=== PATIENT | female | born 1930 | race Caucasian/White ===

== ENCOUNTER → 2018-01-02 | Outpatient (CLI) | payer OTHER ==
[~2018-01-02] MED LIST: ALPR0.25 PO; AMT10 PO; ANTICRE6 PO; ARTISOL8 OP; CMD5 PO; CORTISONE CREAM TOP; PRLSR20 PO; SIMV20TA2 PO; TYLOTC500 PO; WARF5TAB7 PO; ZNT/150 PO
[2018-01-02 12:59] LABS: INR 1.9 (0.9-1.1)
== END | disposition home or self-care (01) ==
LOC: C.LABOAKS 16:38
PROVIDERS: ATTEND Student in an Organized Health Care Education/Training Program
DX: Z86.711 Personal history of pulmonary embolism (principal); Z51.81 Encounter for therapeutic drug level monitoring; Z79.01 Long term (current) use of anticoagulants

== ENCOUNTER → 2018-01-30 | Outpatient (CLI) | payer OTHER ==
[2018-01-30 12:56] LABS: INR 2.2 (0.9-1.1)
== END | disposition home or self-care (01) ==
LOC: C.LABOAKS 12:45
PROVIDERS: ATTEND Student in an Organized Health Care Education/Training Program
DX: Z86.711 Personal history of pulmonary embolism (principal); Z51.81 Encounter for therapeutic drug level monitoring; Z79.01 Long term (current) use of anticoagulants

== ENCOUNTER → 2018-02-27 | Outpatient (CLI) | payer OTHER ==
[2018-02-27 13:23] LABS: INR 3.1 (0.9-1.1)
== END | disposition home or self-care (01) ==
LOC: C.LABOAKS 18:01
PROVIDERS: ATTEND Pharmacist Pharmacotherapy

== ENCOUNTER → 2018-03-27 | Outpatient (CLI) | payer OTHER ==
[2018-03-27 13:17] LABS: INR 2.8 (0.9-1.1)
== END | disposition home or self-care (01) ==
LOC: C.LABOAKS 10:15
PROVIDERS: ATTEND Pharmacist Pharmacotherapy
DX: Z86.711 Personal history of pulmonary embolism (principal); Z79.01 Long term (current) use of anticoagulants; Z51.81 Encounter for therapeutic drug level monitoring

== ENCOUNTER → 2018-06-12 | Outpatient (CLI) | payer OTHER ==
[2018-06-12 13:24] LABS: INR 3.2 (0.9-1.1)
== END | disposition home or self-care (01) ==
LOC: C.LABOAKS 16:26
PROVIDERS: ATTEND Pharmacist Pharmacotherapy
DX: Z51.81 Encounter for therapeutic drug level monitoring (principal); Z79.01 Long term (current) use of anticoagulants

== ENCOUNTER → 2018-07-10 | Outpatient (CLI) | payer OTHER ==
[2018-07-10 13:05] LABS: INR 3.2 (0.9-1.1)
== END | disposition home or self-care (01) ==
LOC: C.LABOAKS 16:19
PROVIDERS: ATTEND Pharmacist Pharmacist Clinician (PhC)/ Clinical Pharmacy Specialist
DX: Z79.01 Long term (current) use of anticoagulants (principal); Z51.81 Encounter for therapeutic drug level monitoring

== ENCOUNTER 2019-10-28 11:12 | Inpatient (IN) ==
[2019-10-28] MEDS ORDERED: cefTRIAXone SODIUM 2,000 MG/70 ML BAG IV STA (12:06)
[2019-10-28] MEDS ORDERED: SULFAMETHOXAZOLE/TRIMETHOPRIM DS 800/160MG TAB PO ONE (12:06)
[2019-10-28] MEDS ORDERED: KETOROLAC 30 MG/ML VIAL IV STA (12:07)
[2019-10-28] MEDS ORDERED: SODIUM CHLORIDE 0.9% 1000ML 1,000 ML IV ONE (12:07)
[2019-10-28] MEDS ORDERED: ONDANSETRON INJ 2 MG/ML 2 ML VIAL IV STA (12:07)
[2019-10-28] MEDS ORDERED: HYDROmorphone INJ 1 MG/ML SYRINGE IV PRN (12:07)
[2019-10-28 12:18] LABS: Basophils # (auto) 0.03 K/uL (0-0.2); Basophils % (auto) 0.3 %; Eosinophils # (auto) 0.04 K/uL (0-0.5); Eosinophils % (auto) 0.4 %; Hematocrit (blood only) 38.9 % (37-47); Hemoglobin 13.2 g/dL (12.0-16.0); Immature Granulocytes # (auto) 0.03 K/uL (0.00-0.02); Immature Granulocytes % (auto) 0.3 %; Lymphocytes # (auto) 1.39 K/uL (1.2-3.4); Lymphocytes % (auto) 15.6 %; Mean Corpuscular Hemoglobin 32.7 pg (25-34); Mean Corpuscular Hgb Conc 33.9 g/dL (32-36); Mean Corpuscular Volume 96.3 fL (80-100); Mean Platelet Volume 11.5 fL (7.4-10.4); Monocytes # (auto) 0.93 K/uL (0.11-0.59); Monocytes % (auto) 10.4 %; Neutrophils # (auto) 6.51 K/uL (1.4-6.5); Platelet Count 111 K/uL (130-400); RDW Coefficient of Variation 13.7 % (11.5-14.5); RDW Standard Deviation 48.4 fL (36.4-46.3); Red Blood Count 4.04 M/uL (4.2-5.4); White Blood Count 8.93 K/uL (4.8-10.8)
[2019-10-28 12:22] LABS: INR 1.9 (0.9-1.1); Prothrombin Time 18.5 Seconds (9.0-12.0)
[2019-10-28 12:24] LABS: Albumin Level 3.7 gm/dl (3.4-5.0); Creatinine Clr Calc Pharmacy 58.2 ml/min; Est GFR (African American) 87.3; Est GFR (Non-African American) 75.3; Potassium 3.5 mmol/L (3.5-5.1)
[2019-10-28 12:26] LABS: Albumin Globulin Ratio 1.1 (0.9-2); Bilirubin,Total 0.9 mg/dl (0.2-1); Globulin 3.4 gm/dl (2.5-4.0); Total Protein 7.1 gm/dl (6.4-8.2)
--- NOTE | 2019-10-28 13:13 | Ultrasound Report ---
US venous doppler LE RT CLINICAL HISTORY: 89 years-old Female presenting with Pt c/o RLQ swelling. TECHNIQUE: Real-time grayscale and color and spectral Doppler ultrasound imaging of the veins of the right lower extremity was performed. Compression and augmentation were also utilized. COMPARISON: 05/27/2011. FINDINGS: RIGHT: Common femoral vein: Linear echogenic filling defects within the vein are evident without focal throm bus. Greater saphenous vein (superficial): Linear echogenic filling defects within the vein without focal thrombus. Deep femoral vein: Patent. Femoral vein: The distal femoral vein demonstrates incomplete compressibility though preserved blood flow on color and spectral Doppler interrogation likely indicating chronic scarring. Popliteal vein: Patent. Calf veins: Patent. Other: Subcutaneous edema noted in the lower leg. IMPRESSION: 1. 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 2. No evidence of acute deep venous thrombosis. 3. Chronic sequela of prior thrombus also suggested in the distal right femoral vein. Electronically signed by: Timmy Granados M.D. 10/28/2019 1:12 PM
[2019-10-28] MEDS ORDERED: DALBAVANCIN IV ONE (13:30)
[2019-10-28] MEDS ORDERED: DEXTROSE 5% IV ONE (13:30)
--- NOTE | 2019-10-28 13:46 | Emergency Department Note ---
Entered by Tomasa Mayorga acting as a scribe for History of Present Illness General Chief complaint: Leg Injury/Pain Time Seen by Provider: 10/28/19 12:02 Source: patient History of Present Illness Provider complaint: Leg Injury/Pain Onset (ago): week(s) 2 Location: lower extremity Maximum Pain Intensity: 9 Relieved By: + none Exacerbated By: + movement Associated symptoms: + rash The patient is a 89 year old female who presents to the Emergency Room with complaints of leg injury/pain that began 2 weeks ago. The patient states the pain is exacerbated by movement and is not relieved by anything specific. The patient reports that she is unable to walk due to the pain and has noticed a rash on her legs. The patient notes that she does not see anyone for her leg pain and takes Coumadin for blood clots. Additionally, the patient notes that she lives at the [facility] alone. Home Medications Home Medications Medication Instructions Recorded Confirmed Type acetaminophen [Tylenol Extra 500 mg PO Q6H PRN 10/28/19 10/28/19 History Strength] amitriptyline 5 mg PO HS 10/28/19 10/28/19 History cholecalciferol (vitamin D3) 1,000 unit PO DAILY 10/28/19 10/28/19 History [Vitamin D3] cod liver oil 1 cap PO HS 10/28/19 10/28/19 History colchicine [Colcrys] 0.6 mg PO DAILY 10/28/19 10/28/19 History diclofenac sodium [Voltaren] 2 g TOPICAL BID 10/28/19 10/28/19 History famotidine [Pepcid] 20 mg PO DAILY 10/28/19 10/28/19 History lorazepam [Ativan] 0.5 mg PO Q6 PRN 10/28/19 10/28/19 History methenamine hippurate [Hiprex] 1 g PO BID 10/28/19 10/28/19 History tetrahydrozoline [Visine] 1 drp OPHTHALMIC (EYE) UD PRN 10/28/19 10/28/19 History triamcinolone acetonide 1 applic TOPICAL BID 10/28/19 10/28/19 History warfarin [Coumadin] 2.5 mg PO .TUTHSA 10/28/19 10/28/19 History warfarin [Coumadin] 5 mg PO .SUMOWEFR 10/28/19 10/28/19 History Allergies Allergy/AdvReac Type Severity Reaction Status Date / Time levofloxacin Allergy Severe ITCHING/HIV Verified 08/27/14 10:45 ES adhesive Allergy Unknown REDNESS, Verified 08/27/14 10:58 RASH indomethacin Allergy Unknown . Verified 08/27/14 10:45 meperidine Allergy Unknown UNKNOWN Verified 08/27/14 10:45 nitrofurantoin Allergy Unknown Verified 08/27/14 10:45 Sulfa (Sulfonamide Allergy Unknown Verified 08/27/14 10:45 Antibiotics) morphine AdvReac Intermediate SEVERE Verified 08/27/14 10:45 VOMITING oxycodone AdvReac Intermediate VOMITING Verified 08/27/14 10:45 tramadol AdvReac Intermediate N/V Verified 08/27/14 10:45 Past Med/Surg History Medical History (Updated 10/28/19 @ 17:33 by Tali Noel PA-C) Ambulatory dysfunction Chronic a-fib Depression Diabetes mellitus, type II Dyslipidemia GERD (gastroesophageal reflux disease) Gout H/O recurrent urinary tract infection Heart disease History of breast cancer History of DVT (deep vein thrombosis) History of pulmonary embolism History of stroke Stroke Surgical History (Updated 10/28/19 @ 17:00 by Tali Noel PA-C) History of cholecystectomy History of partial mastectomy Family History (Updated 10/28/19 @ 17:00 by Tali Noel PA-C) Other Cancer Diabetes Social History (Updated 10/28/19 @ 17:04 by Tali Noel PA-C) Preferred Language: Citizen Of [place] Communication Ability: Effective 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 and A total of 10 systems reviewed and were otherwise negative Physical Exam Vital Signs Vital Signs - 24 hr 10/28/19 11:19 10/28/19 13:10 10/28/19 14:02 Temperature 37.3 C Temperature Source Oral Pulse Rate 69 67 Pulse Rate [Finger] 64 74 Pulse Rhythm Regular Pulse Strength Normal Respiratory Rate 20 16 22 Respiratory Effort / Characteristics Non-Labored Spontaneous Respiratory Depth Normal Respiratory Pattern Regular Blood Pressure 165/88 H 146/67 H Blood Pressure [Right Arm] 136/66 146/67 H Blood Pressure Mean 113 80 Blood Pressure Mean [Right Arm] 89 93 Blood Pressure Position Sitting Pulse Oximetry 97 100 Oxygen Delivery Method Room Air Room Air Sepsis Recent Fever Within 48 Hours No Sepsis New/Unexplained Change in Mental Status No Sepsis Action Taken by Nursing No Action Required 10/28/19 15:53 10/28/19 15:54 10/28/19 16:00 Temperature Temperature Source Pulse Rate 65 70 81 Pulse Rate [Finger] Pulse Rhythm Pulse Strength Respiratory Rate 17 18 26 H Respiratory Effort / Characteristics Respiratory Depth Respiratory Pattern Blood Pressure 138/68 Blood Pressure [Right Arm] Blood Pressure Mean 89 Blood Pressure Mean [Right Arm] Blood Pressure Position Pulse Oximetry Oxygen Delivery Method Room Air Sepsis Recent Fever Within 48 Hours Sepsis New/Unexplained Change in Mental Status Sepsis Action Taken by Nursing GENERAL: Awake, alert, well-appearing, in no acute distress HENT: Normocephalic, atraumatic. Oropharynx unremarkable. EYES: Normal conjunctiva. Sclera non-icteric. NECK: Supple. No nuchal rigidity. FROM. No JVD. RESPIRATORY: Clear to auscultation. CARDIAC: Regular rate, normal rhythm. Extremities warm and well perfused. Pulses equal. ABDOMEN: Soft, non-distended. No tenderness to palpation. No rebound or guarding. No masses. RECTAL: Deferred. MUSCULOSKELETAL: Chest examination reveals no tenderness. The back is symmetrical on inspection without obvious abnormality. There is no CVA tenderness to palpation. No joint edema. LOWER EXTREMITIES: Calves are equal size bilaterally and non-tender. No edema. RLE cellulitis that goes usp up the tibia. NEURO: Normal sensorium. No sensory or motor deficits noted. SKIN: No rash or jaundice noted. Course Course 1204: Past medical records reviewed. The patient was evaluated in room A12B. A complete history and physical exam was performed. 1546: The patient failed her ambulatory test. 1600: I spoke with Tali Rapp PA-C about the patient's case and Dr. Nunn- Hospitalist will accept the patient for further evaluation. Administered Medications Warfarin Sodium (Coumadin) 5 mg PO [id number] MIKE Stop: 11/27/19 18:59 Last Admin: 10/28/19 19:57 Dose: 5 mg Documented by: [id number] Discontinued Medications Acetaminophen (Tylenol) 1,000 mg PO NOW STA Stop: 10/28/19 14:30 Last Admin: 10/28/19 15:34 Dose: 1,000 mg Documented by: [id number] Ceftriaxone Sodium (Rocephin) 2,000 mg in 70 mls @ 140 mls/hr IV NOW STA Stop: 10/28/19 12:35 Last Infusion: 10/28/19 14:32 Dose: 0 mls/hr Documented by: [id number] Admin: 10/28/19 13:59 Dose: 140 mls/hr Documented by: [id number] Sodium Chloride (Nss 1000ml) 1,000 mls @ 999 mls/hr IV .Q1H1M ONE Stop: 10/28/19 13:07 Last Admin: 10/28/19 15:43 Dose: Not Given Documented by: [id number] Dalbavancin 1,500 mg/ Dextrose 325 mls @ 650 mls/hr IV NOW ONE Stop: 10/28/19 13:59 Last Infusion: 10/28/19 15:39 Dose: 0 mls/hr Documented by: [id number] Admin: 10/28/19 14:31 Dose: 650 mls/hr Documented by: [id number] Ketorolac Tromethamine (Toradol) 30 mg IV NOW STA Stop: 10/28/19 12:08 Last Admin: 10/28/19 15:44 Dose: Not Given Documented by: [id number] Ketorolac Tromethamine (Toradol) Confirm Administered Dose 30 mg .ROUTE .STK-MED ONE Stop: 10/28/19 15:25 Last Admin: 10/28/19 15:36 Dose: 30 mg Documented by: [id number] Ondansetron HCl (Zofran) 4 mg IV NOW STA Stop: 10/28/19 12:08 Last Admin: 10/28/19 15:44 Dose: Not Given Documented by: [id number] Ondansetron HCl (Zofran) Confirm Administered Dose 4 mg .ROUTE .STK-MED ONE Stop: 10/28/19 15:25 Last Admin: 10/28/19 15:36 Dose: 4 mg Documented by: [id number] Trimethoprim/Sulfamethoxazole (Septra Ds 800/160mg Tab) 1 tab PO NOW ONE Stop: 10/28/19 12:07 Last Admin: 10/28/19 14:00 Dose: 1 tab Documented by: [id number] Medical Decision Making Differential Diagnosis Differential diagnosis: Etiologies such as cellulitis, abscess, osteomyelitis, MRSA infection, DVT, necrotizing fasciitis, dermatitis, drug eruption, as well as others were entertained. Medical Records Attestation: I reviewed the patient's medical records. Home Medications Current Medication List: was personally reviewed by me Laboratory Data Attestation: I reviewed the patient's lab results. Result diagrams: 10/28/19 11:28 10/28/19 11:28 Lab Results 10/28/19 10/28/19 10/28/19 Range/Units 11:28 11:28 11:28 WBC 8.93 (4.8-10.8) K/uL RBC 4.04 L (4.2-5.4) M/uL Hgb 13.2 (12.0-16.0) g/dL Hct 38.9 (37-47) % MCV 96.3 (80-100) fL MCH 32.7 (25-34) pg MCHC 33.9 (32-36) g/dL RDW Std Deviation 48.4 H (36.4-46.3) fL RDW Coeff of Jun 13.7 (11.5-14.5) % Plt Count 111 L (130-400) K/uL MPV 11.5 H (7.4-10.4) fL Immature Gran % (Auto) 0.3 % Neut % (Auto) 73.0 % Lymph % (Auto) 15.6 % Dare % (Auto) 10.4 % Eos % (Auto) 0.4 % Baso % (Auto) 0.3 % Immature Gran # (Auto) 0.03 H (0.00-0.02) K/uL Neut # (Auto) 6.51 H (1.4-6.5) K/uL Lymph # (Auto) 1.39 (1.2-3.4) K/uL Dare # (Auto) 0.93 H (0.11-0.59) K/uL Eos # (Auto) 0.04 (0-0.5) K/uL Baso # (Auto) 0.03 (0-0.2) K/uL PT 18.5 H (9.0-12.0) Seconds INR 1.9 H (0.9-1.1) Sodium 136 (136-145) mmol/L Potassium 3.5 (3.5-5.1) mmol/L Chloride 103 (98-107) mmol/L Carbon Dioxide 28 (21-32) mmol/L Anion Gap 5.0 (3-11) BUN 16 (7-18) mg/dl Creatinine 0.72 (0.6-1.2) mg/dl Est Cr Clr Drug Dosing 58.2 ml/min Est GFR ( Amer) 87.3 Est GFR (Non-Af Amer) 75.3 BUN/Creatinine Ratio 22.0 H (10-20) Glucose 198 H (70-99) mg/dl Calcium 10.0 (8.5-10.1) mg/dl Total Bilirubin 0.9 (0.2-1) mg/dl AST 24 (15-37) U/L ALT 31 (12-78) U/L Alkaline Phosphatase 72 (45-117) U/L Total Protein 7.1 (6.4-8.2) gm/dl Albumin 3.7 (3.4-5.0) gm/dl Globulin 3.4 (2.5-4.0) gm/dl Albumin/Globulin Ratio 1.1 (0.9-2) Lipase 190 (73-393) U/L Urine Color Urine Appearance (Clear) Urine pH (4.5-7.5) Ur Specific [place] (1.000-1.030) Urine Protein (Negative) Urine Glucose (UA) (Negative) Urine Ketones (Negative) Urine Blood (Negative) Urine Nitrite (Negative) Urine Bilirubin (Negative) Urine Urobilinogen (Negative) Ur Leukocyte Esterase (Negative) Urine WBC (Auto) (0-5) /hpf Urine RBC (Auto) (0-4) /hpf U Hyaline Cast (Auto) (0-5) /lpf U Epithel Cells (Auto) (0-5) /lpf Urine Bacteria (Auto) (Negative) 10/28/19 Range/Units 15:28 WBC (4.8-10.8) K/uL RBC (4.2-5.4) M/uL Hgb (12.0-16.0) g/dL Hct (37-47) % MCV (80-100) fL MCH (25-34) pg MCHC (32-36) g/dL RDW Std Deviation (36.4-46.3) fL RDW Coeff of Jun (11.5-14.5) % Plt Count (130-400) K/uL MPV (7.4-10.4) fL Immature Gran % (Auto) % Neut % (Auto) % Lymph % (Auto) % Dare % (Auto) % Eos % (Auto) % Baso % (Auto) % Immature Gran # (Auto) (0.00-0.02) K/uL Neut # (Auto) (1.4-6.5) K/uL Lymph # (Auto) (1.2-3.4) K/uL Dare # (Auto) (0.11-0.59) K/uL Eos # (Auto) (0-0.5) K/uL Baso # (Auto) (0-0.2) K/uL PT (9.0-12.0) Seconds INR (0.9-1.1) Sodium (136-145) mmol/L Potassium (3.5-5.1) mmol/L Chloride (98-107) mmol/L Carbon Dioxide (21-32) mmol/L Anion Gap (3-11) BUN (7-18) mg/dl Creatinine (0.6-1.2) mg/dl Est Cr Clr Drug Dosing ml/min Est GFR ( Amer) Est GFR (Non-Af Amer) BUN/Creatinine Ratio (10-20) Glucose (70-99) mg/dl Calcium (8.5-10.1) mg/dl Total Bilirubin (0.2-1) mg/dl AST (15-37) U/L ALT (12-78) U/L Alkaline Phosphatase (45-117) U/L Total Protein (6.4-8.2) gm/dl Albumin (3.4-5.0) gm/dl Globulin (2.5-4.0) gm/dl Albumin/Globulin Ratio (0.9-2) Lipase (73-393) U/L Urine Color Yellow Urine Appearance Clear (Clear) Urine pH 6.5 (4.5-7.5) Ur Specific [place] 1.017 (1.000-1.030) Urine Protein Negative (Negative) Urine Glucose (UA) Negative (Negative) Urine Ketones Negative (Negative) Urine Blood Negative (Negative) Urine Nitrite Positive A (Negative) Urine Bilirubin Negative (Negative) Urine Urobilinogen Negative (Negative) Ur Leukocyte Esterase 2+ H (Negative) Urine WBC (Auto) >30 H (0-5) /hpf Urine RBC (Auto) 0-4 (0-4) /hpf U Hyaline Cast (Auto) 1-5 (0-5) /lpf U Epithel Cells (Auto) 5-10 H (0-5) /lpf Urine Bacteria (Auto) 2+ H (Negative) Imaging Data Radiologist's Impression: Radiology results as stated below per my review and the radiologist's interpretation: US venous doppler LE RT CLINICAL HISTORY: 89 years-old Female presenting with Pt c/o RLQ swelling. TECHNIQUE: Real-time grayscale and color and spectral Doppler ultrasound imaging of the veins of the right lower extremity was performed. Compression and augmentation were also utilized. COMPARISON: 05/27/2011. FINDINGS: RIGHT: Common femoral vein: Linear echogenic filling defects within the vein are evident without focal thrombus. Greater saphenous vein (superficial): Linear echogenic filling defects within the vein without focal thrombus. Deep femoral vein: Patent. Femoral vein: The distal femoral vein demonstrates incomplete compressibility though preserved blood flow on color and spectral Doppler interrogation likely indicating chronic scarring. Popliteal vein: Patent. Calf veins: Patent. Other: Subcutaneous edema noted in the lower leg. IMPRESSION: 1. 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 2. No evidence of acute deep venous thrombosis. 3. Chronic sequela of prior thrombus also suggested in the distal right femoral vein. Electronically signed by: Timmy Granados M.D. 10/28/2019 1:12 PM Blood Pressure Blood Pressure Findings: Elevated blood pressure Blood Pressure Disposition: further management by hospitalist PARRIS Mehta This is an 89-year-old female who presents emergency department complaining of right lower extremity pain. Patient appears to have a cellulitis of the right lower extremity and I felt we could treat this with Dalvance however at the time of discharge the patient is unable to ambulate due to the pain in the leg. She does not have any evidence of a blood clot. I did discuss the case with the hospitalist service who did agree to admit the patient. Patient was in agreement with the treatment plan. Impression & Plan Cellulitis Discharge Plan Visit Data *Final* Discharge Date/Time: 10/28/19 17:30 Chief Complaint: Leg Injury/Pain ED Provider: Johnnie Banegas Discharge Problem: Cellulitis Patient Disposition: Home - Self-Care Condition: Good Discharge Instructions Interventions: ED Discharge Assessment Last Done: 10/28/19 17:30 Discharge Problem: Cellulitis Qualifiers: Site of cellulitis: unspecified site Qualified Code(s): L03.90 - Cellulitis, unspecified The scribe's documentation has been prepared under my direction and personally reviewed by me in its entirety. I confirm that the note above accurately reflects all work, treatment, procedures, and medical decision making performed by me.
[2019-10-28] MEDS ORDERED: ACETAMINOPHEN 500 MG TAB PO STA (14:29)
[2019-10-28] MEDS ORDERED: ONDANSETRON INJ 2 MG/ML 2 ML VIAL ONE (15:24)
[2019-10-28] MEDS ORDERED: KETOROLAC 30 MG/ML VIAL ONE (15:24)
[2019-10-28 16:19] LABS: Appearance Urine Clear (Clear); Bacteria Urine Automated 2+ (Negative); Bilirubin Urine Negative (Negative); Blood Urine Negative (Negative); Color Urine Yellow; Glucose Urine UA Negative (Negative); Ketones Urine Negative (Negative); Leukocyte Esterase Urine 2+ (Negative); Nitrite Urine Positive (Negative); Protein Urine Negative (Negative); RBC Urine Automated 0-4 /hpf (0-4); Specific Gravity Urine 1.017 (1.000-1.030); Urobilinogen Urine Negative (Negative); WBC Urine Automated >30 /hpf (0-5); pH Urine 6.5 (4.5-7.5)
--- NOTE | 2019-10-28 16:49 | History & Physical Report ---
Date of Service October 28, 2019 Assessment & Plan (1) Cellulitis: Pt presented with c/o RLE edema, erythema and pain x 2 weeks. Reported tactile fevers In ER afebrile, vitals stable. No leukocytosis RLE Venous Dopper: 1. 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 2. No evidence of acute deep venous thrombosis. 3. Chronic sequela of prior thrombus also suggested in the distal right femoral vein. 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 No rate or rhythm control medications. Rate controlled. INR: 1.9 -Obtain EKG -Continue Coumadin -Monitor INR (5) H/O recurrent urinary tract infection: -Continue methenamine (6) Diabetes mellitus, type II: Not on medications -A1c in AM -Novolog correction scale as needed (7) Gout: -Continue colchicine -Monitor renal functions (8) GERD (gastroesophageal reflux disease): -Continue H2 richard DVT Prophylaxis -Heparin SQ while INR subtherapeutic DNR/DNI as per discussion with pt Follows with Dr Bhavya Lanier for routine care Pt was seen and care coordinated with Dr Nunn. See addendum History of Present Illness Chief Complaint: R leg pain Primary Care Provider: Dr Bhavya Lanier Pt is 89 y/o F with PMH chronic a-fib, h/o DVT/PE, on chronic Coumadin, h/o CVA, venous insufficiency, dyslipidemia, h/o recurrent UTI on chronic suppressive therapy presented to ER with c/o RLE edema, erythema and pain x 2 weeks. Reports worsening symptoms and has been having trouble ambulating and today was not able to stand on leg secondary to pain. Uses walker to ambulate at baseline. Reports tactile fevers past couple of days. Denies any known injury/trauma or abrasions to leg/foot. Pt states did not mention anything to anybody about her leg symptoms until today. Denies N/V/D/C, JOYNER, dizziness, syncope, vision changes, neck pain, CP, SOB, orthopnea, cough, sore throat, choking, otalgia, rhinorrhea, abdominal pain, paresthesias, other rashes, urinary symptoms. Allergies Allergy/AdvReac Type Severity Reaction Status Date / Time levofloxacin Allergy Severe ITCHING/HIV Verified 08/27/14 10:45 ES adhesive Allergy Unknown REDNESS, Verified 08/27/14 10:58 RASH indomethacin Allergy Unknown . Verified 08/27/14 10:45 meperidine Allergy Unknown UNKNOWN Verified 08/27/14 10:45 nitrofurantoin Allergy Unknown Verified 08/27/14 10:45 Sulfa (Sulfonamide Allergy Unknown Verified 08/27/14 10:45 Antibiotics) morphine AdvReac Intermediate SEVERE Verified 08/27/14 10:45 VOMITING oxycodone AdvReac Intermediate VOMITING Verified 08/27/14 10:45 tramadol AdvReac Intermediate N/V Verified 08/27/14 10:45 Home Medications Home Medications Medication Instructions Recorded Confirmed Type acetaminophen [Tylenol Extra 500 mg PO Q6H PRN 10/28/19 10/28/19 History Strength] amitriptyline 5 mg PO HS 10/28/19 10/28/19 History cholecalciferol (vitamin D3) 1,000 unit PO DAILY 10/28/19 10/28/19 History [Vitamin D3] cod liver oil 1 cap PO HS 10/28/19 10/28/19 History colchicine [Colcrys] 0.6 mg PO DAILY 10/28/19 10/28/19 History diclofenac sodium [Voltaren] 2 g TOPICAL BID 10/28/19 10/28/19 History famotidine [Pepcid] 20 mg PO DAILY 10/28/19 10/28/19 History lorazepam [Ativan] 0.5 mg PO Q6 PRN 10/28/19 10/28/19 History methenamine hippurate [Hiprex] 1 g PO BID 10/28/19 10/28/19 History tetrahydrozoline [Visine] 1 drp OPHTHALMIC (EYE) UD PRN 10/28/19 10/28/19 History triamcinolone acetonide 1 applic TOPICAL BID 10/28/19 10/28/19 History warfarin [Coumadin] 2.5 mg PO .TUTHSA 10/28/19 10/28/19 History warfarin [Coumadin] 5 mg PO .SUMOWEFR 10/28/19 10/28/19 History Past Med/Surg History Medical History Ambulatory dysfunction Chronic a-fib Depression Diabetes mellitus, type II Dyslipidemia GERD (gastroesophageal reflux disease) Gout H/O recurrent urinary tract infection Heart disease History of breast cancer History of DVT (deep vein thrombosis) History of pulmonary embolism History of stroke Stroke Surgical History History of cholecystectomy History of partial mastectomy Family History Other Cancer Diabetes Social History Preferred Language: Irish Communication Ability: Effective 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: No Beliefs That Will Affect Care: None Current Living Situation: Alone and Personal Care Facility Current Living Situation Comment: lives at [facility] Other Information That Helps Us Care for You: No Feels Safe at Home: Yes Safety Concerns: Feels Safe At This Time Smoking Status: Never smoker Do You Dip or Chew Tobacco: No ; Second Hand Exposure: No ; Tobacco Cessation Education Requested by Patient: No Hx Alcohol Use: No Hx Substance Use: No Review of Systems Review of Systems: All systems reviewed & are unremarkable except as noted in HPI & below Physical Exam Physical Exam: General: no distress, WDWN Head: normocephalic, atraumatic Eyes: PERRL, EOM's intact, conjunctiva non-injected, anicteric ENT: normal inspection external ears, nose, mucous membranes moist Neck: supple, trachea midline Lungs: clear, no respiratory distress, no wheezing/rhonchi/rales CV: irregularly irregular, rate 80, systolic murmur,no pretibial edema to left leg Abd: normal BS, soft, non-tender Ext: LLE: brown skin discoloration, RLE: +erythema and edema entire left lower leg with tenderness to palpation, distal pulses palpable Neuro: A&O x 3, no focal deficits noted, normal affect Skin: warm, dry, legs as above Results & Data Vital Signs (Past 12 Hours) Vital Signs Temp Pulse Pulse Resp BP BP Pulse Ox 10/28/19 14:02 74 16 146/67 H 10/28/19 13:10 64 16 136/66 100 10/28/19 11:19 37.3 C 69 20 165/88 H 97 Laboratory Results Short CBC 10/28/19 Range/Units 11:28 WBC 8.93 (4.8-10.8) K/uL Hgb 13.2 (12.0-16.0) g/dL Hct 38.9 (37-47) % Plt Count 111 L (130-400) K/uL BMP 10/28/19 11:28 Sodium 136 Potassium 3.5 Chloride 103 Carbon Dioxide 28 BUN 16 Creatinine 0.72 Glucose 198 H Calcium 10.0 Liver Function 10/28/19 Range/Units 11:28 Total Bilirubin 0.9 (0.2-1) mg/dl AST 24 (15-37) U/L ALT 31 (12-78) U/L Alkaline Phosphatase 72 (45-117) U/L Albumin 3.7 (3.4-5.0) gm/dl Urine 10/28/19 Range/Units 15:28 Urine Color Yellow Urine Appearance Clear (Clear) Urine pH 6.5 (4.5-7.5) Ur Specific [place] 1.017 (1.000-1.030) Urine Protein Negative (Negative) Urine Glucose (UA) Negative (Negative) Diagnostic Findings RLE Venous Doppler: IMPRESSION: 1. 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 2. No evidence of acute deep venous thrombosis. 3. Chronic sequela of prior thrombus also suggested in the distal right femoral vein. Code Status & VTE Plan VTE Prophylaxis Plan VTE Prophylaxis will be ordered: Yes Supervising Physician Co-Signing Physician Notes I have seen and examined the patient and have discussed the case with the provider above. I agree with the assessment and plan as stated. 89 yo F with symptoms of pain and weakness with erythema for the past 3-4 weeks by her report. The pain became so bad she couldn't stand this morning, prompting the ER visit. Lower extremity US reveals evidence of chronic thrombus in her right leg without evidence of acute DVT. She is anticoagulated on coumadin with an INR 1.9. She received dalbavancin and rocephin in the ER this evening and reports feeling better. She denies any fevers or chills. She does report some dysuria and urinary urgency consistent with her positive UA. We are continuing with empiric rocephin pending urine culture results. She is not septic and is excited about the possibility of going home tomorrow. She reports being able to ambulate better now. Physial exam reveals a normal heart and lung exam. RLE is erythematous and warm to the touch with trace swelling. There is no open wound. Cont Rocephin and ID consult. Trend labs in am. PT/OT to assess safety to return home. DO Edouard (1) Cellulitis Site of cellulitis: unspecified site Qualified Code(s): L03.90 - Cellulitis, unspecified
[2019-10-28] MEDS ORDERED: GLUCOSE 10 TABS/TUBE PO PRN (17:37)
[2019-10-28] MEDS ORDERED: ACETAMINOPHEN 325 MG TAB PO PRN (17:37)
[2019-10-28] MEDS ORDERED: GLUCAGON FOR INJ 1 MG VIAL SQ PRN (17:37)
[2019-10-28] MEDS ORDERED: LORazepam 0.5 MG TAB PO PRN (17:37)
[2019-10-28] MEDS ORDERED: CARBOHYDRATES FOR HYPOGLYCEMIA PO PRN (17:37)
[2019-10-28] MEDS ORDERED: DEXTROSE 50% 50 ML SYRINGE IV PRN (17:37)
[2019-10-28] MEDS ORDERED: GLUCOSE 40% GEL 15 GM TUBE PO PRN (17:37)
[2019-10-28] MEDS: WARFARIN SOD 5 MG TAB PO SCH (19:57)
[2019-10-28] MEDS ORDERED: HEPARIN SOD 5,000 UNIT/0.5 ML VIAL SQ SCH (21:00)
[2019-10-28] MEDS: INSULIN ASPART 100 UNITS/ML 3 ML PEN SC SCH (21:41)
[2019-10-28] MEDS: AMITRIPTYLINE HCL 10 MG TAB PO SCH (21:43)
[2019-10-28] MEDS: TRIAMCINOLONE ACET 0.1% OINT 15 GM TUBE TOP SCH (21:44)
[2019-10-28] MEDS: METHENAMINE HIPPURATE 1 GM TAB PO SCH (21:44)
[2019-10-28] MEDS: ACETAMINOPHEN 500 MG TAB PO SCH (21:45)
[2019-10-29 06:11] LABS: Hematocrit (blood only) 39.3 % (37-47); Hemoglobin 13.1 g/dL (12.0-16.0); Mean Corpuscular Hgb Conc 33.3 g/dL (32-36); Mean Corpuscular Volume 96.1 fL (80-100); Platelet Count 118 K/uL (130-400); RDW Coefficient of Variation 13.5 % (11.5-14.5); RDW Standard Deviation 47.7 fL (36.4-46.3); Red Blood Count 4.09 M/uL (4.2-5.4); White Blood Count 7.06 K/uL (4.8-10.8)
[2019-10-29] MEDS: ACETAMINOPHEN 500 MG TAB PO SCH ×3 (06:14→20:44)
[2019-10-29 06:26] LABS: INR 1.9 (0.9-1.1); Prothrombin Time 18.2 Seconds (9.0-12.0)
[2019-10-29 06:38] LABS: Estimated Average Glucose 134 mg/dl; Hemoglobin A1C 6.3 % (4.5-5.6)
[2019-10-29 06:42] LABS: BUN Creatinine Ratio 20.8 (10-20); Calcium 9.8 mg/dl (8.5-10.1); Creatinine Clr Calc Pharmacy 53.7 ml/min; Est GFR (African American) 79.2; Est GFR (Non-African American) 68.4; Potassium 3.6 mmol/L (3.5-5.1)
[2019-10-29] MEDS: cefTRIAXone SODIUM 2,000 MG in DEXTROSE 5% 50 ML IV SCH (09:02)
[2019-10-29] MEDS: CHOLECALCIFEROL 1,000 UNITS TAB PO SCH (09:05)
[2019-10-29] MEDS: FAMOTIDINE 20 MG TAB PO SCH (09:05)
[2019-10-29] MEDS: METHENAMINE HIPPURATE 1 GM TAB PO SCH ×2 (09:05→20:44)
[2019-10-29] MEDS: COLCHICINE 0.6 MG TAB PO SCH (09:05)
[2019-10-29] MEDS: TRIAMCINOLONE ACET 0.1% OINT 15 GM TUBE TOP SCH ×2 (09:06→20:44)
[2019-10-29] MEDS: INSULIN ASPART 100 UNITS/ML 3 ML PEN SC SCH ×4 (09:10→21:01)
--- NOTE | 2019-10-29 13:03 | Hospitalist Progress Note ---
Date of Service October 29, 2019 Assessment & Plan (1) Cellulitis: Patient is an 89-year-old female presents with RLE edema, erythema and pain x 2 weeks. B/L LE Cellulitis --RLE Venous Dopper: 1. 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 2. No evidence of acute deep venous thrombosis. 3. Chronic sequela of prior thrombus also suggested in the distal right femoral vein. --Positive MRSA swab --Blood Culture:Pending --Continue Rocephin Day #2, added doxycycline today --ID was consulted --Pain Control Ambulatory dysfunction Likely secondary to above PT OT Abnormal UA R/O UTI Urine culture pending Continue Rocephin for now (2) Ambulatory dysfunction: As above (3) History of DVT (deep vein thrombosis): H/O DVT, PE. On chronic Coumadin INR: 1.9 Continue Coumadin Monitor INR (4) Chronic a-fib: On Coumadin. No rate or rhythm control medications. Rate controlled. INR: 1.9 Continue Coumadin Monitor INR (5) H/O recurrent urinary tract infection: Continue methenamine (6) Diabetes mellitus, type II: Diet-controlled, not on medications Hb A1c: 6.3 Continue insulin therapy while hospitalized Monitor blood glucose levels (7) Gout: Continue colchicine Monitor renal function (8) GERD (gastroesophageal reflux disease): Continue Pepcid DVT Px On Coumadin CODE STATUS DNR/DNI Disposition PT OT prior to discharge Follows with Dr Bhavya Lanier for routine care Subjective Patient is seen and examined at bedside Complaints nausea but no vomiting Leg pain, erythema slightly better Denies any chest pain, shortness of breath, dizziness, abdominal pain Offers no other complaints Review of Systems Review of Systems: All systems reviewed & are unremarkable except as noted in HPI & below Physical Exam 2 Physical Exam: Physical Exam: Vitals signs as noted above General Appearance:Elderly, Moderately built and nourished, no apparent distress Head: normocephalic, Atraumatic Eyes: normal inspection, EOMI Neck: supple, Trachea midline Respiratory/Chest: Normal breath sounds, CTA Cardiovascular: S1, S2, + systolic murmur Abdomen/GI:Soft, Non tender, Bowel sounds present Extremities/Musculoskelatal:normal inspection, B/L LE edema, erythema, mild tenderness Neurologic/Psych:AAOX3, grossly no focal neurological deficits Skin: normal color, warm Results & Data Vital Signs (Past 12 Hours) Vital Signs Temp Pulse Resp BP Pulse Ox 10/29/19 07:15 36.9 C 56 L 17 101/59 L 91 Laboratory Results Short CBC 10/29/19 Range/Units 05:46 WBC 7.06 (4.8-10.8) K/uL Hgb 13.1 (12.0-16.0) g/dL Hct 39.3 (37-47) % Plt Count 118 L (130-400) K/uL BMP 10/29/19 05:46 Sodium 139 Potassium 3.6 Chloride 106 Carbon Dioxide 30 BUN 16 Creatinine 0.78 Glucose 149 H Calcium 9.8 Urine 10/28/19 Range/Units 15:28 Urine Color Yellow Urine Appearance Clear (Clear) Urine pH 6.5 (4.5-7.5) Ur Specific [place] 1.017 (1.000-1.030) Urine Protein Negative (Negative) Urine Glucose (UA) Negative (Negative) (1) Cellulitis Site of cellulitis: unspecified site Qualified Code(s): L03.90 - Cellulitis, unspecified
--- NOTE | 2019-10-29 13:11 | Infectious Disease Consult ---
Date of Consultation October 29, 2019 Assessment & Plan (1) Cellulitis: can continue with current abx pending culture results. if negative, can likely be followed off of abx as she did receive dose of Dalvance in Er. elevate leg. History of Present Illness Attending Physician: Ezekiel Kennedy MD pt admitted with rle pain, erythema and swelling. no f/c. was given Dalvance in ER but due to pain with ambulation she was admitted, she is now on ctx and tolerating well. afebrile since admission. wbc 7, blood cultures pending. feeling better, states she would like to be d/c in 1-2 days. leg pain better, walking to [place] without pain. oob to chair on my exam. no abd pain, no n/v/d. no cp, sob, cough. no gu symptoms. ultrasound negative for dvt. Allergies Allergy/AdvReac Type Severity Reaction Status Date / Time levofloxacin Allergy Severe ITCHING/HIV Verified 08/27/14 10:45 ES adhesive Allergy Unknown REDNESS, Verified 08/27/14 10:58 RASH indomethacin Allergy Unknown . Verified 08/27/14 10:45 meperidine Allergy Unknown UNKNOWN Verified 08/27/14 10:45 nitrofurantoin Allergy Unknown Verified 08/27/14 10:45 Sulfa (Sulfonamide Allergy Unknown Verified 08/27/14 10:45 Antibiotics) morphine AdvReac Intermediate SEVERE Verified 08/27/14 10:45 VOMITING oxycodone AdvReac Intermediate VOMITING Verified 08/27/14 10:45 tramadol AdvReac Intermediate N/V Verified 08/27/14 10:45 Home Medications Home Medications Medication Instructions Recorded Confirmed Type acetaminophen [Tylenol Extra 500 mg PO Q6H PRN 10/28/19 10/28/19 History Strength] amitriptyline 5 mg PO HS 10/28/19 10/28/19 History cholecalciferol (vitamin D3) 1,000 unit PO DAILY 10/28/19 10/28/19 History [Vitamin D3] cod liver oil 1 cap PO HS 10/28/19 10/28/19 History colchicine [Colcrys] 0.6 mg PO DAILY 10/28/19 10/28/19 History diclofenac sodium [Voltaren] 2 g TOPICAL BID 10/28/19 10/28/19 History famotidine [Pepcid] 20 mg PO DAILY 10/28/19 10/28/19 History lorazepam [Ativan] 0.5 mg PO Q6 PRN 10/28/19 10/28/19 History methenamine hippurate [Hiprex] 1 g PO BID 10/28/19 10/28/19 History tetrahydrozoline [Visine] 1 drp OPHTHALMIC (EYE) UD PRN 10/28/19 10/28/19 History triamcinolone acetonide 1 applic TOPICAL BID 10/28/19 10/28/19 History warfarin [Coumadin] 2.5 mg PO .TUTHSA 10/28/19 10/28/19 History warfarin [Coumadin] 5 mg PO .SUMOWEFR 10/28/19 10/28/19 History Patient History Medical History Ambulatory dysfunction Chronic a-fib Depression Diabetes mellitus, type II Dyslipidemia GERD (gastroesophageal reflux disease) Gout H/O recurrent urinary tract infection Heart disease History of breast cancer History of DVT (deep vein thrombosis) History of pulmonary embolism History of stroke Stroke Surgical History History of cholecystectomy History of partial mastectomy Family History Other Cancer Diabetes Social History Preferred Language: Nepali Communication Ability: Effective 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 Beliefs That Will Affect Care: None Current Living Situation: Personal Care Facility Current Living Situation Comment: lives at [facility] Other Information That Helps Us Care for You: No Feels Safe at Home: Yes Safety Concerns: Feels Safe At This Time Smoking Status: Never smoker Do You Dip or Chew Tobacco: No ; Second Hand Exposure: No ; Tobacco Cessation Education Requested by Patient: No Hx Alcohol Use: No Hx Substance Use: No Review of Systems Review of Systems: All systems reviewed & are unremarkable except as noted in HPI & below Physical Exam Constitutional: WD/WN, vitals as above Eyes: PERRL, conjunctivae normal, anicteric sclerae ENMT: external ear and nose normal, oropharynx normal Neck: normal visual inspection Respiratory: normal respiratory effort, lungs clear to auscultation Cardiovascular: RRR, no murmur, no edema Gastrointestinal (Abdomen): normal bowel sounds, soft, nontender, no hepatosplenomegaly Musculoskeletal: no cyanosis or clubbing, extremities motor strength 5/5 Skin: no rashes, warm and dry + erythema (min r calf erythema warmth nontender no open wounds) Psychiatric: A+Ox3, euthymic affect Results & Data Vital Signs (Past 12 Hours) Vital Signs Temp Pulse Resp BP Pulse Ox 10/29/19 07:15 36.9 C 56 L 17 101/59 L 91 PG Care Time/CCT Total # of Minutes Spent Total Time Spent with Patient: Total time spent is greater than 50% in coordination of care (as documented) at patient's floor/unit and/or counseling patient: (1) Cellulitis Site of cellulitis: unspecified site Qualified Code(s): L03.90 - Cellulitis, unspecified
[2019-10-29] MEDS ORDERED: WARFARIN SOD 2.5 MG TAB PO SCH (16:00)
[2019-10-29] MEDS: AMITRIPTYLINE HCL 10 MG TAB PO SCH (20:43)
[2019-10-29] MEDS: DOXYCYCLINE HYCLATE 100 MG CAP PO SCH (20:44)
[2019-10-30] MEDS: ACETAMINOPHEN 500 MG TAB PO SCH ×3 (05:57→22:19)
[2019-10-30 06:06] LABS: Hematocrit (blood only) 34.7 % (37-47); Hemoglobin 11.8 g/dL (12.0-16.0); Mean Corpuscular Hemoglobin 32.2 pg (25-34); Mean Corpuscular Volume 94.6 fL (80-100); Mean Platelet Volume 11.1 fL (7.4-10.4); Platelet Count 115 K/uL (130-400); RDW Coefficient of Variation 13.6 % (11.5-14.5); RDW Standard Deviation 47.5 fL (36.4-46.3); Red Blood Count 3.67 M/uL (4.2-5.4); White Blood Count 6.15 K/uL (4.8-10.8)
[2019-10-30 06:20] LABS: INR 2.3 (0.9-1.1); Prothrombin Time 22.3 Seconds (9.0-12.0)
[2019-10-30 06:35] LABS: Calcium 8.9 mg/dl (8.5-10.1); Creatinine Clr Calc Pharmacy 60.7 ml/min; Est GFR (African American) 90.7; Est GFR (Non-African American) 78.3
[2019-10-30] MEDS: TRIAMCINOLONE ACET 0.1% OINT 15 GM TUBE TOP SCH ×2 (08:59→20:53)
[2019-10-30] MEDS: DOXYCYCLINE HYCLATE 100 MG CAP PO SCH ×2 (08:59→20:54)
[2019-10-30] MEDS: COLCHICINE 0.6 MG TAB PO SCH (08:59)
[2019-10-30] MEDS: METHENAMINE HIPPURATE 1 GM TAB PO SCH ×2 (08:59→20:53)
[2019-10-30] MEDS: FAMOTIDINE 20 MG TAB PO SCH (08:59)
[2019-10-30] MEDS: CHOLECALCIFEROL 1,000 UNITS TAB PO SCH (09:00)
[2019-10-30] MEDS: INSULIN ASPART 100 UNITS/ML 3 ML PEN SC SCH ×4 (09:16→22:05)
[2019-10-30] MEDS: cefTRIAXone SODIUM 2,000 MG in DEXTROSE 5% 50 ML IV SCH (09:50)
[2019-10-30] MEDS ORDERED: ARTIFICIAL TEARS OP PRN (14:38)
[2019-10-30] MEDS: WARFARIN SOD 5 MG TAB PO SCH (17:07)
[2019-10-30] MEDS: AMITRIPTYLINE HCL 10 MG TAB PO SCH (20:52)
--- NOTE | 2019-10-30 22:43 | Hospitalist Progress Note ---
Date of Service October 30, 2019 Assessment & Plan (1) Cellulitis: Presented with cellulitis of right lower extremity. Received dalbavancin in ED. Also receiving IV ceftriaxone. Cultures negative so far. (2) Chronic a-fib: Rate controlled. Continue warfarin. (3) History of stroke: Continue warfarin. (4) Diabetes mellitus, type II: Diet controlled. Hemoglobin A1c 6.3. Fasting blood sugar today = 129. (5) Ambulatory dysfunction: PT and OT evaluations obtained. Continue ambulation with walker and assistance. (6) Do not resuscitate status: As noted. (7) DVT prophylaxis: On warfarin for history of DVT and PE. (8) Discharge planning issues: Anticipated return to [facility]. Family Medicine follow-up with Dr. Bhavya Lanier. Subjective Recheck for cellulitis of right leg. Patient seen in their room around 1200. Minimal improvement of RLE discomfort and erythema. No fever. Still having difficulty ambulating. Not ready for DC. Review of Systems: Constitutional- no fever. Cardiac- no chest pain. Pulmonary- no cough or SOB. GI- no nausea, vomiting, diarrhea, melena, hematochezia. - urinary urgency without dysuria. Otherwise, as noted above. Physical Exam Constitutional: no acute distress Eyes: + anicteric sclerae Respiratory: no respiratory distress Auscultation: lungs clear to auscultation bilaterally Cardiovascular: Rate/Rhythm: regular rate and regular rhythm Heart Sounds: no gallop Vessels: no JVD Extremities: + edema (1+ edema RLE); no calf tenderness Gastrointestinal (Abdomen): normal bowel sounds, soft, nontender, no hepatosplenomegaly Skin: + erythema (right leg) Psychiatric: Orientation: alert and oriented x 3 Results & Data Vital Signs (Past 12 Hours) Vital Signs Temp Pulse Resp BP Pulse Ox 10/30/19 15:07 36.4 C L 62 20 109/69 94 Laboratory Results Laboratory Results - last 24 hr 10/30/19 10/30/19 10/30/19 05:05 05:05 05:05 WBC 6.15 RBC 3.67 L Hgb 11.8 L Hct 34.7 L MCV 94.6 MCH 32.2 MCHC 34.0 RDW Std Deviation 47.5 H RDW Coeff of Jun 13.6 Plt Count 115 L MPV 11.1 H PT 22.3 H INR 2.3 H Sodium 138 Potassium 4.0 Chloride 108 H Carbon Dioxide 27 Anion Gap 3.0 BUN 15 Creatinine 0.69 Est Cr Clr Drug Dosing 60.7 Est GFR ( Amer) 90.7 Est GFR (Non-Af Amer) 78.3 BUN/Creatinine Ratio 22.0 H Glucose 132 H POC Glucose Calcium 8.9 10/30/19 10/30/19 10/30/19 07:41 11:40 16:51 WBC RBC Hgb Hct MCV MCH MCHC RDW Std Deviation RDW Coeff of Jun Plt Count MPV PT INR Sodium Potassium Chloride Carbon Dioxide Anion Gap BUN Creatinine Est Cr Clr Drug Dosing Est GFR ( Amer) Est GFR (Non-Af Amer) BUN/Creatinine Ratio Glucose POC Glucose 129 H 128 H 141 H Calcium 10/30/19 19:34 WBC RBC Hgb Hct MCV MCH MCHC RDW Std Deviation RDW Coeff of Jun Plt Count MPV PT INR Sodium Potassium Chloride Carbon Dioxide Anion Gap BUN Creatinine Est Cr Clr Drug Dosing Est GFR ( Amer) Est GFR (Non-Af Amer) BUN/Creatinine Ratio Glucose POC Glucose 148 H Calcium Microbiology 10/28/19 13:01 Blood Aerobic Blood Culture - Preliminary No growth in Aerobic bottle after 48 hours. 10/28/19 13:01 Blood Anaerobic Blood Culture - Preliminary No growth in Anaerobic bottle after 48 hours. 10/28/19 17:53 Blood Aerobic Blood Culture - Preliminary No growth in Aerobic bottle after 48 hours. 10/28/19 17:53 Blood Anaerobic Blood Culture - Preliminary No growth in Anaerobic bottle after 48 hours. 10/28/19 15:28 Urine,Clean Catch Urine Culture - Final Three types of organisms present, all low counts probable skin magali. No further identifications or sensitivities to follow. (1) Cellulitis Site of cellulitis: unspecified site Qualified Code(s): L03.90 - Cellulitis, unspecified
[2019-10-31] MEDS: ACETAMINOPHEN 500 MG TAB PO SCH ×2 (06:13→13:17)
[2019-10-31 06:15] LABS: INR 2.1 (0.9-1.1); Prothrombin Time 20.3 Seconds (9.0-12.0)
[2019-10-31 06:35] LABS: BUN Creatinine Ratio 24.1 (10-20); Calcium 9.5 mg/dl (8.5-10.1); Creatinine Clr Calc Pharmacy 65.5 ml/min; Est GFR (Non-African American) 80.2; Potassium 3.6 mmol/L (3.5-5.1)
[2019-10-31] MEDS: FAMOTIDINE 20 MG TAB PO SCH (07:43)
[2019-10-31] MEDS: TRIAMCINOLONE ACET 0.1% OINT 15 GM TUBE TOP SCH (07:43)
[2019-10-31] MEDS: COLCHICINE 0.6 MG TAB PO SCH (07:43)
[2019-10-31] MEDS: DOXYCYCLINE HYCLATE 100 MG CAP PO SCH (07:43)
[2019-10-31] MEDS: METHENAMINE HIPPURATE 1 GM TAB PO SCH (07:43)
[2019-10-31] MEDS: cefTRIAXone SODIUM 2,000 MG in DEXTROSE 5% 50 ML IV SCH (07:44)
[2019-10-31] MEDS: CHOLECALCIFEROL 1,000 UNITS TAB PO SCH (07:44)
[2019-10-31] MEDS: INSULIN ASPART 100 UNITS/ML 3 ML PEN SC SCH ×2 (08:03→13:20)
--- NOTE | 2019-10-31 14:30 | Hospitalist Progress Note ---
Date of Service October 31, 2019 Assessment & Plan (1) Cellulitis: Presented with cellulitis of right lower extremity. Received dalbavancin in ED. Also received IV ceftriaxone and doxycycline. Cultures negative so far. Dalbavancin should offer coverage for 7 days and 1 dose should be adequate. No need for additional antibiotic treatment if improvement continues. Reassess for need for additional Rx when seen in clinic. (2) Chronic a-fib: Rate controlled. Continue warfarin. INR 2.1 day of discharge. (3) History of stroke: Continue warfarin. (4) Diabetes mellitus, type II: Diet controlled. Hemoglobin A1c 6.3. Fasting blood sugar day of discharge 158. No need for tight glycemic control given advanced age. (5) Ambulatory dysfunction: PT and OT evaluations obtained. Continue ambulation with walker and assistance. (6) MRSA (methicillin resistant Staphylococcus aureus) carrier: Nasal MRSA screen + at time of admission. Colonization. Importance of handwashing discussed. Received dalbavancin for cellulitis, which may help with clearance. (7) Do not resuscitate status: As noted. (8) DVT prophylaxis: On warfarin for history of DVT and PE. (9) Discharge planning issues: Return to [facility]. [facility] Medicine follow-up with Dr. Bhavya Lanier. Subjective Seen in the morning and reassessed in the afternoon. Pain, swelling, erythema right leg improved. No fever. No diarrhea. Had an episode of emesis this morning after taking morning meds (including doxycyline). No abdominal pain. Ate lunch without difficulty- no recurrence of N/V. Anxious to be discharged. Ambulating with walker. Physical Exam Constitutional: no acute distress Eyes: + anicteric sclerae Respiratory: no respiratory distress Auscultation: lungs clear to auscultation bilaterally Cardiovascular: Rate/Rhythm: regular rate and regular rhythm Heart Sounds: no gallop Vessels: no JVD Extremities: + edema (1+ edema RLE); no calf tenderness Gastrointestinal (Abdomen): normal bowel sounds, soft, nontender, no hepatosplenomegaly Skin: + erythema (resolving erythema right leg) Psychiatric: Orientation: alert and oriented x 3 Results & Data Vital Signs (Past 12 Hours) Vital Signs Temp Pulse Resp BP Pulse Ox 10/31/19 07:28 36.8 C 55 L 18 111/65 96 Laboratory Results Microbiology 10/28/19 13:01 Blood Aerobic Blood Culture - Preliminary No growth in Aerobic bottle after 48 hours. 10/28/19 13:01 Blood Anaerobic Blood Culture - Preliminary No growth in Anaerobic bottle after 48 hours. 10/28/19 17:53 Blood Aerobic Blood Culture - Preliminary No growth in Aerobic bottle after 48 hours. 10/28/19 17:53 Blood Anaerobic Blood Culture - Preliminary No growth in Anaerobic bottle after 48 hours. 10/28/19 15:28 Urine,Clean Catch Urine Culture - Final Three types of organisms present, all low counts probable skin magali. No further identifications or sensitivities to follow. (1) Cellulitis Site of cellulitis: unspecified site Qualified Code(s): L03.90 - Cellulitis, unspecified
[2019-10-31] MEDS ORDERED: WARFARIN SOD 1 MG TAB PO SCH (16:00)
--- NOTE | 2019-11-01 05:00 | Discharge Summary ---
Date of Service Date of Admission: 10/28/19 Date of Discharge: 10/31/19 Admission HPI Per Admitting Provider Pt is 89 y/o F with PMH chronic a-fib, h/o DVT/PE, on chronic Coumadin, h/o CVA, venous insufficiency, dyslipidemia, h/o recurrent UTI on chronic suppressive therapy presented to ER with c/o RLE edema, erythema and pain x 2 weeks. Reports worsening symptoms and has been having trouble ambulating and today was not able to stand on leg secondary to pain. Uses walker to ambulate at baseline. Reports tactile fevers past couple of days. Denies any known injury/trauma or abrasions to leg/foot. Pt states did not mention anything to anybody about her leg symptoms until today. Denies N/V/D/C, JOYNER, dizziness, syncope, vision changes, neck pain, CP, SOB, orthopnea, cough, sore throat, choking, otalgia, rhinorrhea, abdominal pain, paresthesias, other rashes, urinary symptoms. Principal Diagnosis cellulitis right lower extremity OTHER ACUTE / NEW DIAGNOSES: MRSA nasal colonization Discharge Data Allergies Allergy/AdvReac Type Severity Reaction Status Date / Time levofloxacin Allergy Severe ITCHING/HIV Verified 08/27/14 10:45 ES adhesive Allergy Unknown REDNESS, Verified 08/27/14 10:58 RASH indomethacin Allergy Unknown . Verified 08/27/14 10:45 meperidine Allergy Unknown UNKNOWN Verified 08/27/14 10:45 nitrofurantoin Allergy Unknown Verified 08/27/14 10:45 Sulfa (Sulfonamide Allergy Unknown Verified 08/27/14 10:45 Antibiotics) morphine AdvReac Intermediate SEVERE Verified 08/27/14 10:45 VOMITING oxycodone AdvReac Intermediate VOMITING Verified 08/27/14 10:45 tramadol AdvReac Intermediate N/V Verified 08/27/14 10:45 Consultations 10/28/19 16:14 ED Decision to Admit Stat 10/28/19 17:37 Consult Case Management - Discharge Planning Routine 10/28/19 17:58 Consult Infectious Diseases Routine Ordered Studies 10/28/19 12:06 US venous doppler LE RT Stat Hospital Course (1) Cellulitis: Presented with cellulitis of right lower extremity. Received dalbavancin in ED. Also received IV ceftriaxone and doxycycline. Cultures negative so far. Dalbavancin should offer coverage for 7 days and 1 dose should be adequate. No need for additional antibiotic treatment if improvement continues. Reassess for need for additional Rx when seen in clinic. (2) Chronic a-fib: Rate controlled. Continue warfarin. INR 2.1 day of discharge. (3) History of stroke: Continue warfarin. (4) Diabetes mellitus, type II: Diet controlled. Hemoglobin A1c 6.3. Fasting blood sugar day of discharge 158. No need for tight glycemic control given advanced age. (5) Ambulatory dysfunction: PT and OT evaluations obtained. Continue ambulation with walker and assistance. (6) MRSA (methicillin resistant Staphylococcus aureus) carrier: Nasal MRSA screen + at time of admission. Colonization. Importance of handwashing discussed. Received dalbavancin for cellulitis, which may help with clearance. (7) Do not resuscitate status: As noted. (8) DVT prophylaxis: On warfarin for history of DVT and PE. (9) Discharge planning issues: Returned to [facility]. Family Medicine follow-up with Dr. Bhavya Lanier. Total Time Total Time Spent Total Time Spent (In Minutes): 45 Discharge Plan Discharge Items Patient Disposition: Personal Custodial Reason For Visit: pain and swelling of right leg Discharge Diagnosis: cellulitis of right leg (skin infection) Condition on Discharge: Good Activity: Resume your previous activity Activity Comment: Please use walker and be careful. Non-emergency contact: Primary Care Provider and Hospitalist Call non-emergency contact if: you have any medication questions, your pain is not controlled and your temperature is above 101 Diet: Carb Consistent or DM2 and Heart Healthy Addtl Attending Provider Instructions: MEDICATION CHANGES: You received Dalvance which is a strong intravenous antibiotic that lasts for a week. No need for additional antibiotics unless things do not get better. SUMMARY OF TEST RESULTS: Blood cultures and urine culture did not show any infection. Swab of nose showed MRSA- a type of Staph bacteria that is resistant to some antibiotics. It is unlikely that the MRSA is making you sick. The Dalvance that you received may help it clear up. You should wash your hands with soap & water or alcohol based hand wash regularly. Ultrasound of leg did not show any blood clots. INR 2.1 on 10/31/19. RECOMMENDATIONS FOR FOLLOW-UP: 11/05/2019 11:00 AM Hayde Smith DO (covering for Dr. Lanier) [facility] in [place]. INR should be checked next week to monitor your warfarin (Coumadin) therapy. OTHER INSTRUCTIONS: Keep your right leg elevated as much as possible. Gently wash your legs with soap and water daily. Pat dry with clean towel. Seek medical attention if you have: * temperature above 101 * chest pain or trouble breathing * abdominal pain, nausea, vomiting * diarrhea, dark stools or bloody stools * any unanswered questions or concerns Call 911 if symptoms are severe. Please take good care of yourself. Call if you have any questions or problems. You can reach a [facility] hospitalist on duty at [facility] 24 hours a day by calling [phone]. My cell # is [phone]. Pending Studies at Discharge: No Stand-Alone Forms: My [facility] Managed Systems, Smoking Cessation Skilled Items Patient informed of condition?: Yes DNR: Yes Discharge Level of Care: Other Communicable Disease: Yes (MRSA colonization of nares) Discharge Prognosis: Improving Lines: None Urinary Catheter: No Medications and DC Order Prescriptions: Continued triamcinolone acetonide 0.1 % ointment 1 applic TOPICAL BID RF: 0 diclofenac sodium [Voltaren] 1 % gel 2 g TOPICAL BID RF: 0 cholecalciferol (vitamin D3) [Vitamin D3] 1,000 unit Tablet,Chewable 1,000 unit PO DAILY RF: 0 cod liver oil Capsule 1 cap PO HS RF: 0 warfarin [Coumadin] 2.5 mg tablet 2.5 mg PO .TUTHSA RF: 0 tetrahydrozoline [Visine] 0.05 % Drops 1 drp OPHTHALMIC (EYE) UD PRN (Reason: Dry Eyes) RF: 0 acetaminophen [Tylenol Extra Strength] 500 mg Tablet 500 mg PO Q6H PRN (Reason: Pain) RF: 0 methenamine hippurate [Hiprex] 1 gram tablet 1 g PO BID RF: 0 famotidine [Pepcid] 20 mg Tablet 20 mg PO DAILY RF: 0 lorazepam [Ativan] 0.5 mg tablet 0.5 mg PO Q6 PRN (Reason: Anxiety) RF: 0 amitriptyline 10 mg tablet 5 mg PO HS RF: 0 warfarin [Coumadin] 5 mg tablet 5 mg PO .SUMOWEFR RF: 0 colchicine [Colcrys] 0.6 mg tablet 0.6 mg PO DAILY RF: 0 Discharge Orders: Discharge Order (Routine); Ordered 10/31/19 Ordered By: Vitaliy Parkinson Admission Data Admit Date/Time: 10/29/19 16:29 Attending Provider: Vitaliy Parkinson Admit Provider: Ezekiel Kennedy Primary Care Provider: Desi RIVERA Providers: Carissa Nunn ; Soni Rothman ; Ezekiel Kennedy Other Interventions: Discharge Summary Assessment (RN) Last Done: 10/31/19 14:50 DC Date/Time DO NOT enter until pt leaves facility: 10/31/19 15:45
== END 2019-10-31 15:45 | disposition home or self-care (01) | DRG 603 ==
LOC: ED 11:12 → 4W 11:12 → SUATTDRO 16:33 → 4W 17:30 → SUATTDRO 10-29 16:29 → 4W 10-29 17:16

== ENCOUNTER 2019-11-05 12:39 | Inpatient (IN) ==
[2019-11-05] MEDS ORDERED: VANCOMYCIN CONSULT ACTIVE PRN (13:30)
[2019-11-05] MEDS ORDERED: PIPERACILLIN/TAZOBACTAM 4.5 GM/120 ML BAG IV ONE (13:30)
[2019-11-05] MEDS ORDERED: PIPERACILL/TAZOBAC CONSULT ACTIVE PRN ×2 (13:30→16:37)
[2019-11-05] MEDS ORDERED: SODIUM CHLORIDE 0.9% 500 ML IV SCH (13:30)
[2019-11-05] MEDS ORDERED: VANCOMYCIN HCL 1,500 MG in SODIUM CHLORIDE 0.9% 500 ML IV ONE (13:30)
[2019-11-05] MEDS ORDERED: ACETAMINOPHEN 1,000 MG/100 ML VIAL IV STA (14:37)
[2019-11-05 14:40] LABS: Basophils # (auto) 0.02 K/uL (0-0.2); Basophils % (auto) 0.3 %; Eosinophils # (auto) 0.11 K/uL (0-0.5); Eosinophils % (auto) 1.4 %; Hematocrit (blood only) 41.8 % (37-47); Hemoglobin 14.1 g/dL (12.0-16.0); Immature Granulocytes # (auto) 0.03 K/uL (0.00-0.02); Immature Granulocytes % (auto) 0.4 %; Lymphocytes # (auto) 1.69 K/uL (1.2-3.4); Lymphocytes % (auto) 21.2 %; Mean Corpuscular Hgb Conc 33.7 g/dL (32-36); Mean Platelet Volume 10.7 fL (7.4-10.4); Monocytes # (auto) 0.64 K/uL (0.11-0.59); Neutrophils # (auto) 5.47 K/uL (1.4-6.5); Neutrophils % (auto) 68.7 %; Platelet Count 179 K/uL (130-400); RDW Coefficient of Variation 13.5 % (11.5-14.5); RDW Standard Deviation 46.9 fL (36.4-46.3); White Blood Count 7.96 K/uL (4.8-10.8)
[2019-11-05 14:51] LABS: INR 2.7 (0.9-1.1); Partial Thromboplastin Ratio 1.4; Prothrombin Time 26.2 Seconds (9.0-12.0)
[2019-11-05 14:59] LABS: Albumin Level 3.8 gm/dl (3.4-5.0); BUN Creatinine Ratio 19.6 (10-20); Calcium 9.8 mg/dl (8.5-10.1); Creatinine Clr Calc Pharmacy 61.6 ml/min; Est GFR (African American) 91.6; Magnesium 2.4 mg/dl (1.8-2.4); Potassium 3.5 mmol/L (3.5-5.1)
[2019-11-05 15:02] LABS: Albumin Globulin Ratio 0.9 (0.9-2); Bilirubin,Total 0.4 mg/dl (0.2-1); Globulin 4.4 gm/dl (2.5-4.0); Phosphorus 2.8 mg/dl (2.5-4.9); Total Protein 8.2 gm/dl (6.4-8.2)
--- NOTE | 2019-11-05 15:09 | XRay Report ---
RIGHT TIBIA AND FIBULA 2 VIEWS CLINICAL HISTORY: Cellulitis. FINDINGS: AP and lateral portable views of the right tibia and fibula are obtained. No prior studies are available for comparison at the time of dictation. The skeletal structures are osteopenic. No fra cture is seen. There is no bony erosion or periostitis. Advanced arthritic change is noted in the kne e. The ankle joint appears maintained. There is a plantar calcaneal enthesophyte. Soft tissue edema i s present throughout the visualized right lower extremity. Atherosclerotic calcification is seen in t he regional arteries. IMPRESSION: Soft tissue swelling with no acute bony abnormality identified. Electronically signed by: David Howard M.D. 11/05/2019 3:07 PM
--- NOTE | 2019-11-05 15:10 | XRay Report ---
SINGLE VIEW CHEST CLINICAL HISTORY: Sepsis. FINDINGS: 2 AP, portable, upright chest radiographs are compared to study dated 10/09/2012 and correl ated with chest CT dated 02/06/1911. The examination is degraded by portable technique and patient rot ation. The heart is enlarged. The pulmonary vasculature is noncongested. Chronic interstitial thicken ing is similar to previous. There is bibasilar scarring/atelectasis. No airspace consolidation or lar ge pleural effusion is identified. No pneumothorax is seen. The skeletal structures are osteopenic. T he bony thorax is grossly intact. Surgical clips are noted in the right breast. IMPRESSION: Cardiomegaly with no active disease in the chest. Electronically signed by: David Howard M.D. 11/05/2019 3:09 PM
--- NOTE | 2019-11-05 15:16 | History & Physical Report ---
Date of Service November 05, 2019 Assessment & Plan (1) Cellulitis: Recent admission 10/28/19-10/31/19 for RLE cellulitis and ambulatory dysfunction secondary to leg pain. 10/28/19 Doppler lower extremity with no acute DVT. During that admission patient was initially given Dalvance on 10/28/2019 followed by Rocephin and doxycycline. Patient had negative blood cultures and was discharged home on no further antibiotics as patient was having improvement in Dalvance effective for 7 days per ID recommendations. Past couple of days with right leg dangling In ER afebrile, vitals stable. No leukocytosis. Normal lactate Right tib/fib xray: Soft tissue swelling with no acute bony abnormality identified -In ER given Zosyn, vancomycin -Zosyn, Daptomycin -Scheduled Tylenol -Monitor CBC, BMP (2) History of DVT (deep vein thrombosis): H/O PE, H/O DVT. On Coumadin INR: 2.7 -Continue Coumadin -Monitor INR (3) Chronic a-fib: On Coumadin Rate controlled -Continue Coumadin -Monitor INR (4) H/O recurrent urinary tract infection: No dysuria, hematuria, urinary frequency -Hold methenamine as on IV antibiotics (5) Diabetes mellitus, type II: A1c: 6.3 on 10/29/19 Diet controlled Random glucose 101 (6) Gout: -Continue colchicine -Monitor renal functions (7) GERD (gastroesophageal reflux disease): -Continue H2 richard DVT Prophylaxis -On Coumadin, INR: 2.7 DNR/DNI as per discussion with pt Follows with Dr Bhavya Lanier for routine care Pt was seen and care coordinated with Dr Parkinson. See addendum History of Present Illness Chief Complaint: RLE redness Primary Care Provider: MIGUEL Lanier Pt is 89 y/o F with PMH chronic a-fib, h/o DVT/PE, on chronic Coumadin, h/o CVA, venous insufficiency, dyslipidemia, h/o recurrent UTI on chronic suppressive therapy presented to ER with c/o RLE edema, erythema. Recent admission 10/28/19-10/31/19 for RLE cellulitis and ambulatory dysfunction secondary to leg pain. She had Doppler lower extremity with no acute DVT. During that admission patient was initially given Dalvance on 10/28/2019 followed by Rocephin and doxycycline. Patient had negative blood cultures and was discharged home on no further antibiotics as patient was having improvement in Dalvance effective for 7 days. Patient states area seems to be doing better however admits to having right leg dangling and not elevated during the day. Noticed increased swelling to right leg and foot and increased redness. States having pain to right lower leg as well. She has been able to ambulate with walker however reports has been walking with a limp. Denies any recent fever or chills. Denies any known injury/trauma or abrasions to leg/foot. Denies N/V/D/C, JOYNER, dizziness, syncope, vision changes, neck pain, CP, SOB, palpitations, orthopnea, cough, sore throat, choking, otalgia, rhinorrhea, abdominal pain, paresthesias, other rashes, urinary symptoms. Allergies Allergy/AdvReac Type Severity Reaction Status Date / Time levofloxacin Allergy Severe ITCHING/HIV Verified 08/27/14 10:45 ES adhesive Allergy Unknown REDNESS, Verified 08/27/14 10:58 RASH indomethacin Allergy Unknown . Verified 08/27/14 10:45 meperidine Allergy Unknown UNKNOWN Verified 08/27/14 10:45 nitrofurantoin Allergy Unknown Verified 08/27/14 10:45 Sulfa (Sulfonamide Allergy Unknown Verified 08/27/14 10:45 Antibiotics) morphine AdvReac Intermediate SEVERE Verified 08/27/14 10:45 VOMITING oxycodone AdvReac Intermediate VOMITING Verified 08/27/14 10:45 tramadol AdvReac Intermediate N/V Verified 08/27/14 10:45 Home Medications Home Medications Medication Instructions Recorded Confirmed Type acetaminophen [Tylenol Extra 500 mg PO Q6H PRN 10/28/19 11/05/19 History Strength] amitriptyline 5 mg PO HS 10/28/19 11/05/19 History cholecalciferol (vitamin D3) 1,000 unit PO QAM 10/28/19 11/05/19 History [Vitamin D3] cod liver oil 1 cap PO HS 10/28/19 11/05/19 History colchicine [Colcrys] 0.6 mg PO HS 10/28/19 11/05/19 History diclofenac sodium [Voltaren] 2 g TOPICAL BID 10/28/19 11/05/19 History famotidine [Pepcid] 20 mg PO QAM 10/28/19 11/05/19 History lorazepam [Ativan] 0.5 mg PO Q6 PRN 10/28/19 11/05/19 History methenamine hippurate [Hiprex] 1 g PO BID 10/28/19 11/05/19 History tetrahydrozoline [Visine] 1 drp OPHTHALMIC (EYE) UD PRN 10/28/19 11/05/19 History triamcinolone acetonide 1 applic TOPICAL BID 10/28/19 11/05/19 History warfarin [Coumadin] 2.5 mg PO TUTHSA 10/28/19 11/05/19 History warfarin [Coumadin] 5 mg PO SUMOWEFR 10/28/19 11/05/19 History propylene glycol-glycerin 1 drp OPB DIRECTED PRN 11/05/19 11/05/19 History [Advanced Eye Relief] Past Med/Surg History Medical History Ambulatory dysfunction Chronic a-fib Depression Diabetes mellitus, type II Dyslipidemia GERD (gastroesophageal reflux disease) Gout H/O recurrent urinary tract infection History of breast cancer History of DVT (deep vein thrombosis) History of pulmonary embolism History of stroke MRSA (methicillin resistant Staphylococcus aureus) carrier Stroke Surgical History History of cholecystectomy History of partial mastectomy Family History Other Cancer Diabetes Social History Preferred Language: Polish Communication Ability: Effective 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 Beliefs That Will Affect Care: None Current Living Situation: Personal Care Facility Current Living Situation Comment: [facility] Other Information That Helps Us Care for You: No Feels Safe at Home: Yes Safety Concerns: Feels Safe At This Time Smoking Status: Never smoker Do You Dip or Chew Tobacco: No ; Second Hand Exposure: No ; Tobacco Cessation Education Requested by Patient: No Hx Alcohol Use: No Hx Substance Use: No Review of Systems Review of Systems: All systems reviewed & are unremarkable except as noted in HPI & below Physical Exam Physical Exam: General: no distress, WDWN Head: normocephalic, atraumatic Eyes: PERRL, EOM's intact, conjunctiva non-injected, anicteric ENT: normal inspection external ears, nose, mucous membranes moist Neck: supple, trachea midline Lungs: clear, no respiratory distress, no wheezing/rhonchi/rales CV: irregularly irregular, rate 80, systolic murmur Abd: normal BS, soft, non-tender Ext: LLE: brown skin discoloration without edema, RLE: +erythema and edema mid lower leg to ankle with tenderness to palpation, +foot edema, 4th toe with ecchymosis, non-tender, distal pulses palpable Neuro: A&O x 3, no focal deficits noted, normal affect Skin: warm, dry, legs as above Results & Data Vital Signs (Past 12 Hours) Vital Signs Temp Pulse Resp BP Pulse Ox 11/05/19 12:42 36.6 C 62 20 134/74 98 Laboratory Results Short CBC 11/05/19 Range/Units 14:24 WBC 7.96 (4.8-10.8) K/uL Hgb 14.1 (12.0-16.0) g/dL Hct 41.8 (37-47) % Plt Count 179 (130-400) K/uL BMP 11/05/19 14:24 Sodium 137 Potassium 3.5 Chloride 105 Carbon Dioxide 29 BUN 13 Creatinine 0.67 Glucose 101 H Calcium 9.8 Liver Function 11/05/19 Range/Units 14:24 Total Bilirubin 0.4 (0.2-1) mg/dl AST 23 (15-37) U/L ALT 35 (12-78) U/L Alkaline Phosphatase 90 (45-117) U/L Albumin 3.8 (3.4-5.0) gm/dl Diagnostic Findings CXR: IMPRESSION: Cardiomegaly with no active disease in the chest. TIBIA/FIBULA XRAY: IMPRESSION: Soft tissue swelling with no acute bony abnormality identified. Code Status & VTE Plan VTE Prophylaxis Plan VTE Prophylaxis will be ordered: Yes Supervising Physician Co-Signing Physician Notes HISTORY: Record reviewed. Patient interviewed and examined in her room. Care coordinated with Tali Noel PA-C. Please refer to her documentation for complete history. Briefly, 89 YO female with history of AF and other problems. Treated for cellulitis RLE last week with Dalvandarlene. Cellulitis initially improved, but now has worsening edema, erythema, pain of right foot. No fever. EXAM: General- no distress Lungs- clear to auscultation; no respiratory distress Cardiovascular- irregular; II/ systolic murmur at base Abdomen- + bowel sounds, soft, nontender Extremities- 1+ pretibial edema, 2+ right pedal edema with erythema and warmth Neuro- alert, oriented Skin- moderate erythema right leg DATA: WBC 7960 INR 2.7 ASSESSMENT AND PLAN: Relapsing cellulitis RLE. IV daptomycin + piperacillin / tazobactam. Consult ID. Nasal MRSA colonization. Contact precautions. Please refer to SUE Noel's documentation for discussion of other issues. (1) Cellulitis Site of cellulitis: unspecified site Qualified Code(s): L03.90 - Cellulitis, unspecified
[2019-11-05] MEDS ORDERED: WARFARIN SOD 2.5 MG TAB PO SCH (16:19)
[2019-11-05] MEDS ORDERED: PROPYLENE GLYCOL OPB PRN (16:19)
[2019-11-05] MEDS ORDERED: POLYETHYLENE (MIRALAX) 17 GM PACK PO PRN (16:19)
[2019-11-05] MEDS ORDERED: LORazepam 0.5 MG TAB PO PRN (16:19)
[2019-11-05] MEDS ORDERED: GLYCERIN OPB PRN (16:19)
--- NOTE | 2019-11-05 16:33 | Emergency Department Note ---
Entered by Tomasa Mayorga acting as a scribe for Lv Obrien MD History of Present Illness General Chief complaint: Skin Problem Stated complaint: CELLULITIS GETTING WORSE Time Seen by Provider: 11/05/19 12:50 Source: patient History of Present Illness Provider complaint: Skin Problem Onset (ago): day(s) 1 Location: lower extremity and right Radiation: non-radiation Maximum Pain Intensity: 5 Relieved By: + none Exacerbated By: + movement Associated symptoms: + other (Swelling) The patient is a 89 year old female who presents to the Emergency Room with complaints of a skin problem of her right lower extremity that worsened yesterday. The patient notes that she was in the hospital recently for the same symptoms and an ultrasound was performed to look for clots. The patient states t he symptoms do not radiate anywhere else on her body and is exacerbated by movement, specifically walking because she states she is unable to put weight on her leg. The patient also states that her symptoms are not relieved by anything specific. The patient reports experiencing increased swelling of the leg. The patient notes that she has a history of clots. Home Medications Home Medications Medication Instructions Recorded Confirmed Type acetaminophen [Tylenol Extra 500 mg PO Q6H PRN 10/28/19 11/05/19 History Strength] amitriptyline 5 mg PO HS 10/28/19 11/05/19 History cholecalciferol (vitamin D3) 1,000 unit PO QAM 10/28/19 11/05/19 History [Vitamin D3] cod liver oil 1 cap PO HS 10/28/19 11/05/19 History colchicine [Colcrys] 0.6 mg PO HS 10/28/19 11/05/19 History diclofenac sodium [Voltaren] 2 g TOPICAL BID 10/28/19 11/05/19 History famotidine [Pepcid] 20 mg PO QAM 10/28/19 11/05/19 History lorazepam [Ativan] 0.5 mg PO Q6 PRN 10/28/19 11/05/19 History methenamine hippurate [Hiprex] 1 g PO BID 10/28/19 11/05/19 History tetrahydrozoline [Visine] 1 drp OPHTHALMIC (EYE) UD PRN 10/28/19 11/05/19 History triamcinolone acetonide 1 applic TOPICAL BID 10/28/19 11/05/19 History warfarin [Coumadin] 2.5 mg PO TUTHSA 10/28/19 11/05/19 History warfarin [Coumadin] 5 mg PO SUMOWEFR 10/28/19 11/05/19 History propylene glycol-glycerin 1 drp OPB DIRECTED PRN 11/05/19 11/05/19 History [Advanced Eye Relief] Allergies Allergy/AdvReac Type Severity Reaction Status Date / Time levofloxacin Allergy Severe ITCHING/HIV Verified 08/27/14 10:45 ES adhesive Allergy Unknown REDNESS, Verified 08/27/14 10:58 RASH indomethacin Allergy Unknown . Verified 08/27/14 10:45 meperidine Allergy Unknown UNKNOWN Verified 08/27/14 10:45 nitrofurantoin Allergy Unknown Verified 08/27/14 10:45 Sulfa (Sulfonamide Allergy Unknown Verified 08/27/14 10:45 Antibiotics) morphine AdvReac Intermediate SEVERE Verified 08/27/14 10:45 VOMITING oxycodone AdvReac Intermediate VOMITING Verified 08/27/14 10:45 tramadol AdvReac Intermediate N/V Verified 08/27/14 10:45 Past Med/Surg History Medical History Ambulatory dysfunction Chronic a-fib Depression Diabetes mellitus, type II Dyslipidemia GERD (gastroesophageal reflux disease) Gout H/O recurrent urinary tract infection History of breast cancer History of DVT (deep vein thrombosis) History of pulmonary embolism History of stroke MRSA (methicillin resistant Staphylococcus aureus) carrier Stroke Surgical History History of cholecystectomy History of partial mastectomy Family History Other Cancer Diabetes Social History Preferred Language: Azeri Communication Ability: Effective [employer] Required: No Beliefs That Will Affect Care: None marital status: Current Living Situation: Personal Care Facility Current Living Situation Comment: [facility] Other Information That Helps Us Care for You: No Feels Safe at Home: Yes Safety Concerns: Feels Safe At This Time Smoking Status: Never smoker Do You Dip or Chew Tobacco: No ; Second Hand Exposure: No ; Tobacco Cessation Education Requested by Patient: No Hx Alcohol Use: No Hx Substance Use: No Review of Systems See HPI for pertinent positives & negatives. and A total of 10 systems reviewed and were otherwise negative Physical Exam Vital Signs Vital Signs - 24 hr 11/06/19 07:00 Temperature 37.3 C Temperature Source Oral Pulse Rate [Left Finger] 75 Respiratory Rate 18 Blood Pressure [Right Arm] 123/76 Blood Pressure Mean [Right Arm] 91 Blood Pressure Position [Right Arm] Semi-fowlers Pulse Oximetry 93 GENERAL: Awake, alert, fatigue-appearing, in no distress HENT: Normocephalic, atraumatic. Oropharynx with dry mucous membranes and otherwise unremarkable. EYES: Normal conjunctiva. Sclera non-icteric. NECK: Supple. No nuchal rigidity. FROM. No JVD. RESPIRATORY: CTAB. CARDIAC: Regular rate, normal rhythm. Extremities warm and well perfused. Pulses equal. ABDOMEN: Soft, non-distended. No tenderness to palpation. No rebound or guarding. No masses. RECTAL: Deferred. MUSCULOSKELETAL: Chest examination reveals no tenderness. The back is symmetrical on inspection without obvious abnormality. There is no CVA tenderness to palpation. No joint edema. LOWER EXTREMITIES: 3+ right LE pitting edema with erythema and warmth of pretibial region. No crepitus. NEURO: Normal sensorium. No sensory or motor deficits noted. SKIN: Warm and dry. No jaundice noted. Course Course 1319: Past medical records reviewed. The patient was evaluated in room A04B. A complete history and physical exam was performed. 1402: I spoke with Tali Rapp PA-C about the patient's case and Dr. Parkinson- Hospitalist will accept the patient for further evaluation. Administered Medications Acetaminophen (Tylenol) 1,000 mg PO Q8 MIKE Stop: 12/05/19 21:59 Last Admin: 11/06/19 21:21 Dose: 1,000 mg Documented by: [id number] Admin: 11/06/19 13:21 Dose: 1,000 mg Documented by: [id number] Admin: 11/06/19 05:05 Dose: 1,000 mg Documented by: [id number] Admin: 11/05/19 21:17 Dose: 1,000 mg Documented by: [id number] Amitriptyline HCl (Elavil) 5 mg PO HS MIKE Stop: 12/05/19 20:59 Last Admin: 11/06/19 20:34 Dose: 5 mg Documented by: [id number] Admin: 11/05/19 21:16 Dose: 5 mg Documented by: [id number] Colchicine (Colcrys) 0.6 mg PO HS [facility] Stop: 12/05/19 20:59 Last Admin: 11/06/19 20:35 Dose: 0.6 mg Documented by: [id number] Admin: 11/05/19 21:16 Dose: 0.6 mg Documented by: [id number] Famotidine (Pepcid) 20 mg PO QAM [facility] Stop: 12/06/19 08:59 Last Admin: 11/06/19 07:38 Dose: 20 mg Documented by: [id number] Piperacillin Sod/Tazobactam (Sod 3.375 gm/ Dextrose) 115 mls @ 28.75 mls/hr IV Q8H MIKE; Protocol Stop: 11/15/19 19:59 Last Infusion: 11/06/19 23:56 Dose: 0 mls/hr Documented by: [id number] Admin: 11/06/19 19:56 Dose: 28.8 mls/hr Documented by: [id number] Infusion: 11/06/19 16:31 Dose: 0 mls/hr Documented by: [id number] Infusion: 11/06/19 16:00 Dose: 0 mls/hr Documented by: [id number] Admin: 11/06/19 11:52 Dose: 28.8 mls/hr Documented by: [id number] Infusion: 11/06/19 08:53 Dose: 0 mls/hr Documented by: [id number] Admin: 11/06/19 04:37 Dose: 28.8 mls/hr Documented by: [id number] Infusion: 11/06/19 01:14 Dose: 0 mls/hr Documented by: [id number] Admin: 11/05/19 21:15 Dose: 28.8 mls/hr Documented by: [id number] Daptomycin 250 mg/ Syringe 5 mls @ 2.5 mls/min IV Q24H MIKE; Protocol Stop: 11/16/19 03:59 Last Admin: 11/06/19 04:37 Dose: 2.5 mls/min Documented by: [id number] Lactobacillus Acidophilus (Floranex) 4 tab PO QIDM [facility] Stop: 12/06/19 16:59 Last Admin: 11/06/19 20:36 Dose: 4 tab Documented by: [id number] Admin: 11/06/19 17:46 Dose: 4 tab Documented by: [id number] Vitamin D (Vitamin D3) 1,000 units PO QAM [facility] Stop: 12/06/19 08:59 Last Admin: 11/06/19 07:38 Dose: 1,000 units Documented by: [id number] Warfarin Sodium (Coumadin) 2 mg PO DAILY@1600 [facility] Stop: 12/06/19 15:59 Last Admin: 11/06/19 17:45 Dose: 2 mg Documented by: [id number] Discontinued Medications Sodium Chloride (Nss) 500 mls @ 125 mls/hr IV .Q4H [facility] Stop: 12/05/19 13:29 Last Infusion: 11/05/19 17:17 Dose: 0 mls/hr Documented by: [id number] Admin: 11/05/19 14:57 Dose: 125 mls/hr Documented by: [id number] Piperacillin Sod/Tazobactam Sod (Zosyn) 4.5 gm in 120 mls @ 240 mls/hr IV NOW ONE Stop: 11/05/19 13:59 Last Infusion: 11/05/19 15:48 Dose: 0 mls/hr Documented by: [id number] Admin: 11/05/19 15:11 Dose: 240 mls/hr Documented by: [id number] Vancomycin HCl 1,500 mg/ (Sodium Chloride) 530 mls @ 200 mls/hr IV NOW ONE Stop: 11/05/19 16:08 Last Infusion: 11/05/19 17:48 Dose: 0 mls/hr Documented by: [id number] Admin: 11/05/19 15:09 Dose: 200 mls/hr Documented by: [id number] Acetaminophen (Ofirmev) 1,000 mg in 100 mls @ 400 mls/hr IV NOW STA Stop: 11/05/19 14:51 Last Infusion: 11/05/19 15:12 Dose: 0 mls/hr Documented by: [id number] Admin: 11/05/19 14:56 Dose: 400 mls/hr Documented by: [id number] Warfarin Sodium (Coumadin) 2.5 mg PO TuThSa@1600 [facility] Stop: 12/05/19 16:18 Last Admin: 11/05/19 18:06 Dose: 2.5 mg Documented by: [id number] Medical Decision Making Differential Diagnosis Differential diagnosis: Etiologies such as cellulitis, abscess, osteomyelitis, MRSA infection, DVT, necrotizing fasciitis, dermatitis, drug eruption, as well as others were entertained. Medical Records Attestation: I reviewed the patient's medical records. Home Medications Current Medication List: was personally reviewed by me Laboratory Data Attestation: I reviewed the patient's lab results. Result diagrams: 11/06/19 07:41 11/06/19 07:41 Lab Results 11/05/19 11/05/19 11/05/19 Range/Units 14:24 14:24 14:24 WBC 7.96 (4.8-10.8) K/uL RBC 4.40 (4.2-5.4) M/uL Hgb 14.1 (12.0-16.0) g/dL Hct 41.8 (37-47) % MCV 95.0 (80-100) fL MCH 32.0 (25-34) pg MCHC 33.7 (32-36) g/dL RDW Std Deviation 46.9 H (36.4-46.3) fL RDW Coeff of Jun 13.5 (11.5-14.5) % Plt Count 179 (130-400) K/uL MPV 10.7 H (7.4-10.4) fL Immature Gran % (Auto) 0.4 % Neut % (Auto) 68.7 % Lymph % (Auto) 21.2 % Citrus % (Auto) 8.0 % Eos % (Auto) 1.4 % Baso % (Auto) 0.3 % Immature Gran # (Auto) 0.03 H (0.00-0.02) K/uL Neut # (Auto) 5.47 (1.4-6.5) K/uL Lymph # (Auto) 1.69 (1.2-3.4) K/uL Citrus # (Auto) 0.64 H (0.11-0.59) K/uL Eos # (Auto) 0.11 (0-0.5) K/uL Baso # (Auto) 0.02 (0-0.2) K/uL PT 26.2 H (9.0-12.0) Seconds INR 2.7 H (0.9-1.1) APTT 37.0 H (21.0-31.0) Seconds PTT Ratio 1.4 Sodium 137 (136-145) mmol/L Potassium 3.5 (3.5-5.1) mmol/L Chloride 105 (98-107) mmol/L Carbon Dioxide 29 (21-32) mmol/L Anion Gap 3.0 (3-11) BUN 13 (7-18) mg/dl Creatinine 0.67 (0.6-1.2) mg/dl Est Cr Clr Drug Dosing 61.6 ml/min Est GFR ( Amer) 91.6 Est GFR (Non-Af Amer) 79.0 BUN/Creatinine Ratio 19.6 (10-20) Glucose 101 H (70-99) mg/dl POC Glucose (70-99) Lactate (0.4-2.0) mmol/L Calcium 9.8 (8.5-10.1) mg/dl Phosphorus 2.8 (2.5-4.9) mg/dl Magnesium 2.4 (1.8-2.4) mg/dl Total Bilirubin 0.4 (0.2-1) mg/dl AST 23 (15-37) U/L ALT 35 (12-78) U/L Alkaline Phosphatase 90 (45-117) U/L Total Protein 8.2 (6.4-8.2) gm/dl Albumin 3.8 (3.4-5.0) gm/dl Globulin 4.4 H (2.5-4.0) gm/dl Albumin/Globulin Ratio 0.9 (0.9-2) 11/05/19 11/05/19 11/05/19 Range/Units 14:24 17:15 20:34 WBC (4.8-10.8) K/uL RBC (4.2-5.4) M/uL Hgb (12.0-16.0) g/dL Hct (37-47) % MCV (80-100) fL MCH (25-34) pg MCHC (32-36) g/dL RDW Std Deviation (36.4-46.3) fL RDW Coeff of Jun (11.5-14.5) % Plt Count (130-400) K/uL MPV (7.4-10.4) fL Immature Gran % (Auto) % Neut % (Auto) % Lymph % (Auto) % Citrus % (Auto) % Eos % (Auto) % Baso % (Auto) % Immature Gran # (Auto) (0.00-0.02) K/uL Neut # (Auto) (1.4-6.5) K/uL Lymph # (Auto) (1.2-3.4) K/uL Citrus # (Auto) (0.11-0.59) K/uL Eos # (Auto) (0-0.5) K/uL Baso # (Auto) (0-0.2) K/uL PT (9.0-12.0) Seconds INR (0.9-1.1) APTT (21.0-31.0) Seconds PTT Ratio Sodium (136-145) mmol/L Potassium (3.5-5.1) mmol/L Chloride (98-107) mmol/L Carbon Dioxide (21-32) mmol/L Anion Gap (3-11) BUN (7-18) mg/dl Creatinine (0.6-1.2) mg/dl Est Cr Clr Drug Dosing ml/min Est GFR ( Amer) Est GFR (Non-Af Amer) BUN/Creatinine Ratio (10-20) Glucose (70-99) mg/dl POC Glucose 111 H 195 H (70-99) Lactate 1.6 (0.4-2.0) mmol/L Calcium (8.5-10.1) mg/dl Phosphorus (2.5-4.9) mg/dl Magnesium (1.8-2.4) mg/dl Total Bilirubin (0.2-1) mg/dl AST (15-37) U/L ALT (12-78) U/L Alkaline Phosphatase (45-117) U/L Total Protein (6.4-8.2) gm/dl Albumin (3.4-5.0) gm/dl Globulin (2.5-4.0) gm/dl Albumin/Globulin Ratio (0.9-2) 11/06/19 11/06/19 11/06/19 Range/Units 07:41 07:41 07:41 WBC 6.08 (4.8-10.8) K/uL RBC 4.02 L (4.2-5.4) M/uL Hgb 13.0 (12.0-16.0) g/dL Hct 37.7 (37-47) % MCV 93.8 (80-100) fL MCH 32.3 (25-34) pg MCHC 34.5 (32-36) g/dL RDW Std Deviation 46.6 H (36.4-46.3) fL RDW Coeff of Jun 13.5 (11.5-14.5) % Plt Count 159 (130-400) K/uL MPV 10.8 H (7.4-10.4) fL Immature Gran % (Auto) % Neut % (Auto) % Lymph % (Auto) % Citrus % (Auto) % Eos % (Auto) % Baso % (Auto) % Immature Gran # (Auto) (0.00-0.02) K/uL Neut # (Auto) (1.4-6.5) K/uL Lymph # (Auto) (1.2-3.4) K/uL Citrus # (Auto) (0.11-0.59) K/uL Eos # (Auto) (0-0.5) K/uL Baso # (Auto) (0-0.2) K/uL PT 27.7 H (9.0-12.0) Seconds INR 2.9 H (0.9-1.1) APTT (21.0-31.0) Seconds PTT Ratio Sodium 140 (136-145) mmol/L Potassium 3.8 (3.5-5.1) mmol/L Chloride 108 H (98-107) mmol/L Carbon Dioxide 25 (21-32) mmol/L Anion Gap 7.0 (3-11) BUN 10 (7-18) mg/dl Creatinine 0.72 (0.6-1.2) mg/dl Est Cr Clr Drug Dosing 57.3 ml/min Est GFR ( Amer) 87.3 Est GFR (Non-Af Amer) 75.3 BUN/Creatinine Ratio 13.4 (10-20) Glucose 160 H (70-99) mg/dl POC Glucose (70-99) Lactate (0.4-2.0) mmol/L Calcium 9.8 (8.5-10.1) mg/dl Phosphorus (2.5-4.9) mg/dl Magnesium (1.8-2.4) mg/dl Total Bilirubin (0.2-1) mg/dl AST (15-37) U/L ALT (12-78) U/L Alkaline Phosphatase (45-117) U/L Total Protein (6.4-8.2) gm/dl Albumin (3.4-5.0) gm/dl Globulin (2.5-4.0) gm/dl Albumin/Globulin Ratio (0.9-2) Imaging Data Radiologist's Impression: Radiology results as stated below per my review and the radiologist's interpretation: SINGLE VIEW CHEST CLINICAL HISTORY: Sepsis. FINDINGS: 2 AP, portable, upright chest radiographs are compared to study dated 10/09/2012 and correlated with chest CT dated 02/06/1911. The examination is degraded by portable technique and patient rotation. The heart is enlarged. The pulmonary vasculature is noncongested. Chronic interstitial thickening is similar to previous. There is bibasilar scarring/atelectasis. No airspace consolidation or large pleural effusion is identified. No pneumothorax is seen. The skeletal structures are osteopenic. The bony thorax is grossly intact. Surgical clips are noted in the right breast. IMPRESSION: Cardiomegaly with no active disease in the chest. Electronically signed by: David Howard M.D. 11/05/2019 3:09 PM RIGHT TIBIA AND FIBULA 2 VIEWS CLINICAL HISTORY: Cellulitis. FINDINGS: AP and lateral portable views of the right tibia and fibula are obtained. No prior studies are available for comparison at the time of dictation. The skeletal structures are osteopenic. No fracture is seen. There is no bony erosion or periostitis. Advanced arthritic change is noted in the knee. The ankle joint appears maintained. There is a plantar calcaneal enthesophyte. S oft tissue edema is present throughout the visualized right lower extremity. Atherosclerotic calcification is seen in the regional arteries. IMPRESSION: Soft tissue swelling with no acute bony abnormality identified. Electronically signed by: David Howard M.D. 11/05/2019 3:07 PM Blood Pressure Blood Pressure Findings: Elevated blood pressure Blood Pressure Disposition: further management by hospitalist MDM Narrative The patient is a pleasant 89-year-old woman with a past medical history of type 2 diabetes, A. fib on Coumadin, history of DVT/PE,, MRSA carrier who presents emergency department for evaluation of worsening cellulitis in the setting of being briefly admitted several days ago after receiving dose of Dalvance and briefly initiated on ceftriaxone and doxy per HPI. On arrival the patient is in no acute distress, afebrile stable vital signs. On exam patient has 3+ right lower extremity edema with erythema and warmth to the pretibial region extending distally. There is no crepitus. Pulses are present. WBC, H/H and platelets within normal limits. INR therapeutic at 2.7. Chemistry without acidosis. Lactate within normal limits. Electrolytes LFTs otherwise unremarkable. Chest x-ray negative for acute process. Plain film of the right tib-fib negative for osseous involvement. Given the patient's failed treatment of her cellulitis after receiving Dalvance reasonable to admit the patient for further management. Patient is agreeable with this. Patient was ordered for Zosyn and vancomycin for now. Case was discussed with Rizwana Noel, [facility], who evaluate the patient for admission. Impression & Plan Cellulitis, On warfarin therapy, History of atrial fibrillation, History of DVT (deep vein thrombosis) Discharge Plan Visit Data *Final* Discharge Date/Time: 11/05/19 15:52 Chief Complaint: Skin Problem Stated Complaint: CELLULITIS GETTING WORSE ED Provider: Lv Obrien Discharge Problem: Cellulitis, On warfarin therapy, History of atrial fibrillation, History of DVT (deep vein thrombosis) Patient Disposition: Admitted As Inpatient Discharge Instructions Interventions: ED Discharge Assessment Last Done: 11/05/19 15:52 Discharge Problem: Cellulitis Qualifiers: Site of cellulitis: unspecified site Qualified Code(s): L03.90 - Cellulitis, unspecified The scribe's documentation has been prepared under my direction and personally reviewed by me in its entirety. I confirm that the note above accurately reflects all work, treatment, procedures, and medical decision making performed by me.
[2019-11-05] MEDS ORDERED: DAPTOMYCIN CONSULT ACTIVE PRN (16:37)
[2019-11-05] MEDS ORDERED: ARTIFICIAL TEARS OP PRN (16:48)
[2019-11-05] MEDS: PIPERACILLIN/TAZOBACTAM 3.375 GM in DEXTROSE 5% 100 ML IV SCH (21:15)
[2019-11-05] MEDS: AMITRIPTYLINE HCL 10 MG TAB PO SCH (21:16)
[2019-11-05] MEDS: COLCHICINE 0.6 MG TAB PO SCH (21:16)
[2019-11-05] MEDS: ACETAMINOPHEN 500 MG TAB PO SCH (21:17)
[2019-11-06] MEDS: DAPTOmycin 250 MG in SYRINGE 0 ML IV SCH (04:37)
[2019-11-06] MEDS: PIPERACILLIN/TAZOBACTAM 3.375 GM in DEXTROSE 5% 100 ML IV SCH ×3 (04:37→19:56)
[2019-11-06] MEDS: ACETAMINOPHEN 500 MG TAB PO SCH ×3 (05:05→21:21)
[2019-11-06] MEDS: CHOLECALCIFEROL 1,000 UNITS TAB PO SCH (07:38)
[2019-11-06] MEDS: FAMOTIDINE 20 MG TAB PO SCH (07:38)
[2019-11-06 08:06] LABS: Hematocrit (blood only) 37.7 % (37-47); Mean Corpuscular Hemoglobin 32.3 pg (25-34); Mean Corpuscular Hgb Conc 34.5 g/dL (32-36); Mean Corpuscular Volume 93.8 fL (80-100); Mean Platelet Volume 10.8 fL (7.4-10.4); Platelet Count 159 K/uL (130-400); RDW Coefficient of Variation 13.5 % (11.5-14.5); RDW Standard Deviation 46.6 fL (36.4-46.3); Red Blood Count 4.02 M/uL (4.2-5.4); White Blood Count 6.08 K/uL (4.8-10.8)
[2019-11-06 08:15] LABS: INR 2.9 (0.9-1.1); Prothrombin Time 27.7 Seconds (9.0-12.0)
[2019-11-06 08:30] LABS: BUN Creatinine Ratio 13.4 (10-20); Calcium 9.8 mg/dl (8.5-10.1); Creatinine Clr Calc Pharmacy 57.3 ml/min; Est GFR (African American) 87.3; Est GFR (Non-African American) 75.3; Potassium 3.8 mmol/L (3.5-5.1)
--- NOTE | 2019-11-06 15:17 | Hospitalist Progress Note ---
Date of Service November 06, 2019 Assessment & Plan (1) Cellulitis: RLE Cellulitis Ambulatory dysfunction Recently treated for RLE cellulitis ( Dalvance on 10/28/2019 followed by Rocephin and doxycycline) Right tib/fib xray: Soft tissue swelling with no acute bony abnormality identified +MRSA swab Continue IV daptomycin, Zosyn Day #2 Blood Cx: No growth to date Consider ID eval if needed R/O UTI Urine Cx:pending Continue IV Abx as above (2) History of DVT (deep vein thrombosis): H/O PE, H/O DVT. On Coumadin INR: 2.9 Continue Coumadin Monitor INR (3) Chronic a-fib: On Coumadin Monitor INR (4) H/O recurrent urinary tract infection: Hold methenamine as on IV antibiotics (5) Diabetes mellitus, type II: A1c: 6.3 on 10/29/19 Diet controlled Monitor BGs (6) Gout: Continue colchicine Monitor (7) GERD (gastroesophageal reflux disease): Continue Pepcid DVT Px On Coumadin Code Status DNR/DNI Follows with Dr Bhavya Lanier for routine care Subjective Patient is seen and examined at bedside Complains of right leg pain--slightly better from time of admission Had loose bowel movement today Denies any nausea, vomiting, abdominal pain, chest pain, shortness of breath, dizziness Offers no other complaints Review of Systems Review of Systems: All systems reviewed & are unremarkable except as noted in HPI & below Physical Exam Physical Exam: Physical Exam: Vitals signs as noted above General Appearance:Moderately built and nourished, elderly, no apparent distress Head: normocephalic, Atraumatic Eyes: normal inspection, EOMI Neck: supple, Trachea midline Respiratory/Chest: Normal breath sounds, CTA Cardiovascular: S1, S2, systolic murmur Abdomen/GI:Soft, Non tender, Bowel sounds present Extremities/Musculoskelatal:normal inspection, RLE tender, erythematous, pedal edema Neurologic/Psych:AAOX3, grossly no focal neurological deficits Skin: normal color, warm Results & Data Vital Signs (Past 12 Hours) Vital Signs Temp Pulse Resp BP Pulse Ox 11/06/19 07:00 37.3 C 75 18 123/76 93 Laboratory Results Short CBC 11/06/19 Range/Units 07:41 WBC 6.08 (4.8-10.8) K/uL Hgb 13.0 (12.0-16.0) g/dL Hct 37.7 (37-47) % Plt Count 159 (130-400) K/uL [facility] 11/06/19 07:41 Sodium 140 Potassium 3.8 Chloride 108 H Carbon Dioxide 25 BUN 10 Creatinine 0.72 Glucose 160 H Calcium 9.8 (1) Cellulitis Site of cellulitis: unspecified site Qualified Code(s): L03.90 - Cellulitis, unspecified
[2019-11-06] MEDS ORDERED: WARFARIN SOD 2 MG TAB PO SCH (16:00)
[2019-11-06] MEDS ORDERED: WARFARIN SOD 5 MG TAB PO SCH (16:00)
[2019-11-06] MEDS: LACTOBACILLUS ACIDOPHILUS (FLORANEX) TAB PO SCH ×2 (17:46→20:36)
[2019-11-06] MEDS: AMITRIPTYLINE HCL 10 MG TAB PO SCH (20:34)
[2019-11-06] MEDS: COLCHICINE 0.6 MG TAB PO SCH (20:35)
[2019-11-07] MEDS: DAPTOmycin 250 MG in SYRINGE 0 ML IV SCH (04:17)
[2019-11-07] MEDS: PIPERACILLIN/TAZOBACTAM 3.375 GM in DEXTROSE 5% 100 ML IV SCH ×3 (04:17→20:52)
[2019-11-07] MEDS: ACETAMINOPHEN 500 MG TAB PO SCH ×3 (05:51→20:57)
[2019-11-07 07:10] LABS: INR 2.5 (0.9-1.1)
[2019-11-07 07:32] LABS: BUN Creatinine Ratio 19.1 (10-20); Calcium 9.2 mg/dl (8.5-10.1); Creatinine Clr Calc Pharmacy 57.3 ml/min; Est GFR (African American) 87.3; Est GFR (Non-African American) 75.3; Potassium 3.6 mmol/L (3.5-5.1)
[2019-11-07] MEDS: FAMOTIDINE 20 MG TAB PO SCH (07:55)
[2019-11-07] MEDS: LACTOBACILLUS ACIDOPHILUS (FLORANEX) TAB PO SCH ×4 (07:55→20:56)
[2019-11-07] MEDS: CHOLECALCIFEROL 1,000 UNITS TAB PO SCH (07:56)
[2019-11-07] MEDS: WARFARIN SOD 3 MG TAB PO SCH (17:07)
--- NOTE | 2019-11-07 17:38 | Hospitalist Progress Note ---
Date of Service November 07, 2019 Assessment & Plan (1) Cellulitis: RLE Cellulitis Ambulatory dysfunction Recently treated for RLE cellulitis ( Dalvance on 10/28/2019 followed by Rocephin and doxycycline) Right tib/fib xray: Soft tissue swelling with no acute bony abnormality identified +MRSA swab Continue IV daptomycin, Zosyn Day #3 Blood Cx: No growth to date Consider ID eval if needed Plan to transition to p.o. antibiotics as able R/O UTI--Ruled out Urine Cx:No growth (2) History of DVT (deep vein thrombosis): H/O PE, H/O DVT. On Coumadin INR: 2.5 Continue Coumadin Monitor INR (3) Chronic a-fib: On Coumadin Monitor INR (4) H/O recurrent urinary tract infection: Hold methenamine as on IV antibiotics (5) Diabetes mellitus, type II: A1c: 6.3 on 10/29/19 Diet controlled Monitor BGs (6) Gout: Continue colchicine Monitor (7) GERD (gastroesophageal reflux disease): Continue Pepcid DVT Px On Coumadin Code Status DNR/DNI Follows with Dr Bhavya Lanier for routine care Subjective Patient is seen and examined at bedside Right leg pain, erythema, swelling improving No new complaints Denies any nausea, vomiting, abdominal pain, chest pain, shortness of breath, dizziness Family at bedside Review of Systems Review of Systems: All systems reviewed & are unremarkable except as noted in HPI & below Physical Exam Physical Exam: Physical Exam: Vitals signs as noted above General Appearance:Moderately built and nourished, elderly, no apparent distress Head: normocephalic, Atraumatic Eyes: normal inspection, EOMI Neck: supple, Trachea midline Respiratory/Chest: Normal breath sounds, CTA Cardiovascular: S1, S2, systolic murmur Abdomen/GI:Soft, Non tender, Bowel sounds present Extremities/Musculoskelatal:normal inspection, swelling and erythema improving Neurologic/Psych:AAOX3, grossly no focal neurological deficits Skin: normal color, warm Results & Data Vital Signs (Past 12 Hours) Vital Signs Temp Pulse Resp BP BP Pulse Ox 11/07/19 14:59 36.3 C L 62 16 119/70 97 11/07/19 07:35 36.7 C 66 16 121/70 98 Laboratory Results [facility] 11/07/19 06:25 Sodium 137 Potassium 3.6 Chloride 107 Carbon Dioxide 27 BUN 14 Creatinine 0.72 Glucose 151 H Calcium 9.2 (1) Cellulitis Site of cellulitis: unspecified site Qualified Code(s): L03.90 - Cellulitis, unspecified
[2019-11-07] MEDS: AMITRIPTYLINE HCL 10 MG TAB PO SCH (20:56)
[2019-11-07] MEDS: COLCHICINE 0.6 MG TAB PO SCH (20:56)
[2019-11-08] MEDS: PIPERACILLIN/TAZOBACTAM 3.375 GM in DEXTROSE 5% 100 ML IV SCH ×3 (03:30→20:50)
[2019-11-08] MEDS: DAPTOmycin 250 MG in SYRINGE 0 ML IV SCH (03:30)
[2019-11-08] MEDS: ACETAMINOPHEN 500 MG TAB PO SCH ×3 (06:26→20:58)
[2019-11-08] MEDS: CHOLECALCIFEROL 1,000 UNITS TAB PO SCH (07:36)
[2019-11-08] MEDS: LACTOBACILLUS ACIDOPHILUS (FLORANEX) TAB PO SCH ×4 (07:36→20:55)
[2019-11-08] MEDS: FAMOTIDINE 20 MG TAB PO SCH (07:36)
[2019-11-08 07:54] LABS: Hematocrit (blood only) 36.9 % (37-47); Hemoglobin 12.2 g/dL (12.0-16.0); Mean Corpuscular Hemoglobin 31.5 pg (25-34); Mean Corpuscular Hgb Conc 33.1 g/dL (32-36); Mean Corpuscular Volume 95.3 fL (80-100); Mean Platelet Volume 10.4 fL (7.4-10.4); Platelet Count 160 K/uL (130-400); RDW Coefficient of Variation 13.7 % (11.5-14.5); RDW Standard Deviation 47.3 fL (36.4-46.3); Red Blood Count 3.87 M/uL (4.2-5.4); White Blood Count 5.74 K/uL (4.8-10.8)
[2019-11-08 08:03] LABS: INR 2.2 (0.9-1.1); Prothrombin Time 21.1 Seconds (9.0-12.0)
[2019-11-08 08:26] LABS: Est GFR (African American) 90.3; Est GFR (Non-African American) 77.9
[2019-11-08] MEDS: WARFARIN SOD 3 MG TAB PO SCH (15:42)
--- NOTE | 2019-11-08 17:17 | Hospitalist Progress Note ---
Date of Service November 08, 2019 Assessment & Plan (1) Cellulitis: RLE Cellulitis Ambulatory dysfunction Recently treated for RLE cellulitis ( Dalvance on 10/28/2019 followed by Rocephin and doxycycline) Right tib/fib xray: Soft tissue swelling with no acute bony abnormality identified +MRSA swab Continue IV daptomycin, Zosyn Day #4 Blood Cx: No growth to date Consider ID eval if needed Plan to transition to p.o. antibiotics as able Elevate leg Obtain arterial Doppler R/O UTI--Ruled out Urine Cx:No growth (2) History of DVT (deep vein thrombosis): H/O PE, H/O DVT. On Coumadin INR: 2.2 Continue Coumadin--adjust dose as needed Monitor INR (3) Chronic a-fib: On Coumadin Monitor INR (4) H/O recurrent urinary tract infection: Hold methenamine as on IV antibiotics (5) Diabetes mellitus, type II: A1c: 6.3 on 10/29/19 Diet controlled Monitor BGs (6) Gout: Continue colchicine Monitor (7) GERD (gastroesophageal reflux disease): Continue Pepcid DVT Px On Coumadin Code Status DNR/DNI Follows with Dr Bhavya Lanier for routine care Subjective Patient is seen and examined at bedside No new complaints leg pain, erythema, swelling slowly improving Was able to ambulate better today Denies any nausea, vomiting, abdominal pain, chest pain, shortness of breath, dizziness And obtain arterial Doppler to rule out any significant stenosis Review of Systems Review of Systems: All systems reviewed & are unremarkable except as noted in HPI & below Physical Exam Physical Exam: Physical Exam: Vitals signs as noted above General Appearance:Moderately built and nourished, elderly, no apparent distress Head: normocephalic, Atraumatic Eyes: normal inspection, EOMI Neck: supple, Trachea midline Respiratory/Chest: Normal breath sounds, CTA Cardiovascular: S1, S2, systolic murmur Abdomen/GI:Soft, Non tender, Bowel sounds present Extremities/Musculoskelatal:normal inspection, swelling and erythema improving Neurologic/Psych:AAOX3, grossly no focal neurological deficits Skin: normal color, warm Results & Data Vital Signs (Past 12 Hours) Vital Signs Temp Pulse Resp BP Pulse Ox 11/08/19 16:10 36.9 C 62 16 118/64 96 11/08/19 07:03 36.6 C 69 18 112/69 97 Laboratory Results Short CBC 11/08/19 Range/Units 07:28 WBC 5.74 (4.8-10.8) K/uL Hgb 12.2 (12.0-16.0) g/dL Hct 36.9 L (37-47) % Plt Count 160 (130-400) K/uL BMP 11/08/19 07:28 Creatinine 0.70 (1) Cellulitis Site of cellulitis: unspecified site Qualified Code(s): L03.90 - Cellulitis, unspecified
--- NOTE | 2019-11-08 17:38 | Ultrasound Report ---
US arterial duplex LE RT CLINICAL HISTORY: 89 years-old Female presenting with right greater than left leg pain, concern for p eripheral arterial disease/vessel stenosis. TECHNIQUE: Real-time grayscale and color and spectral Doppler ultrasound imaging of the right lower e xtremity arteries was performed. Measurements calculated based on NASCET criteria. COMPARISON: None. FINDINGS: RIGHT: Common femoral artery: Atherosclerosis. Biphasic waveforms. Peak systolic velocity (PSV) 94 cm/s. Deep femoral artery: Atherosclerosis. Biphasic waveforms. PSV 54 cm/s. Superficial femoral artery: Atherosclerosis. Monophasic waveforms. PSV 86-132 cm/s. Popliteal artery: Atherosclerosis. Monophasic waveforms. PSV 113-150 cm/s. Anterior tibial artery: Occluded in the midportion. Monophasic waveforms. PSV 58 cm/s proximally. Mod erately elevated velocity measuring 179 cm/s (PSV) and a collateral vessel in the region of the proxi mal right anterior tibial artery. Posterior tibial artery: Occluded in the midportion. Monophasic waveforms. PSV 37 cm/s proximally. Mi ldly elevated velocity measuring 106 cm/s (PSV) in a collateral vessel in the region of the proximal right posterior tibial artery. Peroneal artery: Patent. Monophasic waveforms. PSV 114 cm/s. Dorsalis pedis: Patent. Monophasic waveforms. PSV 35 cm/s. ANKLE/BRACHIAL INDEX (MORENITA): Brachial: Right: 129 mmHg. Left: mmHg. Ankle (posterior tibial): Right: 146 mmHg. Left: 155 mmHg. Ankle (dorsalis pedis): Right: 147 mmHg. Left: 156 mmHg. Ankle/brachial index: Right: 1.14, Left: 1.21. Reference ranges: Normal Ankle/Brachial Index (MORENITA) 1.0-1.4; 0.91-0.99 borderline; < or = 0.9 abnormal (0.7-0.89 mild, 0.51-0.69 moderate, < or = 0.5 severe peripheral arterial disease). Normal Toe/Brachial Index (TBI) > or = 0.6; < 0.6 abnormal (0.34-0.59 mild, 0.12-0.34 moderate, < or = 0.11 severe peripheral arterial disease). IMPRESSION: 1. Extensive atherosclerosis with focally occluded mid right anterior tibial and mid posterior tibia l arteries. Collateral vasculature is also evident. 2. No hemodynamically significant stenosis identified apart from these focal occlusions. 3. Normal ankle-brachial indices. ACT 112: Negative or not required by law. Electronically signed by: Timmy Granados M.D. 11/08/2019 5:36 PM
[2019-11-08] MEDS: AMITRIPTYLINE HCL 10 MG TAB PO SCH (20:55)
[2019-11-08] MEDS: COLCHICINE 0.6 MG TAB PO SCH (20:55)
[2019-11-09] MEDS: PIPERACILLIN/TAZOBACTAM 3.375 GM in DEXTROSE 5% 100 ML IV SCH ×3 (05:04→20:14)
[2019-11-09] MEDS: DAPTOmycin 250 MG in SYRINGE 0 ML IV SCH (05:04)
[2019-11-09] MEDS: ACETAMINOPHEN 500 MG TAB PO SCH ×3 (05:04→21:20)
[2019-11-09 07:04] LABS: INR 2.5 (0.9-1.1); Prothrombin Time 23.9 Seconds (9.0-12.0)
[2019-11-09] MEDS: CHOLECALCIFEROL 1,000 UNITS TAB PO SCH (07:42)
[2019-11-09] MEDS: LACTOBACILLUS ACIDOPHILUS (FLORANEX) TAB PO SCH ×4 (07:43→21:20)
[2019-11-09] MEDS: FAMOTIDINE 20 MG TAB PO SCH (07:43)
[2019-11-09] MEDS: ASPIRIN 81 MG ECTAB PO SCH (13:25)
--- NOTE | 2019-11-09 15:33 | Hospitalist Progress Note ---
Date of Service November 09, 2019 Assessment & Plan (1) Cellulitis: RLE Cellulitis Ambulatory dysfunction Recently treated for RLE cellulitis ( Dalvance on 10/28/2019 followed by Rocephin and doxycycline) Right tib/fib xray: Soft tissue swelling with no acute bony abnormality identified +MRSA swab Arterial Doppler:Extensive atherosclerosis with focally occluded mid right anterior tibial and mid posterior tibial arteries. Collateral vasculature is also evident. No hemodynamically significant stenosis identified apart from these focal occlusions. Normal ankle-brachial indices. Continue IV daptomycin, Zosyn Day #5 Blood Cx: No growth to date Started on aspirin for peripheral artery disease Plan to transition to p.o. doxycycline to complete 2-week course Continue to elevate leg as able for chronic venous stasis Continue PT OT Advised to follow-up with vascular surgery as outpatient Clinically slowly improving R/O UTI--Ruled out Urine Cx:No growth (2) History of DVT (deep vein thrombosis): H/O PE, H/O DVT. On Coumadin INR: 2.5 Continue Coumadin--adjust dose as needed Monitor INR (3) Chronic a-fib: On Coumadin Monitor INR (4) H/O recurrent urinary tract infection: Hold methenamine as on IV antibiotics (5) Diabetes mellitus, type II: A1c: 6.3 on 10/29/19 Diet controlled Monitor BGs (6) Gout: Continue colchicine Monitor (7) GERD (gastroesophageal reflux disease): Continue Pepcid DVT Px On Coumadin Code Status DNR/DNI Follows with Dr Bhavya Lanier for routine care Subjective Patient is seen and examined at bedside leg pain continues to improve Denies any nausea, vomiting, abdominal pain, chest pain, shortness of breath, dizziness Discussed with ID today Review of Systems Review of Systems: All systems reviewed & are unremarkable except as noted in HPI & below Physical Exam Physical Exam: Physical Exam: Vitals signs as noted above General Appearance:Moderately built and nourished, elderly, no apparent distress Head: normocephalic, Atraumatic Eyes: normal inspection, EOMI Neck: supple, Trachea midline Respiratory/Chest: Normal breath sounds, CTA Cardiovascular: S1, S2, systolic murmur Abdomen/GI:Soft, Non tender, Bowel sounds present Extremities/Musculoskelatal:normal inspection, swelling and erythema improving Neurologic/Psych:AAOX3, grossly no focal neurological deficits Skin: normal color, warm Results & Data Vital Signs (Past 12 Hours) Vital Signs Temp Pulse Pulse Resp BP Pulse Ox 11/09/19 14:58 37 C 73 16 111/68 96 11/09/19 08:00 36.6 C 67 18 104/59 L 96 (1) Cellulitis Site of cellulitis: unspecified site Qualified Code(s): L03.90 - Cellulitis, unspecified
[2019-11-09] MEDS: WARFARIN SOD 3 MG TAB PO SCH (18:13)
[2019-11-09] MEDS: COLCHICINE 0.6 MG TAB PO SCH (21:14)
[2019-11-09] MEDS: AMITRIPTYLINE HCL 10 MG TAB PO SCH (21:15)
[2019-11-10] MEDS: DAPTOmycin 250 MG in SYRINGE 0 ML IV SCH (03:56)
[2019-11-10] MEDS: PIPERACILLIN/TAZOBACTAM 3.375 GM in DEXTROSE 5% 100 ML IV SCH ×2 (03:57→12:16)
[2019-11-10] MEDS: ACETAMINOPHEN 500 MG TAB PO SCH ×3 (05:58→21:18)
[2019-11-10 06:58] LABS: INR 2.4 (0.9-1.1); Prothrombin Time 22.7 Seconds (9.0-12.0)
[2019-11-10 07:23] LABS: Est GFR (African American) 83.1; Est GFR (Non-African American) 71.7
[2019-11-10] MEDS: LACTOBACILLUS ACIDOPHILUS (FLORANEX) TAB PO SCH ×4 (08:17→21:19)
[2019-11-10] MEDS: CHOLECALCIFEROL 1,000 UNITS TAB PO SCH (09:20)
[2019-11-10] MEDS: FAMOTIDINE 20 MG TAB PO SCH (09:21)
[2019-11-10] MEDS: ASPIRIN 81 MG ECTAB PO SCH (09:21)
[2019-11-10] MEDS: DOXYCYCLINE HYCLATE 100 MG CAP PO SCH ×2 (09:21→21:22)
--- NOTE | 2019-11-10 13:50 | Hospitalist Progress Note ---
Date of Service November 10, 2019 Assessment & Plan (1) Cellulitis: RLE Cellulitis Ambulatory dysfunction Recently treated for RLE cellulitis ( Dalvance on 10/28/2019 followed by Rocephin and doxycycline) Right tib/fib xray: Soft tissue swelling with no acute bony abnormality identified +MRSA swab Arterial Doppler:Extensive atherosclerosis with focally occluded mid right anterior tibial and mid posterior tibial arteries. Collateral vasculature is also evident. No hemodynamically significant stenosis identified apart from these focal occlusions. Normal ankle-brachial indices. Continue IV daptomycin, Zosyn Day #6 Blood Cx: No growth to date Started on aspirin for peripheral artery disease Plan to transition to p.o. doxycycline to complete 2-week course today Continue to elevate leg as able for chronic venous stasis Continue PT OT: Recommends SNF Advised to follow-up with vascular surgery as outpatient UTI--Ruled out Urine Cx:No growth (2) History of DVT (deep vein thrombosis): H/O PE, H/O DVT. On Coumadin INR: 2.4 Continue Coumadin--adjust dose as needed Monitor INR (3) Chronic a-fib: On Coumadin Monitor INR (4) H/O recurrent urinary tract infection: Hold methenamine as on IV antibiotics Resume methenamine tomorrow (5) Diabetes mellitus, type II: A1c: 6.3 on 10/29/19 Diet controlled Monitor BGs (6) Gout: Continue colchicine Monitor (7) GERD (gastroesophageal reflux disease): Continue Pepcid DVT Px On Coumadin Code Status DNR/DNI Follows with Dr Bhavya Lanier for routine care Subjective Patient is seen and examined at bedside No new complaints Right leg pain, erythema improved Ambulating better Denies any Chest pain, SOB, dizziness, bleeding issues Review of Systems Review of Systems: All systems reviewed & are unremarkable except as noted in HPI & below Physical Exam Physical Exam: Physical Exam: Vitals signs as noted above General Appearance:Moderately built and nourished, elderly, no apparent distress Head: normocephalic, Atraumatic Eyes: normal inspection, EOMI Neck: supple, Trachea midline Respiratory/Chest: Normal breath sounds, CTA Cardiovascular: S1, S2, systolic murmur Abdomen/GI:Soft, Non tender, Bowel sounds present Extremities/Musculoskelatal:normal inspection, swelling and erythema improved Neurologic/Psych:AAOX3, grossly no focal neurological deficits Skin: normal color, warm Results & Data Vital Signs (Past 12 Hours) Vital Signs Temp Pulse Resp BP Pulse Ox 11/10/19 07:30 36.5 C 51 L 16 111/59 L 95 Laboratory Results BMP 11/10/19 06:29 Creatinine 0.75 (1) Cellulitis Site of cellulitis: unspecified site Qualified Code(s): L03.90 - Cellulitis, unspecified
[2019-11-10] MEDS: WARFARIN SOD 3 MG TAB PO SCH (16:43)
[2019-11-10] MEDS: AMITRIPTYLINE HCL 10 MG TAB PO SCH (21:22)
[2019-11-10] MEDS: COLCHICINE 0.6 MG TAB PO SCH (21:22)
[2019-11-11] MEDS: ACETAMINOPHEN 500 MG TAB PO SCH (06:03)
[2019-11-11 06:30] LABS: Hematocrit (blood only) 36.8 % (37-47); Hemoglobin 12.4 g/dL (12.0-16.0)
[2019-11-11 06:41] LABS: Prothrombin Time 19.5 Seconds (9.0-12.0)
[2019-11-11] MEDS: FAMOTIDINE 20 MG TAB PO SCH (07:31)
[2019-11-11] MEDS: CHOLECALCIFEROL 1,000 UNITS TAB PO SCH (07:33)
[2019-11-11] MEDS: ASPIRIN 81 MG ECTAB PO SCH (07:33)
[2019-11-11] MEDS: DOXYCYCLINE HYCLATE 100 MG CAP PO SCH (07:33)
[2019-11-11] MEDS: LACTOBACILLUS ACIDOPHILUS (FLORANEX) TAB PO SCH ×2 (07:34→11:43)
[2019-11-11] MEDS ORDERED: METHENAMINE HIPPURATE 1 GM TAB PO SCH (09:00)
--- NOTE | 2019-11-11 12:33 | Hospitalist Progress Note ---
Date of Service November 11, 2019 Assessment & Plan (1) Cellulitis: RLE Cellulitis Ambulatory dysfunction Recently treated for RLE cellulitis ( Dalvance on 10/28/2019 followed by Rocephin and doxycycline) Right tib/fib X ray: Soft tissue swelling with no acute bony abnormality identified +MRSA swab Arterial Doppler:Extensive atherosclerosis with focally occluded mid right anterior tibial and mid posterior tibial arteries. Collateral vasculature is also evident. No hemodynamically significant stenosis identified apart from these focal occlusions. Normal ankle-brachial indices. Continue IV daptomycin, Zosyn Day #6 transition to doxycycline to complete total 2-week course of antibiotic therapy Blood Cx: No growth to date Started on aspirin for peripheral artery disease Continue to elevate leg as able for chronic venous stasis Continue PT OT Advised to follow-up with vascular surgery as outpatient No bleeding issues while on aspirin and coumadin UTI--Ruled out Urine Cx:No growth (2) History of DVT (deep vein thrombosis): H/O PE, H/O DVT. On Coumadin INR: 2.0 Continue Coumadin--adjust dose as needed Monitor INR (3) Chronic a-fib: On Coumadin Monitor INR (4) H/O recurrent urinary tract infection: Hold methenamine as on IV antibiotics Resume methenamine tomorrow (5) Diabetes mellitus, type II: A1c: 6.3 on 10/29/19 Diet controlled Monitor BGs (6) Gout: Continue colchicine Monitor (7) GERD (gastroesophageal reflux disease): Continue Pepcid DVT Px On Coumadin Code Status DNR/DNI Follows with Dr Bhavya Lanier for routine care Subjective Patient is seen and examined at bedside Doing well today, No new complaints Eager to get discharged Right leg pain, erythema continues to improve Denies any Chest pain, SOB, dizziness, bleeding issues Review of Systems Review of Systems: All systems reviewed & are unremarkable except as noted in HPI & below Physical Exam Physical Exam: Physical Exam: Vitals signs as noted above General Appearance:Moderately built and nourished, elderly, no apparent distress Head: normocephalic, Atraumatic Eyes: normal inspection, EOMI Neck: supple, Trachea midline Respiratory/Chest: Normal breath sounds, CTA Cardiovascular: S1, S2, systolic murmur Abdomen/GI:Soft, Non tender, Bowel sounds present Extremities/Musculoskelatal:normal inspection, swelling and erythema improved Neurologic/Psych:AAOX3, grossly no focal neurological deficits Skin: normal color, warm Results & Data Vital Signs (Past 12 Hours) Vital Signs Temp Pulse Resp BP Pulse Ox 11/11/19 07:21 37.0 C 73 20 122/71 96 Laboratory Results Short CBC 11/11/19 Range/Units 05:48 Hgb 12.4 (12.0-16.0) g/dL Hct 36.8 L (37-47) % (1) Cellulitis Site of cellulitis: unspecified site Qualified Code(s): L03.90 - Cellulitis, unspecified
--- NOTE | 2019-11-11 12:41 | Discharge Summary ---
Date of Service November 11, 2019 Admission HPI Per Admitting Provider Pt is 89 y/o F with PMH chronic a-fib, h/o DVT/PE, on chronic Coumadin, h/o CVA, venous insufficiency, dyslipidemia, h/o recurrent UTI on chronic suppressive therapy presented to ER with c/o RLE edema, erythema. Recent admission 10/28/19- 10/31/19 for RLE cellulitis and ambulatory dysfunction secondary to leg pain. She had Doppler lower extremity with no acute DVT. During that admission patient was initially given Dalvance on 10/28/2019 followed by Rocephin and doxycycline. Patient had negative blood cultures and was discharged home on no further antibiotics as patient was having improvement in Dalvance effective for 7 days. Patient states area seems to be doing better however admits to having right leg dangling and not elevated during the day. Noticed increased swelling to right leg and foot and increased redness. States having pain to right lower leg as well. She has been able to ambulate with walker however reports has been walking with a limp. Denies any recent fever or chills. Denies any known injury/trauma or abrasions to leg/foot. Denies N/V/D/C, JOYNER, dizziness, syncope, vision changes, neck pain, CP, SOB, palpitations, orthopnea, cough, sore throat, choking, otalgia, rhinorrhea, abdominal pain, paresthesias, other rashes, urinary symptoms. Admission Exam Per Admitting Provider General: no distress, WDWN Head: normocephalic, atraumatic Eyes: PERRL, EOM's intact, conjunctiva non-injected, anicteric ENT: normal inspection external ears, nose, mucous membranes moist Neck: supple, trachea midline Lungs: clear, no respiratory distress, no wheezing/rhonchi/rales CV: irregularly irregular, rate 80, systolic murmur Abd: normal BS, soft, non-tender Ext: LLE: brown skin discoloration without edema, RLE: +erythema and edema mid lower leg to ankle with tenderness to palpation, +foot edema, 4th toe with ecchymosis, non-tender, distal pulses palpable Neuro: A&O x 3, no focal deficits noted, normal affect Skin: warm, dry, legs as above Principal Diagnosis Right lower extremity cellulitis Ambulatory dysfunction Peripheral artery disease Discharge Data Allergies Allergy/AdvReac Type Severity Reaction Status Date / Time levofloxacin Allergy Severe ITCHING/HIV Verified 08/27/14 10:45 ES adhesive Allergy Unknown REDNESS, Verified 08/27/14 10:58 RASH indomethacin Allergy Unknown . Verified 08/27/14 10:45 meperidine Allergy Unknown UNKNOWN Verified 08/27/14 10:45 nitrofurantoin Allergy Unknown Verified 08/27/14 10:45 Sulfa (Sulfonamide Allergy Unknown Verified 08/27/14 10:45 Antibiotics) morphine AdvReac Intermediate SEVERE Verified 08/27/14 10:45 VOMITING oxycodone AdvReac Intermediate VOMITING Verified 08/27/14 10:45 tramadol AdvReac Intermediate N/V Verified 08/27/14 10:45 Consultations 11/05/19 13:37 ED Decision to Admit Stat 11/05/19 16:19 Consult Case Management - Discharge Planning Routine Procedures Performed CXR: Cardiomegaly with no active disease in the chest. R Leg X ray: Soft tissue swelling with no acute bony abnormality identified. Arterial Doppler: 1. Extensive atherosclerosis with focally occluded mid right anterior tibial and mid posterior tibial arteries. Collateral vasculature is also evident. 2. No hemodynamically significant stenosis identified apart from these focal occlusions. 3. Normal ankle-brachial indices. Ordered Studies 11/08/19 15:16 US arterial duplex LE RT Routine Hospital Course (1) Cellulitis: RLE Cellulitis Ambulatory dysfunction Recently treated for RLE cellulitis ( Dalvance on 10/28/2019 followed by Rocephin and doxycycline) Right tib/fib X ray: Soft tissue swelling with no acute bony abnormality identified +MRSA swab Arterial Doppler:Extensive atherosclerosis with focally occluded mid right an terior tibial and mid posterior tibial arteries. Collateral vasculature is also evident. No hemodynamically significant stenosis identified apart from these focal occlusions. Normal ankle-brachial indices. Continue IV daptomycin, Zosyn Day #6 transition to doxycycline to complete total 2-week course of antibiotic therapy Blood Cx: No growth to date Started on aspirin for peripheral artery disease Continue to elevate leg as able for chronic venous stasis Continue PT OT Advised to follow-up with vascular surgery as outpatient No bleeding issues while on aspirin and coumadin UTI--Ruled out Urine Cx:No growth (2) History of DVT (deep vein thrombosis): H/O PE, H/O DVT. On Coumadin INR: 2.0 Continue Coumadin--adjust dose as needed Monitor INR (3) Chronic a-fib: On Coumadin Monitor INR (4) H/O recurrent urinary tract infection: Hold methenamine as on IV antibiotics Resume methenamine tomorrow (5) Diabetes mellitus, type II: A1c: 6.3 on 10/29/19 Diet controlled Monitor BGs (6) Gout: Continue colchicine Monitor (7) GERD (gastroesophageal reflux disease): Continue Pepcid DVT Px On Coumadin Code Status DNR/DNI Follows with Dr Bhavya Lanier for routine care Total Time Total Time Spent Total Time Spent (In Minutes): 42 minutes Discharge Plan Discharge Items Patient Disposition: Personal [facility] Reason For Visit: EXTREMITY CELLULITIS Discharge Diagnosis: Right lower extremity cellulitis Ambulatory dysfunction Peripheral artery disease Activity: Resume your previous activity Exercise/Sports: Gradually increase as tolerated Non-emergency contact: Primary Care Provider and Specialist Call non-emergency contact if: you have any medication questions, your symptoms worsen, your pain is not controlled, your pain is worsening, your pain is unusual for you, your pain is concerning for you and you have a fever Follow-up/Referrals: MIGUEL, [Primary Care Provider] - Diet: Carb Consistent or DM2 and Heart Healthy Addtl Attending Provider Instructions: Follow-up with your primary care physician Dr. Bhavya Lanier on November 18, 2019 at 10:55 AM Follow-up with your Coumadin clinic for management of Coumadin dosing while on antibiotics Follow-up with vascular surgery as outpatient as recommended for evaluation of your peripheral artery disease Start taking aspirin 81 mg daily for peripheral artery disease Complete the antibiotic course doxycycline as prescribed Seek immediate medical attention if your symptoms reoccur or worsen Pending Studies at Discharge: No Stand-Alone Forms: My JETME, Smoking Cessation Skilled Items Patient informed of condition?: Yes DNR: Yes Discharge Level of Care: Other Communicable Disease: No Discharge Prognosis: Improving Lines: None Urinary Catheter: No Medications and DC Order Prescriptions: New doxycycline hyclate 100 mg Capsule 100 mg PO BID Qty: 14 RF: 0 aspirin [Ecotrin Low Strength] 81 mg Tablet,Delayed Release (Dr/Ec) 81 mg PO QAM Qty: 30 RF: 0 Lactobacillus acidoph-L.bulgar [Floranex] 1 million cell Tablet 4 tab PO QIDM Qty: 30 RF: 0 Continued triamcinolone acetonide 0.1 % ointment 1 applic TOPICAL BID RF: 0 diclofenac sodium [Voltaren] 1 % gel 2 g TOPICAL BID RF: 0 cholecalciferol (vitamin D3) [Vitamin D3] 1,000 unit Tablet,Chewable 1,000 unit PO QAM RF: 0 cod liver oil Capsule 1 cap PO HS RF: 0 warfarin [Coumadin] 2.5 mg tablet 2.5 mg PO TUTHSA RF: 0 tetrahydrozoline [Visine] 0.05 % Drops 1 drp OPHTHALMIC (EYE) UD PRN (Reason: Dry Eyes) RF: 0 acetaminophen [Tylenol Extra Strength] 500 mg Tablet 500 mg PO Q6H PRN (Reason: Pain) RF: 0 methenamine hippurate [Hiprex] 1 gram tablet 1 g PO BID RF: 0 famotidine [Pepcid] 20 mg Tablet 20 mg PO QAM RF: 0 lorazepam [Ativan] 0.5 mg tablet 0.5 mg PO Q6 PRN (Reason: Anxiety) RF: 0 amitriptyline 10 mg tablet 5 mg PO HS RF: 0 warfarin [Coumadin] 5 mg tablet 5 mg PO SUMOWEFR RF: 0 colchicine [Colcrys] 0.6 mg tablet 0.6 mg PO HS RF: 0 Advanced Eye Relief 1-0.3 % Drops 1 drp OPB DIRECTED PRN (Reason: Dry Eyes) RF: 0 Discharge Orders: Discharge Order (Routine); Ordered 11/11/19 Ordered By: Ezekiel Kennedy Admission Data Admit Date/Time: 11/06/19 11:38 Attending Provider: Ezekiel Kennedy Admit Provider: Vitaliy Parkinson Primary Care Provider: Desi RIVERA Providers: Vitaliy Parkinson Other Interventions: Discharge Summary Assessment (RN) Last Done: 11/11/19 12:46 DC Date/Time DO NOT enter until pt leaves facility: 11/11/19 13:21
== END 2019-11-11 13:21 | disposition home or self-care (01) | DRG 603 ==
LOC: ED 12:39 → 3W 12:39 → SUATTDRO 15:11 → 3W 15:52

== ENCOUNTER 2021-10-02 09:33 | Inpatient (IN) ==
[2021-10-02] MEDS ORDERED: ONDANSETRON INJ 2 MG/ML 2 ML VIAL IV STA ×2 (09:48→10:40)
--- NOTE | 2021-10-02 09:58 | Emergency Department Note ---
Impression & Plan Closed fracture of left hip, Syncope, Vomiting, Fall ED Provider Note NAME: MYRIAM DE LA O AGE: 89 SEX: F : 1930 ARRIVES VIA: Ambulance INFORMANT: [Patient][nursing] ED PROVIDER(S): [David Tang MD] CHIEF COMPLAINT: Fall HISTORY OF PRESENT ILLNESS: Patient is a 89-year-old female who states that this morning, after getting cleaned up, she was walking and felt lightheaded and things started to go black. She has had similar spells in the past. She tried quickly to sit down but somehow, missed what she was trying to sit on and hit the floor. She now has left hip pain. In route to the hospital, she was given IV fentanyl and this seemed to help. She states that they did stand her after the fall and she noticed the pain in the left hip. She did not strike her head. There has been no chest pain or shortness of breath. She has no neck pain, back pain or abdominal pain. The patient states that she felt fine earlier in the day and felt fine yesterday. She has had no cough or congestion, she has had no recent illnesses. REVIEW OF SYSTEMS: See HPI for pertinent positives and negatives. A total of ten systems were reviewed and were otherwise negative. PMHx/PSHx: See Below SOCIAL HISTORY: See Below. PHYSICAL EXAM: GENERAL: Patient is in no acute distress. HEENT: No acute trauma, normocephalic atraumatic, mucous membranes moist, no nasal congestion, no scleral icterus. NECK: No stridor, no adenopathy, nontender C-spine, trachea is midline. LUNGS: Clear to auscultation bilaterally, no wheeze, no rhonchi, breath sounds equal. HEART: 3/6 systolic murmur, regular rate and rhythm. ABDOMEN: Soft, nontender, bowel sounds positive, no hernias, no peritonitis. EXTREMITIES: No cyanosis. Mild bilateral pedal edema. There is no obvious deformity to either of her lower extremities. She does have some pain to move the left hip. There is a subtle abrasion to the proximal to mid lateral left tib-fib. No pain to palpate this area. No pain to move the ankles on either side. No pain to move the knees on either side. No pain to move the joints of the upper extremities. NEUROLOGIC: Oriented x 3, no acute motor or sensory deficits, no focal weakness. SKIN: No rash, no jaundice, no diaphoresis. DIFFERENTIAL DIAGNOSIS: Infection, UTI, dysrhythmia, A. fib or a flutter, intracranial bleeding, pelvic or hip fracture, dehydration, metabolic abnormality, hypo/hyperglycemia, electrolyte disturbance, anemia, hypoxia, cardiac sources, intracerebral event, toxicologic issues, stroke, TIA, as well as other pathologies. EMERGENCY DEPARTMENT COURSE/PROCEDURES: ECG: Indication was weakness and syncope. The ECG shows what appears to be a sinus rhythm with a long first-degree AV block. PACs are present. There is no ST elevation. The QTc is 449. Compared to an ECG from 06 September 2021, I see no significant change. Continuous Cardiac Monitoring: An order was placed for continuous cardiac monitoring. The monitor shows a rate of 66 with sinus rhythm with a first- degree AV block. MEDICAL DECISION MAKING: There is no leukocytosis or concerning anemia. Platelet count slightly low at 114. INR is 1.5, this is elevated from her Coumadin use but is below the therapeutic window. No significant electrolyte abnormality or kidney failure. No concerning liver enzyme elevation. ECG shows what appears to be a sinus rhythm with a first-degree AV block, no acute ischemia. Cardiac enzyme testing x1 is not consistent with acute cardiac injury. Patient appears to be in a euthyroid state. Urinalysis does not show infection. Covid testing is negative. Chest film shows some chronic findings, no pneumonia or CHF. Left hip and pelvis films show a left subcapital hip fracture with minimal displacement. No pelvic fracture. Brain CT shows no acute bleed or mass- effect. C-spine CT shows no acute fracture. The patient received IV Zofran for nausea, a second dose of Zofran was required. She was given IV Phenergan. She received a 500 cc saline bolus. Patient did get somewhat groggy and sleepy with her Phenergan. Her nausea/vomiting though seems to be improved. I suspect the nausea and vomiting was from the fentanyl that she had received prior to arrival. She has had issues with vomiting when she receives narcotics. I spoke to the patient about her findings, she understands the need to stay in [facility]. I did speak with orthopedics. I spoke with the hospitalist, case management has been involved. Past Med/Surg History Medical History Ambulatory dysfunction Chronic a-fib Depression Diabetes mellitus, type II Dyslipidemia GERD (gastroesophageal reflux disease) Gout H/O recurrent urinary tract infection History of breast cancer History of DVT (deep vein thrombosis) History of pulmonary embolism History of stroke MRSA (methicillin resistant Staphylococcus aureus) carrier Stroke Surgical History History of cholecystectomy History of partial mastectomy Family History Other Cancer Diabetes Social History Smoking Status: Never smoker Second Hand Exposure: No; Hx Alcohol Use: No Hx Substance Use: No Preferred Language: Bengali Communication Ability: Effective Youth Services Librarian Required: No Beliefs That Will Affect Care: None marital status: Current Living Situation: Personal Care Facility Current Living Situation Comment: [facility] Feels Safe at Home: Yes Assistive Devices: Denture - Upper, Glasses and Walker Allergies Allergies Allergy/AdvReac Type Severity Reaction Status Date / Time levofloxacin Allergy Severe ITCHING/HIV Verified 10/02/21 10:56 ES adhesive Allergy Unknown REDNESS, Verified 10/02/21 10:56 RASH indomethacin Allergy Unknown . Verified 10/02/21 10:56 meperidine Allergy Unknown UNKNOWN Verified 10/02/21 10:56 nitrofurantoin Allergy Unknown Unknown Verified 10/02/21 10:56 Sulfa (Sulfonamide Allergy Unknown Unknown Verified 10/02/21 10:56 Antibiotics) morphine AdvReac Intermediate SEVERE Verified 10/02/21 10:56 VOMITING oxycodone AdvReac Intermediate VOMITING Verified 10/02/21 10:56 tramadol AdvReac Intermediate N/V Verified 10/02/21 10:56 Home Meds Home Medications Medication Instructions Recorded Confirmed acetaminophen 500 mg tablet 500 mg PO Q6H PRN 04/25/21 10/02/21 (Tylenol Extra Strength) alprazolam 0.25 mg tablet 0.25 mg PO Q8 PRN 04/25/21 10/02/21 carboxymethylcellulose sodium 0.5 1 drp OPHTHALMIC (EYE) QID PRN 04/25/21 10/02/21 % eye drops in a dropperette (Refresh Plus) cholecalciferol (vitamin D3) 25 25 mcg PO DAILY 04/25/21 10/02/21 mcg (1,000 unit) tablet (Vitamin D3) cod liver oil 1 cap PO DAILY 04/25/21 10/02/21 colchicine 0.6 mg tablet 0.6 mg PO DAILY 04/25/21 10/02/21 diclofenac sodium 1 % topical gel 1 ea TOPICAL BID 04/25/21 10/02/21 omeprazole 20 mg capsule,delayed 20 mg PO DAILY 04/25/21 10/02/21 release sertraline 25 mg tablet (Zoloft) 25 mg PO HS 04/25/21 10/02/21 warfarin 5 mg tablet (Jantoven) 5 mg PO DAILY 04/25/21 10/02/21 methenamine hippurate 1 gram 1 g PO BID 10/02/21 10/02/21 tablet (Hiprex) polyethylene glycol 400 1 % eye 2 drp OPHTHALMIC (EYE) BID PRN 10/02/21 10/02/21 drops (Visine Dry Eye Relief) Results & Data (ED) Vital Signs Vital Signs - 24 hr 10/02/21 09:45 10/02/21 09:55 10/02/21 10:00 Temperature 37.1 C Temperature Source Oral Pulse Rate 65 60 Respiratory Rate 16 20 Respiratory Effort / Characteristics Non-Labored Respiratory Depth Normal Blood Pressure 131/70 Blood Pressure Mean 90 Pulse Oximetry 93 88 L 96 Oxygen Delivery Method Room Air Room Air Nasal Cannula Oxygen Flow Rate 0 2 Sepsis Recent Fever Within 48 Hours No Sepsis New/Unexplained Change in Mental Status No Sepsis Action Taken by Nursing No Action Required Oxygen Flow Rate - Titration 2 Pulse Oximetry Post Tiitration 97 10/02/21 10:10 10/02/21 10:30 10/02/21 11:00 Temperature Temperature Source Pulse Rate 89 59 L Respiratory Rate 20 16 Respiratory Effort / Characteristics Respiratory Depth Blood Pressure Blood Pressure Mean Pulse Oximetry 97 98 Oxygen Delivery Method Nasal Cannula Nasal Cannula Oxygen Flow Rate 2 2 Sepsis Recent Fever Within 48 Hours Sepsis New/Unexplained Change in Mental Status Sepsis Action Taken by Nursing Oxygen Flow Rate - Titration Pulse Oximetry Post Tiitration 10/02/21 11:30 10/02/21 12:00 Temperature Temperature Source Pulse Rate 52 L 57 L Respiratory Rate 16 18 Respiratory Effort / Characteristics Respiratory Depth Blood Pressure 152/96 H Blood Pressure Mean 114 Pulse Oximetry 98 97 Oxygen Delivery Method Nasal Cannula Room Air Oxygen Flow Rate 2 Sepsis Recent Fever Within 48 Hours Sepsis New/Unexplained Change in Mental Status Sepsis Action Taken by Nursing Oxygen Flow Rate - Titration Pulse Oximetry Post Tiitration Home Medications Current Medication List: was personally reviewed by me Laboratory Data Attestation: I reviewed the patient's lab results. Result diagrams: 10/02/21 10:00 10/02/21 10:00 Lab Results 10/02/21 10/02/21 10/02/21 Range/Units 10:00 10:00 10:00 WBC 5.59 (4.8-10.8) K/uL RBC 3.94 L (4.2-5.4) M/uL Hgb 12.5 (12.0-16.0) g/dL Hct 36.8 L (37-47) % MCV 93.4 (80-100) fL MCH 31.7 (25-34) pg MCHC 34.0 (32-36) g/dL RDW Std Deviation 46.2 (36.4-46.3) fL RDW Coeff of Jun 13.5 (11.5-14.5) % Plt Count 114 L (130-400) K/uL MPV 11.1 H (7.4-10.4) fL Immature Gran % (Auto) 0.4 % Neut % (Auto) 60.3 % Lymph % (Auto) 28.8 % [place] % (Auto) 8.8 % Eos % (Auto) 1.3 % Baso % (Auto) 0.4 % Neut # (Auto) 3.38 (1.4-6.5) K/uL Lymph # (Auto) 1.61 (1.2-3.4) K/uL [place] # (Auto) 0.49 (0.11-0.59) K/uL Eos # (Auto) 0.07 (0-0.5) K/uL Baso # (Auto) 0.02 (0-0.2) K/uL Immature Gran # (Auto) 0.02 (0.00-0.02) K/uL PT 15.1 H (9.0-12.0) Seconds INR 1.5 H (0.9-1.1) APTT 32.0 H (21.0-31.0) Seconds PTT Ratio 1.2 Sodium 137 (136-145) mmol/L Potassium 3.7 (3.5-5.1) mmol/L Chloride 105 (98-107) mmol/L Carbon Dioxide 27 (21-32) mmol/L Anion Gap 5.0 (3-11) BUN 20 H (7-18) mg/dl Creatinine 0.56 L (0.6-1.2) mg/dl Est Cr Clr Drug Dosing 63.8 ml/min Est GFR ( Amer) 95.8 ml/min Est GFR (Non-Af Amer) 82.7 ml/min BUN/Creatinine Ratio 35.8 H (10-20) Glucose 121 H (70-99) mg/dl Calcium 9.5 (8.5-10.1) mg/dl Magnesium 2.3 (1.8-2.4) mg/dl Total Bilirubin 0.7 (0.2-1) mg/dl AST 21 (15-37) U/L ALT 22 (12-78) U/L Alkaline Phosphatase 73 (45-117) U/L Troponin I < 0.015 (0-0.045) ng/ml Total Protein 6.7 (6.4-8.2) gm/dl Albumin 3.3 L (3.4-5.0) gm/dl Globulin 3.4 (2.5-4.0) gm/dl Albumin/Globulin Ratio 1.0 (0.9-2) TSH 2.010 (0.300-4.500) uIu/ml Urine Color Urine Appearance (Clear) Urine pH (4.5-7.5) Ur Specific [place] (1.000-1.030) Urine Protein (Negative) Urine Glucose (UA) (Negative) Urine Ketones (Negative) Urine Blood (Negative) Urine Nitrite (Negative) Urine Bilirubin (Negative) Urine Urobilinogen (Negative) Ur Leukocyte Esterase (Negative) COVID-19 Eval Order SARS-CoV-2 (PCR) (Negative) 10/02/21 10/02/21 10/02/21 Range/Units 10:50 10:50 11:55 WBC (4.8-10.8) K/uL RBC (4.2-5.4) M/uL Hgb (12.0-16.0) g/dL Hct (37-47) % MCV (80-100) fL MCH (25-34) pg MCHC (32-36) g/dL RDW Std Deviation (36.4-46.3) fL RDW Coeff of Jun (11.5-14.5) % Plt Count (130-400) K/uL MPV (7.4-10.4) fL Immature Gran % (Auto) % Neut % (Auto) % Lymph % (Auto) % [place] % (Auto) % Eos % (Auto) % Baso % (Auto) % Neut # (Auto) (1.4-6.5) K/uL Lymph # (Auto) (1.2-3.4) K/uL [place] # (Auto) (0.11-0.59) K/uL Eos # (Auto) (0-0.5) K/uL Baso # (Auto) (0-0.2) K/uL Immature Gran # (Auto) (0.00-0.02) K/uL PT (9.0-12.0) Seconds INR (0.9-1.1) APTT (21.0-31.0) Seconds PTT Ratio Sodium (136-145) mmol/L Potassium (3.5-5.1) mmol/L Chloride (98-107) mmol/L Carbon Dioxide (21-32) mmol/L Anion Gap (3-11) BUN (7-18) mg/dl Creatinine (0.6-1.2) mg/dl Est Cr Clr Drug Dosing ml/min Est GFR ( Amer) ml/min Est GFR (Non-Af Amer) ml/min BUN/Creatinine Ratio (10-20) Glucose (70-99) mg/dl Calcium (8.5-10.1) mg/dl Magnesium (1.8-2.4) mg/dl Total Bilirubin (0.2-1) mg/dl AST (15-37) U/L ALT (12-78) U/L Alkaline Phosphatase (45-117) U/L Troponin I (0-0.045) ng/ml Total Protein (6.4-8.2) gm/dl Albumin (3.4-5.0) gm/dl Globulin (2.5-4.0) gm/dl Albumin/Globulin Ratio (0.9-2) TSH (0.300-4.500) uIu/ml Urine Color Yellow Urine Appearance Clear (Clear) Urine pH 6.5 (4.5-7.5) Ur Specific [place] 1.017 (1.000-1.030) Urine Protein Negative (Negative) Urine Glucose (UA) Negative (Negative) Urine Ketones Negative (Negative) Urine Blood Negative (Negative) Urine Nitrite Negative (Negative) Urine Bilirubin Negative (Negative) Urine Urobilinogen Negative (Negative) Ur Leukocyte Esterase Negative (Negative) COVID-19 Eval Order Covid19 at [facility] SARS-CoV-2 (PCR) NEGATIVE (Negative) Administered Medications Heparin Sodium/Dextrose (Heparin Sodium/Dextrose) 25,000 units in 500 mls @ 15 mls/hr IV .Q24H MIKE; Protocol Stop: 11/01/21 14:19 Last Admin: 10/02/21 15:55 Dose: 750 units/hr, 15 mls/hr Documented by: [id number] Cosigned by: [id number] Sodium Chloride (Nss 1000ml) 1,000 mls @ 50 mls/hr IV .Q20H ONE Stop: 10/03/21 10:19 Last Admin: 10/02/21 15:59 Dose: 50 mls/hr Documented by: [id number] Oxycodone HCl (Oxycodone Hcl Ir 5 Mg Tab (Immediate Release)) 5 mg PO Q4H PRN PRN Reason: MODERATE Pain (4,5,6) & Pre PT Stop: 10/16/21 14:19 Last Admin: 10/02/21 15:54 Dose: 5 mg Documented by: [id number] Discontinued Medications Sodium Chloride (Nss) 500 mls @ 999 mls/hr IV .Q31M MIKE Stop: 10/02/21 10:30 Last Infusion: 10/02/21 10:38 Dose: 0 mls/hr Documented by: [id number] Admin: 10/02/21 09:57 Dose: 999 mls/hr Documented by: [id number] Promethazine HCl (Phenergan) 6.25 mg in 50.25 mls @ 201 mls/hr IV NOW STA Stop: 10/02/21 10:54 Last Infusion: 10/02/21 11:28 Dose: 0 mls/hr Documented by: [id number] Admin: 10/02/21 10:43 Dose: 201 mls/hr Documented by: [id number] Ondansetron HCl (Ondansetron Inj 2 Mg/Ml 2 Ml Vial) 4 mg IV NOW STA Stop: 10/02/21 09:49 Last Admin: 10/02/21 09:57 Dose: 4 mg Documented by: [id number] Ondansetron HCl (Ondansetron Inj 2 Mg/Ml 2 Ml Vial) 4 mg IV NOW STA Stop: 10/02/21 10:41 Last Admin: 10/02/21 10:43 Dose: 4 mg Documented by: [id number] Imaging Data Radiologist's Impression: Cervical Spine CT 10/02/21 09:48 CT cervical spine wo con CLINICAL HISTORY: fall . Neck pain COMPARISON STUDY: 04/25/2021 CT DOSE: 868.69 mGy.cm TECHNIQUE: Standard CT of the Cervical Spine was performed without IV contrast. A dose lowering technique was utilized adhering to the principles of ALARA. FINDINGS: Bones: Bones are osteopenic. There is no evidence for an acute fracture or malalignment. The heights of the vertebral bodies are maintained. The vertebral bodies are in anatomic alignment. The odontoid is intact and the atlantoaxial articulation is within normal limits. Disc spaces:There is moderate to marked disc space narrowing from C4 through C7 with endplate cirrhosis and osteophyte formation present. Schmorl's node and subchondral cyst formation is also seen. Apophyseal joints:Prominent degenerative apophyseal joint disease is also seen bilaterally. Soft tissues:The prevertebral soft tissues are within normal limits. Asymmetric apical pleural thickening is seen at the right lung apex. IMPRESSION: Osteopenia with no acute abnormality. Degenerative disc and degenerative joint disease. ACT 112: Negative or not required by law. Electronically signed by: Landon Felipe M.D. 10/02/2021 10:46 AM Chest X-Ray 10/02/21 09:48 XR chest 1V portable CLINICAL HISTORY: weakness. Status post fall. Evaluate cardiopulmonary status COMPARISON STUDY: 09/06/2021 TECHNIQUE: 1 view of the chest FINDINGS: Single frontal view of the chest demonstrates the heart size again be mildly enlarged. The lungs are clear of alveolar opacities. There is again asymmetric apical pleural thickening on the right. There is no evidence for pleural effusion. There is no evidence for vascular congestion. There is no acute osseous pathology. IMPRESSION: No acute cardiopulmonary disease. ACT 112: Negative or not required by law. Electronically signed by: Landon Felipe M.D. 10/02/2021 10:[address] 10/02/21 09:48 CT head/brain wo con CLINICAL HISTORY: Syncopal episode with fall. Dizziness. Patient on Coumadin. COMPARISON STUDY: 04/25/2021 CT DOSE: TECHNIQUE: Standard CT of the Brain was performed without IV contrast. A dose lowering technique was utilized adhering to the principles of ALARA. FINDINGS: Extraaxial space: There is no evidence for subdural hematoma. There are no extra-axial fluid collections. Ventricles and cisterns: The ventricles are mildly dilated bilaterally. There is no evidence for midline shift or mass effect. Parenchyma: There is no subarachnoid or intraparenchymal hemorrhage. There is no evidence for an acute infarct or cerebral edema. There is mild cerebral cortical atrophy and decreased attenuation in the periventricular white matter representing remote small vessel disease. There are no gross mass lesions. Osseous structures: There is no evidence for an acute fracture. The visualized paranasal sinuses are clear. The mastoid air cells are clear bilaterally. Soft tissues: There is no evidence for focal soft tissue swelling. IMPRESSION: No acute intracerebral pathology. There is again evidence for cerebral cortical atrophy and extensive remote small vessel disease. ACT 112: Negative or not required by law. Electronically signed by: Landon Felipe M.D. 10/02/2021 10:43 AM Hip/Pelvis X-Ray 10/02/21 09:48 XR hip LT 2V w pelvis CLINICAL HISTORY: Status post fall with left hip pain. COMPARISON STUDY: 04/25/2021 TECHNIQUE: Pelvis and multiple left hip views FINDINGS: Bones are osteopenic. Bones: Compared to the previous examination, there is evidence for an impacted, subcapital fracture of the left femoral neck. This is particularly seen laterally. The remaining bones of the pelvis are intact. There is no lytic or blastic lesion. Joints: There is moderate narrowing of the hip joint spaces bilaterally. The bones are in anatomic alignment. Soft tissues: There is no focal soft tissue abnormality. There is no radiopaque foreign body. IMPRESSION: Evidence for an impacted, subcapital fracture left femoral neck as described. ACT 112: Negative or not required by law. Electronically signed by: Landon Felipe M.D. 10/02/2021 10:38 AM Discharge Plan Visit Data Chief Complaint: Syncope Stated Complaint: NEAR SYNCOPE/SYNCOPE, L HIP PAIN ED Provider: David Tang Discharge Problem: Closed fracture of left hip, Syncope, Vomiting, Fall Patient Disposition: Admitted As Inpatient Condition: Fair Discharge Instructions Interventions: ED Discharge Assessment Last Done: 10/02/21 14:24
[2021-10-02] MEDS ORDERED: SODIUM CHLORIDE 0.9% 500 ML IV SCH (10:00)
[2021-10-02 10:12] LABS: Basophils # (auto) 0.02 K/uL (0-0.2); Basophils % (auto) 0.4 %; Eosinophils # (auto) 0.07 K/uL (0-0.5); Eosinophils % (auto) 1.3 %; Hematocrit (blood only) 36.8 % (37-47); Hemoglobin 12.5 g/dL (12.0-16.0); Immature Granulocytes # (auto) 0.02 K/uL (0.00-0.02); Immature Granulocytes % (auto) 0.4 %; Lymphocytes # (auto) 1.61 K/uL (1.2-3.4); Lymphocytes % (auto) 28.8 %; Mean Corpuscular Hemoglobin 31.7 pg (25-34); Mean Corpuscular Volume 93.4 fL (80-100); Mean Platelet Volume 11.1 fL (7.4-10.4); Monocytes # (auto) 0.49 K/uL (0.11-0.59); Monocytes % (auto) 8.8 %; Neutrophils # (auto) 3.38 K/uL (1.4-6.5); Neutrophils % (auto) 60.3 %; Platelet Count 114 K/uL (130-400); RDW Coefficient of Variation 13.5 % (11.5-14.5); RDW Standard Deviation 46.2 fL (36.4-46.3); Red Blood Count 3.94 M/uL (4.2-5.4); White Blood Count 5.59 K/uL (4.8-10.8)
[2021-10-02 10:24] LABS: INR 1.5 (0.9-1.1); Partial Thromboplastin Ratio 1.2; Prothrombin Time 15.1 Seconds (9.0-12.0)
[2021-10-02 10:27] LABS: Alanine Aminotransferase 22 U/L (12-78); Albumin Level 3.3 gm/dl (3.4-5.0); Aspartate Aminotransferase 21 U/L (15-37); BUN Creatinine Ratio 35.8 (10-20); Blood Urea Nitrogen 20 mg/dl (7-18); Calcium 9.5 mg/dl (8.5-10.1); Carbon Dioxide 27 mmol/L (21-32); Chloride 105 mmol/L (98-107); Creatinine Clr Calc Pharmacy 63.8 ml/min; Est GFR (African American) 95.8 ml/min; Est GFR (Non-African American) 82.7 ml/min; Glucose 121 mg/dl (70-99); Magnesium 2.3 mg/dl (1.8-2.4); Potassium 3.7 mmol/L (3.5-5.1); Sodium 137 mmol/L (136-145)
--- NOTE | 2021-10-02 10:37 | XRay Report ---
XR chest 1V portable CLINICAL HISTORY: weakness. Status post fall. Evaluate cardiopulmonary status COMPARISON STUDY: 09/06/2021 TECHNIQUE: 1 view of the chest FINDINGS: Single frontal view of the chest demonstrates the heart size again be mildly enlarged. The lungs are clear of alveolar opacities. There is again asymmetric apical pleural thickening on the right. There is no evidence for pleural effusion. There is no evidence for vascular congestion. There is no acute osseous pathology. IMPRESSION: No acute cardiopulmonary disease. ACT 112: Negative or not required by law. Electronically signed by: Landon Felipe M.D. 10/02/2021 10:35 AM
[2021-10-02 10:38] LABS: Alkaline Phosphatase 73 U/L (45-117); Bilirubin,Total 0.7 mg/dl (0.2-1); Globulin 3.4 gm/dl (2.5-4.0); Total Protein 6.7 gm/dl (6.4-8.2); Troponin I < 0.015 ng/ml (0-0.045)
[2021-10-02] MEDS ORDERED: PROMETHAZINE 6.25 MG/50.25 ML BAG IV STA (10:40)
--- NOTE | 2021-10-02 10:40 | XRay Report ---
XR hip LT 2V w pelvis CLINICAL HISTORY: Status post fall with left hip pain. COMPARISON STUDY: 04/25/2021 TECHNIQUE: Pelvis and multiple left hip views FINDINGS: Bones are osteopenic. Bones: Compared to the previous examination, there is evidence for an impacted, subcapital fracture o f the left femoral neck. This is particularly seen laterally. The remaining bones of the pelvis are i ntact. There is no lytic or blastic lesion. Joints: There is moderate narrowing of the hip joint spaces bilaterally. The bones are in anatomic al ignment. Soft tissues: There is no focal soft tissue abnormality. There is no radiopaque foreign body. IMPRESSION: Evidence for an impacted, subcapital fracture left femoral neck as described. ACT 112: Negative or not required by law. Electronically signed by: Landon Felipe M.D. 10/02/2021 10:38 AM
--- NOTE | 2021-10-02 10:44 | CT Scan Report ---
CT head/brain wo con CLINICAL HISTORY: Syncopal episode with fall. Dizziness. Patient on Coumadin. COMPARISON STUDY: 04/25/2021 CT DOSE: TECHNIQUE: Standard CT of the Brain was performed without IV contrast. A dose lowering technique was utilized adhering to the principles of ALARA. FINDINGS: Extraaxial space: There is no evidence for subdural hematoma. There are no extra-axial fluid collecti ons. Ventricles and cisterns: The ventricles are mildly dilated bilaterally. There is no evidence for mid line shift or mass effect. Parenchyma: There is no subarachnoid or intraparenchymal hemorrhage. There is no evidence for an acu te infarct or cerebral edema. There is mild cerebral cortical atrophy and decreased attenuation in th e periventricular white matter representing remote small vessel disease. There are no gross mass lesi ons. Osseous structures: There is no evidence for an acute fracture. The visualized paranasal sinuses are clear. The mastoid air cells are clear bilaterally. Soft tissues: There is no evidence for focal soft tissue swelling. IMPRESSION: No acute intracerebral pathology. There is again evidence for cerebral cortical atrophy a nd extensive remote small vessel disease. ACT 112: Negative or not required by law. Electronically signed by: Landon Felipe M.D. 10/02/2021 10:43 AM
--- NOTE | 2021-10-02 10:48 | CT Scan Report ---
CT cervical spine wo con CLINICAL HISTORY: fall . Neck pain COMPARISON STUDY: 04/25/2021 CT DOSE: 868.69 mGy.cm TECHNIQUE: Standard CT of the Cervical Spine was performed without IV contrast. A dose lowering te chnique was utilized adhering to the principles of ALARA. FINDINGS: Bones: Bones are osteopenic. There is no evidence for an acute fracture or malalignment. The heights of the vertebral bodies are maintained. The vertebral bodies are in anatomic alignment. The odontoid is intact and the atlantoaxial articulation is within normal limits. Disc spaces:There is moderate to marked disc space narrowing from C4 through C7 with endplate cirrhos is and osteophyte formation present. Schmorl's node and subchondral cyst formation is also seen. Apophyseal joints:Prominent degenerative apophyseal joint disease is also seen bilaterally. Soft tissues:The prevertebral soft tissues are within normal limits. Asymmetric apical pleural thicke yajaira is seen at the right lung apex. IMPRESSION: Osteopenia with no acute abnormality. Degenerative disc and degenerative joint disease. ACT 112: Negative or not required by law. Electronically signed by: Landon Felipe M.D. 10/02/2021 10:46 AM
--- NOTE | 2021-10-02 11:14 | History & Physical Report ---
Date of Service October 02, 2021 Assessment & Plan (1) Closed left hip fracture: Plan: Hip fracture S/P mechanical Fall H/O ambulatory dysfunction Hip X ray:Evidence for an impacted, subcapital fracture left femoral neck as described. Orthopedics consulted Fall precautions N.p.o. after midnight Pain control bowel regimen to prevent constipation PT/OT when appropriate Suspected Syncope/near syncopal episode CT head:No acute intracerebral pathology. There is again evidence for cerebral cortical atrophy and extensive remote small vessel disease. Monitor in Telemetry for arrhythmia Check Orthostatics when appropriate Consider ECHO, Carotid Ultrasound when patient is more awake and if she admits to passing out Hypoxia Likely secondary to fentanyl Chest x-ray showed no acute findings Continue supplemental oxygen as needed Subtherapeutic INR INR 1.5 Hold Coumadin for now for possible surgery DM Type II: Poorly controlled Last A1c: 11.6 on September 14, 2021 Update HbA1c Continue insulin bolus while hospitalized Monitor blood glucose levels Chronic atrial fibrillation On chronic anticoagulation with Coumadin Hold Coumadin as need for surgery Not on any rate control medications Started on IV heparin for now Gout On Colcrys GERD Continue PPI DVT Px: IV heparin Resume Coumadin as able CODE STATUS DNI DNR as per my discussion with patient's daughter and old records Disposition May need rehab placement eventually History of Present Illness Chief Complaint: Fall Primary Care Provider: MIGUEL Patient is an 89-year-old female with history of pulmonary embolism, atrial fibrillation on chronic anticoagulation with Coumadin, CVA, dyslipidemia, gout, GERD, chronic thrombocytopenia peripheral vascular disease, leukocytoclastic vasculitis, chronic venous insufficiency and other medical problems presents with history of fall resulting in left hip pain. Patient is currently lethargic and unable to provide much history. Most of the history is obtained from patient's old records, ER staff and family. Patient received fentanyl in route to the hospital for left hip pain and vomited x2 while in ED. As per the records, patient was getting cleaned up this morning and felt lightheaded and had a syncopal episode. Patient had similar episodes in the past. Patient tried to quickly sit up but slid to the floor resulting in falling on her left hip. No known history of head trauma. CT head, neck, chest x-ray showed no acute findings. Left hip x-ray suggestive of impacted, subcapital fracture of the left femur neck. ER physician discussed with orthopedics. She was mildly hypoxic while in ED, oxygen saturations improved with 2 L supplemental oxygen. Labs suggestive of subtherapeutic INR 1.5. Currently she is oriented to person, year. She denies any history of chest pain, shortness of breath, dizziness, abdominal pain. Left hip pain is controlled currently. No distress during my encounter. Allergies Allergy/AdvReac Type Severity Reaction Status Date / Time levofloxacin Allergy Severe ITCHING/HIV Verified 10/02/21 10:56 ES adhesive Allergy Unknown REDNESS, Verified 10/02/21 10:56 RASH indomethacin Allergy Unknown . Verified 10/02/21 10:56 meperidine Allergy Unknown UNKNOWN Verified 10/02/21 10:56 nitrofurantoin Allergy Unknown Unknown Verified 10/02/21 10:56 Sulfa (Sulfonamide Allergy Unknown Unknown Verified 10/02/21 10:56 Antibiotics) morphine AdvReac Intermediate SEVERE Verified 10/02/21 10:56 VOMITING oxycodone AdvReac Intermediate VOMITING Verified 10/02/21 10:56 tramadol AdvReac Intermediate N/V Verified 10/02/21 10:56 Home Medications Medication Instructions Recorded Confirmed Type acetaminophen 500 mg tablet 500 mg PO Q6H PRN 04/25/21 10/02/21 History (Tylenol Extra Strength) alprazolam 0.25 mg tablet 0.25 mg PO Q8 PRN 04/25/21 10/02/21 History carboxymethylcellulose sodium 0.5 1 drp OPHTHALMIC (EYE) QID PRN 04/25/21 10/02/21 History % eye drops in a dropperette (Refresh Plus) cholecalciferol (vitamin D3) 25 25 mcg PO DAILY 04/25/21 10/02/21 History mcg (1,000 unit) tablet (Vitamin D3) cod liver oil 1 cap PO DAILY 04/25/21 10/02/21 History colchicine 0.6 mg tablet 0.6 mg PO DAILY 04/25/21 10/02/21 History diclofenac sodium 1 % topical gel 1 ea TOPICAL BID 04/25/21 10/02/21 History omeprazole 20 mg capsule,delayed 20 mg PO DAILY 04/25/21 10/02/21 History release sertraline 25 mg tablet (Zoloft) 25 mg PO HS 04/25/21 10/02/21 History warfarin 5 mg tablet (Jantoven) 5 mg PO DAILY 04/25/21 10/02/21 History methenamine hippurate 1 gram 1 g PO BID 10/02/21 10/02/21 History tablet (Hiprex) polyethylene glycol 400 1 % eye 2 drp OPHTHALMIC (EYE) BID PRN 10/02/21 10/02/21 History drops (Visine Dry Eye Relief) Past Med/Surg History Medical History (Updated 10/02/21 @ 12:39 by Ezekiel Kennedy MD) Ambulatory dysfunction Chronic a-fib Depression Diabetes mellitus, type II Dyslipidemia GERD (gastroesophageal reflux disease) Gout H/O recurrent urinary tract infection History of breast cancer History of DVT (deep vein thrombosis) History of pulmonary embolism History of stroke MRSA (methicillin resistant Staphylococcus aureus) carrier Stroke Surgical History History of cholecystectomy History of partial mastectomy Family History Other Cancer Diabetes Social History Smoking Status: Never smoker Second Hand Exposure: No; Hx Alcohol Use: No Hx Substance Use: No Preferred Language: Liberian Communication Ability: Effective Claims Customer Service Representative Required: No Beliefs That Will Affect Care: None marital status: Current Living Situation: Personal Care Facility Current Living Situation Comment: [facility] Feels Safe at Home: Yes Assistive Devices: Walker Review of Systems Review of Systems: Other Physical Exam Physical Exam: Physical Exam: Vitals signs as noted above General Appearance:Moderately built and nourished, no apparent distress, Elderly Head: normocephalic, Atraumatic Eyes: normal inspection, EOMI Neck: supple, Trachea midline Respiratory/Chest: Normal breath sounds, CTA, No accessory muscle use Cardiovascular: Irregularly Irregular, + murmur Abdomen/GI:Soft, Non tender, Bowel sounds present Extremities/Musculoskeletal:normal inspection, 1+ B/L LE edema, Left decreased ROM secondary to pain Neurologic/Psych: Lethargic, follows simple commands, oriented to person, ER, grossly no focal neurological deficits Skin: normal color, warm Results & Data Results & Data ([facility]) Vital Signs (Past 12 Hours) Vital Signs Temp Pulse Resp BP Pulse Ox 10/02/21 10:10 97 10/02/21 09:55 88 L 10/02/21 09:45 37.1 C 65 16 131/70 93 Laboratory Results Short CBC 10/02/21 Range/Units 10:00 WBC 5.59 (4.8-10.8) K/uL Hgb 12.5 (12.0-16.0) g/dL Hct 36.8 L (37-47) % Plt Count 114 L (130-400) K/uL BMP 10/02/21 10:00 Sodium 137 Potassium 3.7 Chloride 105 Carbon Dioxide 27 BUN 20 H Creatinine 0.56 L Glucose 121 H Calcium 9.5 Cardiac Enzymes 10/02/21 Range/Units 10:00 Troponin I < 0.015 (0-0.045) ng/ml Liver Function 10/02/21 Range/Units 10:00 Total Bilirubin 0.7 (0.2-1) mg/dl AST 21 (15-37) U/L ALT 22 (12-78) U/L Alkaline Phosphatase 73 (45-117) U/L Albumin 3.3 L (3.4-5.0) gm/dl Urine 10/02/21 Range/Units 11:55 Urine Color Yellow Urine Appearance Clear (Clear) Urine pH 6.5 (4.5-7.5) Ur Specific [place] 1.017 (1.000-1.030) Urine Protein Negative (Negative) Urine Glucose (UA) Negative (Negative) Diagnostic Findings CT Head: No acute intracerebral pathology. There is again evidence for cerebral cortical atrophy and extensive remote small vessel disease. CT Neck: Osteopenia with no acute abnormality. Degenerative disc and degenerative joint disease. Hip X ray:Evidence for an impacted, subcapital fracture left femoral neck as described. CXR: No acute cardiopulmonary disease. ECG Additional Comments: EKG: Atrial fibrillation, QTC 449. Nonspecific ST-T wave changes
[2021-10-02 12:02] LABS: Appearance Urine Clear (Clear); Bilirubin Urine Negative (Negative); Blood Urine Negative (Negative); Color Urine Yellow; Glucose Urine UA Negative (Negative); Ketones Urine Negative (Negative); Leukocyte Esterase Urine Negative (Negative); Nitrite Urine Negative (Negative); Protein Urine Negative (Negative); Specific Gravity Urine 1.017 (1.000-1.030); Urobilinogen Urine Negative (Negative); pH Urine 6.5 (4.5-7.5)
--- NOTE | 2021-10-02 13:53 | Anesthesiology Consultation ---
Date of Service October 02, 2021 Assessment & Plan (1) Encounter for pre-operative examination: Chart Review Chart Review: Acceptable Risk for Surgery and Patient NOT seen in Pre Admission Testing Consults Requested none History Surgery Operation Date: 10/03/21 09:40 Proposed Procedures p ORIF Hip Cannulated Screw(Left) - Abdelrahman Buckley, Height/Weight Height: 5 ft 6 in Weight: 71.1 kg Allergies Allergy/AdvReac Type Severity Reaction Status Date / Time levofloxacin Allergy Severe ITCHING/HIV Verified 10/02/21 10:56 ES adhesive Allergy Unknown REDNESS, Verified 10/02/21 10:56 RASH indomethacin Allergy Unknown . Verified 10/02/21 10:56 meperidine Allergy Unknown UNKNOWN Verified 10/02/21 10:56 nitrofurantoin Allergy Unknown Unknown Verified 10/02/21 10:56 Sulfa (Sulfonamide Allergy Unknown Unknown Verified 10/02/21 10:56 Antibiotics) morphine AdvReac Intermediate SEVERE Verified 10/02/21 10:56 VOMITING oxycodone AdvReac Intermediate VOMITING Verified 10/02/21 10:56 tramadol AdvReac Intermediate N/V Verified 10/02/21 10:56 Medications Home Medications Medication Instructions Recorded Confirmed Last Taken acetaminophen 500 mg tablet 500 mg PO Q6H PRN 04/25/21 10/02/21 Unknown (Tylenol Extra Strength) alprazolam 0.25 mg tablet 0.25 mg PO Q8 PRN 04/25/21 10/02/21 Unknown carboxymethylcellulose sodium 0.5 1 drp OPHTHALMIC (EYE) QID PRN 04/25/21 10/02/21 09/05/21 % eye drops in a dropperette (Refresh Plus) cholecalciferol (vitamin D3) 25 25 mcg PO DAILY 04/25/21 10/02/21 09/05/21 mcg (1,000 unit) tablet (Vitamin D3) cod liver oil 1 cap PO DAILY 04/25/21 10/02/21 09/05/21 colchicine 0.6 mg tablet 0.6 mg PO DAILY 04/25/21 10/02/21 10/01/21 diclofenac sodium 1 % topical gel 1 ea TOPICAL BID 04/25/21 10/02/21 09/05/21 omeprazole 20 mg capsule,delayed 20 mg PO DAILY 04/25/21 10/02/21 10/01/21 release sertraline 25 mg tablet (Zoloft) 25 mg PO HS 04/25/21 10/02/21 10/01/21 warfarin 5 mg tablet (Jantoven) 5 mg PO DAILY 04/25/21 10/02/21 10/01/21 methenamine hippurate 1 gram 1 g PO BID 10/02/21 10/02/21 10/02/21 tablet (Hiprex) polyethylene glycol 400 1 % eye 2 drp OPHTHALMIC (EYE) BID PRN 10/02/21 10/02/21 Unknown drops (Visine Dry Eye Relief) Past Medical History Medical History (Updated 10/02/21 @ 13:52 by Regine Solares MD) Ambulatory dysfunction Chronic a-fib Depression Diabetes mellitus, type II Dyslipidemia GERD (gastroesophageal reflux disease) Gout H/O recurrent urinary tract infection History of breast cancer History of DVT (deep vein thrombosis) History of pulmonary embolism History of stroke MRSA (methicillin resistant Staphylococcus aureus) carrier Stroke Past Family History Family History Other Cancer Diabetes Past Surgical History Surgical History History of cholecystectomy History of partial mastectomy Social History Smoking Status: Never smoker Hx Alcohol Use: No Alcohol type: wine alcohol intake frequency: holidays/special occasions only Hx Substance Use: No substance use type: does not use Physical Exam Vital Signs Last Vital Signs Temp 37.1 C 10/02/21 09:45 Pulse 57 L 10/02/21 13:00 Resp 20 10/02/21 13:00 BP 126/90 10/02/21 13:00 Pulse Ox 98 10/02/21 13:00 Testing Laboratory Results 10/02/21 10:00 10/02/21 10:00 PT 15.1 Seconds (9.0-12.0) H 10/02/21 10:00 INR 1.5 (0.9-1.1) H 10/02/21 10:00 APTT 32.0 Seconds (21.0-31.0) H 10/02/21 10:00 Urine Color Yellow 10/02/21 11:55 Urine Appearance Clear (Clear) 10/02/21 11:55 Urine pH 6.5 (4.5-7.5) 10/02/21 11:55 Ur Specific [place] 1.017 (1.000-1.030) 10/02/21 11:55 Urine Protein Negative (Negative) 10/02/21 11:55 Urine Glucose (UA) Negative (Negative) 10/02/21 11:55 Urine Ketones Negative (Negative) 10/02/21 11:55 Urine Nitrite Negative (Negative) 10/02/21 11:55 Ur Leukocyte Esterase Negative (Negative) 10/02/21 11:55 Electrocardiogram Date: 10/02/21 Findings: + AFIB @ (64) Possible anterior infarct cited on or before September 06, 2021. When compared to prior ECG from 09/06/21, afib has replaced NSR and questionable change of initial forces of septal leads Chest X-Ray Date: 10/02/21 Findings: + NAD
[2021-10-02] MEDS ORDERED: POLYETHYLENE (MIRALAX) 17 GM PACK PO PRN (14:20)
[2021-10-02] MEDS ORDERED: GLUCOSE 40% GEL 15 GM TUBE PO PRN (14:20)
[2021-10-02] MEDS ORDERED: GLUCAGON FOR INJ 1 MG VIAL SQ PRN (14:20)
[2021-10-02] MEDS ORDERED: GLUCOSE 10 TABS/TUBE PO PRN (14:20)
[2021-10-02] MEDS ORDERED: DEXTROSE 50% 50 ML SYRINGE IV PRN (14:20)
[2021-10-02] MEDS ORDERED: Heparin IV Adult Wt-Based Low-Dose *NO* Bolus Protocol IV SCH (14:20)
[2021-10-02] MEDS ORDERED: SODIUM CHLORIDE 0.9% 1000ML 1,000 ML IV ONE (14:20)
[2021-10-02] MEDS ORDERED: NALOXONE HCL 0.4 MG/1 ML VIAL/CARP IV PRN (14:20)
[2021-10-02] MEDS ORDERED: CARBOHYDRATES FOR HYPOGLYCEMIA PO PRN (14:20)
[2021-10-02] MEDS ORDERED: bisacodyL 10 MG SUPP PR PRN (14:20)
[2021-10-02] MEDS ORDERED: POLYETHYLENE GLYCOL OP PRN (14:20)
[2021-10-02] MEDS ORDERED: MAGNESIUM HYDROXIDE SUSP 30 ML UDC PO PRN (14:20)
[2021-10-02] MEDS ORDERED: ARTIFICIAL TEARS OP PRN (14:36)
[2021-10-02 15:20] LABS: Partial Thromboplastin Ratio 1.2; Partial Thromboplastin Time 32.1 Seconds (21.0-31.0)
[2021-10-02] MEDS: oxyCODONE HCL IR 5 MG TAB (IMMEDIATE RELEASE) PO PRN (15:54)
[2021-10-02] MEDS: HEPARIN SODIUM/DEXTROSE 25,000 UNITS/500 ML BAG IV SCH (15:55)
[2021-10-02] MEDS: INSULIN ASPART 100 UNITS/ML 3 ML PEN SC SCH ×2 (17:24→21:24)
--- NOTE | 2021-10-02 18:40 | Orthopedic Consultation ---
Date of Service October 02, 2021 Assessment & Plan (1) Closed fracture of left hip: I discussed diagnosis and treatment options with her at bedside. I called her daughter as well. I recommended percutaneous screw fixation of her left hip. She understands the risk, benefits, and alternatives to procedure elected proceed. Questions were answered at bedside. Time was spent describing the procedure and postop expectations. She is on Coumadin but her INR is only 1.5. We will keep her n.p.o. past midnight tonight and plan to operate tomorrow. History of Present Illness Reason for Consultation: Left femoral neck fracture. Requesting Physician: . Attending Physician: Ezekiel Kennedy MD Sheridan is a pleasant 89-year-old female who lives at the [place]. She is a community ambulator with a walker. She said she felt lightheaded this morning and went to sit down. She sat down on the floor and felt severe left hip pain. She had trouble getting up. She was able to take a few steps before she can go any further. She was brought to the emergency room and radiographs demonstrated a valgus impacted left femoral neck fracture. She was admitted to the medical service. Orthopedics was consulted to evaluate and treat. Allergies Allergy/AdvReac Type Severity Reaction Status Date / Time levofloxacin Allergy Severe ITCHING/HIV Verified 10/02/21 10:56 ES adhesive Allergy Unknown REDNESS, Verified 10/02/21 10:56 RASH indomethacin Allergy Unknown . Verified 10/02/21 10:56 meperidine Allergy Unknown UNKNOWN Verified 10/02/21 10:56 nitrofurantoin Allergy Unknown Unknown Verified 10/02/21 10:56 Sulfa (Sulfonamide Allergy Unknown Unknown Verified 10/02/21 10:56 Antibiotics) morphine AdvReac Intermediate SEVERE Verified 10/02/21 10:56 VOMITING oxycodone AdvReac Intermediate VOMITING Verified 10/02/21 10:56 tramadol AdvReac Intermediate N/V Verified 10/02/21 10:56 Home Medications Medication Instructions Recorded Confirmed Type acetaminophen 500 mg tablet 500 mg PO Q6H PRN 04/25/21 10/02/21 History (Tylenol Extra Strength) alprazolam 0.25 mg tablet 0.25 mg PO Q8 PRN 04/25/21 10/02/21 History carboxymethylcellulose sodium 0.5 1 drp OPHTHALMIC (EYE) QID PRN 04/25/21 10/02/21 History % eye drops in a dropperette (Refresh Plus) cholecalciferol (vitamin D3) 25 25 mcg PO DAILY 04/25/21 10/02/21 History mcg (1,000 unit) tablet (Vitamin D3) cod liver oil 1 cap PO DAILY 04/25/21 10/02/21 History colchicine 0.6 mg tablet 0.6 mg PO DAILY 04/25/21 10/02/21 History diclofenac sodium 1 % topical gel 1 ea TOPICAL BID 04/25/21 10/02/21 History omeprazole 20 mg capsule,delayed 20 mg PO DAILY 04/25/21 10/02/21 History release sertraline 25 mg tablet (Zoloft) 25 mg PO HS 04/25/21 10/02/21 History warfarin 5 mg tablet (Jantoven) 5 mg PO DAILY 04/25/21 10/02/21 History methenamine hippurate 1 gram 1 g PO BID 10/02/21 10/02/21 History tablet (Hiprex) polyethylene glycol 400 1 % eye 2 drp OPHTHALMIC (EYE) BID PRN 10/02/21 10/02/21 History drops (Visine Dry Eye Relief) Past Med/Surg History Medical History Ambulatory dysfunction Chronic a-fib Depression Diabetes mellitus, type II Dyslipidemia GERD (gastroesophageal reflux disease) Gout H/O recurrent urinary tract infection History of breast cancer History of DVT (deep vein thrombosis) History of pulmonary embolism History of stroke MRSA (methicillin resistant Staphylococcus aureus) carrier Stroke Surgical History History of cholecystectomy History of partial mastectomy Family History Other Cancer Diabetes Social History Smoking Status: Never smoker Second Hand Exposure: No; Hx Alcohol Use: No Hx Substance Use: No Preferred Language: French Communication Ability: Effective Camera Maker Required: No Beliefs That Will Affect Care: None marital status: Current Living Situation: Personal Care Facility Current Living Situation Comment: [facility] Feels Safe at Home: Yes Assistive Devices: Denture - Upper, Glasses and Walker Review of Systems All systems reviewed & are unremarkable except as noted in HPI & below. Physical Exam On physical examination of the left hip, she sits with her hip flexed and inte rnally rotated. She has pain in the left groin with any logroll of the hip. She is neurovascularly intact. Constitutional WD/WN, vitals as above Eyes PERRL, conjunctivae normal, anicteric sclerae ENMT external ear and nose normal, oropharynx normal Neck trachea midline, no thyromegaly Respiratory normal respiratory effort Cardiovascular RRR, no murmur, no edema Gastrointestinal (Abdomen) normal bowel sounds, soft, nontender, no hepatosplenomegaly Psychiatric A+Ox3, euthymic affect Results & Data Results & Data Laboratory Results . Diagnostic Findings X-rays of the left hip show a valgus impacted left femoral neck fracture.. PG Care Time/CCT Total # of Minutes Spent Total Time Spent with Patient: Total time spent is greater than 50% in coordination of care (as documented) at patient's floor/unit and/or counseling patient: Coding Level of Care Code 24016 Inpt Consult Level 4 (57 - DECISION FOR SURGERY) Diagnoses Closed fracture of left hip S72.002A Encounter type: initial encounter (1) Closed fracture of left hip Encounter type: initial encounter Qualified Code(s): S72.002A - Fracture of unspecified part of neck of left femur, initial encounter for closed fracture
[2021-10-02] MEDS: SERTRALINE HCL 50 MG TABLET PO SCH (20:12)
[2021-10-02] MEDS: METHENAMINE HIPPURATE 1 GM TAB PO SCH (20:13)
[2021-10-02] MEDS: DOCUSATE SODIUM/SENNA 50/8.6MG TAB PO SCH (20:13)
[2021-10-02] MEDS ORDERED: DICLOFENAC SOD 1% GEL 100 GM TUBE EXT SCH (21:00)
[2021-10-02 22:47] LABS: Partial Thromboplastin Ratio 2.3
[2021-10-02 22:59] LABS: Partial Thromboplastin Time 61.6 Seconds (21.0-31.0)
[2021-10-03] MEDS: oxyCODONE HCL IR 5 MG TAB (IMMEDIATE RELEASE) PO PRN ×2 (01:16→20:23)
[2021-10-03 06:00] LABS: Basophils # (auto) 0.01 K/uL (0-0.2); Basophils % (auto) 0.2 %; Eosinophils % (auto) 1.6 %; Hematocrit (blood only) 35.1 % (37-47); Hemoglobin 11.5 g/dL (12.0-16.0); Immature Granulocytes # (auto) 0.02 K/uL (0.00-0.02); Immature Granulocytes % (auto) 0.3 %; Lymphocytes # (auto) 0.82 K/uL (1.2-3.4); Lymphocytes % (auto) 12.9 %; Mean Corpuscular Hemoglobin 31.5 pg (25-34); Mean Corpuscular Hgb Conc 32.8 g/dL (32-36); Mean Corpuscular Volume 96.2 fL (80-100); Mean Platelet Volume 10.9 fL (7.4-10.4); Monocytes # (auto) 0.66 K/uL (0.11-0.59); Monocytes % (auto) 10.4 %; Neutrophils # (auto) 4.75 K/uL (1.4-6.5); Neutrophils % (auto) 74.6 %; Platelet Count 105 K/uL (130-400); RDW Coefficient of Variation 13.8 % (11.5-14.5); RDW Standard Deviation 48.3 fL (36.4-46.3); Red Blood Count 3.65 M/uL (4.2-5.4); White Blood Count 6.36 K/uL (4.8-10.8)
[2021-10-03] MEDS ORDERED: TRANEXAMIC ACID / 0.7% NACL 1,000 MG/100 ML BAG IV SCH ×2 (06:00→06:30)
[2021-10-03] MEDS ORDERED: ceFAZolin 2000MG 2,000 MG/15 ML SYR IV SCH (06:00)
[2021-10-03 06:16] LABS: INR 1.5 (0.9-1.1); Prothrombin Time 15.2 Seconds (9.0-12.0)
[2021-10-03 06:30] LABS: BUN Creatinine Ratio 29.1 (10-20); Calcium 9.2 mg/dl (8.5-10.1); Creatinine Clr Calc Pharmacy 68.7 ml/min; Est GFR (African American) 98.2 ml/min; Est GFR (Non-African American) 84.7 ml/min; Magnesium 2.2 mg/dl (1.8-2.4)
[2021-10-03] MEDS: INSULIN ASPART 100 UNITS/ML 3 ML PEN SC SCH ×4 (06:34→20:23)
[2021-10-03 07:28] LABS: Partial Thromboplastin Ratio 2.5
[2021-10-03 07:31] LABS: Partial Thromboplastin Time 66.5 Seconds (21.0-31.0)
[2021-10-03] MEDS ORDERED: EPINEPHrine INJ 1 MG/ML AMP ONE (10:44)
[2021-10-03] MEDS ORDERED: BUPIVACAINE 0.5 % 5 MG/1 ML MPF 30ML VIAL ONE (10:44)
[2021-10-03] MEDS ORDERED: ONDANSETRON INJ 2 MG/ML 2 ML VIAL ONE (10:47)
[2021-10-03] MEDS ORDERED: fentaNYL citrate 100 MCG/2 ML VIAL ONE (10:47)
[2021-10-03] MEDS ORDERED: LIDOCAINE 2% 2 ML VIAL/AMP(20MG/ML) INFIL ONE (10:47)
[2021-10-03] MEDS ORDERED: PROPOFOL IV EMULSION 10 MG/ML 20 ML VIAL IV ONE (10:47)
[2021-10-03] MEDS ORDERED: DEXAMETHASONE SOD INJ 4 MG/ML VIAL ONE (10:47)
[2021-10-03] MEDS ORDERED: ceFAZolin 1000MG 1,000 MG/7.5 ML SYR IV ONE ×2 (11:31→13:30)
[2021-10-03] MEDS ORDERED: ePHEDrine sulfate 50 MG/ML AMP ONE (11:55)
[2021-10-03] MEDS ORDERED: PHENYLEPHRINE 100MCG/ML 5ML SYR ONE (11:55)
--- NOTE | 2021-10-03 11:58 | Operative Report ---
PG Post Operative Report Pre & Post Diagnosis Operation Date: 10/03/21 09:40 Pre-Op Diagnosis: Valgus impacted left femoral neck fracture Post-Op Diagnosis: Valgus impacted left femoral neck fracture I identified the patient and participated in the time-out.: Yes Procedure Operation Date: 10/03/21 09:40 Actual Procedures Percutaneous screw fixation of the left hip (Left) - Abdelrahman Buckley DO Surgeon Abdelrahman Buckley, Merchandise Flow Manager Singh Longoria PAC Estimated Blood Loss 20 Findings Consistent with Post-Op Diagnosis Specimens None Complications none Disposition Disposition: Recovery Room Indications Sheridan is a pleasant 89-year-old female who felt lightheaded and fell down to the floor yesterday. She did left hip pain. She came to the emergency room and radiographs demonstrated a valgus impacted left femoral neck fracture. After discussions at bedside, she elected proceed with cannulated screw fixation of the left hip. Description of Procedure On October 03, 2021 Sheridan was brought down from her hospital room to the preoperative holding area. The operative extremity was identified and signed. She was given a preoperative antibiotic and taken back to the operating room. She was put under general anesthesia. She was then transferred to a fracture table. The left hip was brought out to gentle traction. The left hip was then prepped and draped in sterile fashion. A timeout was done. The patient and the operative extremity was properly identified. A small incision was made over the lateral cortex of the proximal femur in the area of the subtrochanteric region. Dissection was taken down through the fascia to the lateral cortex. A single guidepin was placed down the inferior border of the femoral neck into the head. Appropriate positioning was located on orthogonal fluoroscopic images. A guidepin was then placed superior to that along the posterior cortex and a third guidepin was placed along the anterior cortex. This created an inverted triangle shape. The length of the screws were measured and 3 partially-threaded 7.3 mm Synthes cannulated screws were placed. The guidepin was then removed. Final fluoroscopic images showed anatomic alignment of the screws and the fracture site. The wound was then irrigated. The deep fascia was then closed with a 2-0 Vicryl suture. Skin was closed with 2-0 Vicryl and liliana. A soft dressing was placed. She was then extubated and transferred back to a hospital bed. She was taken to the postanesthesia care unit in stable condition. She tolerated the procedure well. Singh Longoria PA-C, was present for the entire procedure. He was critical for patient positioning, prepping, draping, retraction exposure, wound closure and application of sterile dressing. I attest to the content of the Intraoperative Record and any orders documented therein. Any exceptions are noted below.
[2021-10-03] MEDS ORDERED: fentaNYL citrate 100 MCG/2 ML VIAL IV PRN (12:31)
[2021-10-03] MEDS ORDERED: ATROPINE SULFATE 0.1 MG/ML 10ML SYR IV PRN (12:31)
[2021-10-03] MEDS ORDERED: ePHEDrine sulfate 50 MG/ML AMP IV PRN (12:31)
--- NOTE | 2021-10-03 12:34 | Anesthesiology Progress Note ---
Date of Service October 03, 2021 Anesthesia Post Procedure Vital Signs Vital Signs: Temp Pulse Pulse Pulse Resp BP BP 10/03/21 12:30 72 16 10/03/21 12:20 36.6 C 72 16 10/03/21 12:10 69 16 10/03/21 12:00 71 16 10/03/21 11:50 36.8 C 74 16 10/03/21 10:13 10/03/21 07:44 36.7 C 49 L 16 137/66 10/03/21 03:38 37.1 C 51 L 18 115/62 10/02/21 23:00 36.9 C 56 L 16 10/02/21 22:19 51 L 10/02/21 19:37 36.6 C 56 L 18 10/02/21 14:30 56 L 10/02/21 14:24 55 L 16 149/75 H 10/02/21 14:20 36.6 C 58 L 18 10/02/21 14:00 55 L 16 10/02/21 13:00 57 L 20 126/90 BP Pulse Ox 10/03/21 12:30 139/68 99 10/03/21 12:20 123/73 99 10/03/21 12:10 129/63 99 10/03/21 12:00 120/58 L 99 10/03/21 11:50 112/56 L 94 10/03/21 10:13 95 10/03/21 07:44 98 10/03/21 03:38 97 10/02/21 23:00 135/66 94 10/02/21 22:19 10/02/21 19:37 122/64 98 10/02/21 14:30 10/02/21 14:24 98 10/02/21 14:20 157/73 H 98 10/02/21 14:00 149/75 H 98 10/02/21 13:00 98 Pain Intensity Left Hip: Pain Intensity: 5 Transfer of Care Handoff Completed per policy Notes Mental Status: alert / awake / arousable and participated in evaluation Patient Amnestic to Procedure: Yes Nausea / Vomiting: adequately controlled Pain: adequately controlled Airway Patency, RR, SpO2: stable & adequate BP & HR: stable & adequate Hydration State: stable & adequate Anesthetic Complications: no major complications apparent and Pt Satisfied with anesthetic care
--- NOTE | 2021-10-03 12:47 | Fluoroscopy Report ---
FL hip LT 2-3V CLINICAL HISTORY: LEFT HIP PINNING TECHNIQUE: 2 views were obtained with the C-arm in the OR with the above procedure. Total fluoroscopy time was 42 seconds. Total skin dose was 8.34 mGy. Comparison: None available at the time of this dictation. FINDINGS/IMPRESSION: Multiple intraoperative images of the heart replacement of the femoral neck were obtained. Please correlate with intraoperative fluoroscopy and operative report. ACT 112: Negative or not required by law. Electronically signed by: Selwyn Hayes M.D. 10/03/2021 12:45 PM
[2021-10-03] MEDS: SODIUM CHLORIDE 0.9% 1000ML 1,000 ML IV SCH (13:15)
[2021-10-03] MEDS ORDERED: OLANZapine 10 MG/2.1 ML SDV IM PRN (14:35)
[2021-10-03] MEDS: METHENAMINE HIPPURATE 1 GM TAB PO SCH ×2 (14:49→20:25)
[2021-10-03] MEDS: COLCHICINE 0.6 MG TAB PO SCH (14:49)
[2021-10-03] MEDS: CHOLECALCIFEROL 1,000 UNITS 25 MCG TAB PO SCH (14:49)
[2021-10-03] MEDS: PANTOprazole 40 MG TAB PO SCH (14:49)
[2021-10-03] MEDS: HEPARIN SODIUM/DEXTROSE 25,000 UNITS/500 ML BAG IV SCH (16:15)
[2021-10-03] MEDS ORDERED: Nursing to Pharmacy Communication SCH (18:00)
--- NOTE | 2021-10-03 18:40 | Hospitalist Progress Note ---
Date of Service October 03, 2021 Assessment & Plan (1) Closed left hip fracture: Plan: Hip fracture S/P mechanical Fall H/O ambulatory dysfunction Hip X ray:Evidence for an impacted, subcapital fracture left femoral neck as described. Orthopedics consulted for Surgery today no medical contraindication for surgeryr Suspected Syncope/near syncopal episode CT head:No acute intracerebral pathology. There is again evidence for cerebral cortical atrophy and extensive remote small vessel disease. 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 Hold Coumadin for surgery on heparin drip Not on any rate control medications Started on IV heparin for now DM Type II: Poorly controlled Last A1c: 11.6 on September 14, 2021 Update HbA1c Continue insulin sliding scalte Gout On Colcrys GERD Continue PPI DVT Px: IV heparin Resume Coumadin when ok with Ortho Disposition May need rehab placement eventually Admission and Anticipated Discharge Date Admission Date: October 02, 2021 Subjective ff up for l hip fracture, etc seen resting in bed, comfortable oriented, answers questions appropriately states she feels fine overall minimal L hip discomfort no chest pain, dyspnea, palpitations, dizziness reports she has had 3-4 episodes of passing out- usually while standing, usually in the morning, reports feeling dizzy, vision becomes dark then passes out no other symptoms Review of Systems Review of Systems: all noted and negative except for above Physical Exam Physical Exam: General- oriented x 3, not in distress, speaks in sentences with no effort or accessory muscle use Head- atraumatic Eyes- PERRL, EOMI, anicteric ENT- oropharynx clear Neck- supple, no JVD, no adenopathy, no thyromegaly; carotids +2/2, no bruits appreciated Lungs- clear to auscultation bilaterally, no rales/wheezes Heart- normal rate, regular rhythm; no murmur, no gallop, no rub appreciated Abdomen- normal bowel sounds, nondistended, soft, nontender, no masses or hepatosplenomegaly Extremities- no pretibial edema, no calf tenderness; peripheral pulses intact L LE - (+) slight external rotation Neuro- alert, oriented x 3; CN 2-12 grossly intact; motor 5/5 bilaterally;sensation 100% on all extremities; no other gross focal neurologic deficits Skin- warm & dry Results & Data Results & Data ([facility]) Vital Signs (Past 12 Hours) Vital Signs Temp Pulse Pulse Resp BP BP BP 10/03/21 16:07 36.6 C 65 16 137/73 10/03/21 15:08 10/03/21 15:00 36.6 C 71 16 133/75 10/03/21 14:09 36.6 C 73 18 147/77 H 10/03/21 13:28 36.3 C L 65 14 131/70 10/03/21 12:55 36.3 C L 69 14 135/73 10/03/21 12:30 72 16 139/68 10/03/21 12:20 36.6 C 72 16 123/73 10/03/21 12:10 69 16 129/63 10/03/21 12:00 71 16 120/58 L 10/03/21 11:50 36.8 C 74 16 112/56 L 10/03/21 10:13 10/03/21 07:44 36.7 C 49 L 16 137/66 Pulse Ox 10/03/21 16:07 100 10/03/21 15:08 98 10/03/21 15:00 88 L 10/03/21 14:09 88 L 10/03/21 13:28 96 10/03/21 12:55 92 10/03/21 12:30 99 10/03/21 12:20 99 10/03/21 12:10 99 10/03/21 12:00 99 10/03/21 11:50 94 10/03/21 10:13 95 10/03/21 07:44 98 all noted and reviewed including below
[2021-10-03 20:06] LABS: Partial Thromboplastin Time 51.5 Seconds (21.0-31.0)
[2021-10-03] MEDS: SERTRALINE HCL 50 MG TABLET PO SCH (20:24)
[2021-10-03] MEDS: DOCUSATE SODIUM/SENNA 50/8.6MG TAB PO SCH (20:25)
--- NOTE | 2021-10-03 23:06 | Electrocardiogram Report ---
Test Reason : Blood Pressure : / mmHG Vent. Rate : 064 BPM Atrial Rate : 067 BPM P-R Int : 316 ms QRS Dur : 106 ms QT Int : 436 ms P-R-T Axes : 000 002 -28 degrees QTc Int : 449 ms Poor data quality, interpretation may be adversely affected Sinus rhythm with 1st degree A-V block Premature atrial complexes Possible Anterior infarct (cited on or before 06-SEP-2021) Abnormal ECG When compared with ECG of 06-SEP-2021 12:03, Questionable change in initial forces of Septal leads Confirmed by Vijay Pinto ([id number]) on 10/03/2021 11:06:34 PM Referred By: Confirmed By:Vijay Pinto
--- NOTE | 2021-10-04 05:37 | Electrocardiogram Report ---
Test Reason : Blood Pressure : / mmHG Vent. Rate : 057 BPM Atrial Rate : 057 BPM P-R Int : 290 ms QRS Dur : 102 ms QT Int : 424 ms P-R-T Axes : 074 001 010 degrees QTc Int : 412 ms Sinus bradycardia with sinus arrhythmia with 1st degree A-V block Otherwise normal ECG When compared with ECG of 02-OCT-2021 09:49, Premature atrial complexes are no longer Present Confirmed by Vijay Pinto ([id number]) on 10/04/2021 5:37:14 AM Referred By: REFERRED SELF Confirmed By:Vijay Pinto
[2021-10-04 05:43] LABS: Hematocrit (blood only) 33.2 % (37-47); Hemoglobin 11.3 g/dL (12.0-16.0); Mean Corpuscular Hemoglobin 32.8 pg (25-34); Mean Corpuscular Volume 96.2 fL (80-100); RDW Coefficient of Variation 13.7 % (11.5-14.5); RDW Standard Deviation 48.1 fL (36.4-46.3); Red Blood Count 3.45 M/uL (4.2-5.4); White Blood Count 6.59 K/uL (4.8-10.8)
[2021-10-04 06:09] LABS: BUN Creatinine Ratio 24.5 (10-20); Calcium 9.6 mg/dl (8.5-10.1); Est GFR (African American) 98.8 ml/min; Est GFR (Non-African American) 85.3 ml/min; Potassium 4.1 mmol/L (3.5-5.1)
[2021-10-04 06:12] LABS: INR 1.4 (0.9-1.1); Partial Thromboplastin Ratio 2.3; Prothrombin Time 13.6 Seconds (9.0-12.0)
[2021-10-04 06:13] LABS: Eosinophils # (auto) 0.08 K/uL (0-0.5); Eosinophils % (auto) 1.2 %; Immature Granulocytes # (auto) 0.01 K/uL (0.00-0.02); Immature Granulocytes % (auto) 0.2 %; Lymphocytes # (auto) 0.81 K/uL (1.2-3.4); Lymphocytes % (auto) 12.3 %; Mean Platelet Volume 10.4 fL (7.4-10.4); Monocytes # (auto) 0.58 K/uL (0.11-0.59); Monocytes % (auto) 8.8 %; Neutrophils # (auto) 5.11 K/uL (1.4-6.5); Neutrophils % (auto) 77.5 %; Platelet Count 93 K/uL (130-400); Platelet Estimate Decreased (Normal); RBC Morphology Unremarkable
[2021-10-04 06:25] LABS: Partial Thromboplastin Time 61.2 Seconds (21.0-31.0)
[2021-10-04] MEDS: HEPARIN SODIUM/DEXTROSE 25,000 UNITS/500 ML BAG IV SCH (06:29)
[2021-10-04 06:49] LABS: Estimated Average Glucose 105 mg/dl; Hemoglobin A1C 5.3 % (4.5-5.6)
[2021-10-04] MEDS: INSULIN ASPART 100 UNITS/ML 3 ML PEN SC SCH ×4 (08:00→20:16)
[2021-10-04] MEDS: oxyCODONE HCL IR 5 MG TAB (IMMEDIATE RELEASE) PO PRN ×2 (09:37→17:32)
[2021-10-04] MEDS: COLCHICINE 0.6 MG TAB PO SCH (09:38)
[2021-10-04] MEDS: METHENAMINE HIPPURATE 1 GM TAB PO SCH ×2 (09:38→20:11)
[2021-10-04] MEDS: CHOLECALCIFEROL 1,000 UNITS 25 MCG TAB PO SCH (09:38)
[2021-10-04] MEDS: PANTOprazole 40 MG TAB PO SCH (09:38)
--- NOTE | 2021-10-04 10:48 | Orthopedic Progress Note ---
Date of Service October 04, 2021 Assessment & Plan (1) Closed fracture of left hip: Overall she is doing about as well as expected. She can stay on a heparin and Coumadin for DVT prophylaxis. She can be weightbearing as tolerated. She will be seen by physical therapy today for ambulation and range of motion exercises. She is orthopedically stable for discharge when medically ready. Full orthopedic discharge instructions were placed in the discharge summary. She will follow-up with orthopedics in 2 weeks. Mike Swartz was seen and examined at bedside this morning. Overall she is doing fairly well. She is having too much pain in the left hip. She has not been up and ambulating yet. She has no new complaints. Review of Systems All systems reviewed & are unremarkable except as noted in HPI & below. Physical Exam On physical examination of the left hip, the dressing is clean and dry. She has some pain with logroll of the hip. Most of her pain is located laterally at the incision site.. Results & Data Results & Data Laboratory Results . Diagnostic Findings . PG Care Time/CCT Total # of Minutes Spent Total Time Spent with Patient: Total time spent is greater than 50% in coordination of care (as documented) at patient's floor/unit and/or counseling patient: Coding Level of Care Code 69058 Post Operative Follow-Up Diagnoses Closed fracture of left hip S72.002A Encounter type: initial encounter (1) Closed fracture of left hip Encounter type: initial encounter Qualified Code(s): S72.002A - Fracture of unspecified part of neck of left femur, initial encounter for closed fracture
--- NOTE | 2021-10-04 11:29 | Hospitalist Progress Note ---
Date of Service October 04, 2021 Assessment & Plan (1) Closed left hip fracture: Plan: Hip fracture S/P mechanical Fall H/O ambulatory dysfunction Hip X ray:Evidence for an impacted, subcapital fracture left femoral neck as described. Orthopedics consulted 10/03/2021: Percutaneous screw fixation of the left hip (Left) - Abdelrahman Buckley, DO Had agitation episode yesterday after surgery, resolved now Stable overall PT OT evaluation On heparin drip We will restart Coumadin tomorrow if okay with orthopedic surgery service Suspected Syncope/near syncopal episode CT head:No acute intracerebral pathology. There is again evidence for cerebral cortical atrophy and extensive remote small vessel disease. Monitor in Telemetry for arrhythmia --likely Orthostatic etiology per patient's presentation -- check Orthostatic VS check Echo, Carotid US Hypoxia Likely secondary to fentanyl Chest x-ray showed no acute findings Continue supplemental oxygen as needed -- Incentive Spirometry --Wean off oxygen accordingly Chronic atrial fibrillation On chronic anticoagulation with Coumadin History of CVA History of PE Chads vascular score 5 INR 1.4 Held Coumadin for surgery on heparin drip Not on any rate control medications We will discuss with orthopedic surgery if we can now resume Coumadin tomorrow DM Type II: Poorly controlled Last A1c: 11.6 on September 14, 2021 A1c 5.3 Continue insulin sliding scale Gout On Colcrys GERD Continue PPI DVT Px: IV heparin Resume Coumadin when ok with Ortho Disposition PT OT evaluation progress We will likely need to transition to acute rehab Admission and Anticipated Discharge Date Admission Date: October 02, 2021 Subjective Follow-up for left hip fracture, status post surgery, syncopal episodes, etc. Seen resting in bed, not in distress, oriented, alert States she is having increased left hip pain over the surgical site today Otherwise, no chest pain, shortness of breath, palpitations, dizziness, nausea vomiting, abdominal pain No other symptoms Review of Systems Review of Systems: all noted and negative except for above Physical Exam Physical Exam: General- oriented x 3, not in distress, speaks in sentences with no effort or accessory muscle use Eyes- anicteric Neck- no JVD Lungs- clear breath sounds bilaterally, no rales/wheezes Heart- normal rate, regular rhythm; no murmurs Abdomen- normal bowel sounds, nondistended, soft, nontender Extremities- no pretibial edema, no calf tenderness Left hip: Dressing in place, no bleeding or discharge, no hematoma Neuro- alert, oriented x 3; no gross focal neurologic deficits Skin- warm & dry Results & Data Results & Data ([facility]) Vital Signs (Past 12 Hours) Vital Signs Temp Pulse Pulse Resp BP Pulse Ox 10/04/21 07:17 36.8 C 60 18 138/65 96 10/04/21 07:00 56 L 10/04/21 03:00 36.9 C 62 16 110/66 93 10/03/21 23:44 66 all noted and reviewed including below
[2021-10-04] MEDS: SODIUM CHLORIDE 0.9% 1000ML 1,000 ML IV SCH (11:38)
--- NOTE | 2021-10-04 15:02 | Ultrasound Report ---
BILATERAL CAROTID DOPPLER STUDY HISTORY: syncope COMPARISON: None. TECHNIQUE: Real-time, grayscale, and color Doppler sonography of the carotid arteries was performed. Imaging reviewed in the transverse and longitudinal planes. All measurements were calculated based on NASCET criteria. FINDINGS: Antegrade flow is seen in the bilateral vertebral arteries. The brachial pressures are hemodynamically similar. Mild calcified plaque within the bilateral carotid bifurcations, right greater than left. The peak systolic velocity within the right ICA is 55 cm/s. The right systolic ratio is 1.0. The peak systolic velocity within the left ICA is 56 cm/s. The left systolic ratio is 1.1. IMPRESSION: No hemodynamically significant stenosis seen within the carotid arteries. ACT 112: Negative or not required by law. Electronically signed by: Cornelio Cotton M.D. 10/04/2021 3:01 PM
[2021-10-04] MEDS: DOCUSATE SODIUM/SENNA 50/8.6MG TAB PO SCH (20:10)
[2021-10-04] MEDS: SERTRALINE HCL 50 MG TABLET PO SCH (20:11)
[2021-10-05 06:35] LABS: Partial Thromboplastin Ratio 1.8
[2021-10-05 06:39] LABS: Partial Thromboplastin Time 47.1 Seconds (21.0-31.0)
[2021-10-05] MEDS: SODIUM CHLORIDE 0.9% 1000ML 1,000 ML IV SCH ×2 (07:19→07:45)
[2021-10-05] MEDS: ACETAMINOPHEN 325 MG TAB PO PRN ×3 (07:42→20:47)
[2021-10-05] MEDS: METHENAMINE HIPPURATE 1 GM TAB PO SCH ×2 (07:43→20:50)
[2021-10-05] MEDS: CHOLECALCIFEROL 1,000 UNITS 25 MCG TAB PO SCH (07:44)
[2021-10-05] MEDS: COLCHICINE 0.6 MG TAB PO SCH (07:44)
[2021-10-05] MEDS: PANTOprazole 40 MG TAB PO SCH (07:44)
[2021-10-05] MEDS: INSULIN ASPART 100 UNITS/ML 3 ML PEN SC SCH ×4 (08:47→20:40)
--- NOTE | 2021-10-05 13:22 | Hospitalist Progress Note ---
Date of Service October 05, 2021 Assessment & Plan (1) Closed left hip fracture: Plan: Hip fracture S/P mechanical Fall H/O ambulatory dysfunction Hip X ray:Evidence for an impacted, subcapital fracture left femoral neck as described. Orthopedics consulted 10/03/2021: Percutaneous screw fixation of the left hip (Left) - Abdelrahman Buckley, DO Medically stable overall PT OT evaluation: Recommends SNF On heparin drip, will transition to Coumadin with Lovenox bridge this evening Suspected Syncope/near syncopal episode CT head:No acute intracerebral pathology. There is again evidence for cerebral cortical atrophy and extensive remote small vessel disease. Monitor in Telemetry for arrhythmia --likely Orthostatic etiology per patient's presentation -- Orthostatic VS: Negative so far Echo: EF 50 to 55%, mild concentric LVH, focal thickening of the basal septum with no evidence of left ventricular outflow obstruction, no regional wall motion abnormalities, moderate calcification of the aortic valve leaflets, No hemodynamically significant valvular aortic stenosis, mild to moderate mitral regurgitation Right ventricular systolic pressure is moderately elevated at 40 to 50 mmHg --May benefit from compression stockings Instructed not to get up too quickly Maintain adequate hydration Hypoxia, resolved Likely secondary to fentanyl Chest x-ray showed no acute findings Continue supplemental oxygen as needed -- Incentive Spirometry --Weaned off oxygen Chronic atrial fibrillation On chronic anticoagulation with Coumadin History of CVA History of PE Chads vascular score 5 INR 1.4 Held Coumadin for surgery Placed on heparin drip Discussed with orthopedic surgeon Dr. Buckley, nahunay with starting Coumadin with Lovenox bridge today Monitor INR daily DM Type II: Poorly controlled Last A1c: 11.6 on September 14, 2021 A1c 5.3 Glucose level 99-138 Gout On Colcrys GERD Continue PPI DVT Px: IV heparin--transition to Coumadin with Lovenox bridge this evening Disposition PT OT: Recommending intermediate facility plan of care discussed with patient in detail and at length all questions answered she is understanding, agreeable, comfortable with the plan of care Admission and Anticipated Discharge Date Admission Date: October 02, 2021 Subjective Follow-up for left knee fracture, status post surgery, history of A. fib, PE/DVT, on chronic Coumadin use, etc. Seen resting in bed, sitting up, in good spirits, talkative States that she feels better today compared to yesterday Left hip pain much better Able to move her legs more Denies presyncope/syncope no chest pain, dyspnea, palpitations, dizziness Abdominal pain, nausea vomiting, fevers or chills No other symptoms Review of Systems Review of Systems: all noted and negative except for above Physical Exam Constitutional: General- oriented x 2, not in distress, speaks in sentences with no effort or accessory muscle use Eyes- anicteric Neck- no JVD Lungs- clear breath sounds, no crackles or wheezing bilaterally Heart- normal rate, regular rhythm; no murmurs Abdomen- normal bowel sounds, nondistended, soft, no tenderness Extremities- no pretibial edema, no calf tenderness Left hip: Dressing in place, no bleeding or discharge, no hematoma Neuro- alert, oriented x 2; no gross focal neurologic deficits Skin- warm & dry Results & Data Results & Data ([facility]) Vital Signs (Past 12 Hours) Vital Signs Temp Pulse Pulse Resp BP BP Pulse Ox 10/05/21 12:21 36.5 C 58 L 20 104/57 L 97 10/05/21 07:58 36.7 C 64 18 137/62 94 10/05/21 07:26 65 10/05/21 04:48 36.7 C 64 20 130/72 94 10/05/21 03:00 37.3 C 64 14 128/71 96 all noted and reviewed including below
[2021-10-05] MEDS: WARFARIN SOD 7.5 MG TAB PO SCH (15:27)
[2021-10-05] MEDS: HEPARIN SODIUM/DEXTROSE 25,000 UNITS/500 ML BAG IV SCH (17:22)
[2021-10-05] MEDS: SERTRALINE HCL 50 MG TABLET PO SCH (20:48)
[2021-10-05] MEDS: ENOXAPARIN 80 MG/0.8 ML SYR SQ SCH (20:48)
[2021-10-05] MEDS: DOCUSATE SODIUM/SENNA 50/8.6MG TAB PO SCH (20:49)
[2021-10-06] MEDS: oxyCODONE HCL IR 5 MG TAB (IMMEDIATE RELEASE) PO PRN ×2 (00:02→20:53)
[2021-10-06 06:08] LABS: INR 1.2 (0.9-1.1); Partial Thromboplastin Ratio 1.5; Partial Thromboplastin Time 38.6 Seconds (21.0-31.0); Prothrombin Time 11.8 Seconds (9.0-12.0)
[2021-10-06] MEDS: ENOXAPARIN 80 MG/0.8 ML SYR SQ SCH ×2 (07:42→20:52)
[2021-10-06] MEDS: PANTOprazole 40 MG TAB PO SCH (07:43)
[2021-10-06] MEDS: METHENAMINE HIPPURATE 1 GM TAB PO SCH ×2 (07:44→20:53)
[2021-10-06] MEDS: COLCHICINE 0.6 MG TAB PO SCH (07:44)
[2021-10-06] MEDS: CHOLECALCIFEROL 1,000 UNITS 25 MCG TAB PO SCH (07:44)
[2021-10-06] MEDS: INSULIN ASPART 100 UNITS/ML 3 ML PEN SC SCH ×4 (09:21→21:20)
[2021-10-06] MEDS: WARFARIN SOD 7.5 MG TAB PO SCH (15:29)
[2021-10-06] MEDS: ACETAMINOPHEN 325 MG TAB PO PRN (15:37)
[2021-10-06] MEDS: DOCUSATE SODIUM/SENNA 50/8.6MG TAB PO SCH (20:52)
[2021-10-06] MEDS: SERTRALINE HCL 50 MG TABLET PO SCH (20:53)
--- NOTE | 2021-10-06 23:51 | Hospitalist Progress Note ---
Date of Service October 06, 2021 Assessment & Plan (1) Closed left hip fracture: Plan: Hip fracture S/P mechanical Fall H/O ambulatory dysfunction Hip X ray:Evidence for an impacted, subcapital fracture left femoral neck as described. Orthopedics consulted 10/03/2021: Percutaneous screw fixation of the left hip (Left) - Abdelrahman Buckley, No postop complication Continue incentive spirometry IV heparin drip was transition to Lovenox bridge is with Coumadin Continue Lovenox 70 mg twice daily with Coumadin Continue monitor PT/INR PT / OT evaluation: Recommends SNF Fall precaution Clinically stable Suspected Syncope/near syncopal episode CT head:No acute intracerebral pathology. There is again evidence for cerebral cortical atrophy and extensive remote small vessel disease. Monitor in Telemetry for arrhythmia --likely Orthostatic etiology per patient's presentation -- Orthostatic VS: Negative so far Echo: EF 50 to 55%, mild concentric LVH, focal thickening of the basal septum with no evidence of left ventricular outflow obstruction, no regional wall motion abnormalities, moderate calcification of the aortic valve leaflets, No hemodynamically significant valvular aortic stenosis, mild to moderate mitral regurgitation Right ventricular systolic pressure is moderately elevated at 40 to 50 mmHg --May benefit from compression stockings Instructed not to get up too quickly Maintain adequate hydration Hypoxia, resolved Likely secondary to fentanyl Chest x-ray showed no acute findings Continue supplemental oxygen as needed -- Incentive Spirometry --Weaned off oxygen Chronic atrial fibrillation On chronic anticoagulation with Coumadin History of CVA History of PE Chads vascular score 5 INR 1.2 today Held Coumadin for surgery Placed on heparin drip Discussed with orthopedic surgeon Dr. Buckley, okay with starting Coumadin with Lovenox bridge today Monitor INR daily DM Type II: Poorly controlled Last A1c: 11.6 on September 14, 2021 A1c 5.3 Glucose level 99-138 Gout On Colcrys GERD Continue PPI DVT Px: IV heparin--transition to Coumadin with Lovenox bridge this evening Disposition PT OT: Recommending senior living facility plan of care discussed with patient in detail and at length all questions answered she is understanding, agreeable, comfortable with the plan of care Admission and Anticipated Discharge Date Admission Date: October 02, 2021 Subjective Patient was seen and evaluated for postop follow-up Lying in bed with no acute distress Patient said pain is controlled Denies any chest pain, palpitation, dizziness, shortness of breath. Review of Systems Review of Systems: All systems reviewed & are unremarkable except as noted in Subjective Physical Exam Physical Exam: General- No acute distress Head- atraumatic Eyes- PERRL, EOMI, ENT- oropharynx clear Neck- supple, no JVD Lungs- clear to auscultation Heart- regular rhythm Abdomen- normal bowel sounds, soft, nontender Extremities- no calf tenderness, Dressing in place, no bleeding or discharge, no hematoma Neuro- alert, oriented; PERRL, EOMI; no facial palsy; no dysarthria Skin- warm & dry Results & Data Results & Data ([facility]) Vital Signs (Past 12 Hours) Vital Signs Temp Pulse Resp BP BP Pulse Ox 10/06/21 22:25 36.7 C 61 17 117/62 92 10/06/21 19:00 36.7 C 74 18 117/61 96 10/06/21 15:06 36.6 C 66 18 118/61 96
[2021-10-07 06:04] LABS: Hematocrit (blood only) 33.6 % (37-47); Hemoglobin 11.4 g/dL (12.0-16.0); Mean Corpuscular Hemoglobin 32.3 pg (25-34); Mean Corpuscular Hgb Conc 33.9 g/dL (32-36); Mean Corpuscular Volume 95.2 fL (80-100); Mean Platelet Volume 10.2 fL (7.4-10.4); Platelet Count 111 K/uL (130-400); RDW Coefficient of Variation 13.8 % (11.5-14.5); RDW Standard Deviation 47.6 fL (36.4-46.3); Red Blood Count 3.53 M/uL (4.2-5.4); White Blood Count 4.04 K/uL (4.8-10.8)
[2021-10-07 06:14] LABS: INR 1.4 (0.9-1.1); Prothrombin Time 14.1 Seconds (9.0-12.0)
[2021-10-07 06:36] LABS: Creatinine Clr Calc Pharmacy 89.3 ml/min; Est GFR (Non-African American) 92.3 ml/min
[2021-10-07] MEDS: INSULIN ASPART 100 UNITS/ML 3 ML PEN SC SCH ×4 (08:00→21:26)
[2021-10-07] MEDS: ENOXAPARIN 80 MG/0.8 ML SYR SQ SCH ×2 (08:00→21:24)
[2021-10-07] MEDS: METHENAMINE HIPPURATE 1 GM TAB PO SCH ×2 (08:00→21:24)
[2021-10-07] MEDS: PANTOprazole 40 MG TAB PO SCH (08:01)
[2021-10-07] MEDS: COLCHICINE 0.6 MG TAB PO SCH (08:01)
[2021-10-07] MEDS: CHOLECALCIFEROL 1,000 UNITS 25 MCG TAB PO SCH (08:01)
[2021-10-07] MEDS: oxyCODONE HCL IR 5 MG TAB (IMMEDIATE RELEASE) PO PRN ×2 (11:38→21:29)
[2021-10-07] MEDS: WARFARIN SOD 7.5 MG TAB PO SCH (15:11)
[2021-10-07] MEDS: SERTRALINE HCL 50 MG TABLET PO SCH (21:23)
[2021-10-07] MEDS: DOCUSATE SODIUM/SENNA 50/8.6MG TAB PO SCH (21:26)
--- NOTE | 2021-10-08 00:10 | Hospitalist Progress Note ---
Date of Service October 08, 2021 Assessment & Plan (1) Closed left hip fracture: Plan: Hip fracture S/P mechanical Fall H/O ambulatory dysfunction Hip X ray:Evidence for an impacted, subcapital fracture left femoral neck as described. Orthopedics consulted 10/03/2021: Percutaneous screw fixation of the left hip (Left) - Abdelrahman Buckley, No postop complication Continue incentive spirometry IV heparin drip was transition to Lovenox bridge is with Coumadin Continue Lovenox 70 mg twice daily with Coumadin Continue monitor PT/INR PT / OT evaluation: Recommends SNF Fall precaution Clinically stable Suspected Syncope/near syncopal episode CT head:No acute intracerebral pathology. There is again evidence for cerebral cortical atrophy and extensive remote small vessel disease. Monitor in Telemetry for arrhythmia --likely Orthostatic etiology per patient's presentation -- Orthostatic VS: Negative so far Echo: EF 50 to 55%, mild concentric LVH, focal thickening of the basal septum with no evidence of left ventricular outflow obstruction, no regional wall motion abnormalities, moderate calcification of the aortic valve leaflets, No hemodynamically significant valvular aortic stenosis, mild to moderate mitral regurgitation Right ventricular systolic pressure is moderately elevated at 40 to 50 mmHg --May benefit from compression stockings Instructed not to get up too quickly Maintain adequate hydration Hypoxia, resolved Likely secondary to fentanyl Chest x-ray showed no acute findings Continue supplemental oxygen as needed -- Incentive Spirometry --Weaned off oxygen Chronic atrial fibrillation On chronic anticoagulation with Coumadin History of CVA History of PE Chads vascular score 5 INR 1.4 today Held Coumadin for surgery Placed on heparin drip Discussed with orthopedic surgeon Dr. Buckley, okay with starting Coumadin with Lovenox bridge today Monitor INR daily DM Type II: Poorly controlled Last A1c: 11.6 on September 14, 2021 A1c 5.3 Glucose level 99-138 Gout On Colcrys GERD Continue PPI DVT Px: IV heparin--transition to Coumadin with Lovenox bridge this evening Disposition PT OT: Recommending intermediate facility plan of care discussed with patient in detail and at length all questions answered she is understanding, agreeable, comfortable with the plan of care Admission and Anticipated Discharge Date Admission Date: October 02, 2021 Subjective Patient was seen and evaluated for postop follow-up Sitting in chair with no acute distress Patient said that he feels ok Denies any chest pain, palpitation, dizziness, shortness of breath. Review of Systems Review of Systems: All systems reviewed & are unremarkable except as noted in Subjective Physical Exam Physical Exam: General- No acute distress Head- atraumatic Eyes- PERRL, EOMI, ENT- Decrease hearing function Neck- supple, no JVD Lungs- clear to auscultation Heart- regular rhythm Abdomen- normal bowel sounds, soft, nontender Extremities- no calf tenderness, Dressing in place, no bleeding or discharge, no hematoma Neuro- alert, oriented; PERRL, EOMI; no facial palsy; no dysarthria Skin- warm & dry Results & Data Results & Data ([facility]) Vital Signs (Past 12 Hours) Vital Signs Temp Pulse Pulse Resp BP BP Pulse Ox 10/07/21 22:18 36.9 C 65 18 148/71 H 93 10/07/21 19:00 36.9 C 74 18 131/68 95 10/07/21 15:25 64 10/07/21 15:14 36.6 C 59 L 19 129/70 96
[2021-10-08] MEDS: ACETAMINOPHEN 325 MG TAB PO PRN ×4 (03:00→22:24)
[2021-10-08] MEDS: ONDANSETRON INJ 2 MG/ML 2 ML VIAL IV PRN (03:34)
[2021-10-08 06:13] LABS: INR 1.7 (0.9-1.1); Prothrombin Time 16.4 Seconds (9.0-12.0)
[2021-10-08 06:15] LABS: Hematocrit (blood only) 33.7 % (37-47); Hemoglobin 11.1 g/dL (12.0-16.0); Mean Corpuscular Hemoglobin 31.5 pg (25-34); Mean Corpuscular Hgb Conc 32.9 g/dL (32-36); Mean Corpuscular Volume 95.7 fL (80-100); Mean Platelet Volume 10.7 fL (7.4-10.4); Platelet Count 114 K/uL (130-400); RDW Coefficient of Variation 13.9 % (11.5-14.5); RDW Standard Deviation 48.1 fL (36.4-46.3); Red Blood Count 3.52 M/uL (4.2-5.4); White Blood Count 4.07 K/uL (4.8-10.8)
[2021-10-08 06:39] LABS: Creatinine Clr Calc Pharmacy 89.3 ml/min; Est GFR (Non-African American) 92.3 ml/min
[2021-10-08] MEDS: ENOXAPARIN 80 MG/0.8 ML SYR SQ SCH ×2 (08:08→20:31)
[2021-10-08] MEDS: COLCHICINE 0.6 MG TAB PO SCH (08:10)
[2021-10-08] MEDS: CHOLECALCIFEROL 1,000 UNITS 25 MCG TAB PO SCH (08:10)
[2021-10-08] MEDS: METHENAMINE HIPPURATE 1 GM TAB PO SCH ×2 (08:10→20:31)
[2021-10-08] MEDS: PANTOprazole 40 MG TAB PO SCH (08:11)
[2021-10-08] MEDS: INSULIN ASPART 100 UNITS/ML 3 ML PEN SC SCH ×4 (08:15→20:28)
--- NOTE | 2021-10-08 11:04 | Orthopedic Progress Note ---
Date of Service October 08, 2021 Assessment & Plan (1) Closed left hip fracture: Overall she is doing well. She denies any much pain in the left hip. She will continue to work with physical therapy. It looks like she is scheduled to go to rehab on Monday. She is on Coumadin for DVT prophylaxis. She will follow-up with orthopedics about 2 weeks from the date of surgery. Full orthopedic discharge instructions were placed in the discharge summary. If you have any further questions please feel free to contact me at [phone] Mike Swartz was seen and examined at bedside this morning. Overall she is doing very well. She is having too much pain in the left hip. She has been participating with physical therapy. She has no other complaints. Review of Systems All systems reviewed & are unremarkable except as noted in HPI & below. Physical Exam On physical examination of the left hip, the dressing was changed. The incision is clean and dry without any discharge. Her leg lengths are equal. Results & Data Results & Data Laboratory Results . Diagnostic Findings . PG Care Time/CCT Total # of Minutes Spent Total Time Spent with Patient: Total time spent is greater than 50% in coordination of care (as documented) at patient's floor/unit and/or counseling patient: Coding Level of Care Code 12509 Post Operative Follow-Up Diagnoses Closed left hip fracture S72.002A
[2021-10-08] MEDS: WARFARIN SOD 7.5 MG TAB PO SCH (17:16)
[2021-10-08] MEDS: oxyCODONE HCL IR 5 MG TAB (IMMEDIATE RELEASE) PO PRN (17:16)
[2021-10-08] MEDS: DOCUSATE SODIUM/SENNA 50/8.6MG TAB PO SCH (20:31)
[2021-10-08] MEDS: SERTRALINE HCL 50 MG TABLET PO SCH (20:31)
--- NOTE | 2021-10-08 21:15 | Hospitalist Progress Note ---
Date of Service October 08, 2021 Assessment & Plan (1) Closed left hip fracture: Plan: Hip fracture S/P mechanical Fall H/O ambulatory dysfunction Hip X ray:Evidence for an impacted, subcapital fracture left femoral neck as described. Orthopedics consulted 10/03/2021: Percutaneous screw fixation of the left hip (Left) - Abdelrahman Buckley, No postop complication Continue incentive spirometry IV heparin drip was transition to Lovenox bridge is with Coumadin Continue Lovenox 70 mg twice daily with Coumadin Continue monitor PT/INR PT / OT evaluation: Recommends SNF Fall precaution Clinically stable Suspected Syncope/near syncopal episode CT head:No acute intracerebral pathology. There is again evidence for cerebral cortical atrophy and extensive remote small vessel disease. Monitor in Telemetry for arrhythmia --likely Orthostatic etiology per patient's presentation -- Orthostatic VS: Negative so far Echo: EF 50 to 55%, mild concentric LVH, focal thickening of the basal septum with no evidence of left ventricular outflow obstruction, no regional wall motion abnormalities, moderate calcification of the aortic valve leaflets, No hemodynamically significant valvular aortic stenosis, mild to moderate mitral regurgitation Right ventricular systolic pressure is moderately elevated at 40 to 50 mmHg --May benefit from compression stockings Instructed not to get up too quickly Maintain adequate hydration Hypoxia, resolved Likely secondary to fentanyl Chest x-ray showed no acute findings Continue supplemental oxygen as needed -- Incentive Spirometry --Weaned off oxygen Chronic atrial fibrillation On chronic anticoagulation with Coumadin History of CVA History of PE Chads vascular score 5 INR 1.7 today Held Coumadin for surgery Placed on heparin drip Discussed with orthopedic surgeon Dr. Buckley, okay with starting Coumadin with Lovenox bridge today Monitor INR daily DM Type II: Poorly controlled Last A1c: 11.6 on September 14, 2021 A1c 5.3 Glucose level 99-138 Gout On Colcrys GERD Continue PPI DVT Px: IV heparin--transition to Coumadin with Lovenox bridge this evening Disposition PT OT: Recommending retirement facility Waiting for placement to rehab Admission and Anticipated Discharge Date Admission Date: October 02, 2021 Subjective Patient was seen and evaluated for postop follow-up Lying in bed with no acute distress Patient said that he feels ok Waiting for placement to discharge Denies any chest pain, palpitation, dizziness, shortness of breath. Review of Systems Review of Systems: All systems reviewed & are unremarkable except as noted in Subjective Physical Exam Physical Exam: General- No acute distress Head- atraumatic Eyes- PERRL, EOMI, ENT- Decrease hearing function Neck- supple, no JVD Lungs- clear to auscultation Heart- regular rhythm Abdomen- normal bowel sounds, soft, nontender Extremities- no calf tenderness, Dressing in place, no bleeding or discharge, no hematoma Neuro- alert, oriented; PERRL, EOMI; no facial palsy; no dysarthria Skin- warm & dry Results & Data Results & Data ([facility]) Vital Signs (Past 12 Hours) Vital Signs Temp Pulse Pulse Resp BP Pulse Ox 10/08/21 19:46 36.6 C 58 L 20 99/59 L 96 10/08/21 15:27 36.7 C 59 L 18 127/60 95 10/08/21 14:19 65 10/08/21 10:58 36.7 C 62 17 122/68 97
[2021-10-09] MEDS: ACETAMINOPHEN 325 MG TAB PO PRN ×3 (05:16→21:40)
[2021-10-09 06:36] LABS: Hematocrit (blood only) 34.5 % (37-47); Mean Corpuscular Hemoglobin 30.8 pg (25-34); Mean Corpuscular Hgb Conc 31.9 g/dL (32-36); Mean Corpuscular Volume 96.6 fL (80-100); Mean Platelet Volume 10.5 fL (7.4-10.4); Platelet Count 114 K/uL (130-400); RDW Coefficient of Variation 13.9 % (11.5-14.5); RDW Standard Deviation 49.4 fL (36.4-46.3); Red Blood Count 3.57 M/uL (4.2-5.4); White Blood Count 3.73 K/uL (4.8-10.8)
[2021-10-09 06:45] LABS: INR 2.6 (0.9-1.1); Prothrombin Time 24.1 Seconds (9.0-12.0)
[2021-10-09] MEDS: ONDANSETRON INJ 2 MG/ML 2 ML VIAL IV PRN (07:40)
[2021-10-09] MEDS: ENOXAPARIN 80 MG/0.8 ML SYR SQ SCH ×2 (07:42→20:10)
[2021-10-09] MEDS: PANTOprazole 40 MG TAB PO SCH (09:18)
[2021-10-09] MEDS: METHENAMINE HIPPURATE 1 GM TAB PO SCH ×2 (09:18→20:10)
[2021-10-09] MEDS: CHOLECALCIFEROL 1,000 UNITS 25 MCG TAB PO SCH (09:18)
[2021-10-09] MEDS: COLCHICINE 0.6 MG TAB PO SCH (09:18)
[2021-10-09] MEDS: INSULIN ASPART 100 UNITS/ML 3 ML PEN SC SCH ×4 (09:23→21:13)
[2021-10-09] MEDS: WARFARIN SOD 7.5 MG TAB PO SCH (16:52)
--- NOTE | 2021-10-09 19:31 | Hospitalist Progress Note ---
Date of Service October 09, 2021 Assessment & Plan (1) Closed left hip fracture: Plan: Hip fracture S/P mechanical Fall H/O ambulatory dysfunction Hip X ray:Evidence for an impacted, subcapital fracture left femoral neck as described. Orthopedics consulted 10/03/2021: Percutaneous screw fixation of the left hip (Left) - Abdelrahman Buckley, No postop complication Continue incentive spirometry IV heparin drip was transition to Lovenox bridge is with Coumadin Continue Lovenox 70 mg twice daily with Coumadin Continue monitor PT/INR PT / OT evaluation: Recommends SNF Fall precaution Clinically stable Suspected Syncope/near syncopal episode CT head:No acute intracerebral pathology. There is again evidence for cerebral cortical atrophy and extensive remote small vessel disease. Monitor in Telemetry for arrhythmia --likely Orthostatic etiology per patient's presentation -- Orthostatic VS: Negative so far Echo: EF 50 to 55%, mild concentric LVH, focal thickening of the basal septum with no evidence of left ventricular outflow obstruction, no regional wall motion abnormalities, moderate calcification of the aortic valve leaflets, No hemodynamically significant valvular aortic stenosis, mild to moderate mitral regurgitation Right ventricular systolic pressure is moderately elevated at 40 to 50 mmHg --May benefit from compression stockings Instructed not to get up too quickly Maintain adequate hydration Hypoxia, resolved Likely secondary to fentanyl Chest x-ray showed no acute findings Continue supplemental oxygen as needed -- Incentive Spirometry --Weaned off oxygen Chronic atrial fibrillation On chronic anticoagulation with Coumadin History of CVA History of PE Chads vascular score 5 INR 1.7 today Held Coumadin for surgery Placed on heparin drip Discussed with orthopedic surgeon Dr. Buckley, okay with starting Coumadin with Lovenox bridge today Monitor INR daily DM Type II: Poorly controlled Last A1c: 11.6 on September 14, 2021 A1c 5.3 Glucose level 99-138 Gout On Colcrys GERD Continue PPI DVT Px: IV heparin--transition to Coumadin with Lovenox bridge this evening Disposition PT OT: Recommending residential facility Waiting for placement to rehab Admission and Anticipated Discharge Date Admission Date: October 02, 2021 Subjective Patient was seen and evaluated for postop follow-up Sitting in chair with no acute distress Waiting for placement to discharge Denies any chest pain, palpitation, dizziness, shortness of breath. Review of Systems Review of Systems: All systems reviewed & are unremarkable except as noted in Subjective Physical Exam Physical Exam: General- No acute distress Head- atraumatic Eyes- PERRL, EOMI, ENT- Decrease hearing function Neck- supple, no JVD Lungs- clear to auscultation Heart- regular rhythm Abdomen- normal bowel sounds, soft, nontender Extremities- no calf tenderness, Dressing in place, no bleeding or discharge, no hematoma Neuro- alert, oriented; PERRL, EOMI; no facial palsy; no dysarthria Skin- warm & dry Results & Data Results & Data ([facility]) Vital Signs (Past 12 Hours) Vital Signs Temp Pulse Pulse Resp BP BP Pulse Ox 10/09/21 15:57 36.9 C 62 18 148/74 H 97 10/09/21 14:20 62 10/09/21 11:30 36.6 C 78 18 138/54 L 97 10/09/21 07:34 36.7 C 57 L 18 160/71 H 96
[2021-10-09] MEDS: DOCUSATE SODIUM/SENNA 50/8.6MG TAB PO SCH (20:09)
[2021-10-09] MEDS: SERTRALINE HCL 50 MG TABLET PO SCH (20:10)
[2021-10-10] MEDS ORDERED: ACETAMINOPHEN W/CODEINE #3 1 TAB PO ONE (00:20)
[2021-10-10] MEDS: ONDANSETRON INJ 2 MG/ML 2 ML VIAL IV PRN (00:29)
[2021-10-10 06:20] LABS: INR 3.3 (0.9-1.1); Prothrombin Time 30.5 Seconds (9.0-12.0)
[2021-10-10] MEDS: CHOLECALCIFEROL 1,000 UNITS 25 MCG TAB PO SCH (08:55)
[2021-10-10] MEDS: ENOXAPARIN 80 MG/0.8 ML SYR SQ SCH (08:55)
[2021-10-10] MEDS: METHENAMINE HIPPURATE 1 GM TAB PO SCH ×2 (08:56→19:38)
[2021-10-10] MEDS: INSULIN ASPART 100 UNITS/ML 3 ML PEN SC SCH ×4 (08:56→20:32)
[2021-10-10] MEDS: COLCHICINE 0.6 MG TAB PO SCH (08:56)
[2021-10-10] MEDS: PANTOprazole 40 MG TAB PO SCH (08:56)
[2021-10-10] MEDS: ACETAMINOPHEN 325 MG TAB PO PRN ×2 (09:00→17:13)
[2021-10-10] MEDS: WARFARIN SOD 2.5 MG TAB PO SCH (17:12)
[2021-10-10] MEDS: SERTRALINE HCL 50 MG TABLET PO SCH (19:38)
[2021-10-10] MEDS: DOCUSATE SODIUM/SENNA 50/8.6MG TAB PO SCH (19:39)
--- NOTE | 2021-10-10 23:45 | Hospitalist Progress Note ---
Date of Service October 10, 2021 Assessment & Plan (1) Closed left hip fracture: Plan: Hip fracture S/P mechanical Fall H/O ambulatory dysfunction Hip X ray:Evidence for an impacted, subcapital fracture left femoral neck as described. Orthopedics consulted 10/03/2021: Percutaneous screw fixation of the left hip (Left) - Abdelrahman Buckley, No postop complication Continue incentive spirometry IV heparin drip was transition to Lovenox bridge is with Coumadin Lovenox 70 mg discontinued since INR 3.3 Will decrease Coumadin to 2.5 mg Continue monitor PT/INR PT / OT evaluation: Recommends SNF Fall precaution Clinically stable Suspected Syncope/near syncopal episode CT head:No acute intracerebral pathology. There is again evidence for cerebral cortical atrophy and extensive remote small vessel disease. Monitor in Telemetry for arrhythmia --likely Orthostatic etiology per patient's presentation -- Orthostatic VS: Negative so far Echo: EF 50 to 55%, mild concentric LVH, focal thickening of the basal septum with no evidence of left ventricular outflow obstruction, no regional wall motion abnormalities, moderate calcification of the aortic valve leaflets, No hemodynamically significant valvular aortic stenosis, mild to moderate mitral regurgitation Right ventricular systolic pressure is moderately elevated at 40 to 50 mmHg --May benefit from compression stockings Instructed not to get up too quickly Maintain adequate hydration Hypoxia, resolved Likely secondary to fentanyl Chest x-ray showed no acute findings Continue supplemental oxygen as needed -- Incentive Spirometry --Weaned off oxygen Chronic atrial fibrillation On chronic anticoagulation with Coumadin History of CVA History of PE Chads vascular score 5 Lovenox discontinue due to INR 3.3 today Coumadin decreased 2.5 mg daily Discussed with orthopedic surgeon selena Young with starting Coumadin with Lovenox bridge today Monitor INR daily DM Type II: Poorly controlled Last A1c: 11.6 on September 14, 2021 A1c 5.3 Glucose level 99-138 Gout On Colcrys GERD Continue PPI DVT Px: On Coumadin Disposition PT OT: Recommending senior care facility Waiting for placement to rehab Admission and Anticipated Discharge Date Admission Date: October 02, 2021 Subjective Patient was seen and evaluated for postop follow-up Sitting in chair with no acute distress Denies any chest pain, palpitation, dizziness, shortness of breath. Review of Systems Review of Systems: All systems reviewed & are unremarkable except as noted in Subjective Physical Exam Physical Exam: General- No acute distress Head- atraumatic Eyes- PERRL, EOMI, ENT- Decrease hearing function Neck- supple, no JVD Lungs- clear to auscultation Heart- regular rhythm Abdomen- normal bowel sounds, soft, nontender Extremities- no calf tenderness, Dressing in place, no bleeding or discharge, no hematoma Neuro- alert, oriented; PERRL, EOMI; no facial palsy; no dysarthria Skin- warm & dry Results & Data Results & Data ([facility]) Vital Signs (Past 12 Hours) Vital Signs Temp Pulse Pulse Resp BP Pulse Ox 10/10/21 23:26 36.3 C L 59 L 16 127/74 95 10/10/21 19:41 36.6 C 65 16 133/70 96 10/10/21 15:09 36.6 C 61 18 111/65 97 10/10/21 14:20 54 L 10/10/21 12:00 36.6 C 53 L 18 126/66 97
[2021-10-11] MEDS: ACETAMINOPHEN 325 MG TAB PO PRN ×4 (00:41→21:35)
[2021-10-11 06:12] LABS: Hematocrit (blood only) 34.4 % (37-47); Hemoglobin 11.1 g/dL (12.0-16.0); Mean Corpuscular Hemoglobin 31.1 pg (25-34); Mean Corpuscular Hgb Conc 32.3 g/dL (32-36); Mean Corpuscular Volume 96.4 fL (80-100); Mean Platelet Volume 10.7 fL (7.4-10.4); Platelet Count 138 K/uL (130-400); RDW Coefficient of Variation 13.9 % (11.5-14.5); RDW Standard Deviation 48.7 fL (36.4-46.3); Red Blood Count 3.57 M/uL (4.2-5.4); White Blood Count 4.12 K/uL (4.8-10.8)
[2021-10-11 06:25] LABS: INR 3.7 (0.9-1.1); Prothrombin Time 33.8 Seconds (9.0-12.0)
[2021-10-11 06:47] LABS: Creatinine Clr Calc Pharmacy 71.4 ml/min; Est GFR (African American) 99.5 ml/min; Est GFR (Non-African American) 85.8 ml/min
[2021-10-11] MEDS: METHENAMINE HIPPURATE 1 GM TAB PO SCH ×2 (08:35→19:29)
[2021-10-11] MEDS: CHOLECALCIFEROL 1,000 UNITS 25 MCG TAB PO SCH (08:36)
[2021-10-11] MEDS: PANTOprazole 40 MG TAB PO SCH (08:36)
[2021-10-11] MEDS: COLCHICINE 0.6 MG TAB PO SCH (08:36)
[2021-10-11] MEDS: INSULIN ASPART 100 UNITS/ML 3 ML PEN SC SCH ×4 (08:37→20:30)
[2021-10-11] MEDS: WARFARIN SOD 2.5 MG TAB PO SCH (08:39)
[2021-10-11] MEDS: DOCUSATE SODIUM/SENNA 50/8.6MG TAB PO SCH (19:29)
[2021-10-11] MEDS: SERTRALINE HCL 50 MG TABLET PO SCH (19:29)
--- NOTE | 2021-10-11 23:55 | Hospitalist Progress Note ---
Date of Service October 11, 2021 Assessment & Plan (1) Closed left hip fracture: Plan: Hip fracture S/P mechanical Fall H/O ambulatory dysfunction Hip X ray:Evidence for an impacted, subcapital fracture left femoral neck as described. Orthopedics consulted 10/03/2021: Percutaneous screw fixation of the left hip (Left) - Abdelrahman Buckley, No postop complication Continue incentive spirometry IV heparin drip was transition to Lovenox bridge is with Coumadin Lovenox 70 mg discontinued We will hold Coumadin today since INR 3.7 Continue monitor PT/INR PT / OT evaluation: Recommends SNF Follow-up with Ortho in 2 weeks Fall precaution Clinically stable Suspected Syncope/near syncopal episode CT head:No acute intracerebral pathology. There is again evidence for cerebral cortical atrophy and extensive remote small vessel disease. Monitor in Telemetry for arrhythmia --likely Orthostatic etiology per patient's presentation -- Orthostatic VS: Negative so far Echo: EF 50 to 55%, mild concentric LVH, focal thickening of the basal septum with no evidence of left ventricular outflow obstruction, no regional wall motion abnormalities, moderate calcification of the aortic valve leaflets, No hemodynamically significant valvular aortic stenosis, mild to moderate mitral regurgitation Right ventricular systolic pressure is moderately elevated at 40 to 50 mmHg --May benefit from compression stockings Instructed not to get up too quickly Hypoxia, resolved Likely secondary to fentanyl Chest x-ray showed no acute findings Continue supplemental oxygen as needed -- Incentive Spirometry --Weaned off oxygen Chronic atrial fibrillation On chronic anticoagulation with Coumadin History of CVA History of PE Chads vascular score 5 Lovenox discontinue due to INR 3.3 today Coumadin decreased 2.5 mg daily Discussed with orthopedic surgeon selena Young with starting Coumadin with Lovenox bridge today Monitor INR daily DM Type II: Poorly controlled Last A1c: 11.6 on September 14, 2021 A1c 5.3 Glucose level 99-138 Gout On Colcrys GERD Continue PPI DVT Px: INR 3.7, Coumadin on hold today Disposition PT OT: Recommending [facility] facility Waiting for placement to rehab Admission and Anticipated Discharge Date Admission Date: October 02, 2021 Subjective Patient was seen and evaluated for postop follow-up Sitting in chair with no acute distress Case management submitted referral and patient waiting for placement Denies any chest pain, palpitation, dizziness, shortness of breath. Review of Systems Review of Systems: All systems reviewed & are unremarkable except as noted in Subjective Physical Exam Physical Exam: General- No acute distress Head- atraumatic Eyes- PERRL, EOMI, ENT- Decrease hearing function Neck- supple, no JVD Lungs- clear to auscultation Heart- regular rhythm Abdomen- normal bowel sounds, soft, nontender Extremities- no calf tenderness, Dressing in place, no bleeding or discharge, no hematoma Neuro- alert, oriented; PERRL, EOMI; no facial palsy; no dysarthria Skin- warm & dry Results & Data Results & Data ([facility]) Vital Signs (Past 12 Hours) Vital Signs Temp Pulse Pulse Resp BP BP Pulse Ox 10/11/21 19:51 36.5 C 68 20 117/73 96 10/11/21 15:46 36.6 C 78 16 116/64 96 10/11/21 14:20 65
[2021-10-12] MEDS: ACETAMINOPHEN 325 MG TAB PO PRN ×3 (03:36→23:12)
[2021-10-12] MEDS: COLCHICINE 0.6 MG TAB PO SCH (07:34)
[2021-10-12] MEDS: PANTOprazole 40 MG TAB PO SCH (07:34)
[2021-10-12] MEDS: METHENAMINE HIPPURATE 1 GM TAB PO SCH ×2 (07:35→20:29)
[2021-10-12] MEDS: CHOLECALCIFEROL 1,000 UNITS 25 MCG TAB PO SCH (07:35)
[2021-10-12] MEDS: INSULIN ASPART 100 UNITS/ML 3 ML PEN SC SCH ×4 (08:22→20:55)
[2021-10-12 09:13] LABS: Hematocrit (blood only) 36.9 % (37-47); Mean Corpuscular Hemoglobin 31.3 pg (25-34); Mean Corpuscular Hgb Conc 32.5 g/dL (32-36); Mean Corpuscular Volume 96.3 fL (80-100); Mean Platelet Volume 10.7 fL (7.4-10.4); Platelet Count 153 K/uL (130-400); RDW Standard Deviation 49.7 fL (36.4-46.3); Red Blood Count 3.83 M/uL (4.2-5.4); White Blood Count 4.77 K/uL (4.8-10.8)
[2021-10-12 09:18] LABS: Prothrombin Time 18.8 Seconds (9.0-12.0)
[2021-10-12] MEDS: WARFARIN SOD 5 MG TAB PO SCH (17:25)
[2021-10-12] MEDS: DOCUSATE SODIUM/SENNA 50/8.6MG TAB PO SCH (20:28)
[2021-10-12] MEDS: SERTRALINE HCL 50 MG TABLET PO SCH (20:29)
--- NOTE | 2021-10-12 21:14 | Hospitalist Progress Note ---
Date of Service October 12, 2021 Assessment & Plan (1) Closed left hip fracture: Plan: Hip fracture S/P mechanical Fall H/O ambulatory dysfunction Hip X ray:Evidence for an impacted, subcapital fracture left femoral neck as described. Orthopedics consulted 10/03/2021: Percutaneous screw fixation of the left hip (Left) - Abdelrahman Buckley, No postop complication Continue incentive spirometry IV heparin drip was transition to Lovenox bridge is with Coumadin Lovenox 70 mg discontinued INR 2 today, Coumadin resumed Continue monitor PT/INR PT / OT evaluation: Recommends SNF Follow-up with Ortho in 2 weeks Fall precaution Clinically stable Suspected Syncope/near syncopal episode CT head:No acute intracerebral pathology. There is again evidence for cerebral cortical atrophy and extensive remote small vessel disease. Monitor in Telemetry for arrhythmia --likely Orthostatic etiology per patient's presentation -- Orthostatic VS: Negative so far Echo: EF 50 to 55%, mild concentric LVH, focal thickening of the basal septum with no evidence of left ventricular outflow obstruction, no regional wall motion abnormalities, moderate calcification of the aortic valve leaflets, No hemodynamically significant valvular aortic stenosis, mild to moderate mitral regurgitation Right ventricular systolic pressure is moderately elevated at 40 to 50 mmHg --May benefit from compression stockings Instructed not to get up too quickly Hypoxia, resolved Likely secondary to fentanyl Chest x-ray showed no acute findings Continue supplemental oxygen as needed -- Incentive Spirometry --Weaned off oxygen Chronic atrial fibrillation On chronic anticoagulation with Coumadin History of CVA History of PE Chads vascular score 5 Lovenox discontinue due to INR 3.3 today Discussed with orthopedic surgeon selena Young with starting Coumadin with Lovenox bridge today Lovenox discontinued since INR was above 2 Monitor INR daily DM Type II: Poorly controlled Last A1c: 11.6 on September 14, 2021 A1c 5.3 Glucose level 99-138 Gout On Colcrys GERD Continue PPI DVT Px: On Coumadin with INR 2 Disposition PT OT: [facility] Waiting for placement to rehab Admission and Anticipated Discharge Date Admission Date: October 02, 2021 Subjective Patient was seen and evaluated for postop follow-up Sitting in chair with no acute distress Waiting for placement to transfer to rehab Denies any chest pain, palpitation, dizziness, shortness of breath. Review of Systems Review of Systems: All systems reviewed & are unremarkable except as noted in Subjective Physical Exam Physical Exam: General- No acute distress Head- atraumatic Eyes- PERRL, EOMI, ENT- Decrease hearing function Neck- supple, no JVD Lungs- clear to auscultation Heart- regular rhythm Abdomen- normal bowel sounds, soft, nontender Extremities- no calf tenderness, Dressing in place, no bleeding or discharge, no hematoma Neuro- alert, oriented; PERRL, EOMI; no facial palsy; no dysarthria Skin- warm & dry Results & Data Results & Data ([facility]) Vital Signs (Past 12 Hours) Vital Signs Temp Pulse Resp BP BP Pulse Ox 10/12/21 19:58 36.9 C 83 18 111/66 96 10/12/21 16:00 36.7 C 67 126/65 98 10/12/21 11:49 36.9 C 55 L 18 122/71 91
[2021-10-13 07:34] LABS: Hemoglobin 11.7 g/dL (12.0-16.0); Mean Corpuscular Hemoglobin 31.2 pg (25-34); Mean Corpuscular Hgb Conc 32.5 g/dL (32-36); Mean Platelet Volume 10.1 fL (7.4-10.4); Platelet Count 167 K/uL (130-400); RDW Coefficient of Variation 14.1 % (11.5-14.5); RDW Standard Deviation 49.2 fL (36.4-46.3); Red Blood Count 3.75 M/uL (4.2-5.4); White Blood Count 5.32 K/uL (4.8-10.8)
[2021-10-13 07:57] LABS: INR 1.5 (0.9-1.1); Prothrombin Time 14.4 Seconds (9.0-12.0)
[2021-10-13] MEDS: CHOLECALCIFEROL 1,000 UNITS 25 MCG TAB PO SCH (08:06)
[2021-10-13] MEDS: COLCHICINE 0.6 MG TAB PO SCH (08:06)
[2021-10-13] MEDS: PANTOprazole 40 MG TAB PO SCH (08:06)
[2021-10-13] MEDS: METHENAMINE HIPPURATE 1 GM TAB PO SCH ×2 (08:06→20:01)
[2021-10-13] MEDS: INSULIN ASPART 100 UNITS/ML 3 ML PEN SC SCH ×4 (08:07→21:23)
[2021-10-13 09:30] LABS: Appearance Urine Turbid (Clear); Bacteria Urine Automated 4+ (Negative); Bilirubin Urine Negative (Negative); Blood Urine Negative (Negative); Color Urine Yellow; Epithelial Cell Urine Auto 20-30 /lpf (0-5); Glucose Urine UA Negative (Negative); Ketones Urine Negative (Negative); Leukocyte Esterase Urine 3+ (Negative); Nitrite Urine Positive (Negative); Protein Urine Negative (Negative); Specific Gravity Urine 1.012 (1.000-1.030); Urobilinogen Urine Negative (Negative); WBC Urine Automated >30 /hpf (0-5)
--- NOTE | 2021-10-13 10:56 | Hospitalist Progress Note ---
Date of Service October 13, 2021 Assessment & Plan (1) Closed left hip fracture: Plan: Hip fracture S/P mechanical Fall H/O ambulatory dysfunction Hip X ray:Evidence for an impacted, subcapital fracture left femoral neck as described. Orthopedics consulted 10/03/2021: Percutaneous screw fixation of the left hip (Left) - Abdelrahman Buckley, No postop complication Continue incentive spirometry IV heparin drip was transitioned to Lovenox bridge with Coumadin Continue warfarin Continue monitor PT/INR PT / OT evaluation: Recommends SNF Follow-up with Ortho in 2 weeks Fall precaution Clinically stable Suspected Syncope/near syncopal episode CT head:No acute intracerebral pathology. There is again evidence for cerebral cortical atrophy and extensive remote small vessel disease. Monitor in Telemetry for arrhythmia --likely Orthostatic etiology per patient's presentation -- Orthostatic VS: Negative so far Echo: EF 50 to 55%, mild concentric LVH, focal thickening of the basal septum with no evidence of left ventricular outflow obstruction, no regional wall motion abnormalities, moderate calcification of the aortic valve leaflets, No hemodynamically significant valvular aortic stenosis, mild to moderate mitral regurgitation Right ventricular systolic pressure is moderately elevated at 40 to 50 mmHg --May benefit from compression stockings Instructed not to get up too quickly Hypoxia, resolved Likely secondary to fentanyl Chest x-ray showed no acute findings Continue supplemental oxygen as needed -- Incentive Spirometry --Weaned off oxygen Chronic atrial fibrillation On chronic anticoagulation with Coumadin History of CVA History of PE Chads vascular score 5 Lovenox discontinue due to INR 3.3 today Discussed with orthopedic surgeon Dr. Buckley, selena with starting Coumadin with Lovenox bridge today Lovenox discontinued since INR was above 2 Monitor INR daily DM Type II: Poorly controlled Last A1c: 11.6 on September 14, 2021 A1c 5.3 Glucose level 99-138 Gout On Colcrys GERD Continue PPI DVT Px: On Coumadin with INR 2 UA suggest possible UTI Start ceftriaxone Follow up urine culture Disposition PT OT: Recommending retirement facility Waiting for placement to rehab Admission and Anticipated Discharge Date Admission Date: October 02, 2021 Subjective 89-year-old woman with history of pulmonary embolism, atrial fibrillation on chronic anticoagulation with Coumadin, CVA, dyslipidemia, gout, GERD, chronic thrombocytopenia peripheral vascular disease, leukocytoclastic vasculitis, chronic venous insufficiency and other medical problems presents with history of fall resulting in left hip pain. Found to have left femoral fracture Status post percutaneous screw fixation of left hip. Patient seen and examined today. Reports dysuria and frequency for the past 2 days Denies hematuria. Denies fevers, chills Denies chest pain, cough, shortness of breath Denies abdominal pain, diarrhea constipation Physical Exam Constitutional: + well hydrated; no acute distress Eyes: PERRL, conjunctivae normal, anicteric sclerae ENMT: Hearing deficits. Respiratory: normal respiratory effort, lungs clear to auscultation Cardiovascular: RRR, S1-S2 Gastrointestinal (Abdomen): normal bowel sounds, soft, nontender, no hepatosplenomegaly Musculoskeletal: Well-healing surgical site Neurologic: PERRL, EOMI, accommodation nl, no face palsy, no dysarthria Psychiatric: A+Ox3, euthymic affect Results & Data Results & Data ([facility]) Vital Signs (Past 12 Hours) Vital Signs Temp Pulse Pulse Resp BP BP Pulse Ox 10/13/21 07:43 37.1 C 60 18 138/72 96 10/13/21 04:00 36.9 C 62 18 130/71 91 10/13/21 01:23 57 L 10/12/21 23:00 36.7 C 64 18 123/69 95 Laboratory Results Abnormal lab results 10/13/21 10/13/21 10/13/21 Range/Units 07:16 07:16 08:00 RBC 3.75 L (4.2-5.4) M/uL Hgb 11.7 L (12.0-16.0) g/dL Hct 36.0 L (37-47) % RDW Std Deviation 49.2 H (36.4-46.3) fL PT 14.4 H (9.0-12.0) Seconds INR 1.5 H (0.9-1.1) POC Glucose 103 H (70-99) mg/dl Urine Appearance (Clear) Urine pH (4.5-7.5) Urine Nitrite (Negative) Ur Leukocyte Esterase (Negative) Urine WBC (Auto) (0-5) /hpf Urine RBC (Auto) (0-4) /hpf U Epithel Cells (Auto) (0-5) /lpf Urine Bacteria (Auto) (Negative) 10/13/21 Range/Units Unknown RBC (4.2-5.4) M/uL Hgb (12.0-16.0) g/dL Hct (37-47) % RDW Std Deviation (36.4-46.3) fL PT (9.0-12.0) Seconds INR (0.9-1.1) POC Glucose (70-99) mg/dl Urine Appearance Turbid A (Clear) Urine pH 8.0 H (4.5-7.5) Urine Nitrite Positive A (Negative) Ur Leukocyte Esterase 3+ H (Negative) Urine WBC (Auto) >30 H (0-5) /hpf Urine RBC (Auto) 5-10 H (0-4) /hpf U Epithel Cells (Auto) 20-30 H (0-5) /lpf Urine Bacteria (Auto) 4+ H (Negative)
[2021-10-13] MEDS: ACETAMINOPHEN 325 MG TAB PO PRN ×2 (14:06→23:30)
[2021-10-13] MEDS: WARFARIN SOD 5 MG TAB PO SCH (16:08)
[2021-10-13] MEDS: SERTRALINE HCL 50 MG TABLET PO SCH (20:01)
[2021-10-13] MEDS: DOCUSATE SODIUM/SENNA 50/8.6MG TAB PO SCH (20:01)
[2021-10-13] MEDS: cefTRIAXone SODIUM 1,000 MG in DEXTROSE 5% 50 ML IV SCH (20:06)
[2021-10-14 07:10] LABS: Hematocrit (blood only) 34.9 % (37-47); Hemoglobin 11.4 g/dL (12.0-16.0); Mean Corpuscular Hemoglobin 31.4 pg (25-34); Mean Corpuscular Hgb Conc 32.7 g/dL (32-36); Mean Corpuscular Volume 96.1 fL (80-100); Mean Platelet Volume 10.5 fL (7.4-10.4); Platelet Count 173 K/uL (130-400); RDW Standard Deviation 49.1 fL (36.4-46.3); Red Blood Count 3.63 M/uL (4.2-5.4); White Blood Count 5.64 K/uL (4.8-10.8)
[2021-10-14 07:40] LABS: BUN Creatinine Ratio 33.9 (10-20); Calcium 10.4 mg/dl (8.5-10.1); Est GFR (African American) 98.8 ml/min; Est GFR (Non-African American) 85.3 ml/min; Potassium 4.1 mmol/L (3.5-5.1)
[2021-10-14] MEDS: METHENAMINE HIPPURATE 1 GM TAB PO SCH ×2 (08:18→20:30)
[2021-10-14] MEDS: ACETAMINOPHEN 325 MG TAB PO PRN ×2 (08:18→17:13)
[2021-10-14] MEDS: PANTOprazole 40 MG TAB PO SCH (08:18)
[2021-10-14] MEDS: CHOLECALCIFEROL 1,000 UNITS 25 MCG TAB PO SCH (08:18)
[2021-10-14] MEDS: COLCHICINE 0.6 MG TAB PO SCH (08:20)
[2021-10-14] MEDS: INSULIN ASPART 100 UNITS/ML 3 ML PEN SC SCH ×4 (08:44→20:28)
--- NOTE | 2021-10-14 10:29 | Hospitalist Progress Note ---
Date of Service October 14, 2021 Assessment & Plan (1) Closed left hip fracture: Plan: Hip fracture S/P mechanical Fall H/O ambulatory dysfunction Hip X ray:Evidence for an impacted, subcapital fracture left femoral neck as described. Orthopedics consulted 10/03/2021: Percutaneous screw fixation of the left hip (Left) - Abdelrahman Buckley, DO No postop complication Continue incentive spirometry IV heparin drip was transitioned to Lovenox bridge with Coumadin Continue warfarin Check PT/INR today PT / OT evaluation: Recommends SNF Follow-up with Ortho in 2 weeks Fall precaution Clinically stable Suspected Syncope/near syncopal episode CT head:No acute intracerebral pathology. There is again evidence for cerebral cortical atrophy and extensive remote small vessel disease. Monitor in Telemetry for arrhythmia --likely Orthostatic etiology per patient's presentation -- Orthostatic VS: Negative so far Echo: EF 50 to 55%, mild concentric LVH, focal thickening of the basal septum with no evidence of left ventricular outflow obstruction, no regional wall motion abnormalities, moderate calcification of the aortic valve leaflets, No hemodynamically significant valvular aortic stenosis, mild to moderate mitral regurgitation Right ventricular systolic pressure is moderately elevated at 40 to 50 mmHg --May benefit from compression stockings Instructed not to get up too quickly Hypoxia, resolved Likely secondary to fentanyl Chest x-ray showed no acute findings Continue supplemental oxygen as needed -- Incentive Spirometry --Weaned off oxygen Chronic atrial fibrillation On chronic anticoagulation with Coumadin History of CVA History of PE Chads vascular score 5 Currently on warfarin Monitor INR daily DM Type II: A1c 5.3 on 10/03/21 Controlled UTI UA suggest UTI UCx growing Ecoli Continue ceftriaxone Follow up urine culture sensitivities Gout On Colcrys GERD Continue PPI DVT Px: On Coumadin Disposition PT OT: Recommending [facility] facility [facility] deferred to next week due to outbreak at facility Admission and Anticipated Discharge Date Admission Date: October 02, 2021 Subjective 89-year-old woman with history of pulmonary embolism, atrial fibrillation on chronic anticoagulation with Coumadin, CVA, dyslipidemia, gout, GERD, chronic thrombocytopenia peripheral vascular disease, leukocytoclastic vasculitis, chronic venous insufficiency and other medical problems presents with history of fall resulting in left hip pain. Found to have left femoral fracture Status post percutaneous screw fixation of left hip. Patient seen and examined today. Reports mild improvement in dysuria/frequency Denies hematuria. Denies fevers, chills Denies chest pain, cough, shortness of breath Denies abdominal pain, diarrhea constipation Physical Exam Constitutional: + well hydrated; no acute distress Eyes: PERRL, conjunctivae normal, anicteric sclerae ENMT: Hearing deficit Respiratory: normal respiratory effort, lungs clear to auscultation Gastrointestinal (Abdomen): normal bowel sounds, soft, nontender, no hepatosplenomegaly Musculoskeletal: Well healing surgical scar Neurologic: PERRL, EOMI, accommodation nl, no face palsy, no dysarthria Psychiatric: A+Ox3, euthymic affect Results & Data Results & Data ([facility]) Vital Signs (Past 12 Hours) Vital Signs Temp Pulse Pulse Resp BP Pulse Ox 10/14/21 07:12 36.8 C 62 123/63 95 10/14/21 03:00 36.7 C 71 17 146/72 H 97 10/14/21 01:54 59 L 10/13/21 22:50 36.7 C 85 18 127/76 94 Laboratory Results Abnormal lab results 10/13/21 10/14/21 10/14/21 Range/Units 20:13 06:46 06:46 RBC 3.63 L (4.2-5.4) M/uL Hgb 11.4 L (12.0-16.0) g/dL Hct 34.9 L (37-47) % RDW Std Deviation 49.1 H (36.4-46.3) fL MPV 10.5 H (7.4-10.4) fL Sodium 135 L (136-145) mmol/L Creatinine 0.51 L (0.6-1.2) mg/dl BUN/Creatinine Ratio 33.9 H (10-20) Glucose 105 H (70-99) mg/dl POC Glucose 112 H (70-99) mg/dl Calcium 10.4 H (8.5-10.1) mg/dl 10/14/21 Range/Units 07:32 RBC (4.2-5.4) M/uL Hgb (12.0-16.0) g/dL Hct (37-47) % RDW Std Deviation (36.4-46.3) fL MPV (7.4-10.4) fL Sodium (136-145) mmol/L Creatinine (0.6-1.2) mg/dl BUN/Creatinine Ratio (10-20) Glucose (70-99) mg/dl POC Glucose 103 H (70-99) mg/dl Calcium (8.5-10.1) mg/dl
[2021-10-14 11:29] LABS: INR 1.5 (0.9-1.1); Prothrombin Time 14.6 Seconds (9.0-12.0)
[2021-10-14] MEDS: WARFARIN SOD 5 MG TAB PO SCH (17:13)
[2021-10-14] MEDS: cefTRIAXone SODIUM 1,000 MG in DEXTROSE 5% 50 ML IV SCH (20:27)
[2021-10-14] MEDS: SERTRALINE HCL 50 MG TABLET PO SCH (20:29)
[2021-10-14] MEDS: DOCUSATE SODIUM/SENNA 50/8.6MG TAB PO SCH (20:29)
[2021-10-15] MEDS: ACETAMINOPHEN 325 MG TAB PO PRN ×2 (02:02→07:52)
[2021-10-15 07:16] LABS: INR 1.4 (0.9-1.1); Prothrombin Time 13.6 Seconds (9.0-12.0)
[2021-10-15] MEDS: PANTOprazole 40 MG TAB PO SCH (07:51)
[2021-10-15] MEDS: CHOLECALCIFEROL 1,000 UNITS 25 MCG TAB PO SCH (07:51)
[2021-10-15] MEDS: COLCHICINE 0.6 MG TAB PO SCH (07:51)
[2021-10-15] MEDS: METHENAMINE HIPPURATE 1 GM TAB PO SCH ×2 (07:51→20:16)
[2021-10-15] MEDS: INSULIN ASPART 100 UNITS/ML 3 ML PEN SC SCH ×4 (09:31→20:15)
--- NOTE | 2021-10-15 10:18 | Hospitalist Progress Note ---
Date of Service October 15, 2021 Assessment & Plan (1) Closed left hip fracture: Plan: Hip fracture S/P mechanical Fall H/O ambulatory dysfunction Hip X ray:Evidence for an impacted, subcapital fracture left femoral neck as described. Orthopedics consulted 10/03/2021: Percutaneous screw fixation of the left hip (Left) - Abdelrahman Buckley, DO No postop complication Continue incentive spirometry IV heparin drip was transitioned to Lovenox bridge with Coumadin Continue warfarin INR subtherapeutic today. Will give 7.5mg warfarin today and resume 5mg tomorrow Monitor INR PT / OT evaluation: Recommends SNF Follow-up with Ortho in 2 weeks Fall precaution Clinically stable Suspected Syncope/near syncopal episode CT head:No acute intracerebral pathology. There is again evidence for cerebral cortical atrophy and extensive remote small vessel disease. Monitor in Telemetry for arrhythmia --likely Orthostatic etiology per patient's presentation -- Orthostatic VS: Negative so far Echo: EF 50 to 55%, mild concentric LVH, focal thickening of the basal septum with no evidence of left ventricular outflow obstruction, no regional wall motion abnormalities, moderate calcification of the aortic valve leaflets, No hemodynamically significant valvular aortic stenosis, mild to moderate mitral regurgitation Right ventricular systolic pressure is moderately elevated at 40 to 50 mmHg Instructed not to get up too quickly Hypoxia, resolved Likely secondary to fentanyl Chest x-ray showed no acute findings Weaned off oxygen Chronic atrial fibrillation On chronic anticoagulation with Coumadin History of CVA History of PE Chads vascular score 5 Currently on warfarin Monitor INR daily DM Type II: A1c 5.3 on 10/03/21 Controlled UTI UA suggest UTI UCx growing Ecoli Ceftriaxone changed to cefdinir Gout On Colcrys GERD Continue PPI DVT Px: On Coumadin Disposition PT OT: Recommending [facility] facility [facility] deferred to next week due to outbreak at facility Admission and Anticipated Discharge Date Admission Date: October 02, 2021 Subjective 89-year-old woman with history of pulmonary embolism, atrial fibrillation on chronic anticoagulation with Coumadin, CVA, dyslipidemia, gout, GERD, chronic thrombocytopenia peripheral vascular disease, leukocytoclastic vasculitis, chronic venous insufficiency and other medical problems presents with history of fall resulting in left hip pain. Found to have left femoral fracture Status post percutaneous screw fixation of left hip. Patient seen and examined today. Reports dysuria now only in the mornings, improved Denies hematuria. Denies fevers, chills Denies chest pain, cough, shortness of breath Denies abdominal pain, diarrhea constipation Physical Exam Constitutional: + well hydrated; no acute distress Eyes: PERRL, conjunctivae normal, anicteric sclerae Respiratory: normal respiratory effort, lungs clear to auscultation Cardiovascular: RRR S1 S2 Gastrointestinal (Abdomen): normal bowel sounds, soft, nontender, no hepatosplenomegaly Musculoskeletal: No pedal edema Neurologic: PERRL, EOMI, accommodation nl, no face palsy, no dysarthria Psychiatric: A+Ox3, euthymic affect Results & Data Results & Data ([facility]) Vital Signs (Past 12 Hours) Vital Signs Temp Pulse Pulse Resp BP Pulse Ox 10/15/21 07:14 36.6 C 56 L 18 131/69 96 10/15/21 06:20 65 10/15/21 03:40 36.6 C 60 16 116/66 93 10/14/21 23:49 52 L 10/14/21 23:01 36.6 C 61 16 131/66 96 Laboratory Results Abnormal lab results 10/14/21 10/14/21 10/14/21 Range/Units 10:59 16:33 20:05 PT 14.6 H (9.0-12.0) Seconds INR 1.5 H (0.9-1.1) POC Glucose 101 H 101 H (70-99) mg/dl 10/15/21 10/15/21 Range/Units 05:58 07:25 PT 13.6 H (9.0-12.0) Seconds INR 1.4 H (0.9-1.1) POC Glucose 102 H (70-99) mg/dl
[2021-10-15] MEDS: CEFDINIR 300 MG CAP PO SCH ×2 (12:20→21:25)
[2021-10-15] MEDS ORDERED: WARFARIN SOD 7.5 MG TAB PO ONE (16:00)
[2021-10-15] MEDS: DOCUSATE SODIUM/SENNA 50/8.6MG TAB PO SCH (20:16)
[2021-10-15] MEDS: SERTRALINE HCL 50 MG TABLET PO SCH (20:17)
[2021-10-15] MEDS: ALPRAZolam 0.25 MG TABLET PO PRN (23:19)
[2021-10-16] MEDS: ACETAMINOPHEN 325 MG TAB PO PRN (02:23)
[2021-10-16] MEDS: METHENAMINE HIPPURATE 1 GM TAB PO SCH ×2 (07:45→22:14)
[2021-10-16] MEDS: PANTOprazole 40 MG TAB PO SCH (07:45)
[2021-10-16] MEDS: CHOLECALCIFEROL 1,000 UNITS 25 MCG TAB PO SCH (07:45)
[2021-10-16] MEDS: CEFDINIR 300 MG CAP PO SCH ×2 (07:45→22:15)
[2021-10-16] MEDS: COLCHICINE 0.6 MG TAB PO SCH (07:45)
[2021-10-16] MEDS: INSULIN ASPART 100 UNITS/ML 3 ML PEN SC SCH ×4 (08:03→22:10)
[2021-10-16 08:54] LABS: INR 1.4 (0.9-1.1); Prothrombin Time 13.8 Seconds (9.0-12.0)
--- NOTE | 2021-10-16 12:00 | Hospitalist Progress Note ---
Date of Service October 16, 2021 Assessment & Plan (1) Closed left hip fracture: Plan: Hip fracture S/P mechanical Fall H/O ambulatory dysfunction Hip X ray:Evidence for an impacted, subcapital fracture left femoral neck as described. Orthopedics consulted 10/03/2021: Percutaneous screw fixation of the left hip (Left) - Abdelrahman Buckley, DO No postop complication PT / OT evaluation: Recommends SNF Follow-up with Ortho in 2 weeks Fall precaution Clinically stable Suspected Syncope/near syncopal episode CT head:No acute intracerebral pathology. There is again evidence for cerebral cortical atrophy and extensive remote small vessel disease. Monitor in Telemetry for arrhythmia --likely Orthostatic etiology per patient's presentation -- Orthostatic VS: Negative so far Echo: EF 50 to 55%, mild concentric LVH, focal thickening of the basal septum with no evidence of left ventricular outflow obstruction, no regional wall motion abnormalities, moderate calcification of the aortic valve leaflets, No hemodynamically significant valvular aortic stenosis, mild to moderate mitral regurgitation Right ventricular systolic pressure is moderately elevated at 40 to 50 mmHg Instructed not to get up too quickly Hypoxia, resolved Likely secondary to fentanyl Chest x-ray showed no acute findings Weaned off oxygen Chronic atrial fibrillation On chronic anticoagulation with Coumadin History of CVA History of PE Chads vascular score 5 Currently on warfarin INR still subtherapeutic. Adjust warfarin as needed Monitor INR daily DM Type II: A1c 5.3 on 10/03/21 Controlled UTI UA suggest UTI UCx growing Ecoli On cefdinir Gout On Colcrys GERD Continue PPI DVT Px: On Coumadin Disposition PT OT: Recommending [facility] facility [facility] deferred to next week due to outbreak at facility Admission and Anticipated Discharge Date Admission Date: October 02, 2021 Subjective 89-year-old woman with history of pulmonary embolism, atrial fibrillation on chronic anticoagulation with Coumadin, CVA, dyslipidemia, gout, GERD, chronic thrombocytopenia peripheral vascular disease, leukocytoclastic vasculitis, chronic venous insufficiency and other medical problems presents with history of fall resulting in left hip pain. Found to have left femoral fracture Status post percutaneous screw fixation of left hip. Patient seen and examined today. Denies dysuria today Denies hematuria. Denies fevers, chills Denies chest pain, cough, shortness of breath Denies abdominal pain, diarrhea constipation Physical Exam Constitutional: + well hydrated; no acute distress Eyes: PERRL, conjunctivae normal, anicteric sclerae ENMT: Hearing deficits Respiratory: normal respiratory effort, lungs clear to auscultation Cardiovascular: Rate/Rhythm: regular rate and regular rhythm S1 S2 Gastrointestinal (Abdomen): normal bowel sounds, soft, nontender, no hepatosplenomegaly Musculoskeletal: No pedal edema Neurologic: PERRL, EOMI, accommodation nl, no face palsy, no dysarthria Psychiatric: A+Ox3, euthymic affect Results & Data Results & Data ([facility]) Vital Signs (Past 12 Hours) Vital Signs Temp Pulse Pulse Pulse Resp BP Pulse Ox 10/16/21 11:50 36.6 C 63 20 109/65 98 10/16/21 07:31 55 L 10/16/21 07:30 36.5 C 65 17 123/70 97 10/16/21 04:56 69 10/16/21 03:00 37 C 64 16 118/64 98 Laboratory Results Abnormal lab results 10/15/21 10/15/21 10/16/21 Range/Units 16:45 20:13 07:35 PT (9.0-12.0) Seconds INR (0.9-1.1) POC Glucose 109 H 111 H 101 H (70-99) mg/dl 10/16/21 Range/Units 08:00 PT 13.8 H (9.0-12.0) Seconds INR 1.4 H (0.9-1.1) POC Glucose (70-99) mg/dl
[2021-10-16] MEDS ORDERED: WARFARIN SOD 5 MG TAB PO SCH (16:00)
[2021-10-16] MEDS ORDERED: WARFARIN SOD 7.5 MG TAB PO ONE (16:00)
[2021-10-16] MEDS: DOCUSATE SODIUM/SENNA 50/8.6MG TAB PO SCH (22:11)
[2021-10-16] MEDS: SERTRALINE HCL 50 MG TABLET PO SCH (22:12)
[2021-10-16] MEDS: ALPRAZolam 0.25 MG TABLET PO PRN (22:19)
[2021-10-17] MEDS: INSULIN ASPART 100 UNITS/ML 3 ML PEN SC SCH ×4 (08:03→21:34)
[2021-10-17] MEDS: METHENAMINE HIPPURATE 1 GM TAB PO SCH ×2 (08:05→21:35)
[2021-10-17] MEDS: CEFDINIR 300 MG CAP PO SCH ×2 (08:05→21:34)
[2021-10-17] MEDS: COLCHICINE 0.6 MG TAB PO SCH (08:05)
[2021-10-17] MEDS: PANTOprazole 40 MG TAB PO SCH (08:05)
[2021-10-17] MEDS: CHOLECALCIFEROL 1,000 UNITS 25 MCG TAB PO SCH (08:06)
[2021-10-17 10:05] LABS: Hematocrit (blood only) 37.9 % (37-47); Hemoglobin 12.1 g/dL (12.0-16.0); Mean Corpuscular Hemoglobin 31.2 pg (25-34); Mean Corpuscular Hgb Conc 31.9 g/dL (32-36); Mean Corpuscular Volume 97.7 fL (80-100); Mean Platelet Volume 10.5 fL (7.4-10.4); Platelet Count 212 K/uL (130-400); RDW Standard Deviation 49.5 fL (36.4-46.3); Red Blood Count 3.88 M/uL (4.2-5.4); White Blood Count 5.13 K/uL (4.8-10.8)
[2021-10-17 10:11] LABS: INR 1.6 (0.9-1.1); Prothrombin Time 15.4 Seconds (9.0-12.0)
[2021-10-17 10:31] LABS: Creatinine Clr Calc Pharmacy 48.9 ml/min; Est GFR (African American) 84.6 ml/min
--- NOTE | 2021-10-17 14:58 | Hospitalist Progress Note ---
Date of Service October 17, 2021 Assessment & Plan (1) Closed left hip fracture: Plan: Hip fracture S/P mechanical Fall H/O ambulatory dysfunction Hip X ray:Evidence for an impacted, subcapital fracture left femoral neck as described. Orthopedics consulted 10/03/2021: Percutaneous screw fixation of the left hip (Left) - Abdelrahman Buckley, DO No postop complication PT / OT evaluation: Recommends SNF Follow-up with Ortho in 2 weeks Fall precaution Clinically stable Suspected Syncope/near syncopal episode CT head:No acute intracerebral pathology. There is again evidence for cerebral cortical atrophy and extensive remote small vessel disease. Monitor in Telemetry for arrhythmia --likely Orthostatic etiology per patient's presentation -- Orthostatic VS: Negative so far Echo: EF 50 to 55%, mild concentric LVH, focal thickening of the basal septum with no evidence of left ventricular outflow obstruction, no regional wall motion abnormalities, moderate calcification of the aortic valve leaflets, No hemodynamically significant valvular aortic stenosis, mild to moderate mitral regurgitation Right ventricular systolic pressure is moderately elevated at 40 to 50 mmHg Instructed not to get up too quickly Hypoxia, resolved Likely secondary to fentanyl Chest x-ray showed no acute findings Weaned off oxygen Chronic atrial fibrillation On chronic anticoagulation with Coumadin History of CVA History of PE Chads vascular score 5 Currently on warfarin INR still subtherapeutic. Adjust warfarin as needed Monitor INR daily DM Type II: A1c 5.3 on 10/03/21 Controlled UTI UA suggest UTI UCx growing Ecoli On cefdinir Gout On Colcrys GERD Continue PPI DVT Px: On Coumadin Disposition PT OT: Recommending [facility] facility [facility] deferred to next week due to outbreak at facility. Will follow up tomorrow Admission and Anticipated Discharge Date Admission Date: October 02, 2021 Subjective 89-year-old woman with history of pulmonary embolism, atrial fibrillation on chronic anticoagulation with Coumadin, CVA, dyslipidemia, gout, GERD, chronic thrombocytopenia peripheral vascular disease, leukocytoclastic vasculitis, chronic venous insufficiency and other medical problems presents with history of fall resulting in left hip pain. Found to have left femoral fracture Status post percutaneous screw fixation of left hip. Patient seen and examined today. No complaints today Denies dysuria today Denies hematuria. Denies fevers, chills Denies chest pain, cough, shortness of breath Denies abdominal pain, diarrhea constipation Physical Exam Constitutional: + well hydrated; no acute distress Eyes: PERRL, conjunctivae normal, anicteric sclerae ENMT: Hearing deficit Respiratory: normal respiratory effort, lungs clear to auscultation Cardiovascular: Rate/Rhythm: regular rate and regular rhythm S1 S2 Gastrointestinal (Abdomen): normal bowel sounds, soft, nontender, no hepatosplenomegaly Musculoskeletal: No pedal edema Neurologic: PERRL, EOMI, accommodation nl, no face palsy, no dysarthria Psychiatric: A+Ox3, euthymic affect Results & Data Results & Data ([facility]) Vital Signs (Past 12 Hours) Vital Signs Temp Pulse Resp BP Pulse Ox 10/17/21 11:17 37.0 C 64 16 114/66 96 10/17/21 07:49 36.5 C 61 18 126/67 96 Laboratory Results Abnormal lab results 10/16/21 10/17/21 10/17/21 Range/Units 20:23 09:18 09:18 RBC 3.88 L (4.2-5.4) M/uL MCHC 31.9 L (32-36) g/dL RDW Std Deviation 49.5 H (36.4-46.3) fL MPV 10.5 H (7.4-10.4) fL PT 15.4 H (9.0-12.0) Seconds INR 1.6 H (0.9-1.1) POC Glucose 107 H (70-99) mg/dl
[2021-10-17] MEDS: WARFARIN SOD 5 MG TAB PO SCH (17:06)
[2021-10-17] MEDS: SERTRALINE HCL 50 MG TABLET PO SCH (21:33)
[2021-10-17] MEDS: DOCUSATE SODIUM/SENNA 50/8.6MG TAB PO SCH (21:35)
[2021-10-17] MEDS: ALPRAZolam 0.25 MG TABLET PO PRN (21:43)
[2021-10-18 06:29] LABS: INR 1.7 (0.9-1.1); Prothrombin Time 16.5 Seconds (9.0-12.0)
[2021-10-18] MEDS: INSULIN ASPART 100 UNITS/ML 3 ML PEN SC SCH ×4 (08:38→21:02)
[2021-10-18] MEDS: COLCHICINE 0.6 MG TAB PO SCH (08:58)
[2021-10-18] MEDS: PANTOprazole 40 MG TAB PO SCH (08:58)
[2021-10-18] MEDS: METHENAMINE HIPPURATE 1 GM TAB PO SCH ×2 (08:59→20:58)
[2021-10-18] MEDS: CHOLECALCIFEROL 1,000 UNITS 25 MCG TAB PO SCH (08:59)
--- NOTE | 2021-10-18 13:03 | Hospitalist Progress Note ---
Date of Service October 18, 2021 Assessment & Plan (1) Closed left hip fracture: Plan: Hip fracture S/P mechanical Fall H/O ambulatory dysfunction Hip X ray:Evidence for an impacted, subcapital fracture left femoral neck as described. Orthopedics consulted 10/03/2021: Percutaneous screw fixation of the left hip (Left) - Abdelrahman Buckley, DO No postop complication PT / OT evaluation: Recommends SNF Follow-up with Ortho in 2 weeks Fall precaution Clinically stable Suspected Syncope/near syncopal episode CT head:No acute intracerebral pathology. There is again evidence for cerebral cortical atrophy and extensive remote small vessel disease. Monitor in Telemetry for arrhythmia --likely Orthostatic etiology per patient's presentation -- Orthostatic VS: Negative so far Echo: EF 50 to 55%, mild concentric LVH, focal thickening of the basal septum with no evidence of left ventricular outflow obstruction, no regional wall motion abnormalities, moderate calcification of the aortic valve leaflets, No hemodynamically significant valvular aortic stenosis, mild to moderate mitral regurgitation Right ventricular systolic pressure is moderately elevated at 40 to 50 mmHg Instructed not to get up too quickly Hypoxia, resolved Likely secondary to fentanyl Chest x-ray showed no acute findings Weaned off oxygen Chronic atrial fibrillation On chronic anticoagulation with Coumadin History of CVA History of PE Chads vascular score 5 Currently on warfarin INR still subtherapeutic but increasing slowly at 1.7 today Monitor INR DM Type II: A1c 5.3 on 10/03/21 Controlled UTI Patient had dysuria. UA suggested UTI UCx growing Ecoli Completed antibiotics today Gout On Colcrys GERD Continue PPI DVT Px: On Coumadin Disposition PT OT: Recommending senior care facility Awaiting placement Admission and Anticipated Discharge Date Admission Date: October 02, 2021 Subjective 89-year-old woman with history of pulmonary embolism, atrial fibrillation on chronic anticoagulation with Coumadin, CVA, dyslipidemia, gout, GERD, chronic thrombocytopenia peripheral vascular disease, leukocytoclastic vasculitis, chronic venous insufficiency and other medical problems presents with history of fall resulting in left hip pain. Found to have left femoral fracture Status post percutaneous screw fixation of left hip. Patient seen and examined today. No new complaints today Denies dysuria, hematuria Denies fevers, chills Denies chest pain, cough, shortness of breath Denies abdominal pain, diarrhea, constipation Physical Exam Constitutional: + well hydrated; no acute distress Eyes: PERRL, conjunctivae normal, anicteric sclerae Respiratory: normal respiratory effort, lungs clear to auscultation Cardiovascular: Rate/Rhythm: regular rate and regular rhythm S1 S2 Gastrointestinal (Abdomen): normal bowel sounds, soft, nontender, no hepatosplenomegaly Musculoskeletal: No pedal edema Neurologic: PERRL, EOMI, accommodation nl, no face palsy, no dysarthria Psychiatric: A+Ox3, euthymic affect Results & Data Results & Data ([facility]) Vital Signs (Past 12 Hours) Vital Signs Temp Pulse Resp BP Pulse Ox 10/18/21 07:00 36.4 C L 64 18 120/70 95 Laboratory Results Abnormal lab results 10/17/21 10/18/21 Range/Units 20:09 05:38 PT 16.5 H (9.0-12.0) Seconds INR 1.7 H (0.9-1.1) POC Glucose 113 H (70-99) mg/dl
[2021-10-18] MEDS: WARFARIN SOD 5 MG TAB PO SCH (16:38)
[2021-10-18] MEDS: DOCUSATE SODIUM/SENNA 50/8.6MG TAB PO SCH (20:58)
[2021-10-18] MEDS: ALPRAZolam 0.25 MG TABLET PO PRN (20:58)
[2021-10-18] MEDS: SERTRALINE HCL 50 MG TABLET PO SCH (20:59)
[2021-10-18] MEDS ORDERED: QUEtiapine FUMARATE 25 MG TABLET PO STA (23:10)
[2021-10-19 06:38] LABS: INR 1.5 (0.9-1.1); Prothrombin Time 15.2 Seconds (9.0-12.0)
[2021-10-19] MEDS: INSULIN ASPART 100 UNITS/ML 3 ML PEN SC SCH ×4 (08:30→21:07)
[2021-10-19] MEDS: COLCHICINE 0.6 MG TAB PO SCH (08:48)
[2021-10-19] MEDS: CHOLECALCIFEROL 1,000 UNITS 25 MCG TAB PO SCH (08:48)
[2021-10-19] MEDS: PANTOprazole 40 MG TAB PO SCH (08:48)
[2021-10-19] MEDS: METHENAMINE HIPPURATE 1 GM TAB PO SCH ×2 (08:48→21:10)
--- NOTE | 2021-10-19 14:46 | Hospitalist Progress Note ---
Date of Service October 19, 2021 Assessment & Plan (1) Closed left hip fracture: Plan: Hip fracture S/P mechanical Fall H/O ambulatory dysfunction Hip X ray:Evidence for an impacted, subcapital fracture left femoral neck as described. Orthopedics consulted 10/03/2021: Percutaneous screw fixation of the left hip (Left) - Abdelrahman Buckley, DO No postop complication PT / OT evaluation: Recommends SNF Follow-up with Ortho in 2 weeks Fall precaution Clinically stable Suspected Syncope/near syncopal episode CT head:No acute intracerebral pathology. There is again evidence for cerebral cortical atrophy and extensive remote small vessel disease. Monitor in Telemetry for arrhythmia --likely Orthostatic etiology per patient's presentation -- Orthostatic VS: Negative so far Echo: EF 50 to 55%, mild concentric LVH, focal thickening of the basal septum with no evidence of left ventricular outflow obstruction, no regional wall motion abnormalities, moderate calcification of the aortic valve leaflets, No hemodynamically significant valvular aortic stenosis, mild to moderate mitral regurgitation Right ventricular systolic pressure is moderately elevated at 40 to 50 mmHg Instructed not to get up too quickly Hypoxia, resolved Likely secondary to fentanyl Chest x-ray showed no acute findings Weaned off oxygen Chronic atrial fibrillation On chronic anticoagulation with Coumadin History of CVA History of PE Chads vascular score 5 Currently on warfarin INR still subtherapeutic at 1.5 Increase warfarin to 7.5mg and monitor DM Type II: A1c 5.3 on 10/03/21 Controlled UTI Patient had dysuria. UA suggested UTI UCx growing Ecoli Completed antibiotics today Gout On Colcrys GERD Continue PPI DVT Px: On Coumadin Disposition PT OT: Recommending residential facility Awaiting placement Admission and Anticipated Discharge Date Admission Date: October 02, 2021 Subjective 89-year-old woman with history of pulmonary embolism, atrial fibrillation on chronic anticoagulation with Coumadin, CVA, dyslipidemia, gout, GERD, chronic thrombocytopenia peripheral vascular disease, leukocytoclastic vasculitis, chronic venous insufficiency and other medical problems presents with history of fall resulting in left hip pain. Found to have left femoral fracture Status post percutaneous screw fixation of left hip. Patient seen and examined today. No new complaints today Denies dysuria, hematuria Denies fevers, chills Denies chest pain, cough, shortness of breath Denies abdominal pain, diarrhea, constipation Physical Exam Constitutional: + well hydrated; no acute distress Eyes: PERRL, conjunctivae normal, anicteric sclerae ENMT: Hearing deficit Respiratory: normal respiratory effort, lungs clear to auscultation Cardiovascular: Rate/Rhythm: regular rate and regular rhythm S1 S2 Gastrointestinal (Abdomen): normal bowel sounds, soft, nontender, no hepatosplenomegaly Musculoskeletal: Good healing on surgical site Neurologic: PERRL, EOMI, accommodation nl, no face palsy, no dysarthria Psychiatric: A+Ox3, euthymic affect Results & Data Results & Data ([facility]) Vital Signs (Past 12 Hours) Vital Signs Temp Pulse Resp BP Pulse Ox 10/19/21 07:46 36.5 C 65 18 118/65 97 Laboratory Results Abnormal lab results 10/18/21 10/19/21 Range/Units 20:08 06:03 PT 15.2 H (9.0-12.0) Seconds INR 1.5 H (0.9-1.1) POC Glucose 116 H (70-99) mg/dl
[2021-10-19] MEDS: WARFARIN SOD 7.5 MG TAB PO SCH (17:05)
[2021-10-19] MEDS: SERTRALINE HCL 50 MG TABLET PO SCH (21:09)
[2021-10-19] MEDS: DOCUSATE SODIUM/SENNA 50/8.6MG TAB PO SCH (21:10)
[2021-10-20 06:54] LABS: INR 1.5 (0.9-1.1); Prothrombin Time 15.1 Seconds (9.0-12.0)
[2021-10-20 07:34] LABS: Est GFR (African American) 98.8 ml/min; Est GFR (Non-African American) 85.3 ml/min
[2021-10-20] MEDS: INSULIN ASPART 100 UNITS/ML 3 ML PEN SC SCH ×2 (08:00→11:54)
[2021-10-20] MEDS: CHOLECALCIFEROL 1,000 UNITS 25 MCG TAB PO SCH (08:54)
[2021-10-20] MEDS: PANTOprazole 40 MG TAB PO SCH (08:54)
[2021-10-20] MEDS: METHENAMINE HIPPURATE 1 GM TAB PO SCH (08:54)
[2021-10-20] MEDS: COLCHICINE 0.6 MG TAB PO SCH (08:54)
--- NOTE | 2021-10-20 12:13 | Discharge Summary ---
Date of Service October 20, 2021 Admission HPI Per Admitting Provider Patient is an 89-year-old female with history of pulmonary embolism, atrial fibrillation on chronic anticoagulation with Coumadin, CVA, dyslipidemia, gout, GERD, chronic thrombocytopenia peripheral vascular disease, leukocytoclastic vasculitis, chronic venous insufficiency and other medical problems presents with history of fall resulting in left hip pain. Patient is currently lethargic and unable to provide much history. Most of the history is obtained from patient's old records, ER staff and family. Patient received fentanyl in route to the hospital for left hip pain and vomited x2 while in ED. As per the records, patient was getting cleaned up this morning and felt lightheaded and had a syncopal episode. Patient had similar episodes in the past. Patient tried to quickly sit up but slid to the floor resulting in falling on her left hip. No known history of head trauma. CT head, neck, chest x-ray showed no acute findings. Left hip x-ray suggestive of impacted, subcapital fracture of the left femur neck. ER physician discussed with orthopedics. She was mildly hypoxic while in ED, oxygen saturations improved with 2 L supplemental oxygen. Labs suggestive of subtherapeutic INR 1.5. Currently she is oriented to person, year. She denies any history of chest pain, shortness of breath, dizziness, abdominal pain. Left hip pain is controlled currently. No distress during my encounter. Principal Diagnosis Syncope and collapse Closed left hip fracture s/p Status post percutaneous screw fixation of the left hip on 10/03 UTI Recurrent pulmonary embolism Atrial fibrillation with a history of stroke chronic anticoagulation with warfarin-subtherapeutic INR. Discharge Exam Physical Exam: Vitals signs as noted above General Appearance:Moderately built and nourished, no apparent distress, Elderly Head: normocephalic, Atraumatic Eyes: normal inspection, EOMI Neck: supple, Trachea midline Respiratory/Chest: Normal breath sounds, CTA, No accessory muscle use Cardiovascular: Irregularly Irregular, + murmur Abdomen/GI:Soft, Non tender, Bowel sounds present Extremities/Musculoskeletal:normal inspection, 1+ B/L LE edema, Left decreased ROM secondary to pain Neurologic/Psych: Lethargic, follows simple commands, oriented to person, ER, grossly no focal neurological deficits Skin: normal color, warm Discharge Data Allergies Allergy/AdvReac Type Severity Reaction Status Date / Time levofloxacin Allergy Severe ITCHING/HIV Verified 10/02/21 10:56 ES adhesive Allergy Unknown REDNESS, Verified 10/02/21 10:56 RASH indomethacin Allergy Unknown . Verified 10/02/21 10:56 meperidine Allergy Unknown UNKNOWN Verified 10/02/21 10:56 nitrofurantoin Allergy Unknown Unknown Verified 10/02/21 10:56 Sulfa (Sulfonamide Allergy Unknown Unknown Verified 10/02/21 10:56 Antibiotics) morphine AdvReac Intermediate SEVERE Verified 10/02/21 10:56 VOMITING oxycodone AdvReac Intermediate VOMITING Verified 10/02/21 10:56 tramadol AdvReac Intermediate N/V Verified 10/02/21 10:56 Consultations 10/02/21 11:10 ED Decision to Admit Stat 10/02/21 14:20 Consult Orthopedic Surgery Routine Procedures Performed Operation Date: 10/03/21 09:40 Actual Procedures p ORIF Hip Cannulated Screw(Left) - Abdelrahman Buckley, Ordered Studies 10/02/21 09:48 CT cervical spine wo con Stat CT head/brain wo con Stat 10/03/21 09:00 FL hip LT 2-3V Routine 10/04/21 08:32 US carotid doppler BI Routine Hospital Course (1) Closed left hip fracture: (2) Syncope: (3) History of atrial fibrillation: (4) On warfarin therapy: (5) Post-operative state: (6) UTI (urinary tract infection): Patient is an 89-year-old female who presented after a fall and possible syncopal event. Work-up revealed evidence of UTI and she was treated with a course of antibiotics. Workup revealed no significant electrolyte abnormality, no concerning liver enzyme elevation, EKG revealing sinus rhythm with first- degree AV block and no evidence of acute ischemia, cardiac enzyme testing x1 not consistent with acute cardiac injury and patient had a euthyroid state. Covid testing was negative. Chest film revealed some chronic findings with no pneumonia or CHF. Left hip and pelvis films showed a left subcapital hip fracture with minimal displacement and no pelvic fracture. Brain CT revealed no acute bleed or mass-effect. CT of C-spine revealed no acute fracture. She was medicated with antiemetics and an normal saline bolus and was transitioned to the hospitalist team and orthopedics was consulted. On 10/03 Dr. Abdelrahman Buckley performed a percutaneous screw fixation of the left hip for a valgus impacted left femoral neck fracture. While in the hospital, continued work-up for syncope included an echocardiogram. This revealed a focal thickening of the basal septum with no evidence of left ventricular outflow obstruction, no regional wall motion abnormalities noted, ejection fraction 55%. There was mild valve disease present and evidence of pulmonary hypertension. She was bridged with a heparin drip and Coumadin was restarted postoperatively, however her INR remained subtherapeutic at time of discharge and her warfarin was increased to 7.5 mg daily. This will need to be monitored in the outpatient setting for goal INR 2-3. Bridging therapy was continued at discharge with once daily Lovenox (therapeutic dose) to be given until INR>2. I discussed this care plan with her daughter who verbalized understanding of this with intent to comply. She was discharged to [facility] in stable condition with close primary care follow-up recommended. Total Time Total Time Spent Total Time Spent (In Minutes): 60 Discharge Plan Discharge Items Patient Disposition: Transfer Assisted Fac Reason For Visit: LEFT HIP FRACTURE Discharge Diagnosis: Syncope and collapse Closed left hip fracture s/p Status post percutaneous screw fixation of the left hip on 10/03 Recurrent pulmonary embolism Atrial fibrillation with a history of stroke chronic anticoagulation with warfarin-subtherapeutic INR. Condition on Discharge: Fair Activity: As commented below Activity Comment: According to physical therapist recommendation Non-emergency contact: Primary Care Provider and Surgeon Call non-emergency contact if: you have any medication questions Follow-up/Referrals: MIGUEL, [Primary Care Provider] - Diet: Heart Healthy Addtl Attending Provider Instructions: Mrs Foster. You came to the hospital after a fall and left hip pain. You were evaluated and found to have a left hip fracture. You were evaluated by the surgeon and had surgery. Please continue to maintain fall precautions. Please ensure follow-up with orthopedic surgeon outpatient within two weeks from the date of your surgery. Please continue medications as prescribed. Please monitor INR and follow-up with anticoagulation clinic, as this is subtherapeutic at time of discharge (INR 1.5) . You are being placed on once daily Lovenox subcutaneous injections until your INR becomes therapeutic. Your warfarin dose was increased to 7.5mg PO daily in the meantime. Please followup with your primary care physician within one week of this hospital discharge to ensure you are still doing well, review your medications, ensure proper follow-up with your Orthopedic surgeon's office and ensure your INR is at goal, further titrating your coumadin as needed. It was a pleasure taking care of you! Please call if you have any questions or problems. You can reach a [facility] hospitalist on duty at [facility] 24 hours a day by calling [phone]. Take care of yourself. Carissa Nunn, DO [facility] Addtl [employer] [place] Provider Instructions: ORTHOPEDIC INSTRUCTIONS Hip Fracture Activity and Therapy Recommendations: 1. You were shown a series of exercises in the hospital. Do these exercises three times each day if you are able. 2. Get up and walk several times each day if you are capable. Make sure you have assistance is needed. For the first four weeks, try not to stand or walk for more than one hour at a time. If you do stand or walk for more than one hour, you will not hurt anything, but your leg will likely swell. 3. As you feel comfortable, you may change from the walker or crutches to a cane and then to independent walking if you are able. Please be safe. Medications: 1. Narcotic You will likely be sent from the hospital with the narcotic pain medication that worked best throughout your stay. 2. Continue your Coumadin as prescribed 3. Other medications may be given for specific circumstances. If you have any questions, please call the office at [phone]. 4. Resume previous home medications unless otherwise instructed TEDs/Elastic Stockings: The white elastic stockings help limit swelling and prevent blood clots from forming in your legs. The more you wear them, the more they work. Wear them for six weeks. Showering: You may shower Things To Watch For: 1. Drainage from the incision site that occurs more than one week after your surgery. 2. Increased redness at the incision site. 3. Fever above 102 degrees Fahrenheit. 4. Unusual chest pain or shortness of breath. 5. Call [facility] at with any of the above problems Follow-Up Visit: Follow-up with Dr. Buckley in 4 weeks (6 weeks after your day of surgery). Please call to make an appointment for a time that works for you Pending Studies at Discharge: No Stand-Alone Forms: My [facility] Skilled Items Patient informed of condition?: Yes DNR: Yes Discharge Level of Care: Skilled Communicable Disease: No Discharge Prognosis: Stable Lines: None Urinary Catheter: No Medications and DC Order Prescriptions: New warfarin [Jantoven] 7.5 mg Tablet 7.5 mg PO DAILY@1600 Qty: 30 RF: 0 enoxaparin [Lovenox] 100 mg/mL syringe 100 mg subcut DAILY Qty: 5 RF: 1 Continued sertraline [Zoloft] 25 mg tablet 25 mg PO HS RF: 0 cod liver oil Capsule 1 cap PO DAILY RF: 0 acetaminophen [Tylenol Extra Strength] 500 mg Tablet 500 mg PO Q6H PRN (Reason: Pain) RF: 0 alprazolam 0.25 mg tablet 0.25 mg PO Q8 PRN (Reason: Anxiety) RF: 0 omeprazole 20 mg capsule,delayed release(DR/EC) 20 mg PO DAILY RF: 0 colchicine 0.6 mg tablet 0.6 mg PO DAILY RF: 0 Refresh Plus 0.5 % Dropperette 1 drp OPHTHALMIC (EYE) QID PRN (Reason: Dry Eyes) RF: 0 cholecalciferol (vitamin D3) [Vitamin D3] 25 mcg (1,000 unit) Tablet 25 mcg PO DAILY RF: 0 diclofenac sodium 1 % gel 1 ea TOPICAL BID RF: 0 methenamine hippurate [Hiprex] 1 gram Tablet 1 g PO BID RF: 0 Visine Dry Eye Relief 1 % Drops 2 drp OPHTHALMIC (EYE) BID PRN (Reason: Dry Eyes) RF: 0 Discontinued warfarin [Jantoven] 5 mg tablet 5 mg PO DAILY RF: 0 Discharge Orders: Discharge Order (Routine); Ordered 10/20/21 Ordered By: Carissa Nunn Admission Data Admit Date/Time: 10/02/21 12:08 Attending Provider: Carissa Nunn Admit Provider: Ezekiel Kennedy Primary Care Provider: Desi RIVERA Providers: Ruth Weiner at [facility] ; Sanket Costa ; Xin Bejarano [place] ; [facility] ; Dawson Prado ; Ezekiel Kennedy ; Abdelrahman Buckley
[2021-10-20] MEDS ORDERED: ENOXAPARIN 100 MG/1ML SYR SQ ONE (12:24)
[2021-10-20] MEDS: WARFARIN SOD 7.5 MG TAB PO SCH (16:25)
== END 2021-10-20 17:07 | disposition home or self-care (01) | DRG 481 ==
LOC: ED 09:33 → SUATTDRO 12:08 → 2N 12:08

== ENCOUNTER 2021-11-30 19:54 | Observation (INO) ==
--- NOTE | 2021-11-30 20:26 | Emergency Department Note ---
Impression & Plan Fall, Contusion of head, Dizziness ED Provider Note NAME: MYRIAM DE LA O AGE: 89 SEX: F : 1930 ARRIVES VIA: Ambulance INFORMANT: Patient ED PROVIDER(S): Stuart Bowens DO CHIEF COMPLAINT: Fall HPI: Patient is an 89-year-old female who presents to the ER following a fall. Patient was tightening up her room to start watching jeopardy and was in a candelaria. She got a little dizzy and lost her balance and fell. She hit her head. She did not pass out. She denies any head or neck pain. No chest pain or shortness of breath. No belly pain, nausea, vomiting, or diarrhea. No dysuria, urgency, or frequency. No weakness or numbness. She notes this has happened multiple times before in the past. This is not new. No other exacerbating remitting fac tors. She does have mild tenderness over the left head when she touches it but otherwise pain is a 0 out of 10. She does take Coumadin. ROS: See above HPI for pertinent positives & negatives. A total of 10 systems reviewed and were otherwise negative. PAST MEDICAL HISTORY:See Below PAST SURGICAL HISTORY:See Below FAMILY HISTORY:See Below SOCIAL HISTORY:See Below HOME MEDICATIONS:See Below ALLERGIES:See Below VITALS:See Below PHYSICAL EXAMINATION: GENERAL: Sitting up in bed, alert, well appearing, well nourished, no distress, non-toxic EYE EXAM: normal conjunctiva. PERRL and EOM's grossly intact. HEAD: Contusion over the left forehead OROPHARYNX: no exudate, no erythema, lips, buccal mucosa, and tongue normal and mucous membranes are moist NECK: supple, no nuchal rigidity, no adenopathy, non-tender CHEST: Stable compression anteriorly and posteriorly LUNGS: Clear to auscultation. Normal chest wall mechanics HEART: no murmurs, S1 normal and S2 normal ABDOMEN: abdomen soft, non-tender, normo-active bowel sounds, no masses, no rebound or guarding. BACK: Back is symmetrical on inspection and there is no deformity, no midline tenderness, no CVA tenderness. SKIN: no rashes and no bruising UPPER EXTREMITIES: upper extremities are grossly normal. LOWER EXTREMITIES: No pitting edema. NEURO EXAM: Normal sensorium, cranial nerves II-XII grossly intact, normal speech, no gross weakness of arms, no gross weakness of legs. MEDICAL DECISION MAKING: Patient is an 89-year-old female who presents to the ER following becoming dizzy and nearly passing out. She became dizzy while cleaning up her room and fell forward and hit her head. There is no loss consciousness. IV was established blood was obtained. Labs show mild leukopenia 4.3 thousand. No significant anemia. INR subtherapeutic at 1.5. BMP with LFTs bilirubin was unremarkable. Initial troponin was detectable at 0.03. This trended up to 0.04 just under positive. Lipase was negative. With the near syncope and the rising troponin discussed with the hospitalist for further evaluation. EKG was unremarkable. CT head and neck were negative. Triage Nursing notes reviewed. Limited review of prior medical records performed Vital Signs: reviewed and remarkable for no significant abnormalities Differential diagnosis: Differential diagnoses include major intracranial, cervical, spinal, thoracic, abdominal, pelvic and neurologic injury. Fracture, contusion, sprain, strain, laceration, abrasions included as well. ER treatment provided: See below Diagnostics interpreted by me: ECG: Sinus rhythm first-degree AV block rate of 59 Normal axis No PVCs QTC 409 Cardiac Monitoring: An order was placed for continuous cardiac monitoring. The monitor shows a rate of 62 with sinus rhythm. Laboratory studies: As stated above and show below. Imaging studies: CT head and neck were negative Consultation(s): D/w the hospitalist for further evaluation Procedures: none Critical Care: None Past Med/Surg History Medical History (Updated 11/30/21 @ 23:04 by Stuart Bowens DO) Ambulatory dysfunction Chronic a-fib Closed fracture of left hip Depression Diabetes mellitus, type II Dyslipidemia Fall GERD (gastroesophageal reflux disease) Gout H/O recurrent urinary tract infection History of breast cancer History of DVT (deep vein thrombosis) History of pulmonary embolism History of stroke MRSA (methicillin resistant Staphylococcus aureus) carrier Stroke Syncope Vomiting Surgical History (Updated 10/20/21 @ 12:32 by Carissa Nunn DO) History of cholecystectomy History of partial mastectomy Family History Other Cancer Diabetes Social History Smoking Status: Never smoker Second Hand Exposure: No; Hx Alcohol Use: No Hx Substance Use: No Preferred Language: [place] Communication Ability: Impaired Wet Roller Required: No Beliefs That Will Affect Care: None marital status: Current Living Situation: Personal Care Facility Current Living Situation Comment: [facility] Feels Safe at Home: Yes Assistive Devices: Glasses and Walker Allergies Allergies Allergy/AdvReac Type Severity Reaction Status Date / Time levofloxacin Allergy Severe ITCHING/HIV Verified 11/30/21 21:04 ES adhesive Allergy Unknown REDNESS, Verified 11/30/21 21:04 RASH indomethacin Allergy Unknown . Verified 11/30/21 21:04 meperidine Allergy Unknown UNKNOWN Verified 11/30/21 21:04 nitrofurantoin Allergy Unknown Unknown Verified 11/30/21 21:04 Sulfa (Sulfonamide Allergy Unknown Unknown Verified 11/30/21 21:04 Antibiotics) morphine AdvReac Intermediate SEVERE Verified 11/30/21 21:04 VOMITING oxycodone AdvReac Intermediate VOMITING Verified 11/30/21 21:04 tramadol AdvReac Intermediate N/V Verified 11/30/21 21:04 Home Meds Home Medications Medication Instructions Recorded Confirmed acetaminophen 500 mg tablet 500 mg PO Q6H PRN 04/25/21 11/30/21 (Tylenol Extra Strength) alprazolam 0.25 mg tablet 0.25 mg PO Q8 PRN 04/25/21 11/30/21 carboxymethylcellulose sodium 0.5 1 drp OPHTHALMIC (EYE) QID PRN 04/25/21 11/30/21 % eye drops in a dropperette (Refresh Plus) cholecalciferol (vitamin D3) 25 25 mcg PO DAILY 04/25/21 11/30/21 mcg (1,000 unit) tablet (Vitamin D3) cod liver oil 1 cap PO DAILY 04/25/21 11/30/21 colchicine 0.6 mg tablet 0.6 mg PO DAILY 04/25/21 11/30/21 diclofenac sodium 1 % topical gel 1 ea TOPICAL BID 04/25/21 11/30/21 omeprazole 20 mg capsule,delayed 20 mg PO DAILY 04/25/21 11/30/21 release sertraline 25 mg tablet (Zoloft) 25 mg PO HS 04/25/21 11/30/21 polyethylene glycol 400 1 % eye 2 drp OPHTHALMIC (EYE) BID PRN 10/02/21 11/30/21 drops (Visine Dry Eye Relief) benzocaine 20 % topical aerosol 1 spray TOPICAL UD PRN 11/30/21 11/30/21 ketoconazole 2 % topical cream 1 applic TOPICAL BID 11/30/21 11/30/21 methenamine hippurate 1 gram tablet 1 g PO BID 11/30/21 11/30/21 mineral oil-hydrophil petrolat 1 applic TOPICAL BID 11/30/21 11/30/21 topical ointment (Aquaphor) propylene glycol 1 %-glycerin 0.3 1 drp OPHTHALMIC (EYE) UD PRN 11/30/21 11/30/21 % eye drops (Advanced Eye Relief) sulfamethoxazole 800 1 tab PO BID 11/30/21 11/30/21 mg-trimethoprim 160 mg tablet triamcinolone acetonide 0.1 % 1 applic TOPICAL BID 11/30/21 11/30/21 topical ointment warfarin 2.5 mg tablet 2.5 mg PO UD 11/30/21 11/30/21 warfarin 5 mg tablet 5 mg PO UD 11/30/21 11/30/21 Previous Rx's Medication Instructions Recorded enoxaparin 100 mg/mL subcutaneous 100 mg SUBCUT DAILY #5 ml 10/20/21 syringe (Lovenox) Results & Data (ED) Vital Signs Vital Signs - 24 hr 11/30/21 19:55 11/30/21 20:00 11/30/21 20:10 Temperature 36.6 C Temperature Source Oral Pulse Rate 60 60 58 L Pulse Rate from SpO2 Sensor 59 L 57 L Respiratory Rate 20 22 22 Respiratory Effort / Characteristics Non-Labored Spontaneous Blood Pressure 120/71 Blood Pressure Mean 87 Blood Pressure Position Sitting Pulse Oximetry 97 95 96 Oxygen Delivery Method Room Air Room Air Room Air Sepsis Recent Fever Within 48 Hours No Sepsis New/Unexplained Change in Mental Status No Sepsis Action Taken by Nursing No Action Required 11/30/21 20:17 11/30/21 20:20 11/30/21 20:30 Temperature Temperature Source Pulse Rate 64 65 63 Pulse Rate from SpO2 Sensor 65 62 Respiratory Rate 18 23 24 Respiratory Effort / Characteristics Blood Pressure Blood Pressure Mean Blood Pressure Position Pulse Oximetry 97 98 99 Oxygen Delivery Method Room Air Room Air Room Air Sepsis Recent Fever Within 48 Hours Sepsis New/Unexplained Change in Mental Status Sepsis Action Taken by Nursing 11/30/21 20:40 11/30/21 21:00 11/30/21 21:01 Temperature Temperature Source Pulse Rate 58 L 56 L 56 L Pulse Rate from SpO2 Sensor 53 L 55 L 56 L Respiratory Rate 23 18 20 Respiratory Effort / Characteristics Blood Pressure 127/60 127/60 Blood Pressure Mean 82 82 Blood Pressure Position Pulse Oximetry 98 100 97 Oxygen Delivery Method Room Air Room Air Room Air Sepsis Recent Fever Within 48 Hours Sepsis New/Unexplained Change in Mental Status Sepsis Action Taken by Nursing 11/30/21 21:10 11/30/21 21:20 11/30/21 21:30 Temperature Temperature Source Pulse Rate 56 L 59 L 59 L Pulse Rate from SpO2 Sensor 56 L 59 L 59 L Respiratory Rate 20 20 20 Respiratory Effort / Characteristics Blood Pressure Blood Pressure Mean Blood Pressure Position Pulse Oximetry 97 97 98 Oxygen Delivery Method Room Air Room Air Room Air Sepsis Recent Fever Within 48 Hours Sepsis New/Unexplained Change in Mental Status Sepsis Action Taken by Nursing 11/30/21 21:40 11/30/21 21:50 11/30/21 22:00 Temperature Temperature Source Pulse Rate 59 L 57 L 65 Pulse Rate from SpO2 Sensor 58 L 58 L 61 Respiratory Rate 20 21 32 H Respiratory Effort / Characteristics Blood Pressure Blood Pressure Mean Blood Pressure Position Pulse Oximetry 100 98 100 Oxygen Delivery Method Room Air Sepsis Recent Fever Within 48 Hours Sepsis New/Unexplained Change in Mental Status Sepsis Action Taken by Nursing Laboratory Data Result diagrams: 11/30/21 Unknown 11/30/21 Unknown Lab Results 11/30/21 11/30/21 11/30/21 Range/Units 23:04 Unknown Unknown WBC 4.31 L (4.8-10.8) K/uL RBC 3.89 L (4.2-5.4) M/uL Hgb 12.2 (12.0-16.0) g/dL Hct 37.7 (37-47) % MCV 96.9 (80-100) fL MCH 31.4 (25-34) pg MCHC 32.4 (32-36) g/dL RDW Std Deviation 50.5 H (36.4-46.3) fL RDW Coeff of Jun 14.2 (11.5-14.5) % Plt Count 148 (130-400) K/uL MPV 11.0 H (7.4-10.4) fL Immature Gran % (Auto) 0.2 % Neut % (Auto) 60.1 % Lymph % (Auto) 27.6 % Lares % (Auto) 9.7 % Eos % (Auto) 1.9 % Baso % (Auto) 0.5 % Neut # (Auto) 2.59 (1.4-6.5) K/uL Lymph # (Auto) 1.19 L (1.2-3.4) K/uL Lares # (Auto) 0.42 (0.11-0.59) K/uL Eos # (Auto) 0.08 (0-0.5) K/uL Baso # (Auto) 0.02 (0-0.2) K/uL Immature Gran # (Auto) 0.01 (0.00-0.02) K/uL PT 15.1 H (9.0-12.0) Seconds INR 1.5 H (0.9-1.1) Sodium (136-145) mmol/L Potassium 4.6 (3.5-5.1) mmol/L Chloride (98-107) mmol/L Carbon Dioxide (21-32) mmol/L Anion Gap (3-11) BUN (6-23) mg/dl Creatinine (0.6-1.2) mg/dl Est Cr Clr Drug Dosing ml/min Est GFR ( Amer) ml/min Est GFR (Non-Af Amer) ml/min BUN/Creatinine Ratio (10-20) Glucose (70-99) mg/dl Calcium (8.5-10.1) mg/dl Total Bilirubin (0.2-1.0) mg/dl AST (13-39) U/L ALT (7-52) U/L Alkaline Phosphatase (34-104) U/L Troponin I 0.04 (0-0.04) ng/ml Total Protein (6.0-8.3) gm/dl Albumin (3.4-5.0) gm/dl Globulin (2.5-4.0) gm/dl Albumin/Globulin Ratio (0.9-2) Lipase (11-82) U/L 11/30/21 Range/Units Unknown WBC (4.8-10.8) K/uL RBC (4.2-5.4) M/uL Hgb (12.0-16.0) g/dL Hct (37-47) % MCV (80-100) fL MCH (25-34) pg MCHC (32-36) g/dL RDW Std Deviation (36.4-46.3) fL RDW Coeff of Jun (11.5-14.5) % Plt Count (130-400) K/uL MPV (7.4-10.4) fL Immature Gran % (Auto) % Neut % (Auto) % Lymph % (Auto) % Lares % (Auto) % Eos % (Auto) % Baso % (Auto) % Neut # (Auto) (1.4-6.5) K/uL Lymph # (Auto) (1.2-3.4) K/uL Lares # (Auto) (0.11-0.59) K/uL Eos # (Auto) (0-0.5) K/uL Baso # (Auto) (0-0.2) K/uL Immature Gran # (Auto) (0.00-0.02) K/uL PT (9.0-12.0) Seconds INR (0.9-1.1) Sodium 135 L (136-145) mmol/L Potassium (3.5-5.1) mmol/L Chloride 104 (98-107) mmol/L Carbon Dioxide 26 (21-32) mmol/L Anion Gap 5 (3-11) BUN 18 (6-23) mg/dl Creatinine 0.69 (0.6-1.2) mg/dl Est Cr Clr Drug Dosing 51.7 ml/min Est GFR ( Amer) 89.5 ml/min Est GFR (Non-Af Amer) 77.2 ml/min BUN/Creatinine Ratio 26.1 H (10-20) Glucose 155 H (70-99) mg/dl Calcium 9.9 (8.5-10.1) mg/dl Total Bilirubin 0.4 (0.2-1.0) mg/dl AST (13-39) U/L ALT 26 (7-52) U/L Alkaline Phosphatase (34-104) U/L Troponin I 0.03 (0-0.04) ng/ml Total Protein 6.6 (6.0-8.3) gm/dl Albumin 4.0 (3.4-5.0) gm/dl Globulin 2.6 (2.5-4.0) gm/dl Albumin/Globulin Ratio 1.5 (0.9-2) Lipase 50 (11-82) U/L Imaging Data Radiologist's Impression: Cervical Spine CT 11/30/21 20:15 CT cervical spine wo con CLINICAL HISTORY: fall hit head TECHNIQUE: Multidetector row helical CT of the cervical spine was performed without administration of intravenous contrast. Coronal and sagittal reformations were obtained. Automated dose lowering techniques and/or adjustment according to patient size were utilized for this exam. Comparison: Comparison is made to CT cervical spine 10/02/2021 FINDINGS: No acute fractures or subluxations are identified. The alignment is normal. The vertebral body heights and disk spaces are well maintained. Prevertebral soft tissues are unremarkable. Biapical scarring is seen in the lungs. IMPRESSION: No evidence of acute bony injury. ACT 112: Negative or not required by law. Electronically signed by: Selwyn Hayes M.D. 11/30/2021 9:05 PM Chest X-Ray 11/30/21 20:15 XR chest 1V portable CLINICAL HISTORY: Atypical chest pain TECHNIQUE: Single frontal radiograph of the chest was obtained. Comparison: Comparison is made to chest one view 09/22/2021 FINDINGS: No lines and tubes are seen. The cardiomediastinal silhouette is normal. Apical pleural thickening on the right with associated interstitial thickening is unchanged. No evidence of pleural effusion or pneumothorax. IMPRESSION: No acute chest disease. ACT 112: Negative or not required by law. Electronically signed by: Selwyn Hayes M.D. 11/30/2021 8:[address] 11/30/21 20:15 CT head/brain wo con CLINICAL HISTORY: fall hit head Technique: Contiguous axial CT images of the head were acquired from the base of the skull to the vertex without intravenous contrast administration. Images were viewed in brain, subdural and bone windows. Automated dose lowering techniques and/or adjustment according to patient size were utilized for this exam. Comparison: Comparison is made to CT head 10/02/2021 Findings: Areas of decreased attenuation are present in the periventricular and subcortical white matter bilaterally consistent with small vessel ischemic disease. Generalized cerebral atrophy with commensurate enlargement of the ventricles, sulci, and cisterns is also present. There is no acute intracranial hemorrhage or evidence of acute territorial infarction. No shift of the midline structures, mass effect, or extra-axial abnormalities are shown. Atherosclerotic calcifications are present in the intracranial segments of the internal carotid arteries. Imaged portions of the paranasal sinuses and mastoid air cells are clear. The orbits appear normal. There are no acute fractures of the calvaria or scalp swelling. Impression: No acute intracranial hemorrhage, no evidence of acute territorial infarction or other acute intracranial disease process. ACT 112: Negative or not required by law. Electronically signed by: Selwyn Hayes M.D. 11/30/2021 9:03 PM Discharge Plan Visit Data Chief Complaint: Fall Stated Complaint: Fall ED Provider: Stuart Bowens Discharge Problem: Fall, Contusion of head, Dizziness Forms Stand Alone Forms: [facility] Prescriptions Prescriptions: No Action Aquaphor Ointment 1 applic TOPICAL BID RF: 0 methenamine hippurate 1 gram tablet 1 g PO BID RF: 0 triamcinolone acetonide 0.1 % Ointment 1 applic TOPICAL BID RF: 0 ketoconazole 2 % cream 1 applic TOPICAL BID RF: 0 warfarin 2.5 mg tablet 2.5 mg PO UD RF: 0 sulfamethoxazole-trimethoprim 800-160 mg tablet 1 tab PO BID RF: 0 Dermoplast 20 % Aerosol 1 spray TOPICAL UD PRN (Reason: Pain) RF: 0 warfarin 5 mg tablet 5 mg PO UD RF: 0 Advanced Eye Relief 1-0.3 % Drops 1 drp OPHTHALMIC (EYE) UD PRN (Reason: Dry Eyes) RF: 0 sertraline [Zoloft] 25 mg tablet 25 mg PO HS RF: 0 cod liver oil Capsule 1 cap PO DAILY RF: 0 acetaminophen [Tylenol Extra Strength] 500 mg Tablet 500 mg PO Q6H PRN (Reason: Pain) RF: 0 alprazolam 0.25 mg tablet 0.25 mg PO Q8 PRN (Reason: Anxiety) RF: 0 omeprazole 20 mg capsule,delayed release(DR/EC) 20 mg PO DAILY RF: 0 colchicine 0.6 mg tablet 0.6 mg PO DAILY RF: 0 Refresh Plus 0.5 % Dropperette 1 drp OPHTHALMIC (EYE) QID PRN (Reason: Dry Eyes) RF: 0 cholecalciferol (vitamin D3) [Vitamin D3] 25 mcg (1,000 unit) Tablet 25 mcg PO DAILY RF: 0 diclofenac sodium 1 % gel 1 ea TOPICAL BID RF: 0 Visine Dry Eye Relief 1 % Drops 2 drp OPHTHALMIC (EYE) BID PRN (Reason: Dry Eyes) RF: 0 enoxaparin [Lovenox] 100 mg/mL syringe 100 mg subcut DAILY Qty: 5 RF: 1 Referrals Referrals: WILLIES, [Non-Staff] - Discharge Problem: Fall Qualifiers: Encounter type: initial encounter Qualified Code(s): W19.XXXA - Unspecified fall, initial encounter Contusion of head Qualifiers: Encounter type: initial encounter Contusion of head detail: unspecified part of head Qualified Code(s): S00.93XA - Contusion of unspecified part of head, initial encounter
[2021-11-30 20:29] LABS: Basophils # (auto) 0.02 K/uL (0-0.2); Basophils % (auto) 0.5 %; Eosinophils # (auto) 0.08 K/uL (0-0.5); Eosinophils % (auto) 1.9 %; Hematocrit (blood only) 37.7 % (37-47); Hemoglobin 12.2 g/dL (12.0-16.0); Immature Granulocytes # (auto) 0.01 K/uL (0.00-0.02); Immature Granulocytes % (auto) 0.2 %; Lymphocytes # (auto) 1.19 K/uL (1.2-3.4); Lymphocytes % (auto) 27.6 %; Mean Corpuscular Hemoglobin 31.4 pg (25-34); Mean Corpuscular Hgb Conc 32.4 g/dL (32-36); Mean Corpuscular Volume 96.9 fL (80-100); Monocytes # (auto) 0.42 K/uL (0.11-0.59); Monocytes % (auto) 9.7 %; Neutrophils # (auto) 2.59 K/uL (1.4-6.5); Neutrophils % (auto) 60.1 %; Platelet Count 148 K/uL (130-400); RDW Coefficient of Variation 14.2 % (11.5-14.5); RDW Standard Deviation 50.5 fL (36.4-46.3); Red Blood Count 3.89 M/uL (4.2-5.4); White Blood Count 4.31 K/uL (4.8-10.8)
--- NOTE | 2021-11-30 20:32 | XRay Report ---
XR chest 1V portable CLINICAL HISTORY: Atypical chest pain TECHNIQUE: Single frontal radiograph of the chest was obtained. Comparison: Comparison is made to chest one view 09/22/2021 FINDINGS: No lines and tubes are seen. The cardiomediastinal silhouette is normal. Apical pleural thickening on the right with associated interstitial thickening is unchanged. No evidence of pleural effusion or p neumothorax. IMPRESSION: No acute chest disease. ACT 112: Negative or not required by law. Electronically signed by: Selwyn Hayes M.D. 11/30/2021 8:31 PM
[2021-11-30 20:42] LABS: INR 1.5 (0.9-1.1); Prothrombin Time 15.1 Seconds (9.0-12.0)
--- NOTE | 2021-11-30 21:05 | CT Scan Report ---
CT head/brain wo con CLINICAL HISTORY: fall hit head Technique: Contiguous axial CT images of the head were acquired from the base of the skull to the odette casandra without intravenous contrast administration. Images were viewed in brain, subdural and bone [facility]. Automated dose lowering techniques and/or adjustment according to patient size were utilized for this exam. Comparison: Comparison is made to CT head 10/02/2021 Findings: Areas of decreased attenuation are present in the periventricular and subcortical white matter bilate rally consistent with small vessel ischemic disease. Generalized cerebral atrophy with commensurate e nlargement of the ventricles, sulci, and cisterns is also present. There is no acute intracranial hem orrhage or evidence of acute territorial infarction. No shift of the midline structures, mass effect, or extra-axial abnormalities are shown. Atherosclerotic calcifications are present in the intracran ial segments of the internal carotid arteries. Imaged portions of the paranasal sinuses and mastoid air cells are clear. The orbits appear normal. There are no acute fractures of the calvaria or scalp swelling. Impression: No acute intracranial hemorrhage, no evidence of acute territorial infarction or other acute intracra nial disease process. ACT 112: Negative or not required by law. Electronically signed by: Selwyn Hayes M.D. 11/30/2021 9:03 PM
--- NOTE | 2021-11-30 21:06 | CT Scan Report ---
CT cervical spine wo con CLINICAL HISTORY: fall hit head TECHNIQUE: Multidetector row helical CT of the cervical spine was performed without administration of intravenous contrast. Coronal and sagittal reformations were obtained. Automated dose lowering techn iques and/or adjustment according to patient size were utilized for this exam. Comparison: Comparison is made to CT cervical spine 10/02/2021 FINDINGS: No acute fractures or subluxations are identified. The alignment is normal. The vertebral body height s and disk spaces are well maintained. Prevertebral soft tissues are unremarkable. Biapical scarring is seen in the lungs. IMPRESSION: No evidence of acute bony injury. ACT 112: Negative or not required by law. Electronically signed by: Selwyn Hayes M.D. 11/30/2021 9:05 PM
[2021-11-30 22:20] LABS: Albumin Globulin Ratio 1.5 (0.9-2); BUN Creatinine Ratio 26.1 (10-20); Bilirubin,Total 0.4 mg/dl (0.2-1.0); Calcium 9.9 mg/dl (8.5-10.1); Creatinine Clr Calc Pharmacy 51.7 ml/min; Est GFR (African American) 89.5 ml/min; Est GFR (Non-African American) 77.2 ml/min; Globulin 2.6 gm/dl (2.5-4.0); Total Protein 6.6 gm/dl (6.0-8.3); Troponin I 0.03 ng/ml (0-0.04)
[2021-11-30 23:42] LABS: Potassium 4.6 mmol/L (3.5-5.1)
[2021-12-01 00:14] LABS: Troponin I 0.04 ng/ml (0-0.04)
[2021-12-01] MEDS ORDERED: ONDANSETRON INJ 2 MG/ML 2 ML VIAL IV STA (03:25)
[2021-12-01] MEDS ORDERED: ACETAMINOPHEN 325 MG TAB PO PRN (03:51)
[2021-12-01] MEDS ORDERED: POLYETHYLENE (MIRALAX) 17 GM PACK PO PRN (03:51)
[2021-12-01] MEDS ORDERED: SODIUM CHLORIDE 0.9% 1000ML 1,000 ML IV SCH (03:51)
[2021-12-01] MEDS ORDERED: POLYETHYLENE GLYCOL OP PRN (03:51)
[2021-12-01] MEDS ORDERED: PROPYLENE GLYCOL GLYCERIN OP PRN (03:51)
[2021-12-01] MEDS ORDERED: NITROGLYCERIN SL 0.4 MG/TAB TAB SL PRN (03:51)
[2021-12-01] MEDS ORDERED: ALPRAZolam 0.5 MG TABLET PO PRN (03:51)
[2021-12-01] MEDS ORDERED: BENZOCAINE 20% AER SPR 82.5 GM CAN EXT PRN (03:51)
[2021-12-01] MEDS ORDERED: Heparin IV Adult Wt-Based Low-Dose *NO* Bolus Protocol IV STA (03:58)
[2021-12-01] MEDS ORDERED: ARTIFICIAL TEARS OP PRN (04:45)
[2021-12-01 05:22] LABS: Partial Thromboplastin Ratio 1.2; Partial Thromboplastin Time 32.2 Seconds (21.0-31.0)
[2021-12-01] MEDS: HEPARIN SODIUM/DEXTROSE 25,000 UNITS/500 ML BAG IV SCH (05:36)
--- NOTE | 2021-12-01 06:48 | History and Physical Report ---
DATE OF ADMISSION: 12/01/2021. CHIEF COMPLAINT: Fall, dizziness. HISTORY OF PRESENT ILLNESS: This is an 89-year-old female with past medical history significant for history of pulmonary embolism, atrial fibrillation, on chronic anticoagulation with Coumadin, history of CVA, hyperlipidemia, gout, GERD, chronic thrombocytopenia, peripheral vascular disease, leukocytoclastic vasculitis, chronic venous insufficiency, history of diabetes, currently not on any medications, history of breast cancer, who lives in the [facility], presents with a fall. The patient says she is falling frequently because she is feeling very dizzy. She has to walk with a walker. She constantly has to use a walker for any ambulation. Seems to be she was a little dizzy and lost balance and fell when she was walking in the room. She hit her head and there is a bruise on the left side of forehead. She says left eye vision is not great because of a stroke in the past. She says she has had multiple strokes in the past. Currently denies any headache. She has once in a while runny nose. No sore throat, no cough, no chest pain, no shortness of breath, no nausea, no abdominal pain. Normal bowel and bladder movements. Appetite is okay. She eats soft foods because she lacks some teeth. The patient states she had two COVID shots, but she thinks she did not get a booster. She denies any fevers. ALLERGIES: LEVAQUIN, ADHESIVES, INDOMETHACIN, MEPERIDINE, NITROFURANTOIN, SULFA ANTIBIOTICS, MORPHINE, OXYCODONE, TRAMADOL. PAST MEDICAL HISTORY: As mentioned above. PAST SURGICAL HISTORY: Cystoscopy, laparoscopic cholecystectomy, bilateral shoulder surgery, right breast lesion excision, ligation of the oviducts, right partial mastectomy, and axillary sentinel lymph node biopsy. MEDICATIONS: The patient is on Tylenol Extra Strength 500 mg p.o. q. 6 hours p.r.n., alprazolam 0.25 mg p.o. 8 hours p.r.n., vitamin D 25 mcg p.o. daily, colchicine 0.6 mg p.o. daily, diclofenac topical b.i.d., omeprazole 20 mg p.o. daily, propylene glycol glycerine one drop ophthalmic in the eyes p.r.n., Refresh Plus q.i.d. p.r.n., Zoloft 25 mg p.o. at bedtime, Bactrim 1 tablet p.o. b.i.d., last dose was on 12/01/2021, warfarin 2.5 mg on Tuesdays and and 5 mg on all other days. FAMILY HISTORY: Significant for brother had bladder cancer, father had diabetes, aunt has stroke, mother had thyroid disorder. SOCIAL HISTORY: Currently living in [place]. No smoking or alcohol, no drug use. REVIEW OF SYSTEMS: As per HPI. Rest of review of systems is negative. PHYSICAL EXAMINATION: GENERAL: The patient is old and frail, not in acute distress. VITAL SIGNS: Temperature 36.6, pulse 60, respiratory rate 18, blood pressure 126/61, oxygen 96% on room air. HEENT: Bruising on the left side of the forehead. Pupils equal, round, and reactive to light. Oral mucosa moist. NECK: No JVD, no neck masses. CARDIOVASCULAR: S1 and S2 heard. Regular rate and rhythm. No murmur, no gallop. RESPIRATORY SYSTEM: Normal AP diameter. No accessory muscle use. No wheezing, no crackles. ABDOMEN: Soft, bowel sounds present, nontender, no distention. CENTRAL NERVOUS SYSTEM: Alert and oriented. No facial droop. Speech is clear. Insight is good. Hard of hearing. Obeys simple commands. Moves extremities. EXTREMITIES: No edema, no erythema. LABORATORY DATA: WBC 4.3, hemoglobin 12.2, hematocrit 37.7, platelets 148. PT of 10.1, INR 1.5. Sodium 135, chloride 104, bicarbonate 26, BUN 18, creatinine 0.69, serum glucose 155, calcium 9.9, total bilirubin 0.4, ALT 26. Troponin I of 0.03. Lipase 50. SARS-CoV-2 RNA negative. IMAGING DATA: CT of the head, no acute findings. Cervical spine CT, no acute findings. Chest x-ray, no acute findings. EKG: Sinus bradycardia with a first-degree AV block at a rate of 59, no acute ST changes seen. ASSESSMENT AND PLAN: This is an 89-year-old female who presents with recurrent falls and ongoing dizziness. 1. Recurrent falls and ongoing dizziness: Probable presyncope. Will check orthostatics, gentle fluids. Recently had echo last admission for syncope workup. Monitor in the [facility]. Consult cardiology for further recommendations. PT, OT and monitor. 2. History of atrial fibrillation: Rate is under control on Coumadin. INR is subtherapeutic at 1.5. We will start on iv low dose heparin, we will Recently coumadin dose reduced as patient was placed on 10day course of Bactrim for uti. Will give Coumadin 5mg daily for now and monitor inr. 3. History of pulmonary embolism: Anticoagulation as above. 4. Urinary tract infection: The patient was recently started on Bactrim for urinary tract infection, a 10-day course, last dose is on 12/01/2021. We will also follow the urinalysis. 5. History of depression: On Zoloft. 6. History of recent closed left hip fracture: Status post surgery. PT, OT when stable. 7. Type 2 diabetes: Recent HbA1c level was 5.3. Will monitor sugars. 8. History of gout: On colchicine. 9. Gastroesophageal reflux disease: On PPI. 10. Deep venous thrombosis prophylaxis: On Coumadin. INR is subtherapeutic at 1.5, will increase the Coumadin to 5 mg daily and also placed on IV heparin.Will Follow PT/INR DISPOSITION: PT, OT. May need placement, currently at [facility]. CODE STATUS: DNR as per my discussion with the patient. Job ID: [id number] [facility]
--- NOTE | 2021-12-01 08:13 | Electrocardiogram Report ---
Test Reason : Blood Pressure : / mmHG Vent. Rate : 059 BPM Atrial Rate : 059 BPM P-R Int : 346 ms QRS Dur : 110 ms QT Int : 414 ms P-R-T Axes : 085 016 006 degrees QTc Int : 409 ms Sinus bradycardia with 1st degree A-V block Cannot rule out Anteroseptal infarct , age undetermined Abnormal ECG When compared with ECG of 03-OCT-2021 06:42, Minimal criteria for Anteroseptal infarct are now Present Confirmed by Felipe West ([id number]) on 12/01/2021 8:13:28 AM Referred By: Bhavya Lanier Confirmed By:Felipe West
[2021-12-01 08:34] LABS: Basophils # (auto) 0.01 K/uL (0-0.2); Basophils % (auto) 0.2 %; Eosinophils # (auto) 0.03 K/uL (0-0.5); Eosinophils % (auto) 0.6 %; Hematocrit (blood only) 37.2 % (37-47); Hemoglobin 12.1 g/dL (12.0-16.0); Immature Granulocytes # (auto) 0.01 K/uL (0.00-0.02); Immature Granulocytes % (auto) 0.2 %; Lymphocytes # (auto) 0.91 K/uL (1.2-3.4); Lymphocytes % (auto) 17.5 %; Mean Corpuscular Hemoglobin 31.3 pg (25-34); Mean Corpuscular Hgb Conc 32.5 g/dL (32-36); Mean Corpuscular Volume 96.1 fL (80-100); Mean Platelet Volume 10.8 fL (7.4-10.4); Monocytes # (auto) 0.48 K/uL (0.11-0.59); Monocytes % (auto) 9.2 %; Neutrophils # (auto) 3.77 K/uL (1.4-6.5); Neutrophils % (auto) 72.3 %; Platelet Count 131 K/uL (130-400); RDW Coefficient of Variation 14.2 % (11.5-14.5); Red Blood Count 3.87 M/uL (4.2-5.4); White Blood Count 5.21 K/uL (4.8-10.8)
[2021-12-01 08:42] LABS: INR 1.5 (0.9-1.1); Prothrombin Time 15.2 Seconds (9.0-12.0)
[2021-12-01 08:59] LABS: Troponin I 0.04 ng/ml (0-0.04)
[2021-12-01] MEDS ORDERED: MINERAL OIL HYDROPHIL PETROLAT TOP SCH (09:00)
[2021-12-01] MEDS ORDERED: SULFAMETHOXAZOLE/TRIMETHOPRIM DS 800/160MG TAB PO SCH (09:00)
[2021-12-01] MEDS: PANTOprazole 40 MG TAB PO SCH (09:15)
[2021-12-01] MEDS: COLCHICINE 0.6 MG TAB PO SCH (09:15)
[2021-12-01] MEDS: CHOLECALCIFEROL 1,000 UNITS 25 MCG TAB PO SCH (09:15)
[2021-12-01] MEDS: KETOCONAZOLE 2% CR 15 GM TUBE EXT SCH ×2 (09:16→20:07)
[2021-12-01] MEDS: DICLOFENAC SOD 1% GEL 100 GM TUBE EXT SCH ×2 (09:16→20:07)
[2021-12-01 09:18] LABS: Calcium 9.6 mg/dl (8.5-10.1); Potassium 4.2 mmol/L (3.5-5.1)
[2021-12-01 10:16] LABS: BUN Creatinine Ratio 21.3 (10-20); Creatinine Clr Calc Pharmacy 58.5 ml/min; Est GFR (African American) 93.2 ml/min; Est GFR (Non-African American) 80.4 ml/min
--- NOTE | 2021-12-01 10:24 | Cardiology Consultation ---
Date of Consultation December 01, 2021 Assessment & Plan (1) Fall: (2) Dizziness: (3) Ambulatory dysfunction: (4) First degree AV block: (5) Sinus bradycardia: 89-year-old female admitted following a recurrent fall, evaluation of dizziness. No overt evidence of an acute coronary syndrome. Suspect an element of intravascular volume depletion and vertiginous/neurologic etiology. The possibility of arrhythmias, specifically bradyarrhythmias noted and discussed however EKG findings as well as telemetry, thus far, are similar to those from years past, without progression. Patient is adamant about being discharge today. She will discuss my recommendation for a 14-day ZIO monitor with her daughter which, if agreement, she would like placed at the [facility]. The possibility of dual-chamber pacemaker implantation was discussed. Supervising Physician Attestation: I have personally performed a history and physical examination on the patient. I agree with the physician clerical administrative assistant's findings and plan as documented with the following additions. Subjective: Patient seen and examined. I called her daughter, Lena, by phone, with the patient's permission I discussed updates. Patient is eager for discharge. Telemetry reveals sinus rhythm in the 50s to 60s with long first-degree AV block, MN interval 346 ms. No profound prolonged bradycardia or pauses or high- grade heart block observed thus far. The first-degree AV block is a chronic finding, documented on multiple EKGs dating back at least 5 years. The patient was recently placed on a course of Bactrim on 11/22/2021, for dysuria symptoms consistent with her recurrent UTI symptoms. In September, as well as on several other occasions she was found to have sensitive E. coli in her urine. She was to have a urine culture at the time of placement of treatment a week ago , but this is yet to occur. The patient's symptoms prompting her visit to the emergency room are similar to those that she described at the time of the episode that led to her hip fracture last fall. Exam: Regular rhythm No edema 1/6 systolic murmur Data: EKG with findings of mild concentric left ventricular hypertrophy, LVEF 50 to 55%, grade 2 diastolic dysfunction, mild to moderate MR, mild AR, unchanged compared to previous study dating back to September, Assessment and Plan: Fall, dizziness, first degree AV block H/o PE, subtherapeutic INR, 1.5 Current treatment with Bactrim for UTI -Pt lives alone at the [facility]. -UA and culture ordered by admitting physician, but has yet to be collected. I asked for this to be collected , discussed with nursing, as I think this will provide helpful information. - Heparin bridge for now. As noted, no evidence of AFib on past EKGs or monitors. On coumadin for h/o VTE. -Depending on results, likely for DC later today or tomorrow with plans for library monitor as outpt if telemetry unrevealing. No indication for pacemaker at present. BP stable. José Manuel Castillo, DO History of Present Illness Reason for Consultation: New syncope Requesting Physician: Coretta Attending Physician: Edouard History of Present Illness Sheridan Foster is a 89-year-old female who was admitted to [facility] on December 01, 2021 after a fall. The patient is a resident of [facility]. She is notably on Mathenamine for UTI prophylaxis/suppression and is currently being treated for another UTI with Bactrim. She has a chart history of atrial fibrillation however I do not see any overt atrial fibrillation documentation, perhaps developing transient atrial fibrillation in the setting of a prior pulmonary embolism. She does have a history of recurrent DVTs as well as PE, history of MTHFR gene mutation, recurrent strokes, breast cancer. She is prescribed chronic Coumadin anticoagulation. She notes discussing cardiology consultation with her primary care physician following Holter monitoring, declining evaluation at that time and when broached thereafter. Patient notes that she will not consider invasive evaluation or procedures and does not plan to stay for the recommended admission. Per chart review, the patient has a history of atrial and ventricular ectopy, mild sinus bradycardia with a prolonged first-degree AV block. Patient notes getting ready to watch Jeopardy. All of a sudden, while in a seated position, "everything started to twirl." Notes associated difficulty seeing as well as as sociated nausea without emesis. She notes that this was very similar to that which happened prior to recently breaking her hip. Symptoms lasted a couple of minutes. She notes that it was bad enough to throw off her balance while she was walking with her walker through the room. She denies loss of consciousness/syncope. She denies associated incontinence. The event was not witnessed. She notes visual and left ear hearing issues post stroke. She describes being chronically intermittently sick and dizzy in the morning, typically staying in her room to eat breakfast, with associated nausea without vomiting. She describes having an awful weak stomach. On questioning, she describes chest discomfort that is attributed to arthritis, reproducible with palpation. Notes mild palpitations attributed to being nervous, stating "I take everything to heart." EKG on presentation revealed sinus bradycardia at 59 bpm with a prolonged first- degree AV block. Cannot rule out an old anterior septal infarct. When compared to the prior EKG as well as an outpatient EKG from October 2016, there is no significant change. Troponin I: 0.04, 0.03, 0.04. Resting echocardiography reveals preserved LV systolic function with an ejection fraction of 50 to 55%. No regional wall motion abnormalities noted. Mild aortic regurgitation, mild to moderate mitral regurgitation, grade 2 diastolic dysfunction observed along with focal thickening of the basal septum, without evidence of left ventricular outflow tract obstruction. Doppler findings do not suggest pulmonary hypertension Telemetry monitoring has revealed mild sinus bradycardia/sinus rhythm with a first-degree AV block, occasional premature ventricular complexes. No significant bradycardia. No significant pauses. No atrial fibrillation. INR was notably subtherapeutic at 1.5. Family History: Mother at 92. Father young with stomach cancer. 6 siblings, unaware of any cardiac issues. Social History: Originally from [place]. [employer] [place]. Currently lives at [facility]. Nonsmoker. No alcohol. No illegal drug use. Allergies Allergy/AdvReac Type Severity Reaction Status Date / Time levofloxacin Allergy Severe ITCHING/HIV Verified 11/30/21 21:04 ES adhesive Allergy Unknown REDNESS, Verified 11/30/21 21:04 RASH indomethacin Allergy Unknown . Verified 11/30/21 21:04 meperidine Allergy Unknown UNKNOWN Verified 11/30/21 21:04 nitrofurantoin Allergy Unknown Unknown Verified 11/30/21 21:04 Sulfa (Sulfonamide Allergy Unknown Unknown Verified 11/30/21 21:04 Antibiotics) morphine AdvReac Intermediate SEVERE Verified 11/30/21 21:04 VOMITING oxycodone AdvReac Intermediate VOMITING Verified 11/30/21 21:04 tramadol AdvReac Intermediate N/V Verified 11/30/21 21:04 Home Medications Medication Instructions Recorded Confirmed Type acetaminophen 500 mg tablet 500 mg PO Q6H PRN 04/25/21 11/30/21 History (Tylenol Extra Strength) alprazolam 0.25 mg tablet 0.25 mg PO Q8 PRN 04/25/21 11/30/21 History carboxymethylcellulose sodium 0.5 1 drp OPHTHALMIC (EYE) QID PRN 04/25/21 11/30/21 History % eye drops in a dropperette (Refresh Plus) cholecalciferol (vitamin D3) 25 25 mcg PO DAILY 04/25/21 11/30/21 History mcg (1,000 unit) tablet (Vitamin D3) cod liver oil 1 cap PO DAILY 04/25/21 11/30/21 History colchicine 0.6 mg tablet 0.6 mg PO DAILY 04/25/21 11/30/21 History diclofenac sodium 1 % topical gel 1 ea TOPICAL BID 04/25/21 11/30/21 History omeprazole 20 mg capsule,delayed 20 mg PO DAILY 04/25/21 11/30/21 History release sertraline 25 mg tablet (Zoloft) 25 mg PO HS 04/25/21 11/30/21 History polyethylene glycol 400 1 % eye 2 drp OPHTHALMIC (EYE) BID PRN 10/02/21 11/30/21 History drops (Visine Dry Eye Relief) benzocaine 20 % topical aerosol 1 spray TOPICAL UD PRN 11/30/21 11/30/21 History ketoconazole 2 % topical cream 1 applic TOPICAL BID 11/30/21 11/30/21 History methenamine hippurate 1 gram tablet 1 g PO BID 11/30/21 11/30/21 History mineral oil-hydrophil petrolat 1 applic TOPICAL BID 11/30/21 11/30/21 History topical ointment (Aquaphor) propylene glycol 1 %-glycerin 0.3 1 drp OPHTHALMIC (EYE) UD PRN 11/30/21 11/30/21 History % eye drops (Advanced Eye Relief) sulfamethoxazole 800 1 tab PO BID 11/30/21 11/30/21 History mg-trimethoprim 160 mg tablet triamcinolone acetonide 0.1 % 1 applic TOPICAL BID 11/30/21 11/30/21 History topical ointment warfarin 2.5 mg tablet 2.5 mg PO UD 11/30/21 11/30/21 History warfarin 5 mg tablet 5 mg PO UD 11/30/21 11/30/21 History Patient History Medical History (Updated 12/01/21 @ 10:51 by Chetan Bajwa) Ambulatory dysfunction Chronic a-fib Closed fracture of left hip Depression Diabetes mellitus, type II Dyslipidemia Fall GERD (gastroesophageal reflux disease) Gout H/O recurrent urinary tract infection History of breast cancer History of DVT (deep vein thrombosis) History of pulmonary embolism History of stroke MRSA (methicillin resistant Staphylococcus aureus) carrier Stroke Syncope Vomiting Surgical History History of cholecystectomy History of partial mastectomy Family History Other Cancer Diabetes Social History Smoking Status: Never smoker Second Hand Exposure: No; Hx Alcohol Use: No Hx Substance Use: No Preferred Language: Korean Communication Ability: Effective Potato Sorter Required: No Beliefs That Will Affect Care: None marital status: Current Living Situation: Personal Care Facility Current Living Situation Comment: [facility] Feels Safe at Home: Yes Assistive Devices: Walker Review of Systems Review of Systems: Ambulation is via walker. Frequent falls. History of gout. History of diabetes, without medications. Complete review of systems is otherwise as stated above, negative, or noncontributory. Physical Exam Physical Exam: General: A&Ox3. NAD. Hard of hearing. HENT: Abrasion/bruising/ecchymosis left forehead. Eyes: Glasses. PER. Conjunctiva pink, sclera clear. Neck: Transmitted ystolic murmur versus bilateral carotid bruits. No JVD. No HJR. Heart: RRR at 66 bpm. Grade 2 systolic murmur. No diastolic murmur. No rub. No gallop. PMI is nondisplaced. Lungs: Clear to auscultation. Abdomen: +BS. Soft. Nontender. No masses or organomegaly. Extremities: Stasis changes. No clubbing. No cyanosis. No edema. Distal pulses are reduced bilaterally. Neuro: Hard of hearing. No focal deficits. Results & Data ([facility]) Vital Signs (Past 12 Hours) Vital Signs Pulse Pulse Resp BP BP Pulse Ox Pulse Ox 12/01/21 05:00 66 16 125/70 95 12/01/21 04:34 55 L 16 120/60 96 12/01/21 04:33 96 12/01/21 04:20 58 L 16 120/60 96 12/01/21 03:00 59 L 16 129/60 96 12/01/21 00:50 60 18 126/61 96 Laboratory Results Laboratory Results - last 24 hr 11/30/21 11/30/21 11/30/21 23:04 Unknown Unknown WBC 4.31 L RBC 3.89 L Hgb 12.2 Hct 37.7 MCV 96.9 MCH 31.4 MCHC 32.4 RDW Std Deviation 50.5 H RDW Coeff of Jun 14.2 Plt Count 148 MPV 11.0 H Immature Gran % (Auto) 0.2 Neut % (Auto) 60.1 Lymph % (Auto) 27.6 Green % (Auto) 9.7 Eos % (Auto) 1.9 Baso % (Auto) 0.5 Neut # (Auto) 2.59 Lymph # (Auto) 1.19 L Green # (Auto) 0.42 Eos # (Auto) 0.08 Baso # (Auto) 0.02 Immature Gran # (Auto) 0.01 PT 15.1 H INR 1.5 H APTT PTT Ratio Sodium Potassium 4.6 Chloride Carbon Dioxide Anion Gap BUN Creatinine Est Cr Clr Drug Dosing Est GFR ( Amer) Est GFR (Non-Af Amer) BUN/Creatinine Ratio Glucose Calcium Magnesium Total Bilirubin AST ALT Alkaline Phosphatase Troponin I 0.04 Total Protein Albumin Globulin Albumin/Globulin Ratio Lipase SARS-CoV-2, RNA, NAAT 11/30/21 12/01/21 12/01/21 Unknown 00:48 04:57 WBC RBC Hgb Hct MCV MCH MCHC RDW Std Deviation RDW Coeff of Jun Plt Count MPV Immature Gran % (Auto) Neut % (Auto) Lymph % (Auto) Green % (Auto) Eos % (Auto) Baso % (Auto) Neut # (Auto) Lymph # (Auto) Green # (Auto) Eos # (Auto) Baso # (Auto) Immature Gran # (Auto) PT INR APTT 32.2 H PTT Ratio 1.2 Sodium 135 L Potassium Chloride 104 Carbon Dioxide 26 Anion Gap 5 BUN 18 Creatinine 0.69 Est Cr Clr Drug Dosing 51.7 Est GFR ( Amer) 89.5 Est GFR (Non-Af Amer) 77.2 BUN/Creatinine Ratio 26.1 H Glucose 155 H Calcium 9.9 Magnesium Total Bilirubin 0.4 AST ALT 26 Alkaline Phosphatase Troponin I 0.03 Total Protein 6.6 Albumin 4.0 Globulin 2.6 Albumin/Globulin Ratio 1.5 Lipase 50 SARS-CoV-2, RNA, NAAT NEGATIVE 12/01/21 12/01/21 12/01/21 08:11 08:11 08:11 WBC 5.21 RBC 3.87 L Hgb 12.1 Hct 37.2 MCV 96.1 MCH 31.3 MCHC 32.5 RDW Std Deviation 50.0 H RDW Coeff of Jun 14.2 Plt Count 131 MPV 10.8 H Immature Gran % (Auto) 0.2 Neut % (Auto) 72.3 Lymph % (Auto) 17.5 Green % (Auto) 9.2 Eos % (Auto) 0.6 Baso % (Auto) 0.2 Neut # (Auto) 3.77 Lymph # (Auto) 0.91 L Green # (Auto) 0.48 Eos # (Auto) 0.03 Baso # (Auto) 0.01 Immature Gran # (Auto) 0.01 PT 15.2 H INR 1.5 H APTT PTT Ratio Sodium 136 Potassium 4.2 Chloride 103 Carbon Dioxide 27 Anion Gap 6 BUN 13 Creatinine 0.61 Est Cr Clr Drug Dosing 58.5 Est GFR ( Amer) 93.2 Est GFR (Non-Af Amer) 80.4 BUN/Creatinine Ratio 21.3 H Glucose 101 H Calcium 9.6 Magnesium 2.0 Total Bilirubin AST ALT Alkaline Phosphatase Troponin I 0.04 Total Protein Albumin Globulin Albumin/Globulin Ratio Lipase SARS-CoV-2, RNA, NAAT (1) Fall Encounter type: initial encounter Qualified Code(s): W19.XXXA - Unspecified fall, initial encounter
[2021-12-01 11:47] LABS: Partial Thromboplastin Ratio 1.3; Partial Thromboplastin Time 34.8 Seconds (21.0-31.0)
[2021-12-01] MEDS ORDERED: HEPARIN SOD (PORCINE) 1000 UNIT/ML IV ONE (13:17)
[2021-12-01 14:35] LABS: Appearance Urine Clear (Clear); Bilirubin Urine Negative (Negative); Blood Urine Negative (Negative); Color Urine Yellow; Glucose Urine UA Negative (Negative); Ketones Urine Negative (Negative); Leukocyte Esterase Urine Negative (Negative); Nitrite Urine Negative (Negative); Protein Urine Negative (Negative); Specific Gravity Urine 1.009 (1.000-1.030); Urobilinogen Urine Negative (Negative); pH Urine 7.5 (4.5-7.5)
--- NOTE | 2021-12-01 17:33 | Hospitalist Progress Note ---
Date of Service December 01, 2021 Assessment & Plan (1) Weakness: Plan: Patient reports generalized weakness with intermittent dizziness that is chronic status post fall with trauma to her head. Generalized weakness is lasted for the past 2 days. Although she was adamant about leaving today she feels she is just too weak. She still reports urinary tract symptoms and feels the current antibiotic is not working despite apparent clearance of the antibiotic on the urinalysis. She was also seen by cardiology and found to have no overt evidence of acute coronary syndrome. Suspect vertigo versus autonomic dysfunction versus dehydration contributing to her dizziness. Per cardiology a 14-day Zio patch monitor is recommended and the possibility of a dual-chamber pacemaker implantation was discussed. Telemetry revealed sinus rhythm in the 50s to 60s with long first-degree AV block. There was no profound prolonged bradycardia or pauses or high-grade block observed thus far and the first-degree AV block is a chronic finding which has been documented on EKGs dating back at least 5 years. We will have PT and OT assess her and trend orthostatics. (2) Fall: Plan: Likely mechanical fall, PT/OT. (3) Sinus bradycardia: Plan: Zio patch monitor as outpatient per cardiology and plan as above. (4) UTI (urinary tract infection): Plan: Recently found to have E. coli in her urine and has been on a course of Bactrim. However, patient reports her symptoms have not improved despite knowing her repeat urinalysis is clear. Requests an additional agent as she feels the antibiotic courses are never long enough. We will give her ceftriaxone at this point, stop Bactrim. Some vaginal irritation is present, gave Desitin. (5) Depression: Plan: Continue with Zoloft and alprazolam. 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 She reports having cleaned her house yesterday, and subsequently had a dizzy spell and then a fall and hit her head. She denies headache, visual changes, difficulty speaking, swallowing, and no other concerns for stroke symptoms. She has an appetite today. She reports feeling overall weakness today, saying she can't go home because she is too weak. She states the general weakness has been ongoing for the past two days. dysuria, urinary incontinence (which is chronic), reports itching and burning of the vagina without discharge Denies fevers or chills. She has been on Bactrim for the past week for urinary symptoms which are still ongoing. She wishes to change to another agent and she states that she feels she needs further antibiotics. Review of Systems Review of Systems: All systems were reviewed and negative except as indicated in subjective above. Physical Exam Physical Exam: CONSTITUTIONAL: WNWD, vitals as above, generally well- appearing, NAD EYES: normal conjunctivae, no scleral icterus, ENT: external ear and nose normal, PERRL EOMI, NECK: trachea midline, RESPIRATORY: clear to auscultation bilaterally, no crackles, rales or wheezes, normal respiratory effort CARDIOVASCULAR: regular rate and rhythm, S1 and 2 heard without murmurs, gallops or rubs, no JVD, no peripheral edema CHEST: inspection of chest was normal GASTROINTESTINAL: soft, nontender, ND, no guarding MUSCULOSKELETAL: strength 5/5 throughout, head is normocephalic and with gold ball sized abrasions x 2 on left upper forehead. SKIN: warm and dry NEUROLOGIC: CN 2-12 grossly intact, no sensory deficit, normal cognition, normal speech, no tremor, no gross focal deficits. Hard of hearing. PSYCHIATRIC: alert cooperative and oriented to person, place and time. Results & Data Results & Data ([facility]) Vital Signs (Past 12 Hours) Vital Signs Pulse Resp BP Pulse Ox 12/01/21 16:50 74 20 128/65 95 Laboratory Results Short CBC 11/30/21 12/01/21 Range/Units Unknown 08:11 WBC 4.31 L 5.21 (4.8-10.8) K/uL Hgb 12.2 12.1 (12.0-16.0) g/dL Hct 37.7 37.2 (37-47) % Plt Count 148 131 (130-400) K/uL BMP 11/30/21 11/30/21 12/01/21 23:04 Unknown 08:11 Sodium 135 L 136 Potassium 4.6 4.2 Chloride 104 103 Carbon Dioxide 26 27 BUN 18 13 Creatinine 0.69 0.61 Glucose 155 H 101 H Calcium 9.9 9.6 Cardiac Enzymes 11/30/21 11/30/21 12/01/21 Range/Units 23:04 Unknown 08:11 Troponin I 0.04 0.03 0.04 (0-0.04) ng/ml Liver Function 11/30/21 Range/Units Unknown Total Bilirubin 0.4 (0.2-1.0) mg/dl AST (13-39) U/L ALT 26 (7-52) U/L Alkaline Phosphatase (34-104) U/L Albumin 4.0 (3.4-5.0) gm/dl Urine 12/01/21 Range/Units Unknown Urine Color Yellow Urine Appearance Clear (Clear) Urine pH 7.5 (4.5-7.5) Ur Specific [place] 1.009 (1.000-1.030) Urine Protein Negative (Negative) Urine Glucose (UA) Negative (Negative) Medications Administered Current Inpatient Medications Acetaminophen (Acetaminophen 325 Mg Tab) 650 mg PO Q4H PRN PRN Reason: Pain or Fever Stop: 12/31/21 03:50 Alprazolam (Alprazolam 0.5 Mg Tablet) 0.25 mg PO Q8H PRN PRN Reason: Anxiety Stop: 12/31/21 03:50 Artificial Tears (Artificial Tears) 1 drops OP QID PRN PRN Reason: Dry Eyes Stop: 12/31/21 04:44 Benzocaine (Benzocaine 20% Aer Spr 82.5 Gm Can) 1 appln EXT DAILY PRN PRN Reason: Pain Stop: 12/31/21 03:50 Colchicine (Colchicine 0.6 Mg Tab) 0.6 mg PO DAILY [facility] Stop: 12/31/21 08:59 Last Admin: 12/01/21 09:15 Dose: 0.6 mg Documented by: Diclofenac Sodium (Diclofenac Sod 1% Gel 100 Gm Tube) 1 gm EXT BID [facility] Stop: 12/31/21 08:59 Last Admin: 12/01/21 09:16 Dose: 1 gm Documented by: Heparin Sodium/Dextrose (Heparin Sodium/Dextrose) 25,000 units in 500 mls @ 17 mls/hr IV .Q24H [facility]; Protocol Stop: 12/31/21 03:50 Last Titration: 12/01/21 14:16 Dose: 850 units/hr, 17 mls/hr Documented by: Ceftriaxone Sodium 1,000 mg/ (Dextrose) 50 mls @ 100 mls/hr IV Q24H [facility]; Protocol Stop: 12/06/21 19:59 Ketoconazole (Ketoconazole 2% Cr 15 Gm Tube) 1 appln EXT BID [facility] Stop: 12/11/21 08:59 Last Admin: 12/01/21 09:16 Dose: 1 appln Documented by: Nitroglycerin (Nitroglycerin Sl 0.4 Mg/Tab Tab) 0.4 mg SL UD PRN PRN Reason: Chest Pain Stop: 12/31/21 03:50 Pantoprazole Sodium (Pantoprazole 40 Mg Tab) 40 mg PO DAILY [facility] Stop: 12/31/21 08:59 Last Admin: 12/01/21 09:15 Dose: 40 mg Documented by: Petrolatum (Butt Paste (Zinc Oxide 16%) 171 Appln/57 Gm Jar) 1 appln EXT TID PRN PRN Reason: groin rash/burning/irritation Stop: 12/31/21 20:59 Polyethylene Glycol (Polyethylene (Miralax) 17 Gm Pack) 17 gm PO DAILY PRN PRN Reason: Constipation Stop: 12/31/21 03:50 Sertraline HCl (Sertraline Hcl 50 Mg Tablet) 25 mg PO HS [facility] Stop: 12/31/21 20:59 Vitamin D (Cholecalciferol 1,000 Units 25 Mcg Tab) 1,000 units PO DAILY [facility] Stop: 12/31/21 08:59 Last Admin: 12/01/21 09:15 Dose: 1,000 units Documented by: Warfarin Sodium (Warfarin Sod 5 Mg Tab) 5 mg PO DAILY@1600 [facility] Stop: 12/31/21 15:59 Last Admin: 12/01/21 17:49 Dose: 5 mg Documented by: (1) Fall Encounter type: initial encounter Qualified Code(s): W19.XXXA - Unspecified fall, initial encounter
[2021-12-01] MEDS: WARFARIN SOD 5 MG TAB PO SCH (17:49)
[2021-12-01] MEDS ORDERED: BUTT PASTE (ZINC OXIDE 16%) 171 APPLN/57 GM JAR EXT PRN (19:34)
[2021-12-01] MEDS: cefTRIAXone SODIUM 1,000 MG in DEXTROSE 5% 50 ML IV SCH (20:06)
[2021-12-01 20:52] LABS: Partial Thromboplastin Ratio 3.7
[2021-12-01 21:29] LABS: Partial Thromboplastin Time 97.4 Seconds (21.0-31.0)
[2021-12-01] MEDS: SERTRALINE HCL 50 MG TABLET PO SCH (21:57)
[2021-12-02 04:49] LABS: Hematocrit (blood only) 37.1 % (37-47); Mean Corpuscular Hemoglobin 31.3 pg (25-34); Mean Corpuscular Hgb Conc 32.3 g/dL (32-36); Mean Corpuscular Volume 96.6 fL (80-100); Mean Platelet Volume 10.2 fL (7.4-10.4); Platelet Count 127 K/uL (130-400); RDW Coefficient of Variation 14.2 % (11.5-14.5); RDW Standard Deviation 50.9 fL (36.4-46.3); Red Blood Count 3.84 M/uL (4.2-5.4); White Blood Count 4.68 K/uL (4.8-10.8)
[2021-12-02 05:04] LABS: INR 1.6 (0.9-1.1); Prothrombin Time 15.3 Seconds (9.0-12.0)
[2021-12-02 05:07] LABS: Anion Gap 6 (3-11); BUN Creatinine Ratio 21.4 (10-20); Blood Urea Nitrogen 12 mg/dl (6-23); Calcium 9.7 mg/dl (8.5-10.1); Carbon Dioxide 25 mmol/L (21-32); Chloride 107 mmol/L (98-107); Creatinine Clr Calc Pharmacy 63.8 ml/min; Est GFR (African American) 95.8 ml/min; Est GFR (Non-African American) 82.7 ml/min; Glucose 98 mg/dl (70-99); Potassium 4.2 mmol/L (3.5-5.1); Sodium 138 mmol/L (136-145)
[2021-12-02 05:32] LABS: Partial Thromboplastin Ratio 3.4
[2021-12-02 06:02] LABS: Partial Thromboplastin Time 90.7 Seconds (21.0-31.0)
[2021-12-02] MEDS: KETOCONAZOLE 2% CR 15 GM TUBE EXT SCH ×2 (08:39→20:06)
[2021-12-02] MEDS: COLCHICINE 0.6 MG TAB PO SCH (08:39)
[2021-12-02] MEDS: CHOLECALCIFEROL 1,000 UNITS 25 MCG TAB PO SCH (08:39)
[2021-12-02] MEDS: DICLOFENAC SOD 1% GEL 100 GM TUBE EXT SCH ×2 (08:39→20:05)
[2021-12-02] MEDS: PANTOprazole 40 MG TAB PO SCH (09:36)
--- NOTE | 2021-12-02 10:01 | Cardiology Progress Note ---
Date of Service December 02, 2021 Assessment & Plan (1) Fall: (2) Dizziness: (3) Ambulatory dysfunction: (4) First degree AV block: (5) Sinus bradycardia: Plan: 89-year-old female admitted following a recurrent fall, evaluation of dizziness. Suspect an element of intravascular volume depletion and vertiginous/neurologic etiology. No overt evidence of an acute coronary syndrome. Chronic stable prolonged first degree AV block noted. No significant bradyarrhythmias, pauses, high degree AV block, or tachyarrhythmia on telemetry. No overt indication for permanent pacemaker implantation yet. Outpatient 14-day ZIO monitor being arranged at the [facility]. INR subtherapeutic, on heparin. 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 Supervising Physician Attestation: I have personally performed a history and physical examination on the patient. I agree with the physician ophthalmic medical assistant's findings and plan as documented with the following additions. Subjective: Patient in good spirits this morning. Telemetry findings reveal sinus rhythm and sinus bradycardia in the 50s to 60s with stable chronic long first-degree AV block. No pauses, episodes of high-grade AV block, or prolonged profound marla cardia noted. Exam: Regular rhythm No edema Data: Urinalysis negative Assessment and Plan: Findings as noted above -Continue to observe, avoid AV garett blocking medications. -Continue Coumadin, 5 mg due today is her home dose. -Heparin bridge is reasonable while hospitalized. José Manuel Castillo, Admission and Anticipated Discharge Date Admission Date: December 01, 2021 Subjective Patient seen and examined. Chart, medications, telemetry reviewed. No further dizziness. Notes ambulating in the hallway this morning with assistance. Chronic stable arthritic complaints. Notes feeling as though she needs another day or two in the hospital to get stronger. Denies chest pain, palpitations, shortness of breath, cough, orthopnea, PND, edema, near syncope, fevers, or chills. Continuous telemetry monitoring reveals sinus bradycardia/sinus rhythm with heart rates in the 50s and 60s. Prolonged first-degree AV block noted along with rare PVC. No significant bradycardia, pauses, high degree heart block, atrial fibrillation, or atrial flutter. INR 1.6. On Coumadin for history of VTE. Lives alone at [facility]. Son lives locally, daughter is about two hours away Review of Systems Review of Systems: Complete review of systems is otherwise as stated above, negative, or noncontributory. Physical Exam Physical Exam: General: A&Ox3. NAD. Hard of hearing. HENT: Abrasion/bruising/ecchymosis left forehead. Eyes: Glasses. PER. Conjunctiva pink, sclera clear. Neck: Transmitted systolic murmur versus bilateral carotid bruits. No JVD. No HJR. Heart: RRR at 60 bpm. Grade I-II/ systolic murmur. No diastolic murmur. No rub. No gallop. PMI is nondisplaced. Lungs: Clear to auscultation. Abdomen: +BS. Soft. Nontender. No masses or organomegaly. Extremities: Stasis changes. No clubbing. No cyanosis. No edema. Distal pulses are reduced bilaterally. Neuro: No focal deficits. Results & Data ([facility]) Vital Signs (Past 12 Hours) Vital Signs Temp Pulse Pulse Resp BP BP Pulse Ox 12/02/21 08:00 36.9 C 69 18 103/64 97 12/02/21 07:15 57 L 12/02/21 04:38 36.7 C 59 L 18 118/67 94 12/01/21 23:34 36.2 C L 58 L 18 108/58 L 90 12/01/21 23:21 67 12/01/21 23:20 76 Laboratory Results Laboratory Results - last 24 hr 12/01/21 12/01/21 12/01/21 08:11 11:22 20:11 WBC RBC Hgb Hct MCV MCH MCHC RDW Std Deviation RDW Coeff of Jun Plt Count MPV ESR PT INR APTT 34.8 H 97.4 H* PTT Ratio 1.3 3.7 Sodium Potassium Chloride Carbon Dioxide 27 Anion Gap 6 BUN Creatinine 0.61 Est Cr Clr Drug Dosing 58.5 Est GFR ( Amer) 93.2 Est GFR (Non-Af Amer) 80.4 BUN/Creatinine Ratio 21.3 H Glucose Calcium Magnesium 2.0 C-Reactive Protein Urine Color Urine Appearance Urine pH Ur Specific [place] Urine Protein Urine Glucose (UA) Urine Ketones Urine Blood Urine Nitrite Urine Bilirubin Urine Urobilinogen Ur Leukocyte Esterase 12/01/21 12/02/21 12/02/21 Unknown 04:42 04:42 WBC 4.68 L RBC 3.84 L Hgb 12.0 Hct 37.1 MCV 96.6 MCH 31.3 MCHC 32.3 RDW Std Deviation 50.9 H RDW Coeff of Jun 14.2 Plt Count 127 L MPV 10.2 ESR PT 15.3 H INR 1.6 H APTT PTT Ratio Sodium Potassium Chloride Carbon Dioxide Anion Gap BUN Creatinine Est Cr Clr Drug Dosing Est GFR ( Amer) Est GFR (Non-Af Amer) BUN/Creatinine Ratio Glucose Calcium Magnesium C-Reactive Protein Urine Color Yellow Urine Appearance Clear Urine pH 7.5 Ur Specific [place] 1.009 Urine Protein Negative Urine Glucose (UA) Negative Urine Ketones Negative Urine Blood Negative Urine Nitrite Negative Urine Bilirubin Negative Urine Urobilinogen Negative Ur Leukocyte Esterase Negative 12/02/21 12/02/21 12/02/21 04:42 04:42 04:42 WBC RBC Hgb Hct MCV MCH MCHC RDW Std Deviation RDW Coeff of Jun Plt Count MPV ESR 9 PT INR APTT 90.7 H* PTT Ratio 3.4 Sodium 138 Potassium 4.2 Chloride 107 Carbon Dioxide 25 Anion Gap 6 BUN 12 Creatinine 0.56 L Est Cr Clr Drug Dosing 63.8 Est GFR ( Amer) 95.8 Est GFR (Non-Af Amer) 82.7 BUN/Creatinine Ratio 21.4 H Glucose 98 Calcium 9.7 Magnesium C-Reactive Protein < 0.50 Urine Color Urine Appearance Urine pH Ur Specific [place] Urine Protein Urine Glucose (UA) Urine Ketones Urine Blood Urine Nitrite Urine Bilirubin Urine Urobilinogen Ur Leukocyte Esterase (1) Fall Encounter type: initial encounter Qualified Code(s): W19.XXXA - Unspecified fall, initial encounter
[2021-12-02 13:40] LABS: Partial Thromboplastin Ratio 2.5
[2021-12-02 13:42] LABS: Partial Thromboplastin Time 64.7 Seconds (21.0-31.0)
--- NOTE | 2021-12-02 14:33 | Electrocardiogram Report ---
Test Reason : Blood Pressure : / mmHG Vent. Rate : 060 BPM Atrial Rate : 060 BPM P-R Int : 334 ms QRS Dur : 108 ms QT Int : 434 ms P-R-T Axes : -16 009 001 degrees QTc Int : 434 ms Sinus rhythm with 1st degree A-V block with occasional Premature ventricular complexes Borderline Criteria for Old Septal infarct Abnormal ECG When compared with ECG of 30-NOV-2021 20:40, Premature ventricular complexes are now Present Criteria for Anteroseptal infarct no longer present Confirmed by Felipe West ([id number]) on 12/02/2021 2:33:01 PM Referred By: Bhavya Lanier Confirmed By:Felipe West
[2021-12-02] MEDS: WARFARIN SOD 5 MG TAB PO SCH (16:28)
[2021-12-02] MEDS: HEPARIN SODIUM/DEXTROSE 25,000 UNITS/500 ML BAG IV SCH (16:31)
--- NOTE | 2021-12-02 18:37 | Hospitalist Progress Note ---
Date of Service December 02, 2021 Assessment & Plan (1) Weakness: Plan: Patient reports generalized weakness with intermittent dizziness that is chronic status post fall with trauma to her head. Generalized weakness is lasted for the past 2 days. Although she was adamant about leaving today she feels she is just too weak. Feels UTI symptoms and vaginal irritation is improved. She was also seen by cardiology and found to have no overt evidence of acute coronary syndrome. Suspect vertigo versus autonomic dysfunction versus dehydration contributing to her dizziness. Orthostatics are negative. Per cardiology a 14- day Zio patch monitor is recommended and the possibility of a dual-chamber pacemaker implantation was discussed. There has been no profound prolonged bradycardia or pauses or high-grade block observed thus far and the first-degree AV block is a chronic finding which has been documented on EKGs dating back at least 5 years. Per PT and OT she is ambulating at her baseline today. (2) Fall: Plan: Likely mechanical fall, PT/OT. Recurrent mechanical falls are likely multifactorial with contributing factors including generalized decline in balance and coordination at the age of 89yo, possibly some vertigo contributing, recurrent UTIs, autonomic dysfunction vs dehydration and also medication side effects (benzos, anticholinergic side effects) or polypharmacy. Mitigate fall risks such as rugs in her apt. Will plan to order PT/OT on her return home. Vesta darden with PT to assess for BPPV. (3) Sinus bradycardia: Plan: Zio patch monitor as outpatient per cardiology and plan as above. (4) UTI (urinary tract infection): Plan: Recently found to have E. coli in her urine and has been on a course of Bactrim. However, patient reports her symptoms have not improved despite knowing her repeat urinalysis is clear. Requests an additional agent as she feels the antibiotic courses are never long enough. We will give her ceftriaxone at this point, stop Bactrim. Some vaginal irritation is present, gave Desitin. She felt better with this. (5) Depression: Plan: Continue with Zoloft and alprazolam. 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 REtunr to [facility] in am with home health for PT. Daughter updated at bedside. DO Leann Frazier Hospitalist Admission and Anticipated Discharge Date Admission Date: December 01, 2021 Subjective 89 yo F presented for dizziness and weakness. reports feeling no dizziness today and feels that her weakness has improved. orthostatic vital signs negative this am. states that the Dessitin cream has helped her (and maybe the ceftriaxone also) Pt denies headache-declines a cold pack for her head She is most concerned with using her walker with wheels and wants to feel ok with this prior to leaving. Daughter arrived and we went through the care plan in detail. All questions answered, including regarging multifactorial etiology why her mom is likely suffering from recurrent falls. Review of Systems Review of Systems: All systems were reviewed and negative except as indicated in subjective above Physical Exam Physical Exam: CONSTITUTIONAL: WNWD, vitals as above, generally well- appearing, NAD EYES: normal conjunctivae, no scleral icterus, ENT: external ear and nose normal, MMM NECK: trachea midline, RESPIRATORY: clear to auscultation bilaterally, no crackles, rales or wheezes, normal respiratory effort CARDIOVASCULAR: regular rate and rhythm, S1 and 2 heard without murmurs, gallops or rubs, no JVD, no peripheral edema CHEST: inspection of chest was normal GASTROINTESTINAL: soft, nontender, ND, no guarding MUSCULOSKELETAL: strength 5/5 throughout, head is normocephalic and with gold ball sized abrasions x 2 on left upper forehead. Some surrounding purple ecchymosis present. SKIN: warm and dry NEUROLOGIC: CN 2-12 grossly intact, no sensory deficit, normal cognition, normal speech, no tremor, no gross focal deficits. Hard of hearing. PSYCHIATRIC: alert cooperative and oriented to person, place and time. Results & Data Results & Data ([facility]) Vital Signs (Past 12 Hours) Vital Signs Temp Pulse Pulse Resp BP BP Pulse Ox 12/02/21 16:00 36.5 C 61 18 119/52 L 98 12/02/21 15:07 64 12/02/21 08:00 36.9 C 69 18 103/64 97 12/02/21 07:15 57 L Laboratory Results Short CBC 12/02/21 Range/Units 04:42 WBC 4.68 L (4.8-10.8) K/uL Hgb 12.0 (12.0-16.0) g/dL Hct 37.1 (37-47) % Plt Count 127 L (130-400) K/uL BMP 12/02/21 04:42 Sodium 138 Potassium 4.2 Chloride 107 Carbon Dioxide 25 BUN 12 Creatinine 0.56 L Glucose 98 Calcium 9.7 Medications Administered Current Inpatient Medications Acetaminophen (Acetaminophen 325 Mg Tab) 650 mg PO Q4H PRN PRN Reason: Pain or Fever Stop: 12/31/21 03:50 Last Admin: 12/02/21 08:40 Dose: 650 mg Documented by: Alprazolam (Alprazolam 0.5 Mg Tablet) 0.25 mg PO Q8H PRN PRN Reason: Anxiety Stop: 12/31/21 03:50 Artificial Tears (Artificial Tears) 1 drops OP QID PRN PRN Reason: Dry Eyes Stop: 12/31/21 04:44 Benzocaine (Benzocaine 20% Aer Spr 82.5 Gm Can) 1 appln EXT DAILY PRN PRN Reason: Pain Stop: 12/31/21 03:50 Colchicine (Colchicine 0.6 Mg Tab) 0.6 mg PO DAILY [facility] Stop: 12/31/21 08:59 Last Admin: 12/02/21 08:39 Dose: 0.6 mg Documented by: Diclofenac Sodium (Diclofenac Sod 1% Gel 100 Gm Tube) 1 gm EXT BID [facility] Stop: 12/31/21 08:59 Last Admin: 12/02/21 08:39 Dose: 1 gm Documented by: Heparin Sodium/Dextrose (Heparin Sodium/Dextrose) 25,000 units in 500 mls @ 13 mls/hr IV .Q24H [facility]; Protocol Stop: 12/31/21 03:50 Last Admin: 12/02/21 16:31 Dose: 650 units/hr, 13 mls/hr Documented by: Ceftriaxone Sodium 1,000 mg/ (Dextrose) 50 mls @ 100 mls/hr IV Q24H [facility]; Protocol Stop: 12/06/21 19:59 Last Infusion: 12/01/21 21:09 Dose: Infused Documented by: Ketoconazole (Ketoconazole 2% Cr 15 Gm Tube) 1 appln EXT BID [facility] Stop: 12/11/21 08:59 Last Admin: 12/02/21 08:39 Dose: 1 appln Documented by: Nitroglycerin (Nitroglycerin Sl 0.4 Mg/Tab Tab) 0.4 mg SL UD PRN PRN Reason: Chest Pain Stop: 12/31/21 03:50 Pantoprazole Sodium (Pantoprazole 40 Mg Tab) 40 mg PO DAILY [facility] Stop: 12/31/21 08:59 Last Admin: 12/02/21 09:36 Dose: 40 mg Documented by: Petrolatum (Butt Paste (Zinc Oxide 16%) 171 Appln/57 Gm Jar) 1 appln EXT TID PRN PRN Reason: groin rash/burning/irritation Stop: 12/31/21 20:59 Polyethylene Glycol (Polyethylene (Miralax) 17 Gm Pack) 17 gm PO DAILY PRN PRN Reason: Constipation Stop: 12/31/21 03:50 Sertraline HCl (Sertraline Hcl 50 Mg Tablet) 25 mg PO HS [facility] Stop: 12/31/21 20:59 Last Admin: 12/01/21 21:57 Dose: 25 mg Documented by: Vitamin D (Cholecalciferol 1,000 Units 25 Mcg Tab) 1,000 units PO DAILY [facility] Stop: 12/31/21 08:59 Last Admin: 12/02/21 08:39 Dose: 1,000 units Documented by: Warfarin Sodium (Warfarin Sod 5 Mg Tab) 5 mg PO DAILY@1600 [facility] Stop: 12/31/21 15:59 Last Admin: 12/02/21 16:28 Dose: 5 mg Documented by: (1) Fall Encounter type: initial encounter Qualified Code(s): W19.XXXA - Unspecified fall, initial encounter
[2021-12-02] MEDS: cefTRIAXone SODIUM 1,000 MG in DEXTROSE 5% 50 ML IV SCH (20:00)
[2021-12-02] MEDS: SERTRALINE HCL 50 MG TABLET PO SCH (20:10)
[2021-12-03 06:41] LABS: Basophils # (auto) 0.04 K/uL (0-0.2); Basophils % (auto) 1.1 %; Eosinophils # (auto) 0.11 K/uL (0-0.5); Hematocrit (blood only) 36.2 % (37-47); Hemoglobin 11.7 g/dL (12.0-16.0); Immature Granulocytes # (auto) 0.01 K/uL (0.00-0.02); Immature Granulocytes % (auto) 0.3 %; Lymphocytes # (auto) 1.04 K/uL (1.2-3.4); Lymphocytes % (auto) 28.1 %; Mean Corpuscular Hemoglobin 31.2 pg (25-34); Mean Corpuscular Hgb Conc 32.3 g/dL (32-36); Mean Corpuscular Volume 96.5 fL (80-100); Mean Platelet Volume 10.8 fL (7.4-10.4); Monocytes # (auto) 0.47 K/uL (0.11-0.59); Monocytes % (auto) 12.7 %; Neutrophils # (auto) 2.03 K/uL (1.4-6.5); Neutrophils % (auto) 54.8 %; Platelet Count 121 K/uL (130-400); RDW Coefficient of Variation 14.3 % (11.5-14.5); RDW Standard Deviation 50.7 fL (36.4-46.3); Red Blood Count 3.75 M/uL (4.2-5.4)
[2021-12-03 07:23] LABS: INR 1.8 (0.9-1.1); Partial Thromboplastin Ratio 2.7; Prothrombin Time 17.2 Seconds (9.0-12.0)
[2021-12-03 07:27] LABS: Partial Thromboplastin Time 71.7 Seconds (21.0-31.0)
[2021-12-03] MEDS: DICLOFENAC SOD 1% GEL 100 GM TUBE EXT SCH (08:22)
[2021-12-03] MEDS: PANTOprazole 40 MG TAB PO SCH (08:23)
[2021-12-03] MEDS: CHOLECALCIFEROL 1,000 UNITS 25 MCG TAB PO SCH (08:23)
[2021-12-03] MEDS: COLCHICINE 0.6 MG TAB PO SCH (08:23)
[2021-12-03] MEDS: KETOCONAZOLE 2% CR 15 GM TUBE EXT SCH (08:23)
--- NOTE | 2021-12-03 09:34 | Cardiology Progress Note ---
Date of Service December 03, 2021 Assessment & Plan (1) Fall: (2) Dizziness: (3) Ambulatory dysfunction: (4) First degree AV block: (5) Sinus bradycardia: Plan: 89-year-old female admitted following a recurrent fall, with complaints of dizziness. Intravascular volume depletion and vertiginous/neurologic etiology suspected in the setting of a recurrent UTI No evidence of an acute coronary syndrome. Chronic stable first degree AV block noted along with occasional ectopy (chronic, documented in prior outpatient monitors, asymptomatic). No significant bradyarrhythmias, pauses, high degree AV block, or tachyarrhythmias No overt indication for permanent pacemaker implantation yet. Outpatient 14-day ZIO monitor ordered to be placed at the [facility] next week. 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 Admission and Anticipated Discharge Date Admission Date: December 01, 2021 Subjective Patient seen and examined. Chart, medications, telemetry reviewed. Feels better overall, stronger. No dizziness. No chest pain, palpitations, shortness of breath, cough, orthopnea, PND, edema, near syncope, fevers, or chills. Continuous telemetry monitoring over the last 24 hours reveals mild sinus bradycardia/sinus rhythm with heart rates in the 50s to 70's. There is a prolonged first-degree AV block. There are PVC's in singles, couples, and triplets. No significant bradycardia, pauses, high degree heart block, atrial fibrillation, or atrial flutter. EKG this morning reveals sinus rhythm at 64 bpm with a first degree AV block, incomplete left bundle branch block pattern. INR today is 1.8. Patient prescribed Coumadin anticoagulation due to history of VTE. Supervising Physician Attestation: I have personally performed a history and physical examination on the patient. I agree with the physician habilitation assistant's findings and plan as documented with the following additions. Subjective: Patient without any acute complaints at present. She states she feels a little stronger. Exam: No edema Data: INR 1.8 Assessment and Plan: As noted above Discontinue unfractioned heparin bridge, continue Coumadin. Stable for discharge. Arrangements for outpatient 14-day Zio monitor to be placed at [facility] already made. José Manuel Castillo, DO Review of Systems Review of Systems: Complete review of systems is otherwise as stated above, negative, or noncontributory. Physical Exam Physical Exam: General: A&Ox3. NAD. Hard of hearing. HENT: Healing abrasion/ecchymosis left forehead. Eyes: Glasses. PER. Conjunctiva pink, sclera clear. Neck: Transmitted systolic murmur versus bilateral carotid bruits. No JVD. No HJR. Heart: RRR at 66 bpm. Grade I-II/ systolic murmur. No diastolic murmur. No rub. No gallop. PMI is nondisplaced. Lungs: Clear to auscultation. Abdomen: +BS. Soft. Nontender. No masses or organomegaly. Extremities: Stasis changes. No clubbing. No cyanosis. No edema. Distal pulses are reduced bilaterally. Neuro: No focal deficits. Results & Data ([facility]) Vital Signs (Past 12 Hours) Vital Signs Temp Pulse Pulse Resp BP BP Pulse Ox 12/03/21 08:00 36.7 C 53 L 18 111/70 95 12/03/21 07:23 75 12/03/21 03:35 36.5 C 59 L 18 122/62 95 12/03/21 00:10 54 L 12/02/21 23:01 36.5 C 56 L 18 116/65 96 Laboratory Results Laboratory Results - last 24 hr 12/02/21 12/03/21 12/03/21 13:02 05:55 05:55 WBC 3.70 L RBC 3.75 L Hgb 11.7 L Hct 36.2 L MCV 96.5 MCH 31.2 MCHC 32.3 RDW Std Deviation 50.7 H RDW Coeff of Jun 14.3 Plt Count 121 L MPV 10.8 H Immature Gran % (Auto) 0.3 Neut % (Auto) 54.8 Lymph % (Auto) 28.1 [place] % (Auto) 12.7 Eos % (Auto) 3.0 Baso % (Auto) 1.1 Neut # (Auto) 2.03 Lymph # (Auto) 1.04 L [place] # (Auto) 0.47 Eos # (Auto) 0.11 Baso # (Auto) 0.04 Immature Gran # (Auto) 0.01 PT 17.2 H INR 1.8 H APTT 64.7 H* 71.7 H* PTT Ratio 2.5 2.7 (1) Fall Encounter type: initial encounter Qualified Code(s): W19.XXXA - Unspecified fall, initial encounter
--- NOTE | 2021-12-03 10:26 | Discharge Summary ---
Date of Service December 03, 2021 Principal Diagnosis weakness Fall sinus bradycardia Discharge Exam CONSTITUTIONAL: WNWD, vitals as above, generally well-appearing, NAD EYES: normal conjunctivae, no scleral icterus, ENT: external ear and nose normal, MMM NECK: trachea midline, RESPIRATORY: clear to auscultation bilaterally, no crackles, rales or wheezes, normal respiratory effort CARDIOVASCULAR: regular rate and rhythm, S1 and 2 heard without murmurs, gallops or rubs, no JVD, no peripheral edema CHEST: inspection of chest was normal GASTROINTESTINAL: soft, nontender, ND, no guarding MUSCULOSKELETAL: strength 5/5 throughout, head is normocephalic and with gold ball sized abrasions x 2 on left upper forehead. Some surrounding purple ecchymosis present. SKIN: warm and dry NEUROLOGIC: CN 2-12 grossly intact, no sensory deficit, normal cognition, normal speech, no tremor, no gross focal deficits. Hard of hearing. PSYCHIATRIC: alert cooperative and oriented to person, place and time. Discharge Data Allergies Allergy/AdvReac Type Severity Reaction Status Date / Time levofloxacin Allergy Severe ITCHING/HIV Verified 11/30/21 21:04 ES adhesive Allergy Unknown REDNESS, Verified 11/30/21 21:04 RASH indomethacin Allergy Unknown . Verified 11/30/21 21:04 meperidine Allergy Unknown UNKNOWN Verified 11/30/21 21:04 nitrofurantoin Allergy Unknown Unknown Verified 11/30/21 21:04 Sulfa (Sulfonamide Allergy Unknown Unknown Verified 11/30/21 21:04 Antibiotics) morphine AdvReac Intermediate SEVERE Verified 11/30/21 21:04 VOMITING oxycodone AdvReac Intermediate VOMITING Verified 11/30/21 21:04 tramadol AdvReac Intermediate N/V Verified 11/30/21 21:04 Consultations 12/01/21 00:24 ED Decision to Admit Stat 12/01/21 08:00 Consult Cardiology Routine Ordered Studies 11/30/21 20:15 CT cervical spine wo con Stat CT head/brain wo con Stat Hospital Course (1) Weakness: Patient reports generalized weakness with intermittent dizziness that is chronic status post fall with trauma to her head. Generalized weakness is lasted for the past 2 days. Although she was adamant about leaving today she feels she is just too weak. Feels UTI symptoms and vaginal irritation is improved. She was also seen by cardiology and found to have no overt evidence of acute coronary syndrome. Suspect vertigo versus autonomic dysfunction versus dehydration contributing to her dizziness. Orthostatics are negative. Per cardiology a 14-day Zio patch monitor is recommended and the possibility of a dual-chamber pacemaker implantation was discussed. There has been no profound prolonged bradycardia or pauses or high-grade block observed thus far and the first-degree AV block is a chronic finding which has been documented on EKGs dating back at least 5 years. Per PT and OT she is ambulating at her baseline today. (2) Fall: Likely mechanical fall, PT/OT. Recurrent mechanical falls are likely multifactorial with contributing factors including generalized decline in balance and coordination at the age of 89yo, possibly some vertigo contributing, recurrent UTIs, autonomic dysfunction vs dehydration and also medication side effects (benzos, anticholinergic side effects) or polypharmacy. Mitigate fall risks such as rugs in her apt. Will plan to order PT/OT on her return home. [place] hallpike with PT to assess for BPPV. (3) Sinus bradycardia: Zio patch monitor as outpatient per cardiology and plan as above. (4) UTI (urinary tract infection): Recently found to have E. coli in her urine and has been on a course of Bactrim. However, patient reports her symptoms have not improved despite knowing her repeat urinalysis is clear. Requests an additional agent as she feels the antibiotic courses are never long enough. We will give her ceftriaxone at this point, stop Bactrim. Some vaginal irritation is present, gave Desitin. She felt better with this. (5) Depression: Continue with Zoloft and alprazolam. 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 REtunr to [facility] in am with home health for PT. Daughter updated at bedside. Carissa Nunn DO [facility] Hospitalist Discharge Plan Discharge Items Patient Disposition: Personal Half-Way Reason For Visit: Fall Discharge Diagnosis: weakness Fall sinus bradycardia Condition on Discharge: Good Activity: Resume your previous activity Non-emergency contact: Primary Care Provider Call non-emergency contact if: you have any medication questions and your symptoms worsen Follow-up/Referrals: Bhavya Lanier DO [Primary Care Provider] - (Date & Time 12/08/2021 11:10 AM Provider Bhavya Lanier DO Department [facility] ) Diet: Regular Addtl Attending Provider Instructions: Please continue all medications as instructed on discharge list below. You have a slow heart beat (bradycardia), and were seen by cardiology while in the hospital. An event monitor is recommended for you to monitor your heart rhythm for the next two weeks. This will be set up for you through your primary care physician. Your falls are likely a result of multiple causes. It is recommended that you review the appropriateness of all medications with your PCP on followup--recommended in one week of discharge-- and that you work with PT and OT for at least the next two weeks during your recovery from your recent urinary tract infection. No further antibiotics are needed for treatment of your recent urinary tract infection. Please avoid using Aquaphor or other external creams on your vaginal area as these may contain detergents or alcohols that cause skin irritation. It is recommended that you use Dessitin with is zinc oxide and available over the counter. It was a pleasure taking care of you! Please call if you have any questions or problems. You can reach a [facility] hospitalist on duty at [facility] 24 hours a day by calling [phone]. Take care of yourself. Carissa Nunn DO [facility] Hospitalist Pending Studies at Discharge: No Stand-Alone Forms: My [facility] Skilled Items Patient informed of condition?: Yes DNR: Yes Discharge Level of Care: Other Communicable Disease: No Discharge Prognosis: Stable Lines: None Urinary Catheter: No Medications and DC Order Prescriptions: Continued Aquaphor Ointment 1 applic TOPICAL BID RF: 0 methenamine hippurate 1 gram tablet 1 g PO BID RF: 0 triamcinolone acetonide 0.1 % Ointment 1 applic TOPICAL BID RF: 0 ketoconazole 2 % cream 1 applic TOPICAL BID RF: 0 warfarin 2.5 mg tablet 2.5 mg PO UD RF: 0 Dermoplast 20 % Aerosol 1 spray TOPICAL UD PRN (Reason: Pain) RF: 0 warfarin 5 mg tablet 5 mg PO UD RF: 0 Advanced Eye Relief 1-0.3 % Drops 1 drp OPHTHALMIC (EYE) UD PRN (Reason: Dry Eyes) RF: 0 sertraline [Zoloft] 25 mg tablet 25 mg PO HS RF: 0 cod liver oil Capsule 1 cap PO DAILY RF: 0 acetaminophen [Tylenol Extra Strength] 500 mg Tablet 500 mg PO Q6H PRN (Reason: Pain) RF: 0 alprazolam 0.25 mg tablet 0.25 mg PO Q8 PRN (Reason: Anxiety) RF: 0 omeprazole 20 mg capsule,delayed release(DR/EC) 20 mg PO DAILY RF: 0 colchicine 0.6 mg tablet 0.6 mg PO DAILY RF: 0 Refresh Plus 0.5 % Dropperette 1 drp OPHTHALMIC (EYE) QID PRN (Reason: Dry Eyes) RF: 0 cholecalciferol (vitamin D3) [Vitamin D3] 25 mcg (1,000 unit) Tablet 25 mcg PO DAILY RF: 0 diclofenac sodium 1 % gel 1 ea TOPICAL BID RF: 0 Visine Dry Eye Relief 1 % Drops 2 drp OPHTHALMIC (EYE) BID PRN (Reason: Dry Eyes) RF: 0 Discontinued sulfamethoxazole-trimethoprim 800-160 mg tablet 1 tab PO BID RF: 0 Discharge Orders: Discharge Order (Routine); Ordered 12/03/21 Ordered By: Carissa Nunn Admission Data Admit Date/Time: 12/01/21 02:08 Attending Provider: Carissa Nunn Admit Provider: Malvin Hitchcock Primary Care Provider: Bhavya Lanier Other Providers: Malvin Hitchcock ; José Manuel Castillo
--- NOTE | 2021-12-03 19:17 | Electrocardiogram Report ---
Test Reason : Blood Pressure : / mmHG Vent. Rate : 064 BPM Atrial Rate : 064 BPM P-R Int : 352 ms QRS Dur : 108 ms QT Int : 430 ms P-R-T Axes : 091 -01 -07 degrees QTc Int : 443 ms Sinus rhythm with 1st degree A-V block Incomplete left bundle block Borderline ECG When compared with ECG of 02-DEC-2021 05:59, Premature ventricular complexes are no longer Present Confirmed by Cooper Dillard [id number]) on 12/03/2021 7:17:24 PM Referred By: Bhavya Lanier Confirmed By:Cooper Dillard
[2021-12-06 11:45] LABS: C Reactive Protein < 0.50 mg/dl (0-0.5)
== END 2021-12-03 15:05 | disposition home or self-care (01) ==
LOC: EDINP 19:54 → ED 19:54 → EDINP 12-01 04:20 → 2N 12-01 18:40

== ENCOUNTER 2022-01-27 20:26 | Observation (INO) ==
--- NOTE | 2022-01-27 20:48 | Emergency Department Note ---
Impression & Plan Low back pain, On warfarin therapy, History of atrial fibrillation, Ambulatory dysfunction ED Provider Note Provider: Jayjay Cooper MD DATE OF SERVICE: 01/27/2022 CHIEF COMPLAINT: Neck pain, urinary symptoms HISTORY OF PRESENT ILLNESS: Patient is a 89-year-old female past medical history including atrial fibrillation, diabetes, gout, and VTE presenting here today via ambulance from the [facility] where she resides with report of ongoing back pain over the past several weeks but developing some urinary frequency and discomfort today. Evidently a week or 2 ago did have a fall and had x-rays at her facility. Has been using Tylenol for pain as she has intolerance of narcotics. Patient has been on warfarin for history of A. fib/VTE. Patient states that the pain is more when she goes to move. Denies any new numbness or tingling in the legs. Denies significant pain in legs mainly pain in the lower back to right lower back and little bit in the very proximal right inguinal region. Denies abdominal pain. Denies chest pain or shortness of breath. Patient states she is not able to get around with her walker given the pain. Patient denies headache or head pain at this time. REVIEW OF SYSTEMS: A total of 10 review of systems was obtained and negative except as stated above in the HPI. PAST MEDICAL HISTORY: As noted above MEDICATIONS: Reviewed home medication list SOCIAL HISTORY: Resides at the [facility] personal care PHYSICAL EXAM: GENERAL: alert and oriented in no acute distress on stretcher, hard of hearing Head: normocephalic and atraumatic EYES: No injection, discharge or icterus. PERRL NECK: Trachea midline. Supple. ENT: Mucous membranes pink and moist. LUNGS: Airway patent. No retractions. Breath sounds clear HEART: Regular rate and rhythm. No chest wall tenderness ABDOMEN: Soft and non-tender, without guarding or rebound. BACK: No midline tenderness however with some right SI joint tenderness. No bilateral flank tenderness. No skin changes noted in this area. SKIN: Acyanotic, warm, dry EXTREMITIES: Patient with 2+ lower extremity edema no significant tenderness on exam. Patient states she can feel when I range her right lower extremity and right hip and her low back which hurts some but minimal. NEUROLOGICAL: No aphasia. No facial droop or slurred speech. GCS 15. Patient's laboratory studies and imaging reviewed. Differential includes Musculoskeletal, disc herniation, fracture, metastatic disease, cord compression, discitis, sciatica, cauda equina, infection, aortic disease, renal colic, gastrointestinal, as well as other pathologies. IMPRESSION/MEDICAL DECISION MAKING: Patient with a fall several weeks ago. On anticoagulation with Coumadin. Complaining of low back and right low back pain complicating ambulation now. Some urinary symptoms today. No fever reported. Patient with narcotic intolerance and thus has been using Tylenol. Basic blood work was ordered. Urinalysis from straight cath was ordered. CT the abdomen pelvis as well as lumbar spine was ordered given her use of anticoagulation to look for any possible underlying mass or bleed. Patient does not appear to have significant numbness or neurological findings in the lower extremities. Urinalysis not indicative of infection at all. Patient without significant leukocytosis or anemia. Therapeutic INR. Electrolytes with mild hyponatremia. No evidence significant renal dysfunction. Not consistent with acute hepatitis or pancreatitis. CT reports as detailed below without significant acute findings explaining her pain. Significant limitations given her intolerance of stronger pain medications. Will trial lidocaine patch. Discussed with the patient findings. Is at a personal care facility but unsure she is able to complete ADLs and continue care there given her symptoms. May need a higher level of nursing care. Patient wishes for further observation here. Discussed with her she may need placement. DIAGNOSIS: Low back pain, long-term anticoagulation ambulatory dysfunction DISPOSITION: Evaluation by the hospitalist Patient was agreeable with this plan. Preliminary Findings Only See Final Report For Complete Findings CT ABDOMEN & PELVIS Without Contrast: The ascending aorta is ectatic, measuring 4.2 cm in diameter. There is no evidence of hydronephrosis or nephrolithiasis. Cholecystectomy Extensive sigmoid colonic diverticulosis. Mild to moderate degenerative disc disease changes seen in the lumbar spine. Radiologist: Leandro Cervantes MD Study ready at 21:34 and initial results transmitted at 21:43 Preliminary Findings Only See Final Report For Complete Findings CT L SPINE: Impression: The bones are osteopenic. No acute fracture Degenerative disc disease changes seen most prominently at L1/2 junction. No spondylolisthesis. Radiologist: Leandro Cervantes MD Study ready at 21:31 and initial results transmitted at 21:53 Past Med/Surg History Medical History (Updated 01/27/22 @ 22:45 by Jayjay Cooper M.D.) Chronic a-fib Closed fracture of left hip Contusion of head Diabetes mellitus, type II Dizziness Dyslipidemia Fall Fall GERD (gastroesophageal reflux disease) Gout H/O recurrent urinary tract infection History of breast cancer History of DVT (deep vein thrombosis) History of pulmonary embolism History of stroke MRSA (methicillin resistant Staphylococcus aureus) carrier Stroke Syncope Vomiting Surgical History History of cholecystectomy History of partial mastectomy Family History Other Cancer Diabetes Social History Smoking Status: Never smoker Second Hand Exposure: No; Hx Alcohol Use: No Hx Substance Use: No Preferred Language: Indonesian Communication Ability: Effective School Treasurer Required: No Beliefs That Will Affect Care: None marital status: Current Living Situation: Personal Care Facility Current Living Situation Comment: [facility] Feels Safe at Home: Yes Assistive Devices: Glasses Allergies Allergies Allergy/AdvReac Type Severity Reaction Status Date / Time levofloxacin Allergy Severe ITCHING/HIV Verified 01/27/22 22:57 ES adhesive Allergy Unknown REDNESS, Verified 01/27/22 22:57 RASH indomethacin Allergy Unknown . Verified 01/27/22 22:57 meperidine Allergy Unknown UNKNOWN Verified 01/27/22 22:57 nitrofurantoin Allergy Unknown Unknown Verified 01/27/22 22:57 Sulfa (Sulfonamide Allergy Unknown Unknown Verified 01/27/22 22:57 Antibiotics) morphine AdvReac Intermediate SEVERE Verified 01/27/22 22:57 VOMITING oxycodone AdvReac Intermediate VOMITING Verified 01/27/22 22:57 tramadol AdvReac Intermediate N/V Verified 01/27/22 22:57 Home Meds Home Medications Medication Instructions Recorded Confirmed acetaminophen 500 mg tablet 500 mg PO Q6H PRN 04/25/21 01/27/22 (Tylenol Extra Strength) alprazolam 0.25 mg tablet 0.25 mg PO Q8 PRN 04/25/21 01/27/22 carboxymethylcellulose sodium 0.5 1 drp OPHTHALMIC (EYE) QID PRN 04/25/21 01/27/22 % eye drops in a dropperette (Refresh Plus) cholecalciferol (vitamin D3) 25 25 mcg PO DAILY 04/25/21 01/27/22 mcg (1,000 unit) tablet (Vitamin D3) cod liver oil 1 cap PO DAILY 04/25/21 01/27/22 colchicine 0.6 mg tablet 0.6 mg PO DAILY 04/25/21 01/27/22 diclofenac sodium 1 % topical gel 1 ea TOPICAL BID 04/25/21 01/27/22 omeprazole 20 mg capsule,delayed 20 mg PO DAILY 04/25/21 01/27/22 release ketoconazole 2 % topical cream 1 applic TOPICAL BID 11/30/21 01/27/22 methenamine hippurate 1 gram tablet 1 g PO BID 11/30/21 01/27/22 mineral oil-hydrophil petrolat 1 applic TOPICAL BID 11/30/21 01/27/22 topical ointment (Aquaphor) propylene glycol 1 %-glycerin 0.3 1 drp OPHTHALMIC (EYE) UD PRN 11/30/21 01/27/22 % eye drops (Advanced Eye Relief) triamcinolone acetonide 0.1 % 1 applic TOPICAL BID 11/30/21 01/27/22 topical ointment warfarin 5 mg tablet 5 mg PO UD 11/30/21 01/27/22 sertraline 50 mg tablet 50 mg PO QAM 01/27/22 01/27/22 warfarin 7.5 mg tablet 7.5 mg PO UD 01/27/22 01/27/22 Results & Data (ED) Vital Signs Vital Signs - 24 hr 01/27/22 20:32 01/27/22 21:30 Temperature 37.1 C Temperature Source Oral Pulse Rate 75 Pulse Rate [Finger] 64 Respiratory Rate 18 18 Blood Pressure 134/79 Blood Pressure [Right Arm] 137/66 Blood Pressure Mean 97 Blood Pressure Mean [Right Arm] 89 Blood Pressure Position Semi-fowlers Blood Pressure Position [Right Arm] Lying Pulse Oximetry 98 96 Oxygen Delivery Method Room Air Room Air Sepsis Recent Fever Within 48 Hours No Sepsis New/Unexplained Change in Mental Status N/A Sepsis Action Taken by Nursing No Action Required Laboratory Data Result diagrams: 01/27/22 20:46 01/27/22 20:46 Lab Results 01/27/22 01/27/22 01/27/22 Range/Units 20:46 20:46 20:46 WBC 7.16 (4.8-10.8) K/uL RBC 3.75 L (4.2-5.4) M/uL Hgb 12.0 (12.0-16.0) g/dL Hct 35.8 L (37-47) % MCV 95.5 (80-100) fL MCH 32.0 (25-34) pg MCHC 33.5 (32-36) g/dL RDW Std Deviation 48.5 H (36.4-46.3) fL RDW Coeff of Jun 13.9 (11.5-14.5) % Plt Count 152 (130-400) K/uL MPV 10.8 H (7.4-10.4) fL Immature Gran % (Auto) 0.3 % Neut % (Auto) 74.4 % Lymph % (Auto) 12.6 % [place] % (Auto) 11.6 % Eos % (Auto) 0.8 % Baso % (Auto) 0.3 % Neut # (Auto) 5.33 (1.4-6.5) K/uL Lymph # (Auto) 0.90 L (1.2-3.4) K/uL [place] # (Auto) 0.83 H (0.11-0.59) K/uL Eos # (Auto) 0.06 (0-0.5) K/uL Baso # (Auto) 0.02 (0-0.2) K/uL Immature Gran # (Auto) 0.02 (0.00-0.02) K/uL PT 24.3 H (9.0-12.0) Seconds INR 2.4 H (0.9-1.1) APTT 44.4 H (21.0-31.0) Seconds PTT Ratio 1.6 Sodium 134 L (136-145) mmol/L Potassium 4.2 (3.5-5.1) mmol/L Chloride 101 (98-107) mmol/L Carbon Dioxide 30 (21-32) mmol/L Anion Gap 3 (3-11) BUN 17 (6-23) mg/dl Creatinine 0.52 L (0.6-1.2) mg/dl Est Cr Clr Drug Dosing Not Reportable Est GFR ( Amer) 98.2 ml/min Est GFR (Non-Af Amer) 84.7 ml/min BUN/Creatinine Ratio 32.7 H (10-20) Glucose 114 H (70-99(Fasting)) mg/dl Calcium 10.2 H (8.5-10.1) mg/dl Total Bilirubin 0.5 (0.2-1.0) mg/dl AST 15 (13-39) U/L ALT 11 (7-52) U/L Alkaline Phosphatase 132 H (34-104) U/L Total Protein 6.6 (6.0-8.3) gm/dl Albumin 3.9 (3.4-5.0) gm/dl Globulin 2.7 (2.5-4.0) gm/dl Albumin/Globulin Ratio 1.4 (0.9-2) Lipase 36 (11-82) U/L Urine Color Urine Appearance (Clear) Urine pH (4.5-7.5) Ur Specific [place] (1.000-1.030) Urine Protein (Negative) Urine Glucose (UA) (Negative) Urine Ketones (Negative) Urine Blood (Negative) Urine Nitrite (Negative) Urine Bilirubin (Negative) Urine Urobilinogen (Negative) Ur Leukocyte Esterase (Negative) SARS-CoV-2, RNA, NAAT (NEGATIVE) 01/27/22 01/27/22 Range/Units 20:46 21:51 WBC (4.8-10.8) K/uL RBC (4.2-5.4) M/uL Hgb (12.0-16.0) g/dL Hct (37-47) % MCV (80-100) fL MCH (25-34) pg MCHC (32-36) g/dL RDW Std Deviation (36.4-46.3) fL RDW Coeff of Jun (11.5-14.5) % Plt Count (130-400) K/uL MPV (7.4-10.4) fL Immature Gran % (Auto) % Neut % (Auto) % Lymph % (Auto) % [place] % (Auto) % Eos % (Auto) % Baso % (Auto) % Neut # (Auto) (1.4-6.5) K/uL Lymph # (Auto) (1.2-3.4) K/uL [place] # (Auto) (0.11-0.59) K/uL Eos # (Auto) (0-0.5) K/uL Baso # (Auto) (0-0.2) K/uL Immature Gran # (Auto) (0.00-0.02) K/uL PT (9.0-12.0) Seconds INR (0.9-1.1) APTT (21.0-31.0) Seconds PTT Ratio Sodium (136-145) mmol/L Potassium (3.5-5.1) mmol/L Chloride (98-107) mmol/L Carbon Dioxide (21-32) mmol/L Anion Gap (3-11) BUN (6-23) mg/dl Creatinine (0.6-1.2) mg/dl Est Cr Clr Drug Dosing Est GFR ( Amer) ml/min Est GFR (Non-Af Amer) ml/min BUN/Creatinine Ratio (10-20) Glucose (70-99(Fasting)) mg/dl Calcium (8.5-10.1) mg/dl Total Bilirubin (0.2-1.0) mg/dl AST (13-39) U/L ALT (7-52) U/L Alkaline Phosphatase (34-104) U/L Total Protein (6.0-8.3) gm/dl Albumin (3.4-5.0) gm/dl Globulin (2.5-4.0) gm/dl Albumin/Globulin Ratio (0.9-2) Lipase (11-82) U/L Urine Color Yellow Urine Appearance Clear (Clear) Urine pH 6.0 (4.5-7.5) Ur Specific [place] 1.012 (1.000-1.030) Urine Protein Negative (Negative) Urine Glucose (UA) Negative (Negative) Urine Ketones Negative (Negative) Urine Blood Negative (Negative) Urine Nitrite Negative (Negative) Urine Bilirubin Negative (Negative) Urine Urobilinogen Negative (Negative) Ur Leukocyte Esterase Negative (Negative) SARS-CoV-2, RNA, NAAT NEGATIVE (NEGATIVE) Administered Medications Discontinued Medications Acetaminophen (Acetaminophen 325 Mg Tab) 650 mg PO NOW STA Stop: 01/27/22 21:34 Last Admin: 01/27/22 21:44 Dose: 650 mg Documented by: [id number] Discharge Plan Visit Data Chief Complaint: Back Injury/Pain ED Provider: Jayjay Cooper Discharge Problem: Low back pain, On warfarin therapy, History of atrial fibrillation, Ambulatory dysfunction Patient Disposition: Being Evaluated by Hospitalist Forms Stand Alone Forms: [facility] Prescriptions Prescriptions: No Action Aquaphor Ointment 1 applic TOPICAL BID RF: 0 methenamine hippurate 1 gram tablet 1 g PO BID RF: 0 triamcinolone acetonide 0.1 % Ointment 1 applic TOPICAL BID RF: 0 ketoconazole 2 % cream 1 applic TOPICAL BID RF: 0 warfarin 5 mg tablet 5 mg PO UD RF: 0 Advanced Eye Relief 1-0.3 % Drops 1 drp OPHTHALMIC (EYE) UD PRN (Reason: Dry Eyes) RF: 0 cod liver oil Capsule 1 cap PO DAILY RF: 0 acetaminophen [Tylenol Extra Strength] 500 mg Tablet 500 mg PO Q6H PRN (Reason: Pain) RF: 0 alprazolam 0.25 mg tablet 0.25 mg PO Q8 PRN (Reason: Anxiety) RF: 0 omeprazole 20 mg capsule,delayed release(DR/EC) 20 mg PO DAILY RF: 0 colchicine 0.6 mg tablet 0.6 mg PO DAILY RF: 0 carboxymethylcellulose sodium [Refresh Plus] 0.5 % Dropperette 1 drp OPHTHALMIC (EYE) QID PRN (Reason: Dry Eyes) RF: 0 cholecalciferol (vitamin D3) [Vitamin D3] 25 mcg (1,000 unit) Tablet 25 mcg PO DAILY RF: 0 diclofenac sodium 1 % gel 1 ea TOPICAL BID RF: 0 warfarin 7.5 mg Tablet 7.5 mg PO UD RF: 0 sertraline 50 mg tablet 50 mg PO QAM RF: 0 Referrals Referrals: [facility], [Non-Staff] - Discharge Problem: Low back pain Qualifiers: Chronicity: acute Back pain laterality: right Sciatica presence: without sciatica Qualified Code(s): M54.50 - Low back pain, unspecified
[2022-01-27 21:05] LABS: Basophils # (auto) 0.02 K/uL (0-0.2); Basophils % (auto) 0.3 %; Eosinophils # (auto) 0.06 K/uL (0-0.5); Eosinophils % (auto) 0.8 %; Hematocrit (blood only) 35.8 % (37-47); Immature Granulocytes # (auto) 0.02 K/uL (0.00-0.02); Immature Granulocytes % (auto) 0.3 %; Lymphocytes % (auto) 12.6 %; Mean Corpuscular Hgb Conc 33.5 g/dL (32-36); Mean Corpuscular Volume 95.5 fL (80-100); Mean Platelet Volume 10.8 fL (7.4-10.4); Monocytes # (auto) 0.83 K/uL (0.11-0.59); Monocytes % (auto) 11.6 %; Neutrophils # (auto) 5.33 K/uL (1.4-6.5); Neutrophils % (auto) 74.4 %; Platelet Count 152 K/uL (130-400); RDW Coefficient of Variation 13.9 % (11.5-14.5); RDW Standard Deviation 48.5 fL (36.4-46.3); Red Blood Count 3.75 M/uL (4.2-5.4); White Blood Count 7.16 K/uL (4.8-10.8)
[2022-01-27 21:10] LABS: Appearance Urine Clear (Clear); Bilirubin Urine Negative (Negative); Blood Urine Negative (Negative); Color Urine Yellow; Glucose Urine UA Negative (Negative); Ketones Urine Negative (Negative); Leukocyte Esterase Urine Negative (Negative); Nitrite Urine Negative (Negative); Protein Urine Negative (Negative); Specific Gravity Urine 1.012 (1.000-1.030); Urobilinogen Urine Negative (Negative)
[2022-01-27 21:20] LABS: INR 2.4 (0.9-1.1); Partial Thromboplastin Ratio 1.6; Partial Thromboplastin Time 44.4 Seconds (21.0-31.0); Prothrombin Time 24.3 Seconds (9.0-12.0)
[2022-01-27] MEDS ORDERED: ACETAMINOPHEN 325 MG TAB PO STA (21:33)
[2022-01-27 21:43] LABS: Alanine Aminotransferase 11 U/L (7-52); Albumin Globulin Ratio 1.4 (0.9-2); Albumin Level 3.9 gm/dl (3.4-5.0); Alkaline Phosphatase 132 U/L (34-104); Anion Gap 3 (3-11); Aspartate Aminotransferase 15 U/L (13-39); BUN Creatinine Ratio 32.7 (10-20); Bilirubin,Total 0.5 mg/dl (0.2-1.0); Blood Urea Nitrogen 17 mg/dl (6-23); Calcium 10.2 mg/dl (8.5-10.1); Carbon Dioxide 30 mmol/L (21-32); Chloride 101 mmol/L (98-107); Est GFR (African American) 98.2 ml/min; Est GFR (Non-African American) 84.7 ml/min; Globulin 2.7 gm/dl (2.5-4.0); Glucose 114 mg/dl (70-99(Fasting)); Lipase 36 U/L (11-82); Potassium 4.2 mmol/L (3.5-5.1); Sodium 134 mmol/L (136-145); Total Protein 6.6 gm/dl (6.0-8.3)
[2022-01-28] MEDS ORDERED: SODIUM CHLORIDE 0.9% 1000ML 1,000 ML IV STA (00:37)
--- NOTE | 2022-01-28 01:02 | History & Physical Report ---
Date of Service January 28, 2022 Assessment & Plan (1) Low back pain: Plan: Recent trauma, history ambulatory dysfunction Mild hypercalcemia secondary to decreased p.o. 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 Coumadin INR goal between 2 and 3 DNR Patient requests for her daughter to be updated of plan of care. Miss Lena Hein, contact #[phone]. Text document was generated using [employer]ovo voice recognition software. It may contain grammatical or spelling errors. Kindly contact undersigned for clarification of any documentation item in question. History of Present Illness Chief Complaint: Back pain Primary Care Provider: Dr. Bhavya Lanier History obtained from patient and records. History somewhat limited from patient secondary to hearing impairment. Medical history significant for PAF, valvular heart disease (moderate MR, mild AR, TTE 2021), hypercoagulable state (recurrent pulmonary embolism/DVT and MTHFR-gene mutation) on Coumadin, history of ischemic CVA, GERD, hyperlipidemia, R breast cancer status post surgery, DM2 diet-controlled, anxiety/mood disorder, leukocytoclastic vasculitis as per records, recurrent UTIs on chronic methenamine suppression Rx, chronic thrombocytopenia, ambulatory dysfunction Last confinement November 2021 for recurrent falls and sinus bradycardia. Last week, patient had a mechanical fall at personal care facility. No syncope, no chest pain, no S OB, no head trauma. Patient landed on her tailbone. Tailbone pain worse with walking sometimes radiating to the legs. No leg numbness or weakness as per patient. Usual urinary incontinence symptoms. Outpatient plain hip and sacrococcygeal x-rays negative for fracture. Patient had worsening discomfort the last few days. Patient brought to the ER for evaluation. MEDICAL HISTORY: As above. SURGICAL HISTORY: mastectomy, Cholecystectomy, Bilateral shoulder surgery, Venous stripping, BTL, cystoscopy FAMILY HISTORY: There is a family history of hypertension and breast cancer. PERSONAL SOCIAL HISTORY: Nonsmoker. No chronic intake of alcoholic beverages. Retired from [employer] work Allergies Allergy/AdvReac Type Severity Reaction Status Date / Time levofloxacin Allergy Severe ITCHING/HIV Verified 01/27/22 22:57 ES adhesive Allergy Unknown REDNESS, Verified 01/27/22 22:57 RASH indomethacin Allergy Unknown . Verified 01/27/22 22:57 meperidine Allergy Unknown UNKNOWN Verified 01/27/22 22:57 nitrofurantoin Allergy Unknown Unknown Verified 01/27/22 22:57 Sulfa (Sulfonamide Allergy Unknown Unknown Verified 01/27/22 22:57 Antibiotics) morphine AdvReac Intermediate SEVERE Verified 01/27/22 22:57 VOMITING oxycodone AdvReac Intermediate VOMITING Verified 01/27/22 22:57 tramadol AdvReac Intermediate N/V Verified 01/27/22 22:57 Home Medications Medication Instructions Recorded Confirmed Type acetaminophen 500 mg tablet 500 mg PO Q6H PRN 04/25/21 01/27/22 History (Tylenol Extra Strength) alprazolam 0.25 mg tablet 0.25 mg PO Q8 PRN 04/25/21 01/27/22 History carboxymethylcellulose sodium 0.5 1 drp OPHTHALMIC (EYE) QID PRN 04/25/21 01/27/22 History % eye drops in a dropperette (Refresh Plus) cholecalciferol (vitamin D3) 25 25 mcg PO DAILY 04/25/21 01/27/22 History mcg (1,000 unit) tablet (Vitamin D3) cod liver oil 1 cap PO DAILY 04/25/21 01/27/22 History colchicine 0.6 mg tablet 0.6 mg PO DAILY 04/25/21 01/27/22 History diclofenac sodium 1 % topical gel 1 ea TOPICAL BID 04/25/21 01/27/22 History omeprazole 20 mg capsule,delayed 20 mg PO DAILY 04/25/21 01/27/22 History release ketoconazole 2 % topical cream 1 applic TOPICAL BID 11/30/21 01/27/22 History methenamine hippurate 1 gram tablet 1 g PO BID 11/30/21 01/27/22 History mineral oil-hydrophil petrolat 1 applic TOPICAL BID 11/30/21 01/27/22 History topical ointment (Aquaphor) propylene glycol 1 %-glycerin 0.3 1 drp OPHTHALMIC (EYE) UD PRN 11/30/21 01/27/22 History % eye drops (Advanced Eye Relief) triamcinolone acetonide 0.1 % 1 applic TOPICAL BID 11/30/21 01/27/22 History topical ointment warfarin 5 mg tablet 5 mg PO UD 11/30/21 01/27/22 History sertraline 50 mg tablet 50 mg PO QAM 01/27/22 01/27/22 History warfarin 7.5 mg tablet 7.5 mg PO UD 01/27/22 01/27/22 History Past Med/Surg History Medical History (Updated 01/27/22 @ 22:45 by Jayjay Cooper M.D.) Chronic a-fib Closed fracture of left hip Contusion of head Diabetes mellitus, type II Dizziness Dyslipidemia Fall Fall GERD (gastroesophageal reflux disease) Gout H/O recurrent urinary tract infection History of breast cancer History of DVT (deep vein thrombosis) History of pulmonary embolism History of stroke MRSA (methicillin resistant Staphylococcus aureus) carrier Stroke Syncope Vomiting Surgical History History of cholecystectomy History of partial mastectomy Family History Other Cancer Diabetes Social History Smoking Status: Never smoker Second Hand Exposure: No; Hx Alcohol Use: No Hx Substance Use: No Preferred Language: Lao Communication Ability: Effective 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 Beliefs That Will Affect Care: None marital status: Current Living Situation: Alone Current Living Situation Comment: [facility] Other Information That Helps Us Care for You: No Feels Safe at Home: Yes Safety Concerns: Feels Safe At This Time Assistive Devices: Glasses and Walker Review of Systems Review of Systems: As per HPI, all 10 systems reviewed, all other ROS negative Physical Exam Physical Exam: GENERAL: Slightly anxious and uncomfortable, hard of hearing, no respiratory distress SKIN: Normal color, warm HEENT: [place] palpebral conjunctivae, no ptosis, dry buccal mucosa NECK : Supple, no tenderness CHEST : CTA, no tenderness HEART : RRR, systolic murmur ABDOMEN: Some distention, nontender BACK : Sacral tenderness, negative SLR EXTREMITIES : Minimal LE swelling, no LE tenderness, no other conspicuous deformities noted NEUROLOGIC : Coherent, no facial asymmetry, hard of hearing, gait and stance not assessed Results & Data Results & Data ([facility]) Vital Signs (Past 12 Hours) Vital Signs Temp Pulse Pulse Resp BP BP Pulse Ox 01/27/22 21:30 64 18 137/66 96 01/27/22 20:32 37.1 C 75 18 134/79 98 Laboratory Results Laboratory Results WBC 7.16 K/uL (4.8-10.8) 01/27/22 20:46 RBC 3.75 M/uL (4.2-5.4) L 01/27/22 20:46 Hgb 12.0 g/dL (12.0-16.0) 01/27/22 20:46 Hct 35.8 % (37-47) L 01/27/22 20:46 MCV 95.5 fL (80-100) 01/27/22 20:46 MCH 32.0 pg (25-34) 01/27/22 20:46 MCHC 33.5 g/dL (32-36) 01/27/22 20:46 RDW Std Deviation 48.5 fL (36.4-46.3) H 01/27/22 20:46 RDW Coeff of Jun 13.9 % (11.5-14.5) 01/27/22 20:46 Plt Count 152 K/uL (130-400) 01/27/22 20:46 MPV 10.8 fL (7.4-10.4) H 01/27/22 20:46 Immature Gran % (Auto) 0.3 % 01/27/22 20:46 Neut % (Auto) 74.4 % 01/27/22 20:46 Lymph % (Auto) 12.6 % 01/27/22 20:46 [place] % (Auto) 11.6 % 01/27/22 20:46 Eos % (Auto) 0.8 % 01/27/22 20:46 Baso % (Auto) 0.3 % 01/27/22 20:46 Neut # (Auto) 5.33 K/uL (1.4-6.5) 01/27/22 20:46 Lymph # (Auto) 0.90 K/uL (1.2-3.4) L 01/27/22 20:46 [place] # (Auto) 0.83 K/uL (0.11-0.59) H 01/27/22 20:46 Eos # (Auto) 0.06 K/uL (0-0.5) 01/27/22 20:46 Baso # (Auto) 0.02 K/uL (0-0.2) 01/27/22 20:46 Immature Gran # (Auto) 0.02 K/uL (0.00-0.02) 01/27/22 20:46 PT 24.3 Seconds (9.0-12.0) H 01/27/22 20:46 INR 2.4 (0.9-1.1) H 01/27/22 20:46 APTT 44.4 Seconds (21.0-31.0) H 01/27/22 20:46 PTT Ratio 1.6 01/27/22 20:46 Sodium 134 mmol/L (136-145) L 01/27/22 20:46 Potassium 4.2 mmol/L (3.5-5.1) 01/27/22 20:46 Chloride 101 mmol/L (98-107) 01/27/22 20:46 Carbon Dioxide 30 mmol/L (21-32) 01/27/22 20:46 Anion Gap 3 (3-11) 01/27/22 20:46 BUN 17 mg/dl (6-23) 01/27/22 20:46 Creatinine 0.52 mg/dl (0.6-1.2) L 01/27/22 20:46 Est Cr Clr Drug Dosing Not Reportable 01/27/22 20:46 Est GFR ( Amer) 98.2 ml/min 01/27/22 20:46 Est GFR (Non-Af Amer) 84.7 ml/min 01/27/22 20:46 BUN/Creatinine Ratio 32.7 (10-20) H 01/27/22 20:46 Glucose 114 mg/dl (70-99(Fasting)) H 01/27/22 20:46 Calcium 10.2 mg/dl (8.5-10.1) H 01/27/22 20:46 Total Bilirubin 0.5 mg/dl (0.2-1.0) 01/27/22 20:46 AST 15 U/L (13-39) 01/27/22 20:46 ALT 11 U/L (7-52) 01/27/22 20:46 Alkaline Phosphatase 132 U/L (34-104) H 01/27/22 20:46 Total Protein 6.6 gm/dl (6.0-8.3) 01/27/22 20:46 Albumin 3.9 gm/dl (3.4-5.0) 01/27/22 20:46 Globulin 2.7 gm/dl (2.5-4.0) 01/27/22 20:46 Albumin/Globulin Ratio 1.4 (0.9-2) 01/27/22 20:46 Lipase 36 U/L (11-82) 01/27/22 20:46 Urine Color Yellow 01/27/22 20:46 Urine Appearance Clear (Clear) 01/27/22 20:46 Urine pH 6.0 (4.5-7.5) 01/27/22 20:46 Ur Specific [place] 1.012 (1.000-1.030) 01/27/22 20:46 Urine Protein Negative (Negative) 01/27/22 20:46 Urine Glucose (UA) Negative (Negative) 01/27/22 20:46 Urine Ketones Negative (Negative) 01/27/22 20:46 Urine Blood Negative (Negative) 01/27/22 20:46 Urine Nitrite Negative (Negative) 01/27/22 20:46 Urine Bilirubin Negative (Negative) 01/27/22 20:46 Urine Urobilinogen Negative (Negative) 01/27/22 20:46 Ur Leukocyte Esterase Negative (Negative) 01/27/22 20:46 SARS-CoV-2, RNA, NAAT NEGATIVE (NEGATIVE) 01/27/22 21:[address] abdomen pelvis initial read The ascending aorta is ectatic, measuring 4.2 cmin diameter. There is no evidence of hydronephrosis or nephrolithiasis. Cholecystectomy Extensive sigmoid colonic diverticulosis. Mild to moderate degenerative disc disease changes seen in the lumbar spine CT lumbar spine initial read: The bones are osteopenic. No acute fracture Degenerative disc disease changes seen most prominentlyat L1/2 junction. No spondylolisthesis (1) Low back pain Back pain laterality: right Chronicity: acute Sciatica presence: without sciatica Qualified Code(s): M54.50 - Low back pain, unspecified
[2022-01-28] MEDS ORDERED: ACETAMINOPHEN W/CODEINE #3 1 TAB PO PRN (02:53)
[2022-01-28] MEDS ORDERED: PROMETHAZINE HCL 6.25 MG in SODIUM CHLORIDE 0.9% 50 ML IV PRN (02:53)
[2022-01-28] MEDS ORDERED: ALPRAZolam 0.25 MG TABLET PO PRN (02:53)
[2022-01-28] MEDS ORDERED: ARTIFICIAL TEARS OP PRN (03:13)
[2022-01-28] MEDS: LIDOCAINE 5% 1 PATCH TD SCH (04:06)
[2022-01-28] MEDS: ACETAMINOPHEN 325 MG TAB PO PRN (05:50)
[2022-01-28] MEDS ORDERED: GLUCOSE 10 TABS/TUBE PO PRN (06:07)
[2022-01-28] MEDS ORDERED: CARBOHYDRATES FOR HYPOGLYCEMIA PO PRN (06:07)
[2022-01-28] MEDS ORDERED: GLUCAGON FOR INJ 1 MG VIAL SQ PRN (06:07)
[2022-01-28] MEDS ORDERED: DEXTROSE 50% 50 ML SYRINGE IV PRN (06:07)
[2022-01-28] MEDS ORDERED: GLUCOSE 40% GEL 15 GM TUBE PO PRN (06:07)
[2022-01-28 06:45] LABS: Basophils # (auto) 0.02 K/uL (0-0.2); Basophils % (auto) 0.3 %; Eosinophils # (auto) 0.08 K/uL (0-0.5); Eosinophils % (auto) 1.4 %; Hematocrit (blood only) 34.7 % (37-47); Hemoglobin 11.7 g/dL (12.0-16.0); Immature Granulocytes # (auto) 0.01 K/uL (0.00-0.02); Immature Granulocytes % (auto) 0.2 %; Lymphocytes % (auto) 13.6 %; Mean Corpuscular Hemoglobin 31.5 pg (25-34); Mean Corpuscular Hgb Conc 33.7 g/dL (32-36); Mean Corpuscular Volume 93.5 fL (80-100); Mean Platelet Volume 10.7 fL (7.4-10.4); Monocytes # (auto) 0.59 K/uL (0.11-0.59); Neutrophils % (auto) 74.5 %; Platelet Count 151 K/uL (130-400); RDW Coefficient of Variation 13.9 % (11.5-14.5); RDW Standard Deviation 47.7 fL (36.4-46.3); Red Blood Count 3.71 M/uL (4.2-5.4)
[2022-01-28 06:56] LABS: INR 2.6 (0.9-1.1); Prothrombin Time 26.4 Seconds (9.0-12.0)
[2022-01-28 07:34] LABS: Estimated Average Glucose 103 mg/dl; Hemoglobin A1C 5.2 % (4.5-5.6)
--- NOTE | 2022-01-28 07:39 | CT Scan Report ---
CT lumbar spine wo con CLINICAL HISTORY: Back Pain, fall 2 wks ago, on coumadin COMPARISON STUDY: 04/25/2021 CT DOSE: 471.80 mGycm TECHNIQUE: Standard CT of the Lumbar Spine was performed without IV contrast. A dose lowering techni que was utilized adhering to the principles of ALARA. FINDINGS: Bones: The bones are osteopenic. There is no evidence for acute compression fracture. There is minima l degenerative grade 1/4 spondylolisthesis of L5 on S1. The remaining vertebral bodies are in anatomi c alignment. A Schmorl's node is seen involving the superior endplate of L1. The heights of the verte bral bodies are maintained. The remaining vertebral bodies are in anatomic alignment. Disc spaces: There is again moderate to marked disc space narrowing present from T12 through L4. Endp late sclerosis, osteophyte formation and vacuum disc phenomena are present. There is moderate disc sp jan narrowing at L4-5 and mild disc space narrowing at L5-S1. Additionally, bulging annuli, hypertrophic facet joint disease and thickening of ligamentum flavum ar e seen particularly at L3-for L4-5 with mild segmental central canal stenosis. Facet joints: Moderate to marked hypertrophic facet joint disease is seen from L3 through S1, right g reater than left. Mild degenerative changes are also seen involving the SI joints. Soft tissues: The prevertebral soft tissues are within normal limits. IMPRESSION: 1. Osteopenia with no acute osseous pathology. 2. Grade 1/4 spondylolisthesis of L5 on S1. 3. 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 ACT 112: Negative or not required by law. Electronically signed by: Landon Felipe M.D. 01/28/2022 7:38 AM
--- NOTE | 2022-01-28 07:47 | CT Scan Report ---
CT abd pelvis wo con CLINICAL HISTORY: low back pain TECHNIQUE: Helical axial images of the abdomen and pelvis were obtained. Automated dose lowering tech niques and/or adjustment according to patient size were utilized for this exam. This exam was perfor med without intravenous contrast. COMPARISON: Comparison is made to CT abdomen and pelvis 09/12/2010 FINDINGS: Lower chest: Bibasilar atelectasis versus scarring is seen. Coronal megaly is seen. Liver: Unremarkable. No focal lesions are seen. Gallbladder and biliary tree: Patient is status post cholecystectomy. No intra- or extrahepatic bilia ry ductal dilation. Pancreas: Unremarkable, no focal lesions. Spleen: Splenule is incidentally noted. Adrenals: Unremarkable. Kidneys and ureters: A 21 mm cyst is seen in the left kidney. Bladder: Limited evaluation due to underdistention. Reproductive organs: Unremarkable. Bowel: Diverticulosis is seen without evidence of diverticulitis. Lymph nodes Retroperitoneal: Unremarkable. Mesenteric: Unremarkable. Pelvic: Unremarkable. Peritoneum: Normal. Vessels: Atherosclerotic calcifications are seen. Abdominal wall: Right fat-containing inguinal hernia. An umbilical hernia is seen. Bones: Degenerative changes in the visualized spine. Orthopedic hardware seen in the left femoral nec k. IMPRESSION: No acute abnormalities. ACT 112: Negative or not required by law. Electronically signed by: Selwyn Hayes M.D. 01/28/2022 7:46 AM
[2022-01-28] MEDS: METHENAMINE HIPPURATE 1 GM TAB PO SCH ×2 (08:05→19:47)
[2022-01-28] MEDS: DICLOFENAC SOD 1% GEL 100 GM TUBE EXT SCH ×2 (08:05→19:48)
[2022-01-28] MEDS: SERTRALINE HCL 50 MG TABLET PO SCH (08:05)
[2022-01-28] MEDS: PANTOprazole 40 MG TAB PO SCH (08:05)
[2022-01-28] MEDS: INSULIN ASPART PER UNIT SC SCH ×4 (08:40→20:40)
--- NOTE | 2022-01-28 13:53 | Hospitalist Progress Note ---
Date of Service January 28, 2022 Assessment & Plan (1) Low back pain: Plan: 89-year-old female with medical history significant for PAF, valvular heart disease (moderate MR, mild AR, TTE 2021), hypercoagulable state (recurrent pulmonary embolism/DVT and MTHFR-gene mutation) on Coumadin, history of ischemic CVA, GERD, hyperlipidemia, R breast cancer status post surgery, DM2 diet- controlled, anxiety/mood disorder, leukocytoclastic vasculitis as per records, recurrent UTIs on chronic methenamine suppression Rx, chronic thrombocytopenia, who presented to the ED for evaluation of back pain and ambulatory dysfunction. Last week, patient had a fall at the personal care facility. Outpatient plain hip and sacrococcygeal x-rays negative for fracture. Back pain Amatory dysfunction Lumbar spine CT shows Grade 1/4 spondylolisthesis of L5 on S1, Degenerative disc and degenerative facet joint disease throughout the lumbar spine with segmental central canal stenosis seen at L3-4 and L4-5. Working with PT who recommends that patient can return to [facility] with home PT Will discuss lumbar spine CT findings with spine Ortho Urinary incontinence History of recurrent UTIs UA does not suggest UTI Recommend outpatient follow-up with urology for management of incontinence. Urology notified and will arrange for appt. Check postvoid residuals On chronic methenamine therapy Mild hypercalcemia Calcium on admission 10.2 Likely due to mild dehydration, received IVF Follow calcium level in the morning Hypercoagulable state (recurrent pulmonary embolism/DVT and MTHFR-gene mutation) On Coumadin, INR 2.6 Paroxysmal atrial fibrillation Not on any rate controlling or rhythm controlling medication On Coumadin, INR 2.6 DM type II Diet controlled, A1c 5.2 PAF, patient NSR DVT prophylaxis On Coumadin, INR 2.6 Dispo -likely discharge back to the [facility] tomorrow with home health PT Admission and Anticipated Discharge Date Admission Date: January 28, 2022 Supervising Physician Co-Signing Physician Notes Patient is seen and examined at bedside. States having back pain secondary to recent fall. Also reports chronic bladder incontinence. Denies any chest pain, shortness of breath, dizziness, nausea, abdominal pain. Did well with PT earlier today On exam patient is moderately built and nourished, no apparent distress, normocephalic atraumatic, EOMI, normal breath sounds, clear to auscultation, S1- S2, no murmur, abdomen soft, nontender, normal bowel sounds, alert, awake, oriented, grossly no focal deficits. Lumbago, ambulatory dysfunction likely secondary to spondylolisthesis L5-S1, lumbar spinal stenosis L3-L5. Conservative management. Discussed with orthopedic spine. Pain control. Continue PT OT. Will need to follow-up with urology for further management of urinary incontinence. On Coumadin for atrial fibrillation. Monitor INR. Plan to discharge back to personal half-way likely in the next 1 to 2 days. I personally reviewed the record. Patient is interviewed and examined at bedside. Patient's care is coordinated with Cornelia Ruiz RESIDENT INSPECTOR. Please refer to the documentation above for details of patient's presentation and for discussion of other issues. Subjective Patient seen and examined. Follow-up for low back pain, ambulatory dysfunction. Patient reports she is feeling a little better today. Working with PT. Denies chest pain or shortness of breath. No abdominal pain or nausea. Reports that she has been struggling with urinary incontinence over the past couple of weeks. States that this has been making her very tired and feeling weak. Review of Systems Review of Systems: ROS per HPI, all other systems reviewed and negative Physical Exam Constitutional: WD/WN, vitals as above no acute distress Respiratory: normal respiratory effort, lungs clear to auscultation Cardiovascular: Rate/Rhythm: regular rate and regular rhythm Vessels: normal peripheral pulses Extremities: no edema Gastrointestinal (Abdomen): Percussion/Palpation: abdomen soft; abdomen nontender Skin: no rashes, warm and dry Neurologic: no focal motor deficits Psychiatric: Orientation: alert, oriented to person and oriented to time; + not oriented to place (States that she is in the hospital however is unsure of which one) Insight: + limited insight Results & Data Results & Data ([facility]) Vital Signs (Past 12 Hours) Vital Signs Temp Pulse Pulse Resp BP Pulse Ox Pulse Ox 01/28/22 07:09 36.7 C 82 18 140/74 94 01/28/22 03:18 94 01/28/22 03:17 36.5 C 64 18 168/77 H 94 01/28/22 02:53 36.5 C 64 18 168/77 H 94 01/28/22 02:35 36.5 C 64 18 168/77 H 94 Laboratory Results Short CBC 01/27/22 01/28/22 Range/Units 20:46 06:30 WBC 7.16 5.90 (4.8-10.8) K/uL Hgb 12.0 11.7 L (12.0-16.0) g/dL Hct 35.8 L 34.7 L (37-47) % Plt Count 152 151 (130-400) K/uL BMP 01/27/22 20:46 Sodium 134 L Potassium 4.2 Chloride 101 Carbon Dioxide 30 BUN 17 Creatinine 0.52 L Glucose 114 H Calcium 10.2 H Liver Function 01/27/22 Range/Units 20:46 Total Bilirubin 0.5 (0.2-1.0) mg/dl AST 15 (13-39) U/L ALT 11 (7-52) U/L Alkaline Phosphatase 132 H (34-104) U/L Albumin 3.9 (3.4-5.0) gm/dl Urine 01/27/22 Range/Units 20:46 Urine Color Yellow Urine Appearance Clear (Clear) Urine pH 6.0 (4.5-7.5) Ur Specific [place] 1.012 (1.000-1.030) Urine Protein Negative (Negative) Urine Glucose (UA) Negative (Negative) (1) Low back pain Back pain laterality: right Chronicity: acute Sciatica presence: without sciatica Qualified Code(s): M54.50 - Low back pain, unspecified
[2022-01-28] MEDS ORDERED: WARFARIN SOD 5 MG TAB PO SCH (16:00)
[2022-01-29] MEDS: ACETAMINOPHEN 325 MG TAB PO PRN ×3 (05:43→21:26)
[2022-01-29 06:48] LABS: INR 3.5 (0.9-1.1); Prothrombin Time 34.5 Seconds (9.0-12.0)
[2022-01-29 07:00] LABS: BUN Creatinine Ratio 34.2 (10-20); Calcium 9.3 mg/dl (8.5-10.1); Est GFR (African American) 108.9 ml/min; Est GFR (Non-African American) 93.9 ml/min; Potassium 3.9 mmol/L (3.5-5.1)
[2022-01-29] MEDS: SERTRALINE HCL 50 MG TABLET PO SCH (08:24)
[2022-01-29] MEDS: DICLOFENAC SOD 1% GEL 100 GM TUBE EXT SCH ×2 (08:24→19:29)
[2022-01-29] MEDS: METHENAMINE HIPPURATE 1 GM TAB PO SCH ×2 (08:24→19:30)
[2022-01-29] MEDS: PANTOprazole 40 MG TAB PO SCH (08:24)
[2022-01-29] MEDS: LIDOCAINE 5% 1 PATCH TD SCH (08:25)
[2022-01-29] MEDS: INSULIN ASPART PER UNIT SC SCH ×4 (09:05→20:44)
--- NOTE | 2022-01-29 12:19 | Hospitalist Progress Note ---
Date of Service January 29, 2022 Assessment & Plan (1) Low back pain: Plan: Patient is 89 yr old female with H/O PAF, valvular heart disease (moderate MR, mild AR, TTE 2021), hypercoagulable state (recurrent pulmonary embolism/DVT and MTHFR-gene mutation) on Coumadin, history of ischemic CVA, GERD, hyperlipidemia, R breast cancer status post surgery, DM2 diet-controlled, anxiety/mood disorder, leukocytoclastic vasculitis as per records, recurrent UTIs on chronic methenamine suppression Rx, chronic thrombocytopenia, who presented to the ED for evaluation of back pain and ambulatory dysfunction. Patient had a fall at the personal care facility. Outpatient plain hip and sacrococcygeal x-rays negative for fracture. 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 Had PT eval: Recommends Home PT Discussed with on 01/28/22: Recommends conservative management Urinary incontinence History of recurrent UTIs UA does not suggest UTI Recommend outpatient follow-up with urology for management of incontinence. Urology notified and will arrange for appt. On chronic methenamine therapy Mild hypercalcemia Calcium on admission 10.2>>9.3 Received IV Fluids Monitor Hypercoagulable state (recurrent pulmonary embolism/DVT and MTHFR-gene mutation) INR 2.6>>3.5 Hold Coumadin today Needs follow up with Coumadin clinic upon discharge Paroxysmal atrial fibrillation Not on any rate controlling or rhythm controlling medication Coumadin held today due to elevated INR DM type II Diet controlled, A1c 5.2 DVT Px: Coumadin held INR 3.5 today Disposition Plan to discharge back to [facility] when able Admission and Anticipated Discharge Date Admission Date: January 28, 2022 Subjective Patient is seen and examined at bedside States doing much better today Back pain is better Slept well overnight No new complaints Denies any chest pain, dyspnea, dizziness, nausea, abd pain Offers no other complaints Review of Systems Review of Systems: All systems reviewed & are unremarkable except as noted in Subjective Physical Exam Physical Exam: Physical Exam: Vitals signs as noted above General Appearance:Moderately built and nourished, no apparent distress Head: normocephalic, Atraumatic Eyes: normal inspection, EOMI Neck: supple, Trachea midline Respiratory/Chest: Normal breath sounds, CTA, No accessory muscle use Cardiovascular: S1, S2, No murmur Abdomen/GI:Soft, Non tender, Bowel sounds present Extremities/Musculoskeletal:normal inspection, no edema Neurologic/Psych:AAO, grossly no focal neurological deficits,+Hearing impairment Skin: normal color, warm Results & Data Results & Data ([facility]) Vital Signs (Past 12 Hours) Vital Signs Temp Pulse Resp BP Pulse Ox 01/29/22 07:35 36.7 C 71 18 114/67 95 Laboratory Results [facility] 01/29/22 06:02 Sodium 133 L Potassium 3.9 Chloride 101 Carbon Dioxide 26 BUN 13 Creatinine 0.38 L Glucose 116 H Calcium 9.3 (1) Low back pain Back pain laterality: right Chronicity: acute Sciatica presence: without sciatica Qualified Code(s): M54.50 - Low back pain, unspecified
[2022-01-30 06:05] LABS: Hematocrit (blood only) 35.9 % (37-47); Hemoglobin 11.9 g/dL (12.0-16.0); Mean Corpuscular Hemoglobin 31.5 pg (25-34); Mean Corpuscular Hgb Conc 33.1 g/dL (32-36); Mean Platelet Volume 10.9 fL (7.4-10.4); Platelet Count 167 K/uL (130-400); RDW Coefficient of Variation 13.9 % (11.5-14.5); RDW Standard Deviation 48.4 fL (36.4-46.3); Red Blood Count 3.78 M/uL (4.2-5.4)
[2022-01-30 06:11] LABS: INR 3.3 (0.9-1.1); Prothrombin Time 32.9 Seconds (9.0-12.0)
[2022-01-30 06:30] LABS: BUN Creatinine Ratio 41.9 (10-20); Calcium 10.4 mg/dl (8.5-10.1); Est GFR (African American) 104.5 ml/min; Est GFR (Non-African American) 90.2 ml/min
[2022-01-30] MEDS: SERTRALINE HCL 50 MG TABLET PO SCH (08:21)
[2022-01-30] MEDS: ACETAMINOPHEN 325 MG TAB PO PRN ×2 (08:21→13:45)
[2022-01-30] MEDS: METHENAMINE HIPPURATE 1 GM TAB PO SCH (08:21)
[2022-01-30] MEDS: PANTOprazole 40 MG TAB PO SCH (08:21)
[2022-01-30] MEDS: INSULIN ASPART PER UNIT SC SCH ×2 (08:22→12:22)
[2022-01-30] MEDS: LIDOCAINE 5% 1 PATCH TD SCH (10:11)
[2022-01-30] MEDS: DICLOFENAC SOD 1% GEL 100 GM TUBE EXT SCH (10:12)
--- NOTE | 2022-01-30 12:41 | Hospitalist Progress Note ---
Date of Service January 30, 2022 Assessment & Plan (1) Low back pain: Plan: Patient is 89 yr old female with H/O PAF, valvular heart disease (moderate MR, mild AR, TTE 2021), hypercoagulable state (recurrent pulmonary embolism/DVT and MTHFR-gene mutation) on Coumadin, history of ischemic CVA, GERD, hyperlipidemia, R breast cancer status post surgery, DM2 diet-controlled, anxiety/mood disorder, leukocytoclastic vasculitis as per records, recurrent UTIs on chronic methenamine suppression Rx, chronic thrombocytopenia, who presented to the ED for evaluation of back pain and ambulatory dysfunction. Patient had a fall at the personal care facility. Outpatient plain hip and sacrococcygeal x-rays negative for fracture. 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 Had PT eval: Recommends Home PT Discussed with on 01/28/22: Recommends conservative management Back pain is controlled with Tylenol as needed Urinary incontinence History of recurrent UTIs UA does not suggest UTI Recommend outpatient follow-up with urology for management of incontinence. Urology notified and will arrange for appt. On chronic methenamine therapy Mild hypercalcemia Calcium on admission 10.2>>9.3 Received IV Fluids Monitor Hypercoagulable state (recurrent pulmonary embolism/DVT and MTHFR-gene mutation) INR 2.6>>3.5>3.3 Hold Coumadin today Needs follow up with Coumadin clinic upon discharge Paroxysmal atrial fibrillation Not on any rate controlling or rhythm controlling medication Coumadin held today due to elevated INR DM type II Diet controlled, A1c 5.2 DVT Px: Coumadin held INR 3.3 today Disposition Plan to discharge back to [facility] today Admission and Anticipated Discharge Date Admission Date: January 28, 2022 Subjective Patient is seen and examined at bedside No significant back pain with ambulation today Denies any chest pain, dyspnea, dizziness, nausea, abd pain plan to discharge to [facility] Review of Systems Review of Systems: All systems reviewed & are unremarkable except as noted in Subjective Physical Exam Physical Exam: Physical Exam: Vitals signs as noted above General Appearance:Moderately built and nourished, no apparent distress Head: normocephalic, Atraumatic Eyes: normal inspection, EOMI Neck: supple, Trachea midline Respiratory/Chest: Normal breath sounds, CTA, No accessory muscle use Cardiovascular: S1, S2, No murmur Abdomen/GI:Soft, Non tender, Bowel sounds present Extremities/Musculoskeletal:normal inspection, no edema Neurologic/Psych:AAO, grossly no focal neurological deficits,+Hearing impairment Skin: normal color, warm Results & Data Results & Data ([facility]) Vital Signs (Past 12 Hours) Vital Signs Temp Pulse Resp BP Pulse Ox 01/30/22 07:47 36.8 C 70 18 105/70 98 Laboratory Results Short CBC 01/30/22 Range/Units 05:18 WBC 5.40 (4.8-10.8) K/uL Hgb 11.9 L (12.0-16.0) g/dL Hct 35.9 L (37-47) % Plt Count 167 (130-400) K/uL BMP 01/30/22 05:18 Sodium 137 Potassium 4.0 Chloride 101 Carbon Dioxide 30 BUN 18 Creatinine 0.43 L Glucose 103 H Calcium 10.4 H (1) Low back pain Back pain laterality: right Chronicity: acute Sciatica presence: without sciatica Qualified Code(s): M54.50 - Low back pain, unspecified
--- NOTE | 2022-01-30 12:50 | Discharge Summary ---
Date of Service January 30, 2022 Admission HPI Per Admitting Provider History obtained from patient and records. History somewhat limited from patient secondary to hearing impairment. Medical history significant for PAF, valvular heart disease (moderate MR, mild AR, TTE 2021), hypercoagulable state (recurrent pulmonary embolism/DVT and MTHFR-gene mutation) on Coumadin, history of ischemic CVA, GERD, hyperlipidemia, R breast cancer status post surgery, DM2 diet-controlled, anxiety/mood disorder, leukocytoclastic vasculitis as per records, recurrent UTIs on chronic methenamine suppression Rx, chronic thrombocytopenia, ambulatory dysfunction Last confinement November 2021 for recurrent falls and sinus bradycardia. Last week, patient had a mechanical fall at personal care facility. No syncope, no chest pain, no S OB, no head trauma. Patient landed on her tailbone. Tailbone pain worse with walking sometimes radiating to the legs. No leg numbness or weakness as per patient. Usual urinary incontinence symptoms. Outpatient plain hip and sacrococcygeal x-rays negative for fracture. Patient had worsening discomfort the last few days. Patient brought to the ER for evaluation. MEDICAL HISTORY: As above. SURGICAL HISTORY: mastectomy, Cholecystectomy, Bilateral shoulder surgery, Venous stripping, BTL, cystoscopy FAMILY HISTORY: There is a family history of hypertension and breast cancer. PERSONAL SOCIAL HISTORY: Nonsmoker. No chronic intake of alcoholic beverages. 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 Admission Exam Per Admitting Provider Physical Exam Physical Exam: GENERAL: Slightly anxious and uncomfortable, hard of hearing, no respiratory distress SKIN: Normal color, warm HEENT: [place] palpebral conjunctivae, no ptosis, dry buccal mucosa NECK : Supple, no tenderness CHEST : CTA, no tenderness HEART : RRR, systolic murmur ABDOMEN: Some distention, nontender BACK : Sacral tenderness, negative SLR EXTREMITIES : Minimal LE swelling, no LE tenderness, no other conspicuous deformities noted NEUROLOGIC : Coherent, no facial asymmetry, hard of hearing, gait and stance not assessed Principal Diagnosis Low back pain Urinary incontinence Supratherapeutic INR Discharge Data Allergies Allergy/AdvReac Type Severity Reaction Status Date / Time levofloxacin Allergy Severe ITCHING/HIV Verified 01/27/22 22:57 ES adhesive Allergy Unknown REDNESS, Verified 01/27/22 22:57 RASH indomethacin Allergy Unknown . Verified 01/27/22 22:57 meperidine Allergy Unknown UNKNOWN Verified 01/27/22 22:57 nitrofurantoin Allergy Unknown Unknown Verified 01/27/22 22:57 Sulfa (Sulfonamide Allergy Unknown Unknown Verified 01/27/22 22:57 Antibiotics) morphine AdvReac Intermediate SEVERE Verified 01/27/22 22:57 VOMITING oxycodone AdvReac Intermediate VOMITING Verified 01/27/22 22:57 tramadol AdvReac Intermediate N/V Verified 01/27/22 22:57 Consultations 01/27/22 22:47 ED Decision to Admit Stat Ordered Studies 01/27/22 20:37 CT abd pelvis wo con Stat CT lumbar spine wo con Stat Hospital Course (1) Low back pain: Patient is 89 yr old female with H/O PAF, valvular heart disease (moderate MR, mild AR, TTE 2021), hypercoagulable state (recurrent pulmonary embolism/DVT and MTHFR-gene mutation) on Coumadin, history of ischemic CVA, GERD, hyperlipidemia, R breast cancer status post surgery, DM2 diet-controlled, anxiety/mood disorder, leukocytoclastic vasculitis as per records, recurrent UTIs on chronic methenamine suppression Rx, chronic thrombocytopenia, who presented to the ED for evaluation of back pain and ambulatory dysfunction. Patient had a fall at the personal care facility. Outpatient plain hip and sacrococcygeal x-rays negative for fracture. 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 Had PT eval: Recommends Home PT Discussed with on 01/28/22: Recommends conservative management Back pain is controlled with Tylenol as needed Urinary incontinence History of recurrent UTIs UA does not suggest UTI Recommend outpatient follow-up with urology for management of incontinence. Urology notified and will arrange for appt. On chronic methenamine therapy Mild hypercalcemia Calcium on admission 10.2>>9.3 Received IV Fluids Monitor Hypercoagulable state (recurrent pulmonary embolism/DVT and MTHFR-gene mutation) INR 2.6>>3.5>3.3 Hold Coumadin today Needs follow up with Coumadin clinic upon discharge Paroxysmal atrial fibrillation Not on any rate controlling or rhythm controlling medication Coumadin held today due to elevated INR DM type II Diet controlled, A1c 5.2 DVT Px: Coumadin held INR 3.3 today Disposition Plan to discharge back to [facility] today Total Time Total Time Spent Total Time Spent (In Minutes): 45 minutes Discharge Plan Discharge Items Patient Disposition: [facility] Reason For Visit: BACK PAIN Discharge Diagnosis: Low back pain Urinary incontinence Supratherapeutic INR Activity: Per Instructions section Exercise/Sports: Gradually increase as tolerated Non-emergency contact: Primary Care Provider and Urologist Call non-emergency contact if: you have any medication questions, your symptoms worsen, your pain is concerning for you and you have a fever Follow-up/Referrals: PCP,NO [Primary Care Provider] - Diet: Carb Consistent or DM2 and Heart Healthy Addtl Attending Provider Instructions: Follow-up with your primary care physician in 1 week upon discharge Follow-up with your urologist for further management of urinary incontinence Follow-up with Coumadin clinic on 01/31/22 with PT/INR for further adjustment of your Coumadin dose. --Your PT/INR is 3.3 today 01/30/22. Take 2mg Coumadin today. Follow-up with Coumadin clinic tomorrow for further adjustment of Coumadin dose. Seek immediate medical attention if your symptoms reoccur or worsen Please take all medications as instructed on discharge list below. Please call if you have any questions or problems. You can reach a [facility] hospitalist on duty at [facility] 24 hours a day by calling [phone] Pending Studies at Discharge: No Stand-Alone Forms: My [facility], Smoking Cessation Skilled Items Patient informed of condition?: Yes DNR: Yes Discharge Level of Care: Other Communicable Disease: No Discharge Prognosis: Stable Lines: None Urinary Catheter: No Medications and DC Order Prescriptions: Continued Aquaphor Ointment 1 applic TOPICAL BID RF: 0 methenamine hippurate 1 gram tablet 1 g PO BID RF: 0 triamcinolone acetonide 0.1 % Ointment 1 applic TOPICAL BID RF: 0 ketoconazole 2 % cream 1 applic TOPICAL BID RF: 0 warfarin 5 mg tablet 5 mg PO UD RF: 0 Advanced Eye Relief 1-0.3 % Drops 1 drp OPHTHALMIC (EYE) UD PRN (Reason: Dry Eyes) RF: 0 cod liver oil Capsule 1 cap PO DAILY RF: 0 acetaminophen [Tylenol Extra Strength] 500 mg Tablet 500 mg PO Q6H PRN (Reason: Pain) RF: 0 alprazolam 0.25 mg tablet 0.25 mg PO Q8 PRN (Reason: Anxiety) RF: 0 omeprazole 20 mg capsule,delayed release(DR/EC) 20 mg PO DAILY RF: 0 colchicine 0.6 mg tablet 0.6 mg PO DAILY RF: 0 carboxymethylcellulose sodium [Refresh Plus] 0.5 % Dropperette 1 drp OPHTHALMIC (EYE) QID PRN (Reason: Dry Eyes) RF: 0 cholecalciferol (vitamin D3) [Vitamin D3] 25 mcg (1,000 unit) Tablet 25 mcg PO DAILY RF: 0 diclofenac sodium 1 % gel 1 ea TOPICAL BID RF: 0 warfarin 7.5 mg Tablet 7.5 mg PO UD RF: 0 sertraline 50 mg tablet 50 mg PO QAM RF: 0 Discharge Orders: Discharge Order (Routine); Ordered 01/30/22 Ordered By: Ezekiel Kennedy Admission Data Admit Date/Time: 01/28/22 01:55 Attending Provider: Ezekiel Kennedy Admit Provider: Mitesh Gilmore Primary Care Provider: PCP,NO Other Providers: Mitesh Gilmore
[2022-02-01] MEDS ORDERED: WARFARIN SOD 7.5 MG TAB PO SCH (16:00)
== END 2022-01-30 14:11 | disposition home or self-care (01) ==
LOC: ED 20:26 → 3N 20:26